=== PATIENT | female | born 1935 | race Hispanic/Latino ===

== ENCOUNTER 2017-09-01 11:11 | Emergency (ER) | payer MEDICARE ==
[2017-09-01 11:52] VITALS: BP 114/96
[2017-09-01 12:39] LABS: Alanine Aminotransferase 10 units/L (7-56); Albumin 3.7 g/dL (3.9-5); BUN/Creatinine Ratio 32; Blood Urea Nitrogen 16 mg/dL (7-17); Calcium 8.9 mg/dL (8.4-10.2); Hemolysis Index 9; Lipase 40 units/L (13-60)
[2017-09-01 12:40] LABS: Basophils % (Auto) 0.2 % (0.0-1.8); Eosinophils # (Auto) 0.1 K/mm3 (0.0-0.4); Eosinophils % (Auto) 0.8 % (0.0-4.3); Hemoglobin 11.7 gm/dl (10.1-14.3); Lymphocytes # (Auto) 1.1 K/mm3 (1.2-5.4); Lymphocytes % (Auto) 15.5 % (13.4-35.0); Mean Corpuscular HGB Conc 32 % (30-34); Mean Corpuscular Hemoglobin 29 pg (28-32); Mean Corpuscular Volume 90 fl (79-97); Monocytes # (Auto) 0.5 K/mm3 (0.0-0.8); Monocytes % (Auto) 7.1 % (0.0-7.3); Platelet Count 225 K/mm3 (140-440); Red Blood Count 4.09 M/mm3 (3.65-5.03); Red Cell Distribution Width 14.3 % (13.2-15.2)
--- NOTE | 2017-09-01 13:03 | Emergency Department Report ---
ED General Adult HPI - General Chief complaint: Abdominal Pain Stated complaint: UPPER ABDOMINAL PAIN Time Seen by Provider: 09/01/17 11:49 Source: EMS Mode of arrival: Stretcher Limitations: No Limitations - History of Present Illness Initial comments: The patient is an 82-year-old female no significant past medical history who presents with left upper quadrant abdominal pain that's been going on for the last hour. Patient states that the pain is a 6 out of 10 the pain radiates to her left shoulder she states that she was resting when the pain occurred. Nothing makes the pain better or worse patient denies having any nausea or vomiting she also denies having any chest pain. Patient denies taking any medications prior to the pain and she has not taken any [id number] medications. Severity scale (0 -10): 0 - Related Data Previous Rx's Medication Instructions Recorded Last Taken Type Tramadol HCl [traMADol] 50 mg PO Q6HR PRN #20 tablet 08/28/14 Unknown Rx Docusate Sodium [Colace] 100 mg PO BID #20 capsule 09/01/17 Unknown Rx Promethazine [Phenergan TAB] 25 mg PO Q6HR PRN #20 tab 09/01/17 Unknown Rx Allergies Allergy/AdvReac Type Severity Reaction Status Date / Time bee pollen Allergy Anaphylaxis Verified 08/28/14 10:51 shellfish derived Allergy Swelling Verified 08/28/14 10:51 adhesive AdvReac BREAK Verified 08/28/14 10:51 OUT/PULLS SKIN OFF aspirin AdvReac "HEART Verified 08/28/14 10:51 SKIPS" ED Review of Systems ROS: Stated complaint: UPPER ABDOMINAL PAIN Other details as noted in HPI Constitutional: denies: chills, fever Eyes: denies: eye pain, eye discharge, vision change ENT: denies: ear pain, throat pain Respiratory: denies: cough, shortness of breath, wheezing Cardiovascular: denies: chest pain, palpitations Endocrine: no symptoms reported Gastrointestinal: abdominal pain. denies: nausea, diarrhea Genitourinary: denies: urgency, dysuria, discharge Musculoskeletal: denies: back pain, joint swelling, arthralgia Skin: denies: rash, lesions Neurological: denies: headache, weakness, paresthesias Psychiatric: denies: anxiety, depression Hematological/Lymphatic: denies: easy bleeding, easy bruising ED Past Medical Hx - Past Medical History Hx Hypertension: Yes Hx CVA: Yes Hx Heart Attack/AMI: Yes Hx Congestive Heart Failure: Yes Hx Diabetes: Yes Hx GERD: Yes Hx Renal Disease: Yes Hx Arthritis: Yes Additional medical history: CAD - Surgical History Hx Coronary Stent: Yes Additional Surgical History: COLON SURGERY. TONSILLECTOMY - Social History Smoking Status: Never Smoker Substance Use Type: None - Medications Home Medications: Home Medications Medication Instructions Recorded Confirmed Last Taken Type Tramadol HCl [traMADol] 50 mg PO Q6HR PRN #20 tablet 08/28/14 Unknown Rx Docusate Sodium [Colace] 100 mg PO BID #20 capsule 09/01/17 Unknown Rx Promethazine [Phenergan TAB] 25 mg PO Q6HR PRN #20 tab 09/01/17 Unknown Rx ED Physical Exam - General Limitations: No Limitations General appearance: alert, in no apparent distress - Head Head exam: Present: atraumatic, normocephalic - Eye Eye exam: Present: normal appearance - ENT ENT exam: Present: mucous membranes moist - Neck Neck exam: Present: normal inspection - Respiratory Respiratory exam: Present: normal lung sounds bilaterally. Absent: respiratory distress - Cardiovascular Cardiovascular Exam: Present: regular rate, normal rhythm. Absent: systolic murmur, diastolic murmur, rubs, gallop - GI/Abdominal GI/Abdominal exam: Present: soft, normal bowel sounds - Extremities Exam Extremities exam: Present: normal inspection - Back Exam Back exam: Present: normal inspection - Neurological Exam Neurological exam: Present: alert, oriented X3 - Psychiatric Psychiatric exam: Present: normal affect, normal mood - Skin Skin exam: Present: warm, dry, intact, normal color. Absent: rash ED Course Vital Signs 09/01/17 09/01/17 11:48 12:39 Temperature 98.5 F Pulse Rate 88 Respiratory 18 Rate Blood Pressure 114/96 [Left] O2 Sat by Pulse 96 99 Oximetry ED Medical Decision Making - Lab Data Result diagrams: 09/01/17 12:12 09/01/17 12:08 Lab Results 09/01/17 09/01/17 09/01/17 Range/Units 12:08 12:12 12:12 WBC 7.1 (4.5-11.0) K/mm3 RBC 4.09 (3.65-5.03) M/mm3 Hgb 11.7 (10.1-14.3) gm/dl Hct 37.0 (30.3-42.9) % MCV 90 (79-97) fl MCH 29 (28-32) pg MCHC 32 (30-34) % RDW 14.3 (13.2-15.2) % Plt Count 225 (140-440) K/mm3 Lymph % (Auto) 15.5 (13.4-35.0) % [place] % (Auto) 7.1 (0.0-7.3) % Eos % (Auto) 0.8 (0.0-4.3) % Baso % (Auto) 0.2 (0.0-1.8) % Lymph # 1.1 L (1.2-5.4) K/mm3 [place] # 0.5 (0.0-0.8) K/mm3 Eos # 0.1 (0.0-0.4) K/mm3 Baso # 0.0 (0.0-0.1) K/mm3 Seg Neutrophils % 76.4 H (40.0-70.0) % Seg Neutrophils # 5.4 (1.8-7.7) K/mm3 Sodium 142 (137-145) mmol/L Potassium 4.6 (3.6-5.0) mmol/L Chloride 102.0 (98-107) mmol/L Carbon Dioxide 29 (22-30) mmol/L Anion Gap 16 mmol/L BUN 16 (7-17) mg/dL Creatinine 0.5 L (0.7-1.2) mg/dL Estimated GFR > 60 ml/min BUN/Creatinine Ratio 32 % Glucose 100 (65-100) mg/dL POC Glucose (70-105) Calcium 8.9 (8.4-10.2) mg/dL Total Bilirubin 0.50 (0.1-1.2) mg/dL AST 15 (5-40) units/L ALT 10 (7-56) units/L Alkaline Phosphatase 46 (35-129) units/L Troponin T < 0.010 (0.00-0.029) ng/mL Total Protein 6.6 (6.3-8.2) g/dL Albumin 3.7 L (3.9-5) g/dL Albumin/Globulin Ratio 1.3 % Lipase 40 (13-60) units/L 09/01/17 Range/Units 14:51 WBC (4.5-11.0) K/mm3 RBC (3.65-5.03) M/mm3 Hgb (10.1-14.3) gm/dl Hct (30.3-42.9) % MCV (79-97) fl MCH (28-32) pg MCHC (30-34) % RDW (13.2-15.2) % Plt Count (140-440) K/mm3 Lymph % (Auto) (13.4-35.0) % [place] % (Auto) (0.0-7.3) % Eos % (Auto) (0.0-4.3) % Baso % (Auto) (0.0-1.8) % Lymph # (1.2-5.4) K/mm3 [place] # (0.0-0.8) K/mm3 Eos # (0.0-0.4) K/mm3 Baso # (0.0-0.1) K/mm3 Seg Neutrophils % (40.0-70.0) % Seg Neutrophils # (1.8-7.7) K/mm3 Sodium (137-145) mmol/L Potassium (3.6-5.0) mmol/L Chloride (98-107) mmol/L Carbon Dioxide (22-30) mmol/L Anion Gap mmol/L BUN (7-17) mg/dL Creatinine (0.7-1.2) mg/dL Estimated GFR ml/min BUN/Creatinine Ratio % Glucose (65-100) mg/dL POC Glucose 79 (70-105) Calcium (8.4-10.2) mg/dL Total Bilirubin (0.1-1.2) mg/dL AST (5-40) units/L ALT (7-56) units/L Alkaline Phosphatase (35-129) units/L Troponin T (0.00-0.029) ng/mL Total Protein (6.3-8.2) g/dL Albumin (3.9-5) g/dL Albumin/Globulin Ratio % Lipase (13-60) units/L - EKG Data -: EKG Interpreted by Co - EKG Data 09/01/17 15:41 EKG shows normal sinus rhythm no ST segment elevation or T-wave inversion normal access patient also has incomplete right bundle branch block. - Radiology Data Radiology results: report reviewed, image reviewed CT abdomen: Shows 17 mm nodule in right lower lobe recommend follow-up CT chest. Patient also has diverticulosis and moderate constipation. - Medical Decision Making Chief medical diagnosis: Constipation Differential medical diagnosis: Pancreatitis, gastritis, cholelithiasis, adhesions I'll give patient IV pain medication I'll get CBC, BMP and I will get CT scan of abdomen Patient is feeling better also send patient home With follow-up and oral pain medications to take. Discussed outpatient patient agrees with plan additional verbal discharge instructions were given. Critical care attestation.: If time is entered above; I have spent that time in minutes in the direct care of this critically ill patient, excluding procedure time. ED Disposition Clinical Impression: Lung nodule < 6cm on CT Abdominal pain Qualifiers: Abdominal location: left upper quadrant Qualified Code(s): R10.12 - Left upper quadrant pain Constipation Qualifiers: Constipation type: unspecified constipation type Qualified Code(s): K59.00 - Constipation, unspecified Disposition: DC-01 TO HOME OR SELFCARE Is pt being admited?: No Does the pt Need Aspirin: No Condition: Stable Instructions: Abdominal Pain (ED), Pulmonary Nodules (ED) Prescriptions: Docusate Sodium [Colace] 100 mg PO BID #20 capsule Promethazine [Phenergan TAB] 25 mg PO Q6HR PRN #20 tab PRN Reason: Pain Referrals: SURY SANABRIA MD [Staff Physician] - 3-5 Days
--- NOTE | 2017-09-01 14:32 | Cat Scan Report ---
FINAL REPORT EXAM: CT ABDOMEN PELVIS W CON HISTORY: abdominal pain TECHNIQUE: CT examination of the ABDOMEN after IV contrast CT examination of the PELVIS after IV contrast PRIORS: None. FINDINGS: Degenerative change in the regional skeleton. Rotatory lumbar curvature with upper right and lower left apices. Multilevel vertebral hemangiomas in thoracolumbar spine. Partly imaged nodule or consolidation in right lower lobe posteriorly measuring 17 mm. Margins are irregular. Recommend followup chest CT. Linear scar versus atelectasis in both lung bases. Smoothly marginated hypodense right hepatic lobe lesions, and multiple small hypodense lesions in the spleen, are nonspecific and may reflect cysts and/or hemangiomas. Calcified granulomas in the spleen. Normal-appearing gallbladder, adrenals, pancreas. Intact normal caliber abdominal aorta with moderate calcified atherosclerotic plaque. Normal caliber IVC. Very small hypodense right renal lesions most compatible with cysts, less than 10 mm. Otherwise normal-appearing kidneys and visible ureteral segments. Very small fat containing umbilical hernia. No retroperitoneal adenopathy. No mesenteric mass. Normal-appearing stomach and duodenum. No small bowel distention in the abdomen and pelvis. No pelvic free fluid. Normal-appearing urinary bladder and rectum. No adnexal abnormality. No gross ascites, free air, or colonic distention. No abnormality in the cecum and terminal ileum. Normal-appearing retrocecal appendix. Scattered prominence of stool may reflect mild to moderate constipation. Calcified nodule in left uterus most compatible with fibroid. Moderate sigmoid diverticulosis without CT evidence of acute inflammation. IMPRESSION: Nodule versus consolidation in right lower lobe posteriorly measuring 17 mm. Recommend followup chest CT to fully evaluate both lungs Nonspecific hypodense lesions in the liver and spleen may reflect cysts and/or hemangiomas. Multiple vertebral hemangiomas. Scattered prominence of stool may reflect mild to moderate constipation from cecum to sigmoid Moderate sigmoid diverticulosis without CT evidence of acute inflammation Calcified uterine nodule most compatible with fibroid
[2017-09-01] MEDS ORDERED: SUBLIMAZE IV ONE ×2 (15:20→16:00)
== END 2017-09-01 17:30 | disposition home or self-care (01) ==
LOC: ED 11:11
DX: R91.1 Solitary pulmonary nodule (principal); K59.00 Constipation, unspecified; I11.0 Hypertensive heart disease with heart failure; I25.2 Old myocardial infarction; I50.9 Heart failure, unspecified; E11.9 Type 2 diabetes mellitus without complications; K21.9 Gastro-esophageal reflux disease without esophagitis; M19.90 Unspecified osteoarthritis, unspecified site; I25.10 Atherosclerotic heart disease of native coronary artery without angina pectoris; Z91.030 Bee allergy status; Z91.013 Allergy to seafood; Z91.048 Other nonmedicinal substance allergy status; Z88.6 Allergy status to analgesic agent
CPT/HCPCS: 36415; 74177; 80053; 82962; 83690; 84484; 85025; 93005; 93010; 99284; Q9967

== ENCOUNTER 2018-09-24 13:39 | Inpatient (IN) | payer MEDICARE ==
[2018-09-24] MEDS ORDERED: NACL 0.9% 1000 ML IV ONE (14:41)
--- NOTE | 2018-09-24 14:44 | Emergency Department Report ---
ED General Adult HPI - General Chief complaint: Altered Mental Status Stated complaint: ALTERED MENTAL STATUS Time Seen by Provider: 09/24/18 14:35 Source: patient, EMS (ems notes not available at time of chart dictation), RN notes reviewed, old records reviewed Mode of arrival: Stretcher Limitations: Other (confused and delirious) - History of Present Illness Initial comments: This is an 83-year-old female. The patient is not known to this provider previously. We do not know who her primary care doctor is, or what her chronic medical conditions are. The patient has no complaints at this time. She is sent to the emergency room with EMS, for evaluation of weakness, fever, and altered mental status. Patient febrile to 101 axillary, and tachycardic to 116 bpm. Last known well time is not known. Family, friends unavailable for collateral i nformation or history. The patient endorses no complaints at this time, and is not able to describe exacerbating or relieving factors, aggravation, call to the nature of her symptoms, radiation. Patient started empirically on the sepsis pathway. -: unknown Severity scale (0 -10): 0 Quality: other Consistency: other Improves with: other Worsens with: other Associated Symptoms: other - Related Data Previous Rx's Medication Instructions Recorded Last Taken Type Tramadol HCl [traMADol] 50 mg PO Q6HR PRN #20 tablet 08/28/14 Unknown Rx Docusate Sodium [Colace] 100 mg PO BID #20 capsule 09/01/17 Unknown Rx Promethazine [Phenergan TAB] 25 mg PO Q6HR PRN #20 tab 09/01/17 Unknown Rx Allergies Allergy/AdvReac Type Severity Reaction Status Date / Time bee pollen Allergy Anaphylaxis Verified 08/28/14 10:51 shellfish derived Allergy Swelling Verified 08/28/14 10:51 adhesive AdvReac BREAK Verified 08/28/14 10:51 OUT/PULLS SKIN OFF aspirin AdvReac "HEART Verified 08/28/14 10:51 SKIPS" ED Review of Systems ROS: Stated complaint: ALTERED MENTAL STATUS Other details as noted in HPI Comment: Unobtainable due to pts medical conditions Cardiovascular: denies: chest pain (patient denies chest pain) Gastrointestinal: denies: abdominal pain (denies abdominal pain) Musculoskeletal: denies: back pain (denies back pain) Neurological: confusion ED Past Medical Hx - Past Medical History Hx Hypertension: Yes Hx CVA: Yes Hx Heart Attack/AMI: Yes Hx Congestive Heart Failure: Yes Hx Diabetes: Yes Hx GERD: Yes Hx Renal Disease: Yes Hx Arthritis: Yes Additional medical history: CAD - Surgical History Hx Coronary Stent: Yes Additional Surgical History: COLON SURGERY. TONSILLECTOMY - Social History Smoking Status: Unknown if ever smoked Substance Use Type: None - Medications Home Medications: Home Medications Medication Instructions Recorded Confirmed Last Taken Type Tramadol HCl [traMADol] 50 mg PO Q6HR PRN #20 tablet 08/28/14 Unknown Rx Docusate Sodium [Colace] 100 mg PO BID #20 capsule 09/01/17 Unknown Rx Promethazine [Phenergan TAB] 25 mg PO Q6HR PRN #20 tab 09/01/17 Unknown Rx ED Physical Exam - General Limitations: Altered Mental Status, Other (delirium, altered mental status, confusion) General appearance: anxious - Head Head exam: Present: atraumatic, normocephalic - Eye Eye exam: Present: normal appearance, EOMI - ENT ENT exam: Present: mucous membranes dry, normal external ear exam - Neck Neck exam: Present: normal inspection, full ROM. Absent: tenderness, meningismus - Respiratory Respiratory exam: Present: decreased breath sounds. Absent: wheezes, rales, rhonchi, stridor - Cardiovascular Cardiovascular Exam: Present: normal rhythm, tachycardia, normal heart sounds. Absent: systolic murmur, diastolic murmur, rubs, gallop - GI/Abdominal GI/Abdominal exam: Present: soft. Absent: distended, tenderness, guarding, rebound, rigid, pulsatile mass - Extremities Exam Extremities exam: Present: normal inspection (2+ pulses noted in the bilateral upper, lower extremities. Compartments soft. No long bony tenderness. The pelvis is stable.), pedal edema, other (patient moving the right upper extremity. Not moving the left upper extremity or left lower or right lower extremity) - Back Exam Back exam: Present: normal inspection. Absent: CVA tenderness (R), CVA tenderness (L), paraspinal tenderness - Neurological Exam Neurological exam: Present: altered, other (there is no facial droop. The tongue is midline. The extraocular movements are intact. Speaks in nonsensical sentences. The right upper extremity. Detailed neurologic examination not completed secondary to altered mental status patient's inability to cooperate with neurologic examination) - Psychiatric Psychiatric exam: Present: anxious - Skin Skin exam: Present: warm, dry, intact, normal color. Absent: rash ED Course Vital Signs 09/24/18 09/24/18 14:29 18:43 Temperature 101 F H 102.7 F H Pulse Rate 116 H 112 H Respiratory 16 16 Rate Blood Pressure 109/69 142/71 O2 Sat by Pulse 93 96 Oximetry - Reevaluation(s) Reevaluation #1: 09/24/18 14:47 Differential diagnosis, including not limited to: Bacteremia, viremia, pneumonia, urinary tract infection, intra-abdominal infection Assessment and plan: 83-year-old female with confusion, follows commands, fever, tachycardia, hypoxia, suspicious for acute febrile delirium. Patient will be started empirically on the sepsis pathway. Screening laboratory studies, CT scan of the brain, CT scan of the abdomen and pelvis, EKG, x-ray of the chest of been ordered. We will reassess after her data points have resulted. Currently, no family available for collateral information Reevaluation #2: 09/24/18 17:15 CT scan suggests right lower lobe pneumonia versus worsening malignancy, findings of colitis, although clinically doubt colitis given that there is no diarrhea thus far, and left-sided 5 mm ureteral stone. Clinically, leading diagnosis is infected kidney stone. Also found to be hypomagnesemic. Lactic acidosis up for his reviewed and appreciated. Discussed with urology specialist vocational education teacher, Dr. Brooke Copeland, who agrees to take the patient to the operating room for emergency evaluation. He has requested that I discuss this case with interventional radiologist vocational education teacher, Dr. Moscoso, who agrees to be available for percutaneous nephrostomy placement, if necessary. I have gone back to the patient's room, and discussed these findings with the patient's son and her granddaughter. Possibility of cancer, tumor, malignancy is also discussed, and they have verbalized understanding. Family is amenable to aggressive medical therapy at this point time. Case is presented to the hospital physician, Dr. Juan Carnes, who has accepted the patient to the medical service. ED Medical Decision Making - Lab Data Result diagrams: 09/24/18 15:04 09/24/18 15:04 Vital Signs 09/24/18 14:29 Temperature 101 F H Pulse Rate 116 H Respiratory 16 Rate Blood Pressure 109/69 O2 Sat by Pulse 93 Oximetry Vital Signs 09/24/18 09/24/18 14:29 18:43 Temperature 101 F H 102.7 F H Pulse Rate 116 H 112 H Respiratory 16 16 Rate Blood Pressure 109/69 142/71 O2 Sat by Pulse 93 96 Oximetry Lab Results 09/24/18 09/24/18 09/24/18 Range/Units 15:04 15:04 15:04 WBC 8.0 (4.5-11.0) K/mm3 RBC 4.01 (3.65-5.03) M/mm3 Hgb 12.0 (10.1-14.3) gm/dl Hct 36.5 (30.3-42.9) % MCV 91 (79-97) fl MCH 30 (28-32) pg MCHC 33 (30-34) % RDW 14.1 (13.2-15.2) % Plt Count 130 L (140-440) K/mm3 Add Manual Diff Complete Total Counted 100 Seg Neutrophils % Network Systems Analyst Seg Neuts % (Manual) 90.0 H (40.0-70.0) % Band Neutrophils % 0 % Lymphocytes % (Manual) 6.0 L (13.4-35.0) % Reactive Lymphs % (Man) 0 % Monocytes % (Manual) 4.0 (0.0-7.3) % Eosinophils % (Manual) 0 (0.0-4.3) % Basophils % (Manual) 0 (0.0-1.8) % Metamyelocytes % 0 % Myelocytes % 0 % Promyelocytes % 0 % Blast Cells % 0 % Nucleated RBC % Not Reportable Seg Neutrophils # Man 7.2 (1.8-7.7) K/mm3 Band Neutrophils # 0.0 K/mm3 Lymphocytes # (Manual) 0.5 L (1.2-5.4) K/mm3 Abs React Lymphs (Man) 0.0 K/mm3 Monocytes # (Manual) 0.3 (0.0-0.8) K/mm3 Eosinophils # (Manual) 0.0 (0.0-0.4) K/mm3 Basophils # (Manual) 0.0 (0.0-0.1) K/mm3 Metamyelocytes # 0.0 K/mm3 Myelocytes # 0.0 K/mm3 Promyelocytes # 0.0 K/mm3 Blast Cells # 0.0 K/mm3 WBC Morphology Not Reportable Hypersegmented Neuts Not Reportable Hyposegmented Neuts Not Reportable Hypogranular Neuts Not Reportable Smudge Cells Not Reportable Toxic Granulation Not Reportable Toxic Vacuolation Not Reportable Dohle Bodies Not Reportable Pelger-Huet Anomaly Not Reportable Margoth Rods Not Reportable Platelet Estimate Not Reportable Clumped Platelets Not Reportable Plt Clumps, EDTA Not Reportable Large Platelets Not Reportable Giant Platelets Not Reportable Platelet Satelliting Not Reportable Plt Morphology Comment Not Reportable RBC Morphology Normal Dimorphic RBCs Not Reportable Polychromasia Not Reportable Hypochromasia Not Reportable Poikilocytosis Not Reportable Anisocytosis Not Reportable Microcytosis Not Reportable Macrocytosis Not Reportable Spherocytes Not Reportable Pappenheimer Bodies Not Reportable Sickle Cells Not Reportable Target Cells Not Reportable Tear Drop Cells Not Reportable Ovalocytes Not Reportable Helmet Cells Not Reportable [place] Bodies Not Reportable Richardson Rings Not Reportable [place] Cells Not Reportable Bite Cells Not Reportable Crenated Cell Not Reportable Elliptocytes Not Reportable Acanthocytes (Spur) Not Reportable Rouleaux Not Reportable Hemoglobin C Crystals Not Reportable Schistocytes Not Reportable Malaria parasites Not Reportable Ulisses Bodies Not Reportable Hem Pathologist Commnt No PT 14.8 (12.2-14.9) Sec. INR 1.09 (0.87-1.13) APTT 28.3 (24.2-36.6) Sec. Sodium 140 (137-145) mmol/L Potassium 3.6 (3.6-5.0) mmol/L Chloride 101.5 (98-107) mmol/L Carbon Dioxide 23 (22-30) mmol/L Anion Gap 19 mmol/L BUN 19 H (7-17) mg/dL Creatinine 0.9 (0.7-1.2) mg/dL Estimated GFR 60 ml/min BUN/Creatinine Ratio 21 % Glucose 95 (65-100) mg/dL Lactic Acid (0.7-2.0) mmol/L Calcium 9.0 (8.4-10.2) mg/dL Magnesium (1.7-2.3) mg/dL Total Bilirubin 0.50 (0.1-1.2) mg/dL AST 30 (5-40) units/L ALT 12 (7-56) units/L Alkaline Phosphatase 42 (35-129) units/L Total Creatine Kinase (30-135) units/L Troponin T 0.029 (0.00-0.029) ng/mL Total Protein 6.1 L (6.3-8.2) g/dL Albumin 3.7 L (3.9-5) g/dL Albumin/Globulin Ratio 1.5 % Urine Color (Yellow) Urine Turbidity (Clear) Urine pH (5.0-7.0) Ur Specific [place] (1.003-1.030) Urine Protein (Negative) mg/dL Urine Glucose (UA) (Negative) mg/dL Urine Ketones (Negative) mg/dL Urine Blood (Negative) Urine Nitrite (Negative) Urine Bilirubin (Negative) Urine Urobilinogen (<2.0) mg/dL Ur Leukocyte Esterase (Negative) Urine WBC (Auto) (0.0-6.0) /HPF Urine RBC (Auto) (0.0-6.0) /HPF U Epithel Cells (Auto) (0-13.0) /HPF Urine Bacteria (Auto) (Negative) /HPF Urine Mucus /HPF Urine Yeast (Budding) /HPF Salicylates (2.8-20.0) mg/dL Acetaminophen (10.0-30.0) ug/mL 09/24/18 09/24/18 09/24/18 Range/Units 15:04 15:04 15:04 WBC (4.5-11.0) K/mm3 RBC (3.65-5.03) M/mm3 Hgb (10.1-14.3) gm/dl Hct (30.3-42.9) % MCV (79-97) fl MCH (28-32) pg MCHC (30-34) % RDW (13.2-15.2) % Plt Count (140-440) K/mm3 Add Manual Diff Total Counted Seg Neutrophils % Seg Neuts % (Manual) (40.0-70.0) % Band Neutrophils % % Lymphocytes % (Manual) (13.4-35.0) % Reactive Lymphs % (Man) % Monocytes % (Manual) (0.0-7.3) % Eosinophils % (Manual) (0.0-4.3) % Basophils % (Manual) (0.0-1.8) % Metamyelocytes % % Myelocytes % % Promyelocytes % % Blast Cells % % Nucleated RBC % Seg Neutrophils # Man (1.8-7.7) K/mm3 Band Neutrophils # K/mm3 Lymphocytes # (Manual) (1.2-5.4) K/mm3 Abs React Lymphs (Man) K/mm3 Monocytes # (Manual) (0.0-0.8) K/mm3 Eosinophils # (Manual) (0.0-0.4) K/mm3 Basophils # (Manual) (0.0-0.1) K/mm3 Metamyelocytes # K/mm3 Myelocytes # K/mm3 Promyelocytes # K/mm3 Blast Cells # K/mm3 WBC Morphology Hypersegmented Neuts Hyposegmented Neuts Hypogranular Neuts Smudge Cells Toxic Granulation Toxic Vacuolation Dohle Bodies Pelger-Huet Anomaly Margoth Rods Platelet Estimate Clumped Platelets Plt Clumps, EDTA Large Platelets Giant Platelets Platelet Satelliting Plt Morphology Comment RBC Morphology Dimorphic RBCs Polychromasia Hypochromasia Poikilocytosis Anisocytosis Microcytosis Macrocytosis Spherocytes Pappenheimer Bodies Sickle Cells Target Cells Tear Drop Cells Ovalocytes Helmet Cells [place] Bodies Richardson Rings [place] Cells Bite Cells Crenated Cell Elliptocytes Acanthocytes (Spur) Rouleaux Hemoglobin C Crystals Schistocytes Malaria parasites Ulisses Bodies Hem Pathologist Commnt PT (12.2-14.9) Sec. INR (0.87-1.13) APTT (24.2-36.6) Sec. Sodium (137-145) mmol/L Potassium (3.6-5.0) mmol/L Chloride (98-107) mmol/L Carbon Dioxide (22-30) mmol/L Anion Gap mmol/L BUN (7-17) mg/dL Creatinine (0.7-1.2) mg/dL Estimated GFR ml/min BUN/Creatinine Ratio % Glucose (65-100) mg/dL Lactic Acid 4.40 H* (0.7-2.0) mmol/L Calcium (8.4-10.2) mg/dL Magnesium 1.20 L (1.7-2.3) mg/dL Total Bilirubin (0.1-1.2) mg/dL AST (5-40) units/L ALT (7-56) units/L Alkaline Phosphatase (35-129) units/L Total Creatine Kinase 842 H (30-135) units/L Troponin T (0.00-0.029) ng/mL Total Protein (6.3-8.2) g/dL Albumin (3.9-5) g/dL Albumin/Globulin Ratio % Urine Color (Yellow) Urine Turbidity (Clear) Urine pH (5.0-7.0) Ur Specific [place] (1.003-1.030) Urine Protein (Negative) mg/dL Urine Glucose (UA) (Negative) mg/dL Urine Ketones (Negative) mg/dL Urine Blood (Negative) Urine Nitrite (Negative) Urine Bilirubin (Negative) Urine Urobilinogen (<2.0) mg/dL Ur Leukocyte Esterase (Negative) Urine WBC (Auto) (0.0-6.0) /HPF Urine RBC (Auto) (0.0-6.0) /HPF U Epithel Cells (Auto) (0-13.0) /HPF Urine Bacteria (Auto) (Negative) /HPF Urine Mucus /HPF Urine Yeast (Budding) /HPF Salicylates < 0.3 L (2.8-20.0) mg/dL Acetaminophen (10.0-30.0) ug/mL 09/24/18 09/24/18 09/24/18 Range/Units 15:04 15:09 16:00 WBC (4.5-11.0) K/mm3 RBC (3.65-5.03) M/mm3 Hgb (10.1-14.3) gm/dl Hct (30.3-42.9) % MCV (79-97) fl MCH (28-32) pg MCHC (30-34) % RDW (13.2-15.2) % Plt Count (140-440) K/mm3 Add Manual Diff Total Counted Seg Neutrophils % Seg Neuts % (Manual) (40.0-70.0) % Band Neutrophils % % Lymphocytes % (Manual) (13.4-35.0) % Reactive Lymphs % (Man) % Monocytes % (Manual) (0.0-7.3) % Eosinophils % (Manual) (0.0-4.3) % Basophils % (Manual) (0.0-1.8) % Metamyelocytes % % Myelocytes % % Promyelocytes % % Blast Cells % % Nucleated RBC % Seg Neutrophils # Man (1.8-7.7) K/mm3 Band Neutrophils # K/mm3 Lymphocytes # (Manual) (1.2-5.4) K/mm3 Abs React Lymphs (Man) K/mm3 Monocytes # (Manual) (0.0-0.8) K/mm3 Eosinophils # (Manual) (0.0-0.4) K/mm3 Basophils # (Manual) (0.0-0.1) K/mm3 Metamyelocytes # K/mm3 Myelocytes # K/mm3 Promyelocytes # K/mm3 Blast Cells # K/mm3 WBC Morphology Hypersegmented Neuts Hyposegmented Neuts Hypogranular Neuts Smudge Cells Toxic Granulation Toxic Vacuolation Dohle Bodies Pelger-Huet Anomaly Margoth Rods Platelet Estimate Clumped Platelets Plt Clumps, EDTA Large Platelets Giant Platelets Platelet Satelliting Plt Morphology Comment RBC Morphology Dimorphic RBCs Polychromasia Hypochromasia Poikilocytosis Anisocytosis Microcytosis Macrocytosis Spherocytes Pappenheimer Bodies Sickle Cells Target Cells Tear Drop Cells Ovalocytes Helmet Cells [place] Bodies Richardson Rings [place] Cells Bite Cells Crenated Cell Elliptocytes Acanthocytes (Spur) Rouleaux Hemoglobin C Crystals Schistocytes Malaria parasites Ulisses Bodies Hem Pathologist Commnt PT (12.2-14.9) Sec. INR (0.87-1.13) APTT (24.2-36.6) Sec. Sodium (137-145) mmol/L Potassium (3.6-5.0) mmol/L Chloride (98-107) mmol/L Carbon Dioxide (22-30) mmol/L Anion Gap mmol/L BUN (7-17) mg/dL Creatinine (0.7-1.2) mg/dL Estimated GFR ml/min BUN/Creatinine Ratio % Glucose (65-100) mg/dL Lactic Acid 4.40 H* (0.7-2.0) mmol/L Calcium (8.4-10.2) mg/dL Magnesium (1.7-2.3) mg/dL Total Bilirubin (0.1-1.2) mg/dL AST (5-40) units/L ALT (7-56) units/L Alkaline Phosphatase (35-129) units/L Total Creatine Kinase (30-135) units/L Troponin T (0.00-0.029) ng/mL Total Protein (6.3-8.2) g/dL Albumin (3.9-5) g/dL Albumin/Globulin Ratio % Urine Color Vane (Yellow) Urine Turbidity Slightly-cloudy (Clear) Urine pH 5.0 (5.0-7.0) Ur Specific [place] 1.017 (1.003-1.030) Urine Protein 30 mg/dl (Negative) mg/dL Urine Glucose (UA) Neg (Negative) mg/dL Urine Ketones Tr (Negative) mg/dL Urine Blood Lg (Negative) Urine Nitrite Pos (Negative) Urine Bilirubin Neg (Negative) Urine Urobilinogen < 2.0 (<2.0) mg/dL Ur Leukocyte Esterase Sm (Negative) Urine WBC (Auto) 39.0 H (0.0-6.0) /HPF Urine RBC (Auto) 35.0 (0.0-6.0) /HPF U Epithel Cells (Auto) < 1.0 (0-13.0) /HPF Urine Bacteria (Auto) 4+ (Negative) /HPF Urine Mucus 2+ /HPF Urine Yeast (Budding) 1+ /HPF Salicylates (2.8-20.0) mg/dL Acetaminophen < 5.0 L (10.0-30.0) ug/mL - EKG Data -: EKG Interpreted by Me Rate: tachycardia - EKG Data When compared to previous EKG there are: no significant change, previous EKG unavailable Interpretation: unchanged when compared t 09/24/18 15:12 Sinus tachycardia, 112 bpm, left axis deviation, motion artifact, left anterior fascicular block, QTC prolonged, incomplete right bundle-branch block, abnormal EKG, this is not consistent with ST elevation myocardial infarction. Appears to be grossly unchanged when compared to prior EKG. Comparison made to 09/01/2017. - Radiology Data Radiology results: report reviewed, image reviewed interpreted by me: X-ray of the chest shows nonspecific interstitial pattern, right middle lobe, right lower lobe atelectasis versus infiltrate versus hilar enhancement, left lower lobe obscured by the diaphragm and cardiac silhouette, calcified aorta, Date of : 1935 Sex: Female Report Date: 2018-09-24 Report Status: Finalized [facility] [address] [place] [address] Cat Scan Report Signed Patient: DARBY GUILLORY MR#: [id number] : 1935 Acct:[id number] Age/Sex: 83 / F ADM Date: 09/24/18 Loc: ED Attending Dr: Ordering Physician: AVA GARCIA MD Date of Service: 09/24/18 Procedure(s): CT abdomen pelvis wo con Accession Number(s): [id number] cc: AVA GARCIA MD PROCEDURE: CT ABDOMEN PELVIS WO CON TECHNIQUE: Routine axial cuts were acquired through the abdomen and pelvis no contrast material was administered, sagittal and coronal reconstructions are available CTDI 25 DLP 1335 HISTORY: ams delerium sepsis COMPARISONS: Comparison study 09/01/2017 FINDINGS: Evaluation is compromised by motion as well as technique there is marked artifact from the patient's arms overlying the abdomen At the posterior right base there is a pleural-based ovoid 5 cm soft tissue density which could represent rounded pneumonia or primary or secondary malignancy, given that this has significantly increased in size since the prior exam for the workup for malignancy is recommended There is pleural thickening with chronic and emphysematous changes noted at both lung bases there is no true focal consolidation with air bronchograms at either lung bases Small hiatal hernia Nondistended thick walled stomach No definite free air or free fluid on this study that lacks contrast No bowel dilatation The right hemicolon appears thickened and edematous currently could represent colitis in the right clinical setting follow-up with oral contrast would be helpful but there are no focal inflammatory changes around the colon or cecum Sigmoid diverticulosis without associated inflammatory changes Small feces bladder thickened rectum but again no bowel obstruction Small calcifications noted bilaterally lobulated kidneys given the lack of contrast cannot rule out underlying renal lesion though the configuration of the kidneys is relatively stable Image #162 demonstrates a 5 mm calcification at the left ureteral vesicle junction with dilatation of the left ureter and mild left hy dronephrosis with stranding around the left kidney Slight fullness of the right urinary tract but no definite calcification within the right ureter and no right hydronephrosis Question sludge in the gallbladder without biliary tract dilatation Inhomogeneous liver with approximately 1.3 cm cyst versus lesion in the right lobe of liver there is is increased in size since the prior study where it measured 9 mm therefore for the workup is necessary Atrophic pancreas with slight stranding around the tail the pancreas question possible pancreatitis the right clinical setting, however this most likely is related to the left kidney Grossly unremarkable spleen Fullness of both adrenal glands calcified ectatic aorta without aneurysm No retroperitoneal collection Assumed small calcified fibroid within the uterus Bladder unremarkable Osseous structures again demonstrate patchy osteopenia with small scattered sclerotic foci and cyst and assumed hemangiomas however cannot rule out underlying lesions there are diffuse degenerative changes and reverse S-shaped scoliosis of the spine Given all the above highly recommend further workup IMPRESSION: Evaluation is compromised by motion as well as technique there is marked artifact from the patient's arms overlying the abdomen At the posterior right base there is a pleural-based ovoid 5 cm soft tissue density which could represent rounded pneumonia or primary or secondary malignancy, given that this has significantly increased in size since the prior exam for the workup for malignancy is recommended Inhomogeneous liver with approximately 1.3 cm cyst versus lesion in the right lobe of liver there is is increased in size since the prior study where it measured 9 mm therefore for the workup is necessary Osseous structures again demonstrate patchy osteopenia with small scattered sclerotic foci and cyst and assumed hemangiomas however cannot rule out underlying lesions Image #162 demonstrates a 5 mm calcification at the left ureteral vesicle junction with dilatation of the left ureter and mild left hydronephrosis with stranding around the left kidney Given all the above findings for the workup with oral and IV contrast is recommended, reimaging should be performed 3 to 4 hours after the ingestion of the oral contrast This document is electronically signed by Rufus Davis MD., September 24 2018 04:40:55 PM ET Transcribed By: FAF Dictated By: RUFUS DAVIS MD Electronically Authenticated By: RUFUS DAVIS MD Signed Date/Time: 09/24/18 1643 DD/ 1615 TD/TT: 09/24/[address] scan of the brain is negative for acute disease. X-ray the chest is negative for acute disease. Critical Care Time: Yes Critical care time in (mins) excluding proc time.: 60 Critical care attestation.: If time is entered above; I have spent that time in minutes in the direct care of this critically ill patient, excluding procedure time. ED Disposition Clinical Impression: Acute delirium, Systemic inflammatory response syndrome (SIRS) Disposition: OP ADMIT IP TO THIS HOSP Is pt being admited?: Yes Condition: Fair
[2018-09-24] MEDS ORDERED: ROCEPHIN/NS 2 GM/100 ML 2 GM/100 ML BAG IV SCH (15:00)
[2018-09-24 15:22] LABS: Hematocrit 36.5 % (30.3-42.9); Mean Corpuscular HGB Conc 33 % (30-34); Mean Corpuscular Volume 91 fl (79-97); Platelet Count 130 K/mm3 (140-440); Red Blood Count 4.01 M/mm3 (3.65-5.03); Red Cell Distribution Width 14.1 % (13.2-15.2)
--- NOTE | 2018-09-24 15:22 | XRay Report ---
AP CHEST: HISTORY: Sepsis, respiratory distress Heart size and pulmonary vessels are borderline. No evidence for infiltrate, pleural effusion or pneumothorax. The bony structures are demineralized. IMPRESSION: Borderline heart size and pulmonary vessels.
[2018-09-24 15:31] LABS: INR 1.09 (0.87-1.13)
[2018-09-24 15:32] LABS: Partial Thromboplastin Time 28.3 Sec. (24.2-36.6)
[2018-09-24 15:39] LABS: Bacteria,Urine 4+ /HPF (Negative); Bilirubin,Urine NEG (Negative); Blood,Urine LG (Negative); Color,Urine Amber (Yellow); Mucus,Urine 2+ /HPF; Urobilinogen,Urine < 2.0 mg/dL (<2.0)
[2018-09-24 16:07] LABS: Albumin 3.7 g/dL (3.9-5)
--- NOTE | 2018-09-24 16:19 | Cat Scan Report ---
PROCEDURE: CT HEAD/BRAIN WO CON TECHNIQUE: Routine axial cuts were acquired through the calvarium CTDI 4 DLP 1009 HISTORY: ams delerium COMPARISONS: None FINDINGS: Study slightly limited by peripheral beam hardening artifact especially at the skull base No displaced fracture. No midline shift. No herniation. No acute bleed. Atrophy. Periventricular small vessel disease. Multiple small areas of decreased attenuation in the white matter, most likely representing old vascu lar insults; comparison to prior study or follow-up MRI may be helpful if clinically possible and if clinically warranted. No hydrocephalus. No subarachnoid hemorrhage. IMPRESSION: Age-appropriate brain without acute bleed. This document is electronically signed by Zev Kimbrough MD., September 24 2018 04:16:53 PM ET
[2018-09-24 16:26] LABS: Basophils % (Manual) 0 % (0.0-1.8); Eosinophils % (Manual) 0 % (0.0-4.3); RBC Morphology Normal; Total Cells Counted 100
[2018-09-24] MEDS ORDERED: MAGNESIUM SULFATE 2GM/50ML 2 GM/50 ML BAG IV ONE (16:41)
--- NOTE | 2018-09-24 16:43 | Cat Scan Report ---
PROCEDURE: CT ABDOMEN PELVIS WO CON TECHNIQUE: Routine axial cuts were acquired through the abdomen and pelvis no contrast material was administered, sagittal and coronal reconstructions are available CTDI 25 DLP 1335 HISTORY: ams delerium sepsis COMPARISONS: Comparison study 09/01/2017 FINDINGS: Evaluation is compromised by motion as well as technique there is marked artifact from the patient's arms overlying the abdomen At the posterior right base there is a pleural-based ovoid 5 cm soft tissue density which could repre sent rounded pneumonia or primary or secondary malignancy, given that this has significantly increase d in size since the prior exam for the workup for malignancy is recommended There is pleural thickening with chronic and emphysematous changes noted at both lung bases there is no true focal consolidation with air bronchograms at either lung bases Small hiatal hernia Nondistended thick walled stomach No definite free air or free fluid on this study that lacks contrast No bowel dilatation The right hemicolon appears thickened and edematous currently could represent colitis in the right cl inical setting follow-up with oral contrast would be helpful but there are no focal inflammatory louie ges around the colon or cecum Sigmoid diverticulosis without associated inflammatory changes Small feces bladder thickened rectum but again no bowel obstruction Small calcifications noted bilaterally lobulated kidneys given the lack of contrast cannot rule out u nderlying renal lesion though the configuration of the kidneys is relatively stable Image #162 demonstrates a 5 mm calcification at the left ureteral vesicle junction with dilatation of the left ureter and mild left hydronephrosis with stranding around the left kidney Slight fullness of the right urinary tract but no definite calcification within the right ureter and no right hydronephrosis Question sludge in the gallbladder without biliary tract dilatation Inhomogeneous liver with approximately 1.3 cm cyst versus lesion in the right lobe of liver there is is increased in size since the prior study where it measured 9 mm therefore for the workup is necessa ry Atrophic pancreas with slight stranding around the tail the pancreas question possible pancreatitis t he right clinical setting, however this most likely is related to the left kidney Grossly unremarkable spleen Fullness of both adrenal glands calcified ectatic aorta without aneurysm No retroperitoneal collection Assumed small calcified fibroid within the uterus Bladder unremarkable Osseous structures again demonstrate patchy osteopenia with small scattered sclerotic foci and cyst a nd assumed hemangiomas however cannot rule out underlying lesions there are diffuse degenerative changes and reverse S-shaped scoliosis of the spine Given all the above highly recommend further workup IMPRESSION: Evaluation is compromised by motion as well as technique there is marked artifact from the patient's arms overlying the abdomen At the posterior right base there is a pleural-based ovoid 5 cm soft tissue density which could repre sent rounded pneumonia or primary or secondary malignancy, given that this has significantly increase d in size since the prior exam for the workup for malignancy is recommended Inhomogeneous liver with approximately 1.3 cm cyst versus lesion in the right lobe of liver there is is increased in size since the prior study where it measured 9 mm therefore for the workup is necessa ry Osseous structures again demonstrate patchy osteopenia with small scattered sclerotic foci and cyst a nd assumed hemangiomas however cannot rule out underlying lesions Image #162 demonstrates a 5 mm calcification at the left ureteral vesicle junction with dilatation of the left ureter and mild left hydronephrosis with stranding around the left kidney Given all the above findings for the workup with oral and IV contrast is recommended, reimaging shoul d be performed 3 to 4 hours after the ingestion of the oral contrast This document is electronically signed by Zev Kimbrough MD., September 24 2018 04:40:55 PM ET
[2018-09-24] MEDS ORDERED: NACL 0.9% 1000 ML 1,000 ML IV ONE (17:04)
[2018-09-24] MEDS ORDERED: FLAGYL 500 MG/100 ML 500 MG/100 ML BAG IV ONE (17:17)
[2018-09-24] MEDS ORDERED: TYLENOL PR ONE (17:18)
[2018-09-24] MEDS ORDERED: DIPRIVAN 10 MG/ML IV ONE (18:03)
[2018-09-24] MEDS ORDERED: DILAUDID ONE (18:03)
[2018-09-24] MEDS ORDERED: XYLOCAINE MPF 2% ONE (18:03)
--- NOTE | 2018-09-24 18:12 | Progress Note ---
Assessment and Plan min flank pain stat j stent or perc dictated Subjective Date of service: 09/24/18 Principal diagnosis: ureteral astone Objective - Constitutional Vitals: Vital Signs - 12hr 09/24/18 14:29 Temperature 101 F H Pulse Rate 116 H Respiratory 16 Rate Blood Pressure 109/69 O2 Sat by Pulse 93 Oximetry General appearance: Present: mild distress - Neck Neck: supple - Respiratory Respiratory effort: normal Extremities: no ischemia - Gastrointestinal General gastrointestinal: Present: non-tender, tender - Labs CBC & Chem 7: 09/24/18 15:04 09/24/18 15:04 Labs: Abnormal lab results 09/24/18 09/24/18 09/24/18 Range/Units 15:04 15:04 15:04 Plt Count 130 L (140-440) K/mm3 Seg Neuts % (Manual) 90.0 H (40.0-70.0) % Lymphocytes % (Manual) 6.0 L (13.4-35.0) % Lymphocytes # (Manual) 0.5 L (1.2-5.4) K/mm3 BUN 19 H (7-17) mg/dL Lactic Acid 4.40 H* (0.7-2.0) mmol/L Magnesium (1.7-2.3) mg/dL Total Creatine Kinase (30-135) units/L Total Protein 6.1 L (6.3-8.2) g/dL Albumin 3.7 L (3.9-5) g/dL Urine WBC (Auto) (0.0-6.0) /HPF Salicylates (2.8-20.0) mg/dL Acetaminophen (10.0-30.0) ug/mL 09/24/18 09/24/18 09/24/18 Range/Units 15:04 15:04 15:04 Plt Count (140-440) K/mm3 Seg Neuts % (Manual) (40.0-70.0) % Lymphocytes % (Manual) (13.4-35.0) % Lymphocytes # (Manual) (1.2-5.4) K/mm3 BUN (7-17) mg/dL Lactic Acid (0.7-2.0) mmol/L Magnesium 1.20 L (1.7-2.3) mg/dL Total Creatine Kinase 842 H (30-135) units/L Total Protein (6.3-8.2) g/dL Albumin (3.9-5) g/dL Urine WBC (Auto) (0.0-6.0) /HPF Salicylates < 0.3 L (2.8-20.0) mg/dL Acetaminophen < 5.0 L (10.0-30.0) ug/mL 09/24/18 09/24/18 Range/Units 15:09 16:00 Plt Count (140-440) K/mm3 Seg Neuts % (Manual) (40.0-70.0) % Lymphocytes % (Manual) (13.4-35.0) % Lymphocytes # (Manual) (1.2-5.4) K/mm3 BUN (7-17) mg/dL Lactic Acid 4.40 H* (0.7-2.0) mmol/L Magnesium (1.7-2.3) mg/dL Total Creatine Kinase (30-135) units/L Total Protein (6.3-8.2) g/dL Albumin (3.9-5) g/dL Urine WBC (Auto) 39.0 H (0.0-6.0) /HPF Salicylates (2.8-20.0) mg/dL Acetaminophen (10.0-30.0) ug/mL Medications & Allergies - Medications Allergies/Adverse Reactions: Allergies bee pollen Allergy (Verified 08/28/14 10:51) Anaphylaxis shellfish derived Allergy (Verified 08/28/14 10:51) Swelling adhesive Adverse Reaction (Verified 08/28/14 10:51) BREAK OUT/PULLS SKIN OFF aspirin Adverse Reaction (Verified 08/28/14 10:51) "HEART SKIPS" Home Medications: Home Medications Medication Instructions Recorded Confirmed Last Taken Type Tramadol HCl [traMADol] 50 mg PO Q6HR PRN #20 tablet 08/28/14 Unknown Rx Docusate Sodium [Colace] 100 mg PO BID #20 capsule 09/01/17 Unknown Rx Promethazine [Phenergan TAB] 25 mg PO Q6HR PRN #20 tab 09/01/17 Unknown Rx Active Medications: Generic Name Dose Route Start Last Admin Trade Name Freq PRN Reason Stop Dose Admin Ceftriaxone Sodium 2 gm in 100 mls @ 200 mls/hr 09/24/18 15:00 Rocephin/Ns 2 Gm/100 Ml IV NOW ARON Protocol
--- NOTE | 2018-09-24 18:13 | Anesthesia Consultation ---
Anesthesia Consult and Med Hx Date of service: 09/24/18 - Airway Anesthetic Teeth Evaluation: Dentures ROM Head & Neck: Adequate Mental/Hyoid Distance: Adequate Mallampati Class: Class II Intubation Access Assessment: Good - Pulmonary Exam CTA: Yes - Cardiac Exam Cardiac Exam: RRR - Pre-Operative Health Status ASA Pre-Surgery Classification: ASA3, Emergency Proposed Anesthetic Plan: MAC - Cardiovascular System Hx Hypertension: Yes Hx Heart Attack/AMI: Yes - Endocrine Hx Renal Disease: Yes
[2018-09-24] MEDS ORDERED: XYLOCAINE 2% UROJET ONE (18:14)
[2018-09-24] MEDS ORDERED: XYLOCAINE 2% UROJET UR ONE (18:26)
[2018-09-24] MEDS ORDERED: DILAUDID IV PRN ×2 (18:33→22:41)
[2018-09-24] MEDS ORDERED: SUBLIMAZE IV PRN (18:33)
--- NOTE | 2018-09-24 18:38 | Post Operative Note ---
Date of procedure: 09/24/18 Pre-op diagnosis: left ureteral stone Post-op diagnosis: same Findings: as above Procedure: cysto stent rpgs Anesthesia: MAC Surgeon: ALEXANDRA GOEL Estimated blood loss: none Pathology: list Specimen disposition: to lab Condition: stable Disposition: PACU (c and s)
--- NOTE | 2018-09-24 19:06 | Operative Report ---
PREOPERATIVE DIAGNOSES: Urosepsis, pneumonia and distal ureteral stone, left side. POSTOPERATIVE DIAGNOSES: Urosepsis, pneumonia and distal ureteral stone, left side. PROCEDURE: Cystoscopy, retrograde, left stent. SURGEON: Tapan Copeland MD ANESTHESIA: MAC. FINDINGS: This is a woman with a dull abdominal pain, more on the right than the left. CT scan showed a left distal stone with [id number] left hydronephrosis. Urine was infected. She was started on antibiotic resuscitated. She may have some pneumonia. She has diverticulosis. She now presents for treatment. DESCRIPTION OF PROCEDURE: The patient brought to the operating room and placed on the operating table. Following induction of mild sedation, placed in lithotomy position, prepped and draped in usual sterile fashion. Retrograde on the left showed a distal stone with a dilated ureter. A 6-Icelandic 22 coiled in the kidney and bladder. We did a right retrograde because she was having right flank pain. Other than air bubbles, the ureter was delicate distally. The patient tolerated the procedure well. Lofton was left, brought to recovery room in stable condition. We notified the ER. They notified the hospitalist orders, brought to recovery in stable condition. JOB# [id number] ALTHEA/NICOLE
--- NOTE | 2018-09-24 19:08 | Consultation ---
HISTORY OF PRESENT ILLNESS: The patient is an 83-year-old lady who presented with abdominal pain, fevers, change in mental status, lethargy. CT scan showed a distal stone with infected urine. She also had possible pneumonia and diverticulosis. I was asked to treat this lady on an emergent basis. PAST MEDICAL HISTORY: Previous stroke and heart failure. PAST SURGICAL HISTORY: Colon surgery, tonsillectomy and cardiac stent. SOCIAL HISTORY: Negative. FAMILY HISTORY: Noncontributory. REVIEW OF SYSTEMS: Really unobtainable except for a dull pain, little more on the right than left. PHYSICAL EXAMINATION: Up on exam, abdomen soft, nondistended, no localized CVA tenderness. IMPRESSION: Left distal stone, infected urine, sepsis, for cystoscopy stenting. We will go back and a second stage to get the stone out. JOB# [id number] ALTHEA/NICOLE
[2018-09-24] MEDS ORDERED: LACTATED RINGERS 1,000 ML ONE (19:46)
[2018-09-24] MEDS ORDERED: TYLENOL PO ONE (20:00)
[2018-09-24] MEDS ORDERED: TYLENOL PO PRN (22:41)
[2018-09-24] MEDS ORDERED: PERCOCET 5/325 PO PRN (22:41)
[2018-09-24] MEDS ORDERED: SODIUM CHLORIDE FLUSH SYRINGE 10 ML IV PRN (22:41)
--- NOTE | 2018-09-24 22:41 | Event Note ---
Date: 09/24/18 L ureteral stone Hydronephrosis Taken to OR for removal of renal calculus and RPG /Ureteral stent Sepsis
[2018-09-24] MEDS ORDERED: XYLOCAINE 1% MPF 5 mL INFILTRATI ONE (22:43)
[2018-09-24] MEDS: NACL 0.9% 1000 ML 1,000 ML IV SCH (23:11)
[2018-09-24] MEDS: PEPCID IV SCH (23:12)
[2018-09-25] MEDS: ZOFRAN IV PRN ×2 (03:19→11:51)
[2018-09-25 05:48] LABS: Hematocrit 35.1 % (30.3-42.9); Hemoglobin 11.4 gm/dl (10.1-14.3); Mean Corpuscular HGB Conc 32 % (30-34); Mean Corpuscular Volume 92 fl (79-97); Platelet Count 101 K/mm3 (140-440); Red Blood Count 3.81 M/mm3 (3.65-5.03); Red Cell Distribution Width 13.9 % (13.2-15.2)
[2018-09-25 06:16] LABS: Alanine Aminotransferase 24 units/L (7-56); Albumin 3.1 g/dL (3.9-5); BUN/Creatinine Ratio 37; Blood Urea Nitrogen 22 mg/dL (7-17); Calcium 7.7 mg/dL (8.4-10.2); Hemolysis Index 5
[2018-09-25 06:36] LABS: Band Neutrophils # (Manual) 5.3 K/mm3; Basophils % (Manual) 0 % (0.0-1.8); Eosinophils % (Manual) 0 % (0.0-4.3); Myelocytes # (Manual) 0.4 K/mm3; Total Cells Counted 100
[2018-09-25 06:37] LABS: Platelet Estimate Consistent w Auto
--- NOTE | 2018-09-25 07:51 | History and Physical Report ---
CHIEF COMPLAINT: Altered mental status since a.m. HISTORY OF PRESENT ILLNESS: This 83-year-old female brought in via EMS for evaluation of altered mental status, fever, and generalized weakness. Last well known time is not known. Very poor historian. Family unable to give much history. PAST MEDICAL HISTORY: Significant for cerebrovascular accident, acute MD in the past, congestive heart failure, diabetes, GERD, renal disease, coronary artery disease, and arthritis. PAST SURGICAL HISTORY: Colon surgery, tonsillectomy, coronary stents in the past. SOCIAL HISTORY: Does not smoke. No alcohol, no recreational drugs. FAMILY HISTORY: Hypertension. REVIEW OF SYSTEMS: Significant for fever, altered sensorium, and left flank pain. Otherwise, review of systems negative. PHYSICAL EXAMINATION: GENERAL: Elderly female, slightly altered sensorium. VITAL SIGNS: Temperature is 102.2, pulse is 109, respirations are 21, sats are 95%. HEENT: Unremarkable. Pupils equal and reactive. NECK: Supple, no lymphadenopathy, no thyromegaly. LUNGS: Clear to auscultation and percussion. Good air entry. CARDIOVASCULAR: S1, S2 heard. No gallop, no murmur, no rub. Apical impulse in left fifth intercostal space and midclavicular line. ABDOMEN: Soft and benign. No hepatosplenomegaly. No guarding, no rigidity. Hernial orifices are normal. EXTREMITIES: Stasis dermatitis in left lower extremity. Hyperpigmentation of the left lower leg from the ankle up to the mid tibial region. Pulses are felt. CENTRAL NERVOUS SYSTEM: Altered sensorium. DIAGNOSTIC DATA: CT shows right lower lobe pneumonia versus worsening malignancy. Colitis and 5-mm ureteral stone on the left near UV junction. Chest x-ray, borderline heart size and pulmonary vessels. Reevaluation of the CAT scan of the abdomen, there is a 5-cm soft tissue density for which a repeat CAT scan was suggested to rule out pneumonia versus malignancy. Head CT with no acute findings. ASSESSMENT AND PLAN: 1. Sepsis, possibly secondary to left kidney stone. Urology consulted for the hydronephrosis and kidney stone removal. Dr. Copeland is consented to take her to the operating room. The patient started on IV ceftriaxone. No vancomycin was started. We will check blood cultures and urine cultures. 2. Left renal calculus. The patient was taken to the OR and calculus was removed and stent was placed. UA and retrograde pyelogram were done. 3. Left pulmonary mass. We will get a repeat CT of the chest with contrast if creatinine is normal. At this point, creatinine is normal. 4. Elevated lactic acid, probably secondary to sepsis. The patient started on IV Rocephin. 5. Urinary tract infection, IV Rocephin. Check urine cultures and blood cultures. 6. Deep venous thrombosis prophylaxis, Lovenox 40 mg subcutaneous daily. In summary, the patient has sepsis secondary to left renal stone, hydronephrosis, left pulmonary lung mass 5 cm on the abdominal CAT scan. CT of the chest to be done. JOB# [id number] CARLYN/NICOLE
--- NOTE | 2018-09-25 08:16 | Fluoroscopy Report ---
FLUOROSCOPY RETROGRADE UROGRAPHY: HISTORY: Left ureteral stone. FINDINGS: Fluoroscopy was provided by radiology during retrograde urography by the urologist. 6 fluoroscopic images were captured. The right retrograde pyelogram is within normal limits. The left retrograde pyelogram demonstrated a filling defect in the distal left ureter consistent with a stone. Subsequent images demonstrate placement of a left ureteral stent with good drainage of the left collecting system on the final image. Please correlate with the procedural report if needed. IMPRESSION: Left ureteral stent placement.
[2018-09-25] MEDS ORDERED: ROCEPHIN/NS 2 GM/100 ML 2 GM/100 ML BAG IV SCH (10:00)
[2018-09-25] MEDS ORDERED: ROCEPHIN IM SCH (10:00)
[2018-09-25] MEDS: SODIUM CHLORIDE FLUSH SYRINGE 10 ML IV SCH ×2 (10:23→22:09)
[2018-09-25] MEDS: ROCEPHIN/NS 2 GM/100 ML 2 GM/100 ML BAG IV SCH (11:51)
[2018-09-25] MEDS: PEPCID IV SCH ×2 (11:52→22:06)
[2018-09-25] MEDS: NACL 0.9% 1000 ML 1,000 ML IV SCH ×2 (13:00→23:54)
--- NOTE | 2018-09-25 14:41 | Progress Note ---
Assessment and Plan Assessment and plan: --Metabolic encephalopathy; probably secondary to sepsis Mild improvement, supportive care --Left hydronephrosis s/p ureteral stent placement Continue current management --Urinary tract infection; empiric antibiotics, follow cultures IV fluids --Hypokalemia; typical range per protocol and monitor levels --Leukocytosis; secondary to sepsis, continue current antibiotics and follow cultures --Lactic acidosis; resolved, secondary to sepsis due to UTI --[id number] malnutrition/hypoalbuminemia; supportive care Nutrition supplements --DVT prophylaxis; Lovenox --Full CODE STATUS Today the patient closely and adjust management as needed Plan of care reviewed with the patient, her son at the bedside and her nurse History Interval history: Patient seen and examined medical records reviewed Patient was admitted with hydronephrosis status post Cystoscopy, retrograde pyelography, left stent placement Patient feels better, confused at times Patient's son is at the bedside No new events reported to the nursing Vital signs reviewed Hospitalist Physical - Constitutional Vitals: Temp Pulse Resp BP Pulse Ox 99 F 88 20 92/54 95 09/25/18 11:30 09/25/18 11:30 09/25/18 11:30 09/25/18 11:30 09/25/18 11:30 General appearance: Present: mild distress, well-nourished, obese - EENT Eyes: Present: PERRL, EOM intact - Neck Neck: Present: supple, normal ROM - Respiratory Respiratory effort: normal Respiratory: bilateral: diminished, negative: rales, rhonchi, wheezing - Cardiovascular Rhythm: regular Heart Sounds: Present: S1 & S2 - Extremities Extremities: no ischemia, No edema - Abdominal General gastrointestinal: soft, non-tender, non-distended, normal bowel sounds - Integumentary Integumentary: Present: clear, warm - Psychiatric Psychiatric: appropriate mood/affect, cooperative - Neurologic Neurologic: CNII-XII intact, moves all extremities Results - Labs CBC & Chem 7: 09/25/18 05:18 09/25/18 05:18 Labs: Laboratory Last Values WBC 20.3 K/mm3 (4.5-11.0) H 09/25/18 05:18 RBC 3.81 M/mm3 (3.65-5.03) 09/25/18 05:18 Hgb 11.4 gm/dl (10.1-14.3) 09/25/18 05:18 Hct 35.1 % (30.3-42.9) 09/25/18 05:18 MCV 92 fl (79-97) 09/25/18 05:18 MCH 30 pg (28-32) 09/25/18 05:18 MCHC 32 % (30-34) 09/25/18 05:18 RDW 13.9 % (13.2-15.2) 09/25/18 05:18 Plt Count 101 K/mm3 (140-440) L 09/25/18 05:18 Add Manual Diff Complete 09/25/18 05:18 Total Counted 100 09/25/18 05:18 Seg Neutrophils % Conditioner Tumbler 09/24/18 15:04 Seg Neuts % (Manual) 64.0 % (40.0-70.0) 09/25/18 05:18 Band Neutrophils % 26.0 % 09/25/18 05:18 Lymphocytes % (Manual) 2.0 % (13.4-35.0) L 09/25/18 05:18 Reactive Lymphs % (Man) 0 % 09/25/18 05:18 Monocytes % (Manual) 4.0 % (0.0-7.3) 09/25/18 05:18 Eosinophils % (Manual) 0 % (0.0-4.3) 09/25/18 05:18 Basophils % (Manual) 0 % (0.0-1.8) 09/25/18 05:18 Metamyelocytes % 2.0 % 09/25/18 05:18 Myelocytes % 2.0 % 09/25/18 05:18 Promyelocytes % 0 % 09/25/18 05:18 Blast Cells % 0 % 09/25/18 05:18 Nucleated RBC % Not Reportable 09/25/18 05:18 Seg Neutrophils # Man 13.0 K/mm3 (1.8-7.7) H 09/25/18 05:18 Band Neutrophils # 5.3 K/mm3 09/25/18 05:18 Lymphocytes # (Manual) 0.4 K/mm3 (1.2-5.4) L 09/25/18 05:18 Abs React Lymphs (Man) 0.0 K/mm3 09/25/18 05:18 Monocytes # (Manual) 0.8 K/mm3 (0.0-0.8) 09/25/18 05:18 Eosinophils # (Manual) 0.0 K/mm3 (0.0-0.4) 09/25/18 05:18 Basophils # (Manual) 0.0 K/mm3 (0.0-0.1) 09/25/18 05:18 Metamyelocytes # 0.4 K/mm3 09/25/18 05:18 Myelocytes # 0.4 K/mm3 09/25/18 05:18 Promyelocytes # 0.0 K/mm3 09/25/18 05:18 Blast Cells # 0.0 K/mm3 09/25/18 05:18 WBC Morphology Not Reportable 09/25/18 05:18 Hypersegmented Neuts Not Reportable 09/25/18 05:18 Hyposegmented Neuts Not Reportable 09/25/18 05:18 Hypogranular Neuts Not Reportable 09/25/18 05:18 Smudge Cells Not Reportable 09/25/18 05:18 Toxic Granulation Not Reportable 09/25/18 05:18 Toxic Vacuolation Not Reportable 09/25/18 05:18 Dohle Bodies Not Reportable 09/25/18 05:18 Pelger-Huet Anomaly Not Reportable 09/25/18 05:18 Margoth Rods Not Reportable 09/25/18 05:18 Platelet Estimate Consistent w auto 09/25/18 05:18 Clumped Platelets Not Reportable 09/25/18 05:18 Plt Clumps, EDTA Not Reportable 09/25/18 05:18 Large Platelets Not Reportable 09/25/18 05:18 Giant Platelets Not Reportable 09/25/18 05:18 Platelet Satelliting Not Reportable 09/25/18 05:18 Plt Morphology Comment Not Reportable 09/25/18 05:18 RBC Morphology Not Reportable 09/25/18 05:18 Dimorphic RBCs Not Reportable 09/25/18 05:18 Polychromasia Not Reportable 09/25/18 05:18 Hypochromasia Not Reportable 09/25/18 05:18 Poikilocytosis Not Reportable 09/25/18 05:18 Anisocytosis Not Reportable 09/25/18 05:18 Microcytosis Not Reportable 09/25/18 05:18 Macrocytosis Not Reportable 09/25/18 05:18 Spherocytes Not Reportable 09/25/18 05:18 Pappenheimer Bodies Not Reportable 09/25/18 05:18 Sickle Cells Not Reportable 09/25/18 05:18 Target Cells Not Reportable 09/25/18 05:18 Tear Drop Cells Not Reportable 09/25/18 05:18 Ovalocytes Not Reportable 09/25/18 05:18 Helmet Cells Not Reportable 09/25/18 05:18 [place] Bodies Not Reportable 09/25/18 05:18 Encampment Rings Not Reportable 09/25/18 05:18 Chalo Cells Not Reportable 09/25/18 05:18 Bite Cells Not Reportable 09/25/18 05:18 Crenated Cell Not Reportable 09/25/18 05:18 Elliptocytes Not Reportable 09/25/18 05:18 Acanthocytes (Spur) Not Reportable 09/25/18 05:18 Rouleaux Not Reportable 09/25/18 05:18 Hemoglobin C Crystals Not Reportable 09/25/18 05:18 Schistocytes Not Reportable 09/25/18 05:18 Malaria parasites Not Reportable 09/25/18 05:18 Ulisses Bodies Not Reportable 09/25/18 05:18 Hem Pathologist Commnt No 09/25/18 05:18 PT 14.8 Sec. (12.2-14.9) 09/24/18 15:04 INR 1.09 (0.87-1.13) 09/24/18 15:04 APTT 28.3 Sec. (24.2-36.6) 09/24/18 15:04 Sodium 141 mmol/L (137-145) 09/25/18 05:18 Potassium 3.5 mmol/L (3.6-5.0) L 09/25/18 05:18 Chloride 106.8 mmol/L (98-107) 09/25/18 05:18 Carbon Dioxide 22 mmol/L (22-30) 09/25/18 05:18 Anion Gap 16 mmol/L 09/25/18 05:18 BUN 22 mg/dL (7-17) H 09/25/18 05:18 Creatinine 0.6 mg/dL (0.7-1.2) L 09/25/18 05:18 Estimated GFR > 60 ml/min 09/25/18 05:18 BUN/Creatinine Ratio 37 % 09/25/18 05:18 Glucose 102 mg/dL (65-100) H 09/25/18 05:18 POC Glucose 88 (70-105) 09/25/18 11:19 Hemoglobin A1c 6.2 % (4-6) H 09/24/18 22:57 Lactic Acid 1.60 mmol/L (0.7-2.0) 09/24/18 22:57 Calcium 7.7 mg/dL (8.4-10.2) L 09/25/18 05:18 Magnesium 1.20 mg/dL (1.7-2.3) L 09/24/18 15:04 Total Bilirubin 0.20 mg/dL (0.1-1.2) 09/25/18 05:18 AST 82 units/L (5-40) H 09/25/18 05:18 ALT 24 units/L (7-56) 09/25/18 05:18 Alkaline Phosphatase 32 units/L (35-129) L 09/25/18 05:18 Total Creatine Kinase 842 units/L (30-135) H 09/24/18 15:04 Troponin T 0.029 ng/mL (0.00-0.029) 09/24/18 15:04 Total Protein 5.6 g/dL (6.3-8.2) L 09/25/18 05:18 Albumin 3.1 g/dL (3.9-5) L 09/25/18 05:18 Albumin/Globulin Ratio 1.2 % 09/25/18 05:18 Urine Color Vane (Yellow) 09/24/18 15:09 Urine Turbidity Slightly-cloudy (Clear) 09/24/18 15:09 Urine pH 5.0 (5.0-7.0) 09/24/18 15:09 Ur Specific [place] 1.017 (1.003-1.030) 09/24/18 15:09 Urine Protein 30 mg/dl mg/dL (Negative) 09/24/18 15:09 Urine Glucose (UA) Neg mg/dL (Negative) 09/24/18 15:09 Urine Ketones Tr mg/dL (Negative) 09/24/18 15:09 Urine Blood Lg (Negative) 09/24/18 15:09 Urine Nitrite Pos (Negative) 09/24/18 15:09 Urine Bilirubin Neg (Negative) 09/24/18 15:09 Urine Urobilinogen < 2.0 mg/dL (<2.0) 09/24/18 15:09 Ur Leukocyte Esterase Sm (Negative) 09/24/18 15:09 Urine WBC (Auto) 39.0 /HPF (0.0-6.0) H 09/24/18 15:09 Urine RBC (Auto) 35.0 /HPF (0.0-6.0) 09/24/18 15:09 U Epithel Cells (Auto) < 1.0 /HPF (0-13.0) 09/24/18 15:09 Urine Bacteria (Auto) 4+ /HPF (Negative) 09/24/18 15:09 Urine Mucus 2+ /HPF 09/24/18 15:09 Urine Yeast (Budding) 1+ /HPF 09/24/18 15:09 Salicylates < 0.3 mg/dL (2.8-20.0) L 09/24/18 15:04 Acetaminophen < 5.0 ug/mL (10.0-30.0) L 09/24/18 15:04 Active Medications - Current Medications Current Medications: Generic Name Dose Route Start Last Admin Trade Name Freq PRN Reason Stop Dose Admin Acetaminophen 650 mg 09/24/18 22:41 Tylenol PO Q4H PRN Pain MILD(1-3)/Fever >100.5/ROONEY Famotidine 20 mg 09/24/18 23:00 09/25/18 11:52 Pepcid IV 20 mg BID ARON Administration Hydromorphone HCl 0.5 mg 09/24/18 22:41 Dilaudid IV Q3H PRN Pain , Severe (7-10) Sodium Chloride 1,000 mls @ 75 mls/hr 09/24/18 23:00 09/24/18 23:11 Nacl 0.9% 1000 Ml IV 75 mls/hr DIRECT ARON Administration Ceftriaxone Sodium 2 gm in 100 mls @ 200 mls/hr 09/25/18 10:00 09/25/18 11:51 Rocephin/Ns 2 Gm/100 Ml IV 200 mls/hr Q24HR ARON Administration Ondansetron HCl 4 mg 09/24/18 22:41 09/25/18 11:51 Zofran IV 4 mg Q8H PRN Administration Nausea And Vomiting Oxycodone/Acetaminophen 1 tab 09/24/18 22:41 Percocet 5/325 PO Q6H PRN Pain, Moderate (4-6) Sodium Chloride 10 ml 09/25/18 10:00 09/25/18 10:23 Sodium Chloride Flush Syringe 10 Ml IV 10 ml BID ARON Administration Sodium Chloride 10 ml 09/24/18 22:41 Sodium Chloride Flush Syringe 10 Ml IV PRN PRN LINE FLUSH
--- NOTE | 2018-09-25 18:53 | Consultation ---
History of Present Illness Consult date: 09/25/18 Reason for consult: lung mass (Right pleural based mass.) History of present illness: PULMONARY CONSULTATION DR. TRUJILLO THANK YOU FOR ASKING US TO PARTICIPATE IN THE CARE OF THIS PATIENT. This is 83 year old female,brought to the emergency room with weakness ,fever and altered mental status.Patient found to have uretaral stone. Patient taken to the operating by Urology Dr. Diaz. Patient undergone stent placement.Patient running temparature. Patients blood cultures growing gram negative bacteria.Patient is on ceftrioxone. Tolerating good eventhough she is allergic to penicillin.Patient has history of hypertension,CVA,AL,CHF,Diabetes,GERD,arthritis. Patient denies smoking, alcohol or drug abuse. Patient allergic to BEES,Pollen,Pencillins, Shellfish, adhesive and aspirin. Patients abdominal CT reported 5cm right pleural based mass . Recommend to [facility] dedicated CAT scan of chest. Patient resting on room air. No acute respiratory distress. Past History Past Medical History: acute AL, heart failure, hypertension, stroke Medications and Allergies Allergies Allergy/AdvReac Type Severity Reaction Status Date / Time bee pollen Allergy Anaphylaxis Verified 08/28/14 10:51 Penicillins Allergy Unknown Verified 09/24/18 20:37 shellfish derived Allergy Swelling Verified 08/28/14 10:51 adhesive AdvReac BREAK Verified 08/28/14 10:51 OUT/PULLS SKIN OFF aspirin AdvReac "HEART Verified 08/28/14 10:51 SKIPS" Home Medications Medication Instructions Recorded Confirmed Last Taken Type Tramadol HCl [traMADol] 50 mg PO Q6HR PRN #20 tablet 08/28/14 09/24/18 Unknown Rx Docusate Sodium [Colace] 100 mg PO BID #20 capsule 09/01/17 09/24/18 Unknown Rx Promethazine [Phenergan TAB] 25 mg PO Q6HR PRN #20 tab 09/01/17 09/24/18 Unknown Rx Active Meds: Active Medications Acetaminophen (Tylenol) 650 mg PO Q4H PRN PRN Reason: Pain MILD(1-3)/Fever >100.5/ROONEY Famotidine (Pepcid) 20 mg IV BID ARON Last Admin: 09/25/18 11:52 Dose: 20 mg Documented by: Hydromorphone HCl (Dilaudid) 0.5 mg IV Q3H PRN PRN Reason: Pain , Severe (7-10) Sodium Chloride (Nacl 0.9% 1000 Ml) 1,000 mls @ 75 mls/hr IV DIRECT [facility] Last Admin: 09/25/18 13:00 Dose: 75 mls/hr Documented by: Ceftriaxone Sodium (Rocephin/Ns 2 Gm/100 Ml) 2 gm in 100 mls @ 200 mls/hr IV Q24HR [facility] Last Admin: 09/25/18 11:51 Dose: 200 mls/hr Documented by: Ondansetron HCl (Zofran) 4 mg IV Q8H PRN PRN Reason: Nausea And Vomiting Last Admin: 09/25/18 11:51 Dose: 4 mg Documented by: Oxycodone/Acetaminophen (Percocet 5/325) 1 tab PO Q6H PRN PRN Reason: Pain, Moderate (4-6) Sodium Chloride (Sodium Chloride Flush Syringe 10 Ml) 10 ml IV BID [facility] Last Admin: 09/25/18 10:23 Dose: 10 ml Documented by: Sodium Chloride (Sodium Chloride Flush Syringe 10 Ml) 10 ml IV PRN PRN PRN Reason: LINE FLUSH Review of Systems All systems: negative Physical Examination Vital signs: Vital Signs Temp Pulse Resp BP Pulse Ox 101 F H 116 H 16 109/69 93 09/24/18 14:29 09/24/18 14:29 09/24/18 14:29 09/24/18 14:29 09/24/18 14:29 General appearance: no acute distress, alert Eyes: non-icteric ENT: oropharynx moist Neck: supple, no JVD Ascultation: Bilateral: diminished breath sounds Cardiovascular: regular rate and rhythm Gastrointestinal: normoactive bowel sounds, tender Integumentary: normal Extremities: no cyanosis, no edema Musculoskeletal: no deformities Gait: other (Cannot assess, patient is in the bed.) normal mental status, non-focal exam, pupils equal and round depressed Results - Laboratory Findings CBC and BMP: 09/26/18 04:13 09/26/18 04:13 PT/INR, D-dimer PT 14.8 Sec. (12.2-14.9) 09/24/18 15:04 INR 1.09 (0.87-1.13) 09/24/18 15:04 Abnormal lab findings: Abnormal Labs 09/24/18 09/24/18 09/24/18 15:04 15:04 15:04 WBC Plt Count 130 L Seg Neuts % (Manual) 90.0 H Lymphocytes % (Manual) 6.0 L Seg Neutrophils # Man Lymphocytes # (Manual) 0.5 L Potassium BUN 19 H Creatinine Glucose Hemoglobin A1c Lactic Acid 4.40 H* Calcium Magnesium AST Alkaline Phosphatase Total Creatine Kinase Total Protein 6.1 L Albumin 3.7 L Urine WBC (Auto) Salicylates Acetaminophen 09/24/18 09/24/18 09/24/18 15:04 15:04 15:04 WBC Plt Count Seg Neuts % (Manual) Lymphocytes % (Manual) Seg Neutrophils # Man Lymphocytes # (Manual) Potassium BUN Creatinine Glucose Hemoglobin A1c Lactic Acid Calcium Magnesium 1.20 L AST Alkaline Phosphatase Total Creatine Kinase 842 H Total Protein Albumin Urine WBC (Auto) Salicylates < 0.3 L Acetaminophen < 5.0 L 09/24/18 09/24/18 09/24/18 15:09 16:00 19:59 WBC Plt Count Seg Neuts % (Manual) Lymphocytes % (Manual) Seg Neutrophils # Man Lymphocytes # (Manual) Potassium BUN Creatinine Glucose Hemoglobin A1c Lactic Acid 4.40 H* 2.30 H* Calcium Magnesium AST Alkaline Phosphatase Total Creatine Kinase Total Protein Albumin Urine WBC (Auto) 39.0 H Salicylates Acetaminophen 09/24/18 09/24/18 09/25/18 21:51 22:57 05:18 WBC 20.3 H Plt Count 101 L Seg Neuts % (Manual) Lymphocytes % (Manual) 2.0 L Seg Neutrophils # Man 13.0 H Lymphocytes # (Manual) 0.4 L Potassium BUN Creatinine Glucose Hemoglobin A1c 6.2 H Lactic Acid 2.40 H* Calcium Magnesium AST Alkaline Phosphatase Total Creatine Kinase Total Protein Albumin Urine WBC (Auto) Salicylates Acetaminophen 09/25/18 05:18 WBC Plt Count Seg Neuts % (Manual) Lymphocytes % (Manual) Seg Neutrophils # Man Lymphocytes # (Manual) Potassium 3.5 L BUN 22 H Creatinine 0.6 L Glucose 102 H Hemoglobin A1c Lactic Acid Calcium 7.7 L Magnesium AST 82 H Alkaline Phosphatase 32 L Total Creatine Kinase Total Protein 5.6 L Albumin 3.1 L Urine WBC (Auto) Salicylates Acetaminophen - Diagnostic Findings Chest x-ray: report reviewed (Reported borderline heart size.), image reviewed Additional studies: CAT scan Of abdomen and [place] done 09/24/18 IMPRESSION: Evaluation is compromised by motion as well as technique there is marked artifact from the patient's arms overlying the abdomen At the posterior right base there is a pleural-based ovoid 5 cm soft tissue density which could represent rounded pneumonia or primary or secondary malignancy, given that this has significantly increased in size since the prior exam for the workup for malignancy is recommended Inhomogeneous liver with approximately 1.3 cm cyst versus lesion in the right lobe of liver there is is increased in size since the prior study where it measured 9 mm therefore for the workup is necessary Osseous structures again demonstrate patchy osteopenia with small scattered sclerotic foci and cyst and assumed hemangiomas however cannot rule out underlying lesions Image #162 demonstrates a 5 mm calcification at the left ureteral vesicle junction with dilatation of the left ureter and mild left hydronephrosis with stranding around the left kidney Given all the above findings for the workup with oral and IV contrast is recommended, reimaging should be performed 3 to 4 hours after the ingestion of the oral contrast Assessment and Plan his is 83 year old female,brought to the emergency room with weakness ,fever and altered mental status.Patient found to have uretaral stone. Patient taken to the operating by Urology Dr. Diaz. Patient undergone stent placement.Patient running temparature. Patients blood cultures growing gram negative bacteria.Patient is on ceftrioxone. Tolerating good eventhough she is allergic to penicillin.Patient has history of hypertension,CVA,AL,CHF,Diab etes,GERD,arthritis. Patient denies smoking, alcohol or drug abuse. Patient allergic to BEES,Pollen,Pencillins, Shellfish, adhesive and aspirin. Patients abdominal CT reported 5cm right pleural based mass . Recommend to [facility] dedicated CAT scan of chest. Patient resting on room air. No acute respiratory distress. - Patient Problems (1) Mass of right lung Current Visit: Yes Status: Acute Plan to address problem: Recommend dedicated CAT scan of chest. (2) Ureteral stone Current Visit: Yes Status: Acute Plan to address problem: Patient has ureteral stent placement. (3) Sepsis, Gram negative Current Visit: Yes Status: Acute Plan to address problem: Patient is on ceftrioxone.
[2018-09-26 05:34] LABS: Hematocrit 29.8 % (30.3-42.9); Hemoglobin 9.9 gm/dl (10.1-14.3); Mean Corpuscular HGB Conc 33 % (30-34); Mean Corpuscular Volume 90 fl (79-97); Red Blood Count 3.31 M/mm3 (3.65-5.03); Red Cell Distribution Width 14.5 % (13.2-15.2)
[2018-09-26 05:50] LABS: Platelet Count 82 K/mm3 (140-440)
[2018-09-26 06:14] LABS: Alanine Aminotransferase 30 units/L (7-56); Albumin 2.7 g/dL (3.9-5); BUN/Creatinine Ratio 32; Blood Urea Nitrogen 16 mg/dL (7-17); Calcium 7.5 mg/dL (8.4-10.2); Hemolysis Index 0
[2018-09-26 06:51] LABS: Anisocytosis 1+; Band Neutrophils # (Manual) 8.8 K/mm3; Basophils % (Manual) 0 % (0.0-1.8); Eosinophils % (Manual) 0 % (0.0-4.3); Ovalocytes Few; Platelet Estimate Consistent w Auto; Total Cells Counted 100
[2018-09-26] MEDS ORDERED: LOVENOX SUB-Q SCH (10:00)
[2018-09-26] MEDS: PEPCID IV SCH ×2 (10:15→22:19)
[2018-09-26] MEDS: LOVENOX SUB-Q SCH (10:15)
[2018-09-26] MEDS: ROCEPHIN/NS 2 GM/100 ML 2 GM/100 ML BAG IV SCH (10:19)
--- NOTE | 2018-09-26 11:06 | Cat Scan Report ---
CT scan of chest without IV contrast: History: Lung mass. Findings: No endobronchial or mediastinal mass. No mediastinal or hilar adenopathy. Maximum transverse diameter ascending aorta 3.9 cm. Dilated pulmonary arteries probably related to pulmonary arterial hypertension. Bilateral lower lobe pleural thickening. Minimal bilateral pleural effusion. No pericardial effusion. Bibasilar atelectasis. 3 cm circumscribed mass right lobe adjacent to pleural thickening. No definite air bronchogram seen within the mass. Impression: Right lower lobe pleural-based lung mass. Neoplasm cannot be excluded. Additional findings as detailed above.
--- NOTE | 2018-09-26 15:02 | Progress Note ---
Assessment and Plan improved stefano stent doing better needs staged stone removal Subjective Date of service: 09/26/18 Principal diagnosis: ureteral astone Objective - Constitutional Vitals: Vital Signs - 12hr 09/26/18 09/26/18 09/26/18 04:17 04:23 07:42 Temperature 98.4 F 98.4 F 97.7 F Pulse Rate 84 84 146 H Respiratory 16 16 18 Rate Blood Pressure 122/63 125/78 Blood Pressure 122/63 [Left] O2 Sat by Pulse 94 94 92 Oximetry 09/26/18 11:38 Temperature 99.4 F Pulse Rate 81 Respiratory 18 Rate Blood Pressure 129/69 Blood Pressure [Left] O2 Sat by Pulse 94 Oximetry General appearance: Present: no acute distress - Neck Neck: supple - Gastrointestinal General gastrointestinal: Present: soft - Labs CBC & Chem 7: 09/26/18 04:13 09/26/18 04:13 Labs: Abnormal lab results 09/25/18 09/26/18 09/26/18 Range/Units 23:00 04:13 04:13 WBC 19.6 H (4.5-11.0) K/mm3 RBC 3.31 L (3.65-5.03) M/mm3 Hgb 9.9 L (10.1-14.3) gm/dl Hct 29.8 L (30.3-42.9) % Plt Count 82 L (140-440) K/mm3 Lymphocytes % (Manual) 1.0 L (13.4-35.0) % Seg Neutrophils # Man 10.4 H (1.8-7.7) K/mm3 Lymphocytes # (Manual) 0.2 L (1.2-5.4) K/mm3 POC ABG pO2 (80-105) Potassium 3.3 L (3.6-5.0) mmol/L Chloride 108.0 H (98-107) mmol/L Creatinine 0.5 L (0.7-1.2) mg/dL POC Glucose 117 H (70-105) Calcium 7.5 L (8.4-10.2) mg/dL Phosphorus 1.90 L (2.5-4.5) mg/dL AST 72 H (5-40) units/L Total Protein 5.0 L (6.3-8.2) g/dL Albumin 2.7 L (3.9-5) g/dL 09/26/18 Range/Units 11:36 WBC (4.5-11.0) K/mm3 RBC (3.65-5.03) M/mm3 Hgb (10.1-14.3) gm/dl Hct (30.3-42.9) % Plt Count (140-440) K/mm3 Lymphocytes % (Manual) (13.4-35.0) % Seg Neutrophils # Man (1.8-7.7) K/mm3 Lymphocytes # (Manual) (1.2-5.4) K/mm3 POC ABG pO2 64 L (80-105) Potassium (3.6-5.0) mmol/L Chloride (98-107) mmol/L Creatinine (0.7-1.2) mg/dL POC Glucose (70-105) Calcium (8.4-10.2) mg/dL Phosphorus (2.5-4.5) mg/dL AST (5-40) units/L Total Protein (6.3-8.2) g/dL Albumin (3.9-5) g/dL Medications & Allergies - Medications Allergies/Adverse Reactions: Allergies bee pollen Allergy (Verified 08/28/14 10:51) Anaphylaxis Penicillins Allergy (Verified 09/24/18 20:37) Unknown shellfish derived Allergy (Verified 08/28/14 10:51) Swelling adhesive Adverse Reaction (Verified 08/28/14 10:51) BREAK OUT/PULLS SKIN OFF aspirin Adverse Reaction (Verified 08/28/14 10:51) "HEART SKIPS" Home Medications: Home Medications Medication Instructions Recorded Confirmed Last Taken Type Tramadol HCl [traMADol] 50 mg PO Q6HR PRN #20 tablet 08/28/14 09/24/18 Unknown Rx Docusate Sodium [Colace] 100 mg PO BID #20 capsule 09/01/17 09/24/18 Unknown Rx Promethazine [Phenergan TAB] 25 mg PO Q6HR PRN #20 tab 09/01/17 09/24/18 Unknown Rx Active Medications: Generic Name Dose Route Start Last Admin Trade Name Freq PRN Reason Stop Dose Admin Acetaminophen 650 mg 09/24/18 22:41 Tylenol PO Q4H PRN Pain MILD(1-3)/Fever >100.5/ROONEY Enoxaparin Sodium 40 mg 09/26/18 10:00 09/26/18 10:15 Lovenox SUB-Q 40 mg QDAY@1000 ARON Administration Famotidine 20 mg 09/24/18 23:00 09/26/18 10:15 Pepcid IV 20 mg BID ARON Administration Hydromorphone HCl 0.5 mg 09/24/18 22:41 Dilaudid IV Q3H PRN Pain , Severe (7-10) Sodium Chloride 1,000 mls @ 75 mls/hr 09/24/18 23:00 09/25/18 23:54 Nacl 0.9% 1000 Ml IV 75 mls/hr DIRECT ARON Administration Ceftriaxone Sodium 2 gm in 100 mls @ 200 mls/hr 09/25/18 10:00 09/26/18 10:19 Rocephin/Ns 2 Gm/100 Ml IV 200 mls/hr Q24HR ARON Administration Ondansetron HCl 4 mg 09/24/18 22:41 09/25/18 11:51 Zofran IV 4 mg Q8H PRN Administration Nausea And Vomiting Oxycodone/Acetaminophen 1 tab 09/24/18 22:41 Percocet 5/325 PO Q6H PRN Pain, Moderate (4-6) Sodium Chloride 10 ml 09/25/18 10:00 09/25/18 22:09 Sodium Chloride Flush Syringe 10 Ml IV 10 ml BID ARON Administration Sodium Chloride 10 ml 09/24/18 22:41 Sodium Chloride Flush Syringe 10 Ml IV PRN PRN LINE FLUSH
[2018-09-26] MEDS ORDERED: K-DUR PO ONE ×2 (16:01→19:00)
--- NOTE | 2018-09-26 17:16 | Progress Note ---
Assessment and Plan Assessment and plan: --Lung mass on CT chest ; Right lower lobe pleural-based lung mass, neoplasm can't be excluded Pulmonary following --Metabolic encephalopathy; probably secondary to sepsis Mild improvement, supportive care --Left hydronephrosis s/p ureteral stent placement Continue current management, his [place] catheter Cleared by urology for discharge --Urinary tract infection; empiric antibiotics, follow cultures IV fluids --Hypokalemia; typical range per protocol and monitor levels --Leukocytosis; secondary to sepsis, continue current antibiotics and follow cultures --Lactic acidosis; resolved, secondary to sepsis due to UTI --[id number] malnutrition/hypoalbuminemia; supportive care Nutrition supplements --DVT prophylaxis; Lovenox --Full CODE STATUS monitor patient closely and adjust management as needed Plan of care reviewed with the patient, family members at the bedside and her nurse History Interval history: Patient seen and examined medical records reviewed Patient feels better family members at the bedside Urologist has cleared for discharge, advised DC [place] catheter Patient is also evaluated by pulmonary critical, CT chest show Hospitalist Physical - Constitutional Vitals: Temp Pulse Resp BP Pulse Ox 99.4 F 81 18 129/69 94 09/26/18 11:38 09/26/18 11:38 09/26/18 11:38 09/26/18 11:38 09/26/18 11:38 General appearance: Present: no acute distress, well-nourished, obese - EENT Eyes: Present: PERRL, EOM intact - Neck Neck: Present: supple, normal ROM - Respiratory Respiratory effort: normal Respiratory: bilateral: diminished, wheezing, negative: rales, rhonchi - Cardiovascular Rhythm: regular Heart Sounds: Present: S1 & S2 - Extremities Extremities: no ischemia, No edema - Abdominal General gastrointestinal: soft, non-tender, non-distended, normal bowel sounds - Integumentary Integumentary: Present: clear, warm - Psychiatric Psychiatric: appropriate mood/affect, cooperative, other (confused at times) - Neurologic Neurologic: CNII-XII intact, focal deficits Results - Labs CBC & Chem 7: 09/26/18 04:13 09/26/18 04:13 Labs: Laboratory Last Values WBC 19.6 K/mm3 (4.5-11.0) H 09/26/18 04:13 RBC 3.31 M/mm3 (3.65-5.03) L 09/26/18 04:13 Hgb 9.9 gm/dl (10.1-14.3) L 09/26/18 04:13 Hct 29.8 % (30.3-42.9) L 09/26/18 04:13 MCV 90 fl (79-97) 09/26/18 04:13 MCH 30 pg (28-32) 09/26/18 04:13 MCHC 33 % (30-34) 09/26/18 04:13 RDW 14.5 % (13.2-15.2) 09/26/18 04:13 Plt Count 82 K/mm3 (140-440) L 09/26/18 04:13 Add Manual Diff Complete 09/26/18 04:13 Total Counted 100 09/26/18 04:13 Seg Neutrophils % [employer]r 09/24/18 15:04 Seg Neuts % (Manual) 53.0 % (40.0-70.0) 09/26/18 04:13 Band Neutrophils % 45.0 % 09/26/18 04:13 Lymphocytes % (Manual) 1.0 % (13.4-35.0) L 09/26/18 04:13 Reactive Lymphs % (Man) 0 % 09/26/18 04:13 Monocytes % (Manual) 1.0 % (0.0-7.3) 09/26/18 04:13 Eosinophils % (Manual) 0 % (0.0-4.3) 09/26/18 04:13 Basophils % (Manual) 0 % (0.0-1.8) 09/26/18 04:13 Metamyelocytes % 0 % 09/26/18 04:13 Myelocytes % 0 % 09/26/18 04:13 Promyelocytes % 0 % 09/26/18 04:13 Blast Cells % 0 % 09/26/18 04:13 Nucleated RBC % Not Reportable 09/26/18 04:13 Seg Neutrophils # Man 10.4 K/mm3 (1.8-7.7) H 09/26/18 04:13 Band Neutrophils # 8.8 K/mm3 09/26/18 04:13 Lymphocytes # (Manual) 0.2 K/mm3 (1.2-5.4) L 09/26/18 04:13 Abs React Lymphs (Man) 0.0 K/mm3 09/26/18 04:13 Monocytes # (Manual) 0.2 K/mm3 (0.0-0.8) 09/26/18 04:13 Eosinophils # (Manual) 0.0 K/mm3 (0.0-0.4) 09/26/18 04:13 Basophils # (Manual) 0.0 K/mm3 (0.0-0.1) 09/26/18 04:13 Metamyelocytes # 0.0 K/mm3 09/26/18 04:13 Myelocytes # 0.0 K/mm3 09/26/18 04:13 Promyelocytes # 0.0 K/mm3 09/26/18 04:13 Blast Cells # 0.0 K/mm3 09/26/18 04:13 WBC Morphology Not Reportable 09/26/18 04:13 Hypersegmented Neuts Not Reportable 09/26/18 04:13 Hyposegmented Neuts Not Reportable 09/26/18 04:13 Hypogranular Neuts Not Reportable 09/26/18 04:13 Smudge Cells Not Reportable 09/26/18 04:13 Toxic Granulation Not Reportable 09/26/18 04:13 Toxic Vacuolation Not Reportable 09/26/18 04:13 Dohle Bodies Not Reportable 09/26/18 04:13 Pelger-Huet Anomaly Not Reportable 09/26/18 04:13 Margoth Rods Not Reportable 09/26/18 04:13 Platelet Estimate Consistent w auto 09/26/18 04:13 Clumped Platelets Not Reportable 09/26/18 04:13 Plt Clumps, EDTA Not Reportable 09/26/18 04:13 Large Platelets Not Reportable 09/26/18 04:13 Giant Platelets Not Reportable 09/26/18 04:13 Platelet Satelliting Not Reportable 09/26/18 04:13 Plt Morphology Comment Not Reportable 09/26/18 04:13 RBC Morphology Not Reportable 09/26/18 04:13 Dimorphic RBCs Not Reportable 09/26/18 04:13 Polychromasia Not Reportable 09/26/18 04:13 Hypochromasia Not Reportable 09/26/18 04:13 Poikilocytosis Not Reportable 09/26/18 04:13 Anisocytosis 1+ 09/26/18 04:13 Microcytosis 1+ 09/26/18 04:13 Macrocytosis Not Reportable 09/26/18 04:13 Spherocytes Not Reportable 09/26/18 04:13 Pappenheimer Bodies Not Reportable 09/26/18 04:13 Sickle Cells Not Reportable 09/26/18 04:13 Target Cells Not Reportable 09/26/18 04:13 Tear Drop Cells Not Reportable 09/26/18 04:13 Ovalocytes Few 09/26/18 04:13 Helmet Cells Not Reportable 09/26/18 04:13 [place] Bodies Not Reportable 09/26/18 04:13 [place] Rings Not Reportable 09/26/18 04:13 [place] Cells Not Reportable 09/26/18 04:13 Bite Cells Not Reportable 09/26/18 04:13 Crenated Cell Not Reportable 09/26/18 04:13 Elliptocytes Not Reportable 09/26/18 04:13 Acanthocytes (Spur) Not Reportable 09/26/18 04:13 Rouleaux Not Reportable 09/26/18 04:13 Hemoglobin C Crystals Not Reportable 09/26/18 04:13 Schistocytes Not Reportable 09/26/18 04:13 Malaria parasites Not Reportable 09/26/18 04:13 Ulisses Bodies Not Reportable 09/26/18 04:13 Hem Pathologist Commnt No 09/26/18 04:13 PT 14.8 Sec. (12.2-14.9) 09/24/18 15:04 INR 1.09 (0.87-1.13) 09/24/18 15:04 APTT 28.3 Sec. (24.2-36.6) 09/24/18 15:04 POC ABG pH 7.373 (7.35-7.45) 09/26/18 11:36 POC ABG pCO2 41.5 (35-45) 09/26/18 11:36 POC ABG pO2 64 (80-105) L 09/26/18 11:36 POC ABG HCO3 24.1 (22-26 mml/L) 09/26/18 11:36 POC ABG Total CO2 25 (23-27mmol/L) 09/26/18 11:36 POC ABG O2 Sat 91 09/26/18 11:36 POC ABG Base Excess -1 ((-2) - (+3)mmol/L) 09/26/18 11:36 FiO2 21 % 09/26/18 11:36 Sodium 142 mmol/L (137-145) 09/26/18 04:13 Potassium 3.3 mmol/L (3.6-5.0) L 09/26/18 04:13 Chloride 108.0 mmol/L (98-107) H 09/26/18 04:13 Carbon Dioxide 23 mmol/L (22-30) 09/26/18 04:13 Anion Gap 14 mmol/L 09/26/18 04:13 BUN 16 mg/dL (7-17) 09/26/18 04:13 Creatinine 0.5 mg/dL (0.7-1.2) L 09/26/18 04:13 Estimated GFR > 60 ml/min 09/26/18 04:13 BUN/Creatinine Ratio 32 % 09/26/18 04:13 Glucose 80 mg/dL (65-100) 09/26/18 04:13 POC Glucose 93 (70-105) 09/26/18 16:25 Hemoglobin A1c 6.2 % (4-6) H 09/24/18 22:57 Lactic Acid 1.60 mmol/L (0.7-2.0) 09/24/18 22:57 Calcium 7.5 mg/dL (8.4-10.2) L 09/26/18 04:13 Phosphorus 1.90 mg/dL (2.5-4.5) L 09/26/18 04:13 Magnesium 1.90 mg/dL (1.7-2.3) 09/26/18 04:13 Total Bilirubin 0.30 mg/dL (0.1-1.2) 09/26/18 04:13 AST 72 units/L (5-40) H 09/26/18 04:13 ALT 30 units/L (7-56) 09/26/18 04:13 Alkaline Phosphatase 39 units/L (35-129) 09/26/18 04:13 Total Creatine Kinase 842 units/L (30-135) H 09/24/18 15:04 Troponin T 0.029 ng/mL (0.00-0.029) 09/24/18 15:04 Total Protein 5.0 g/dL (6.3-8.2) L 09/26/18 04:13 Albumin 2.7 g/dL (3.9-5) L 09/26/18 04:13 Albumin/Globulin Ratio 1.2 % 09/26/18 04:13 Urine Color Vane (Yellow) 09/24/18 15:09 Urine Turbidity Slightly-cloudy (Clear) 09/24/18 15:09 Urine pH 5.0 (5.0-7.0) 09/24/18 15:09 Ur Specific [place] 1.017 (1.003-1.030) 09/24/18 15:09 Urine Protein 30 mg/dl mg/dL (Negative) 09/24/18 15:09 Urine Glucose (UA) Neg mg/dL (Negative) 09/24/18 15:09 Urine Ketones Tr mg/dL (Negative) 09/24/18 15:09 Urine Blood Lg (Negative) 09/24/18 15:09 Urine Nitrite Pos (Negative) 09/24/18 15:09 Urine Bilirubin Neg (Negative) 09/24/18 15:09 Urine Urobilinogen < 2.0 mg/dL (<2.0) 09/24/18 15:09 Ur Leukocyte Esterase Sm (Negative) 09/24/18 15:09 Urine WBC (Auto) 39.0 /HPF (0.0-6.0) H 09/24/18 15:09 Urine RBC (Auto) 35.0 /HPF (0.0-6.0) 09/24/18 15:09 U Epithel Cells (Auto) < 1.0 /HPF (0-13.0) 09/24/18 15:09 Urine Bacteria (Auto) 4+ /HPF (Negative) 09/24/18 15:09 Urine Mucus 2+ /HPF 09/24/18 15:09 Urine Yeast (Budding) 1+ /HPF 09/24/18 15:09 Salicylates < 0.3 mg/dL (2.8-20.0) L 09/24/18 15:04 Acetaminophen < 5.0 ug/mL (10.0-30.0) L 09/24/18 15:04 Active Medications - Current Medications Current Medications: Generic Name Dose Route Start Last Admin Trade Name Freq PRN Reason Stop Dose Admin Acetaminophen 650 mg 09/24/18 22:41 Tylenol PO Q4H PRN Pain MILD(1-3)/Fever >100.5/ROONEY Enoxaparin Sodium 40 mg 09/26/18 10:00 09/26/18 10:15 Lovenox SUB-Q 40 mg QDAY@1000 ARON Administration Famotidine 20 mg 09/24/18 23:00 09/26/18 10:15 Pepcid IV 20 mg BID ARON Administration Hydromorphone HCl 0.5 mg 09/24/18 22:41 Dilaudid IV Q3H PRN Pain , Severe (7-10) Sodium Chloride 1,000 mls @ 75 mls/hr 09/24/18 23:00 09/25/18 23:54 Nacl 0.9% 1000 Ml IV 75 mls/hr DIRECT ARON Administration Ceftriaxone Sodium 2 gm in 100 mls @ 200 mls/hr 09/25/18 10:00 09/26/18 10:19 Rocephin/Ns 2 Gm/100 Ml IV 200 mls/hr Q24HR ARON Administration Ondansetron HCl 4 mg 09/24/18 22:41 09/25/18 11:51 Zofran IV 4 mg Q8H PRN Administration Nausea And Vomiting Oxycodone/Acetaminophen 1 tab 09/24/18 22:41 Percocet 5/325 PO Q6H PRN Pain, Moderate (4-6) Sodium Chloride 10 ml 09/25/18 10:00 09/25/18 22:09 Sodium Chloride Flush Syringe 10 Ml IV 10 ml BID ARON Administration Sodium Chloride 10 ml 09/24/18 22:41 Sodium Chloride Flush Syringe 10 Ml IV PRN PRN LINE FLUSH
--- NOTE | 2018-09-26 18:42 | Progress Note ---
Assessment and Plan This is 83 year old female,brought to the emergency room with weakness ,fever and altered mental status.Patient found to have uretaral stone. Patient taken to the operating by Urology Dr. Diaz. Patient undergone stent placement.Patie nt running temparature. Patients blood cultures growing gram negative bacteria.Patient is on ceftrioxone. Tolerating good eventhough she is allergic to penicillin.Patient has history of hypertension,[place],CHF,Diabetes,GERD,arthritis. Patient denies smoking, alcohol or drug abuse. Patient allergic to BEES,Pollen,Pencillins, Shellfish, adhesive and aspirin. Patients abdominal CT reported 5cm right pleural based mass . Recommend to [facility] dedicated CAT scan of chest. Patient resting on room air. No acute respiratory distress. 09/26/18 Patient awake. Still confused. Not using o2 as ordered.O2 saturation 90%. No acute respiratory distress. Patients CAT scan reported right lower lobe pleural based mass. Scheduling for per cutaneous needle biopsy of chest lesion under CT guidance by interventional radiology. - Patient Problems (1) Mass of right lung Current Visit: Yes Status: Acute Plan to address problem: Patients CAT scan reported right lower lobe pleural based mass. Scheduling for per cutaneous needle biopsy of chest lesion under CT guidance by interventional radiology. (2) Ureteral stone Current Visit: Yes Status: Acute Plan to address problem: Patient has ureteral stent placement. (3) Sepsis, Gram negative Current Visit: Yes Status: Acute Plan to address problem: Patient is on ceftrioxone. Subjective Date of service: 09/26/18 Principal diagnosis: ureteral astone Interval history: Patient awake. Still confused. Not using o2 as ordered.O2 saturation 90%. No acute respiratory distress. Patients CAT scan reported right lower lobe pleural based mass. Scheduling for per cutaneous needle biopsy of chest lesion under CT guidance by interventional radiology. Objective Vital Signs - 12hr 09/26/18 09/26/18 09/26/18 07:42 11:38 16:19 Temperature 97.7 F 99.4 F 98.3 F Pulse Rate 146 H 81 82 Respiratory 18 18 18 Rate Blood Pressure 125/78 129/69 135/66 O2 Sat by Pulse 92 94 89 Oximetry Constitutional: no acute distress, alert Eyes: non-icteric ENT: oropharynx moist Neck: supple, no JVD Ascultation: Bilateral: diminished breath sounds Cardiovascular: regular rate and rhythm Gastrointestinal: normoactive bowel sounds, tender Integumentary: normal Extremities: no cyanosis, no edema Neurologic: normal mental status, non-focal exam, pupils equal and round Psychiatric: depressed CBC and BMP: 09/26/18 04:13 09/26/18 04:13 ABG, PT/INR, D-dimer: ABG POC ABG pH 7.373 (7.35-7.45) 09/26/18 11:36 POC ABG pCO2 41.5 (35-45) 09/26/18 11:36 POC ABG pO2 64 (80-105) L 09/26/18 11:36 POC ABG HCO3 24.1 (22-26 mml/L) 09/26/18 11:36 POC ABG Total CO2 25 (23-27mmol/L) 09/26/18 11:36 POC ABG O2 Sat 91 09/26/18 11:36 PT/INR, D-dimer PT 14.8 Sec. (12.2-14.9) 09/24/18 15:04 INR 1.09 (0.87-1.13) 09/24/18 15:04 Abnormal lab findings: Abnormal Labs 09/24/18 09/24/18 09/24/18 15:04 15:04 15:04 WBC RBC Hgb Hct Plt Count 130 L Seg Neuts % (Manual) 90.0 H Lymphocytes % (Manual) 6.0 L Seg Neutrophils # Man Lymphocytes # (Manual) 0.5 L POC ABG pO2 Potassium Chloride BUN 19 H Creatinine Glucose POC Glucose Hemoglobin A1c Lactic Acid 4.40 H* Calcium Phosphorus Magnesium AST Alkaline Phosphatase Total Creatine Kinase Total Protein 6.1 L Albumin 3.7 L Urine WBC (Auto) Salicylates Acetaminophen 09/24/18 09/24/18 09/24/18 15:04 15:04 15:04 WBC RBC Hgb Hct Plt Count Seg Neuts % (Manual) Lymphocytes % (Manual) Seg Neutrophils # Man Lymphocytes # (Manual) POC ABG pO2 Potassium Chloride BUN Creatinine Glucose POC Glucose Hemoglobin A1c Lactic Acid Calcium Phosphorus Magnesium 1.20 L AST Alkaline Phosphatase Total Creatine Kinase 842 H Total Protein Albumin Urine WBC (Auto) Salicylates < 0.3 L Acetaminophen < 5.0 L 09/24/18 09/24/18 09/24/18 15:09 16:00 19:59 WBC RBC Hgb Hct Plt Count Seg Neuts % (Manual) Lymphocytes % (Manual) Seg Neutrophils # Man Lymphocytes # (Manual) POC ABG pO2 Potassium Chloride BUN Creatinine Glucose POC Glucose Hemoglobin A1c Lactic Acid 4.40 H* 2.30 H* Calcium Phosphorus Magnesium AST Alkaline Phosphatase Total Creatine Kinase Total Protein Albumin Urine WBC (Auto) 39.0 H Salicylates Acetaminophen 09/24/18 09/24/18 09/25/18 21:51 22:57 05:18 WBC 20.3 H RBC Hgb Hct Plt Count 101 L Seg Neuts % (Manual) Lymphocytes % (Manual) 2.0 L Seg Neutrophils # Man 13.0 H Lymphocytes # (Manual) 0.4 L POC ABG pO2 Potassium Chloride BUN Creatinine Glucose POC Glucose Hemoglobin A1c 6.2 H Lactic Acid 2.40 H* Calcium Phosphorus Magnesium AST Alkaline Phosphatase Total Creatine Kinase Total Protein Albumin Urine WBC (Auto) Salicylates Acetaminophen 09/25/18 09/25/18 09/26/18 05:18 23:00 04:13 WBC 19.6 H RBC 3.31 L Hgb 9.9 L Hct 29.8 L Plt Count 82 L Seg Neuts % (Manual) Lymphocytes % (Manual) 1.0 L Seg Neutrophils # Man 10.4 H Lymphocytes # (Manual) 0.2 L POC ABG pO2 Potassium 3.5 L Chloride BUN 22 H Creatinine 0.6 L Glucose 102 H POC Glucose 117 H Hemoglobin A1c Lactic Acid Calcium 7.7 L Phosphorus Magnesium AST 82 H Alkaline Phosphatase 32 L Total Creatine Kinase Total Protein 5.6 L Albumin 3.1 L Urine WBC (Auto) Salicylates Acetaminophen 09/26/18 09/26/18 04:13 11:36 WBC RBC Hgb Hct Plt Count Seg Neuts % (Manual) Lymphocytes % (Manual) Seg Neutrophils # Man Lymphocytes # (Manual) POC ABG pO2 64 L Potassium 3.3 L Chloride 108.0 H BUN Creatinine 0.5 L Glucose POC Glucose Hemoglobin A1c Lactic Acid Calcium 7.5 L Phosphorus 1.90 L Magnesium AST 72 H Alkaline Phosphatase Total Creatine Kinase Total Protein 5.0 L Albumin 2.7 L Urine WBC (Auto) Salicylates Acetaminophen CT scan - chest: report reviewed (Right lower lobe pleural based lung mass.), image reviewed
[2018-09-27 06:21] LABS: Hematocrit 30.4 % (30.3-42.9); Mean Corpuscular HGB Conc 33 % (30-34); Mean Corpuscular Volume 91 fl (79-97); Platelet Count 100 K/mm3 (140-440); Red Blood Count 3.35 M/mm3 (3.65-5.03)
[2018-09-27 06:44] LABS: BUN/Creatinine Ratio 20; Blood Urea Nitrogen 10 mg/dL (7-17); Calcium 7.9 mg/dL (8.4-10.2); Hemolysis Index 5
[2018-09-27] MEDS: SODIUM CHLORIDE FLUSH SYRINGE 10 ML IV SCH ×3 (07:39→21:12)
--- NOTE | 2018-09-27 10:02 | Event Note ---
Date: 09/27/18 Patient admitted for sepsis and found to have incidental pleural based mass. Recommend outpatient biopsy with diagnostic radiology once acute problems have resolved.
[2018-09-27 12:02] LABS: Band Neutrophils # (Manual) 0.7 K/mm3; Basophils % (Manual) 0 % (0.0-1.8); Monocytes % (Manual) 0 % (0.0-7.3); Total Cells Counted 100
[2018-09-27 12:03] LABS: Anisocytosis 1+; Ovalocytes Few; Platelet Estimate Cons; Poikilocytosis 1+
[2018-09-27] MEDS: ROCEPHIN/NS 2 GM/100 ML 2 GM/100 ML BAG IV SCH (12:07)
[2018-09-27] MEDS: PEPCID IV SCH (12:08)
[2018-09-27] MEDS: LOVENOX SUB-Q SCH (12:08)
[2018-09-27] MEDS ORDERED: LOPRESSOR ONE (12:46)
[2018-09-27] MEDS ORDERED: LOPRESSOR PO ONE (12:53)
[2018-09-27] MEDS ORDERED: XANAX PO PRN (12:57)
[2018-09-27] MEDS ORDERED: XANAX PO ONE (13:00)
--- NOTE | 2018-09-27 13:37 | Progress Note ---
Subjective Date of service: 09/27/18 Principal diagnosis: ureteral astone Objective Vital Signs - 12hr 09/27/18 09/27/18 09/27/18 05:12 07:30 07:55 Temperature 98.6 F 97.6 F Pulse Rate 77 81 Respiratory 20 18 Rate Blood Pressure 142/72 Blood Pressure 156/69 [Left] O2 Sat by Pulse 91 Oximetry 09/27/18 09/27/18 09/27/18 12:00 12:03 12:55 Temperature 97.9 F Pulse Rate 166 H 165 H 170 H Respiratory 18 Rate Blood Pressure 111/56 Blood Pressure 111/56 [Left] O2 Sat by Pulse 95 Oximetry Constitutional: no acute distress, alert Eyes: non-icteric ENT: oropharynx moist Neck: supple, no JVD Ascultation: Bilateral: diminished breath sounds Cardiovascular: regular rate and rhythm Gastrointestinal: normoactive bowel sounds, tender Integumentary: normal Extremities: no cyanosis, no edema Neurologic: normal mental status, non-focal exam, pupils equal and round Psychiatric: depressed CBC and BMP: 09/27/18 06:00 09/27/18 06:00 ABG, PT/INR, D-dimer: ABG POC ABG pH 7.373 (7.35-7.45) 09/26/18 11:36 POC ABG pCO2 41.5 (35-45) 09/26/18 11:36 POC ABG pO2 64 (80-105) L 09/26/18 11:36 POC ABG HCO3 24.1 (22-26 mml/L) 09/26/18 11:36 POC ABG Total CO2 25 (23-27mmol/L) 09/26/18 11:36 POC ABG O2 Sat 91 09/26/18 11:36 PT/INR, D-dimer PT 14.8 Sec. (12.2-14.9) 09/24/18 15:04 INR 1.09 (0.87-1.13) 09/24/18 15:04 Abnormal lab findings: Abnormal Labs 09/24/18 09/24/18 09/24/18 15:04 15:04 15:04 WBC RBC Hgb Hct Plt Count 130 L Seg Neuts % (Manual) 90.0 H Lymphocytes % (Manual) 6.0 L Seg Neutrophils # Man Lymphocytes # (Manual) 0.5 L POC ABG pO2 Potassium Chloride BUN 19 H Creatinine Glucose POC Glucose Hemoglobin A1c Lactic Acid 4.40 H* Calcium Phosphorus Magnesium AST Alkaline Phosphatase Total Creatine Kinase Total Protein 6.1 L Albumin 3.7 L Urine WBC (Auto) Salicylates Acetaminophen 09/24/18 09/24/18 09/24/18 15:04 15:04 15:04 WBC RBC Hgb Hct Plt Count Seg Neuts % (Manual) Lymphocytes % (Manual) Seg Neutrophils # Man Lymphocytes # (Manual) POC ABG pO2 Potassium Chloride BUN Creatinine Glucose POC Glucose Hemoglobin A1c Lactic Acid Calcium Phosphorus Magnesium 1.20 L AST Alkaline Phosphatase Total Creatine Kinase 842 H Total Protein Albumin Urine WBC (Auto) Salicylates < 0.3 L Acetaminophen < 5.0 L 09/24/18 09/24/18 09/24/18 15:09 16:00 19:59 WBC RBC Hgb Hct Plt Count Seg Neuts % (Manual) Lymphocytes % (Manual) Seg Neutrophils # Man Lymphocytes # (Manual) POC ABG pO2 Potassium Chloride BUN Creatinine Glucose POC Glucose Hemoglobin A1c Lactic Acid 4.40 H* 2.30 H* Calcium Phosphorus Magnesium AST Alkaline Phosphatase Total Creatine Kinase Total Protein Albumin Urine WBC (Auto) 39.0 H Salicylates Acetaminophen 09/24/18 09/24/18 09/25/18 21:51 22:57 05:18 WBC 20.3 H RBC Hgb Hct Plt Count 101 L Seg Neuts % (Manual) Lymphocytes % (Manual) 2.0 L Seg Neutrophils # Man 13.0 H Lymphocytes # (Manual) 0.4 L POC ABG pO2 Potassium Chloride BUN Creatinine Glucose POC Glucose Hemoglobin A1c 6.2 H Lactic Acid 2.40 H* Calcium Phosphorus Magnesium AST Alkaline Phosphatase Total Creatine Kinase Total Protein Albumin Urine WBC (Auto) Salicylates Acetaminophen 09/25/18 09/25/18 09/26/18 05:18 23:00 04:13 WBC 19.6 H RBC 3.31 L Hgb 9.9 L Hct 29.8 L Plt Count 82 L Seg Neuts % (Manual) Lymphocytes % (Manual) 1.0 L Seg Neutrophils # Man 10.4 H Lymphocytes # (Manual) 0.2 L POC ABG pO2 Potassium 3.5 L Chloride BUN 22 H Creatinine 0.6 L Glucose 102 H POC Glucose 117 H Hemoglobin A1c Lactic Acid Calcium 7.7 L Phosphorus Magnesium AST 82 H Alkaline Phosphatase 32 L Total Creatine Kinase Total Protein 5.6 L Albumin 3.1 L Urine WBC (Auto) Salicylates Acetaminophen 09/26/18 09/26/18 09/27/18 04:13 11:36 06:00 WBC 22.3 H RBC 3.35 L Hgb 10.0 L Hct Plt Count 100 L Seg Neuts % (Manual) 89.0 H Lymphocytes % (Manual) 6.0 L Seg Neutrophils # Man 19.8 H Lymphocytes # (Manual) POC ABG pO2 64 L Potassium 3.3 L Chloride 108.0 H BUN Creatinine 0.5 L Glucose POC Glucose Hemoglobin A1c Lactic Acid Calcium 7.5 L Phosphorus 1.90 L Magnesium AST 72 H Alkaline Phosphatase Total Creatine Kinase Total Protein 5.0 L Albumin 2.7 L Urine WBC (Auto) Salicylates Acetaminophen 09/27/18 09/27/18 06:00 12:04 WBC RBC Hgb Hct Plt Count Seg Neuts % (Manual) Lymphocytes % (Manual) Seg Neutrophils # Man Lymphocytes # (Manual) POC ABG pO2 Potassium 3.5 L Chloride BUN Creatinine 0.5 L Glucose 103 H POC Glucose 142 H Hemoglobin A1c Lactic Acid Calcium 7.9 L Phosphorus Magnesium AST Alkaline Phosphatase Total Creatine Kinase Total Protein Albumin Urine WBC (Auto) Salicylates Acetaminophen
[2018-09-27] MEDS: NACL 0.9% 1000 ML 1,000 ML IV SCH (15:03)
--- NOTE | 2018-09-27 16:32 | Progress Note ---
Assessment and Plan Assessment and plan: --SVT; heart rate in the 160s to 170 IV adenosine 6 mg, converted to sinus heart rate less than 100 EKG obtained, transfer the patient to telemetry,ECHO and cardiology consult --Gram-negative sepsis; Klebsiella urine and blood Secondary to UTI, continue Rocephin, IV fluids ID consultation --Left hydronephrosis s/p ureteral stent placement Continue current management, his [place] catheter Cleared by urology for discharge -- Lung mass on CT chest ; Right lower lobe pleural-based lung mass, pulmonary evaluated the patient IR consulted, rec outpatient biopsy --Metabolic encephalopathy; probably secondary to sepsis Significant improvement --Hypokalemia; typical range per protocol and monitor levels --Leukocytosis; secondary to sepsis, continue current antibiotics and follow cultures --Lactic acidosis; resolved, secondary to sepsis due to UTI --Kaud-cx-puyorery malnutrition/hypoalbuminemia; supportive care Nutrition supplements --DVT prophylaxis; Lovenox --Full CODE STATUS monitor patient closely and adjust management as needed Critical care time 35 minutes History Interval history: Code MET was called as patient had tachycardia with heart rate in 160s and 170s Patient did not have any shortness of breath/chest pain EKG revealed SVT IV adenosine 6 mg given, converted to sinus rhythm rate controlled Patient alert awake oriented Not in acute distress vital signs reviewed Hospitalist Physical - Constitutional Vitals: Temp Pulse Resp BP Pulse Ox 97.9 F 170 H 18 111/56 95 09/27/18 12:00 09/27/18 12:55 09/27/18 12:00 09/27/18 12:55 09/27/18 12:03 General appearance: Present: no acute distress, well-nourished, obese - EENT Eyes: Present: PERRL, EOM intact ENT: hearing intact, clear oral mucosa - Neck Neck: Present: supple, normal ROM - Respiratory Respiratory effort: normal Respiratory: bilateral: diminished, negative: rales, rhonchi, wheezing - Cardiovascular Rhythm: regular Heart Sounds: Present: S1 & S2 - Extremities Extremities: no ischemia, No edema - Abdominal General gastrointestinal: soft, non-tender, tender, non-distended, normal bowel sounds - Integumentary Integumentary: Present: clear, warm - Psychiatric Psychiatric: appropriate mood/affect, cooperative - Neurologic Neurologic: CNII-XII intact, moves all extremities Results - Labs CBC & Chem 7: 09/29/18 05:40 09/29/18 05:40 Labs: Laboratory Last Values WBC 22.3 K/mm3 (4.5-11.0) H 09/27/18 06:00 RBC 3.35 M/mm3 (3.65-5.03) L 09/27/18 06:00 Hgb 10.0 gm/dl (10.1-14.3) L 09/27/18 06:00 Hct 30.4 % (30.3-42.9) 09/27/18 06:00 MCV 91 fl (79-97) 09/27/18 06:00 MCH 30 pg (28-32) 09/27/18 06:00 MCHC 33 % (30-34) 09/27/18 06:00 RDW 14.0 % (13.2-15.2) 09/27/18 06:00 Plt Count 100 K/mm3 (140-440) L 09/27/18 06:00 Add Manual Diff Complete 09/27/18 06:00 Total Counted 100 09/27/18 06:00 Seg Neutrophils % Clinical Aide 09/24/18 15:04 Seg Neuts % (Manual) 89.0 % (40.0-70.0) H 09/27/18 06:00 Band Neutrophils % 3.0 % 09/27/18 06:00 Lymphocytes % (Manual) 6.0 % (13.4-35.0) L 09/27/18 06:00 Reactive Lymphs % (Man) 0 % 09/27/18 06:00 Monocytes % (Manual) 0 % (0.0-7.3) 09/27/18 06:00 Eosinophils % (Manual) 2.0 % (0.0-4.3) 09/27/18 06:00 Basophils % (Manual) 0 % (0.0-1.8) 09/27/18 06:00 Metamyelocytes % 0 % 09/27/18 06:00 Myelocytes % 0 % 09/27/18 06:00 Promyelocytes % 0 % 09/27/18 06:00 Blast Cells % 0 % 09/27/18 06:00 Nucleated RBC % Not Reportable 09/27/18 06:00 Seg Neutrophils # Man 19.8 K/mm3 (1.8-7.7) H 09/27/18 06:00 Band Neutrophils # 0.7 K/mm3 09/27/18 06:00 Lymphocytes # (Manual) 1.3 K/mm3 (1.2-5.4) 09/27/18 06:00 Abs React Lymphs (Man) 0.0 K/mm3 09/27/18 06:00 Monocytes # (Manual) 0.0 K/mm3 (0.0-0.8) 09/27/18 06:00 Eosinophils # (Manual) 0.4 K/mm3 (0.0-0.4) 09/27/18 06:00 Basophils # (Manual) 0.0 K/mm3 (0.0-0.1) 09/27/18 06:00 Metamyelocytes # 0.0 K/mm3 09/27/18 06:00 Myelocytes # 0.0 K/mm3 09/27/18 06:00 Promyelocytes # 0.0 K/mm3 09/27/18 06:00 Blast Cells # 0.0 K/mm3 09/27/18 06:00 WBC Morphology Not Reportable 09/27/18 06:00 Hypersegmented Neuts Not Reportable 09/27/18 06:00 Hyposegmented Neuts Not Reportable 09/27/18 06:00 Hypogranular Neuts Not Reportable 09/27/18 06:00 Smudge Cells Not Reportable 09/27/18 06:00 Toxic Granulation Not Reportable 09/27/18 06:00 Toxic Vacuolation Not Reportable 09/27/18 06:00 Dohle Bodies Not Reportable 09/27/18 06:00 Pelger-Huet Anomaly Not Reportable 09/27/18 06:00 Margoth Rods Not Reportable 09/27/18 06:00 Platelet Estimate Cons 09/27/18 06:00 Clumped Platelets Not Reportable 09/27/18 06:00 Plt Clumps, EDTA Not Reportable 09/27/18 06:00 Large Platelets Not Reportable 09/27/18 06:00 Giant Platelets Not Reportable 09/27/18 06:00 Platelet Satelliting Not Reportable 09/27/18 06:00 Plt Morphology Comment Not Reportable 09/27/18 06:00 RBC Morphology Not Reportable 09/27/18 06:00 Dimorphic RBCs Not Reportable 09/27/18 06:00 Polychromasia Not Reportable 09/27/18 06:00 Hypochromasia Not Reportable 09/27/18 06:00 Poikilocytosis 1+ 09/27/18 06:00 Anisocytosis 1+ 09/27/18 06:00 Microcytosis Not Reportable 09/27/18 06:00 Macrocytosis Not Reportable 09/27/18 06:00 Spherocytes Not Reportable 09/27/18 06:00 Pappenheimer Bodies Not Reportable 09/27/18 06:00 Sickle Cells Not Reportable 09/27/18 06:00 Target Cells Not Reportable 09/27/18 06:00 Tear Drop Cells Not Reportable 09/27/18 06:00 Ovalocytes Few 09/27/18 06:00 Helmet Cells Not Reportable 09/27/18 06:00 [place] Bodies Not Reportable 09/27/18 06:00 [place] Rings Not Reportable 09/27/18 06:00 [place] Cells Not Reportable 09/27/18 06:00 Bite Cells Not Reportable 09/27/18 06:00 Crenated Cell Not Reportable 09/27/18 06:00 Elliptocytes Few 09/27/18 06:00 Acanthocytes (Spur) Not Reportable 09/27/18 06:00 Rouleaux Not Reportable 09/27/18 06:00 Hemoglobin C Crystals Not Reportable 09/27/18 06:00 Schistocytes Not Reportable 09/27/18 06:00 Malaria parasites Not Reportable 09/27/18 06:00 Ulisses Bodies Not Reportable 09/27/18 06:00 Hem Pathologist Commnt No 09/27/18 06:00 PT 14.8 Sec. (12.2-14.9) 09/24/18 15:04 INR 1.09 (0.87-1.13) 09/24/18 15:04 APTT 28.3 Sec. (24.2-36.6) 09/24/18 15:04 POC ABG pH 7.373 (7.35-7.45) 09/26/18 11:36 POC ABG pCO2 41.5 (35-45) 09/26/18 11:36 POC ABG pO2 64 (80-105) L 09/26/18 11:36 POC ABG HCO3 24.1 (22-26 mml/L) 09/26/18 11:36 POC ABG Total CO2 25 (23-27mmol/L) 09/26/18 11:36 POC ABG O2 Sat 91 09/26/18 11:36 POC ABG Base Excess -1 ((-2) - (+3)mmol/L) 09/26/18 11:36 FiO2 21 % 09/26/18 11:36 Sodium 143 mmol/L (137-145) 09/27/18 06:00 Potassium 3.5 mmol/L (3.6-5.0) L 09/27/18 06:00 Chloride 106.0 mmol/L (98-107) 09/27/18 06:00 Carbon Dioxide 27 mmol/L (22-30) 09/27/18 06:00 Anion Gap 14 mmol/L 09/27/18 06:00 BUN 10 mg/dL (7-17) 09/27/18 06:00 Creatinine 0.5 mg/dL (0.7-1.2) L 09/27/18 06:00 Estimated GFR > 60 ml/min 09/27/18 06:00 BUN/Creatinine Ratio 20 % 09/27/18 06:00 Glucose 103 mg/dL (65-100) H 09/27/18 06:00 POC Glucose 142 (70-105) H 09/27/18 12:04 Hemoglobin A1c 6.2 % (4-6) H 09/24/18 22:57 Lactic Acid 1.60 mmol/L (0.7-2.0) 09/24/18 22:57 Calcium 7.9 mg/dL (8.4-10.2) L 09/27/18 06:00 Phosphorus 1.90 mg/dL (2.5-4.5) L 09/26/18 04:13 Magnesium 1.70 mg/dL (1.7-2.3) 09/27/18 06:00 Total Bilirubin 0.30 mg/dL (0.1-1.2) 09/26/18 04:13 AST 72 units/L (5-40) H 09/26/18 04:13 ALT 30 units/L (7-56) 09/26/18 04:13 Alkaline Phosphatase 39 units/L (35-129) 09/26/18 04:13 Total Creatine Kinase 842 units/L (30-135) H 09/24/18 15:04 Troponin T 0.029 ng/mL (0.00-0.029) 09/24/18 15:04 Total Protein 5.0 g/dL (6.3-8.2) L 09/26/18 04:13 Albumin 2.7 g/dL (3.9-5) L 09/26/18 04:13 Albumin/Globulin Ratio 1.2 % 09/26/18 04:13 Urine Color Vane (Yellow) 09/24/18 15:09 Urine Turbidity Slightly-cloudy (Clear) 09/24/18 15:09 Urine pH 5.0 (5.0-7.0) 09/24/18 15:09 Ur Specific [place] 1.017 (1.003-1.030) 09/24/18 15:09 Urine Protein 30 mg/dl mg/dL (Negative) 09/24/18 15:09 Urine Glucose (UA) Neg mg/dL (Negative) 09/24/18 15:09 Urine Ketones Tr mg/dL (Negative) 09/24/18 15:09 Urine Blood Lg (Negative) 09/24/18 15:09 Urine Nitrite Pos (Negative) 09/24/18 15:09 Urine Bilirubin Neg (Negative) 09/24/18 15:09 Urine Urobilinogen < 2.0 mg/dL (<2.0) 09/24/18 15:09 Ur Leukocyte Esterase Sm (Negative) 09/24/18 15:09 Urine WBC (Auto) 39.0 /HPF (0.0-6.0) H 09/24/18 15:09 Urine RBC (Auto) 35.0 /HPF (0.0-6.0) 09/24/18 15:09 U Epithel Cells (Auto) < 1.0 /HPF (0-13.0) 09/24/18 15:09 Urine Bacteria (Auto) 4+ /HPF (Negative) 09/24/18 15:09 Urine Mucus 2+ /HPF 09/24/18 15:09 Urine Yeast (Budding) 1+ /HPF 09/24/18 15:09 Salicylates < 0.3 mg/dL (2.8-20.0) L 09/24/18 15:04 Acetaminophen < 5.0 ug/mL (10.0-30.0) L 09/24/18 15:04 Active Medications - Current Medications Current Medications: Generic Name Dose Route Start Last Admin Trade Name Kelvin PRN Reason Stop Dose Admin Acetaminophen 650 mg 09/24/18 22:41 Tylenol PO Q4H PRN Pain MILD(1-3)/Fever >100.5/ROONEY Alprazolam 1 mg 09/27/18 12:57 Xanax PO Q8H PRN Anxiety Enoxaparin Sodium 40 mg 09/26/18 10:00 09/27/18 12:08 Lovenox SUB-Q 40 mg QDAY@1000 ARON Administration Famotidine 20 mg 09/27/18 22:00 Pepcid PO BID ARON Hydromorphone HCl 0.5 mg 09/24/18 22:41 Dilaudid IV Q3H PRN Pain , Severe (7-10) Sodium Chloride 1,000 mls @ 75 mls/hr 09/24/18 23:00 09/27/18 15:03 Nacl 0.9% 1000 Ml IV 75 mls/hr DIRECT ARON Administration Ceftriaxone Sodium 2 gm in 100 mls @ 200 mls/hr 09/25/18 10:00 09/27/18 12:07 Rocephin/Ns 2 Gm/100 Ml IV 200 mls/hr Q24HR ARON Administration Metoprolol Tartrate 25 mg 09/27/18 22:00 Lopressor PO BID ARON Ondansetron HCl 4 mg 09/24/18 22:41 09/25/18 11:51 Zofran IV 4 mg Q8H PRN Administration Nausea And Vomiting Oxycodone/Acetaminophen 1 tab 09/24/18 22:41 Percocet 5/325 PO Q6H PRN Pain, Moderate (4-6) Sodium Chloride 10 ml 09/25/18 10:00 09/27/18 12:07 Sodium Chloride Flush Syringe 10 Ml IV 10 ml BID ARON Administration Sodium Chloride 10 ml 09/24/18 22:41 Sodium Chloride Flush Syringe 10 Ml IV PRN PRN LINE FLUSH
[2018-09-27] MEDS: LOPRESSOR PO SCH (21:10)
[2018-09-27] MEDS: PEPCID PO SCH (21:10)
[2018-09-28] MEDS: NACL 0.9% 1000 ML 1,000 ML IV SCH (03:45)
[2018-09-28 07:18] LABS: Hematocrit 30.1 % (30.3-42.9); Mean Corpuscular HGB Conc 33 % (30-34); Mean Corpuscular Volume 90 fl (79-97); Platelet Count 125 K/mm3 (140-440); Red Blood Count 3.36 M/mm3 (3.65-5.03); Red Cell Distribution Width 13.9 % (13.2-15.2)
[2018-09-28 07:41] LABS: Alanine Aminotransferase 28 units/L (7-56); Albumin 2.6 g/dL (3.9-5); BUN/Creatinine Ratio 25; Blood Urea Nitrogen 10 mg/dL (7-17); Calcium 7.9 mg/dL (8.4-10.2); Hemolysis Index 4
[2018-09-28 08:23] LABS: Basophils % (Manual) 0 % (0.0-1.8); Platelet Estimate Consistent w Auto; Total Cells Counted 100
[2018-09-28 08:24] LABS: Ovalocytes Few; Poikilocytosis 1+
[2018-09-28] MEDS: LOPRESSOR PO SCH ×2 (09:54→22:06)
[2018-09-28] MEDS: PEPCID PO SCH ×2 (09:54→22:06)
[2018-09-28] MEDS: ROCEPHIN/NS 2 GM/100 ML 2 GM/100 ML BAG IV SCH (09:54)
[2018-09-28] MEDS: LOVENOX SUB-Q SCH (09:54)
[2018-09-28] MEDS: SODIUM CHLORIDE FLUSH SYRINGE 10 ML IV SCH ×2 (09:55→22:07)
--- NOTE | 2018-09-28 11:46 | Consultation ---
History of Present Illness Consult date: 09/28/18 Requesting physician: BEN BROOKS Consult reason: other (svt) History of present illness: The pt is an 83 YO female with past medical history of reported AMI x 2 in [place], [place] over 20 years ago (pt unsure whether cardiac stents were placed), HTN, ? dementia. She is previously unknown to our practice. She is a rather poor historian and is unsure why she is hospitalized. Per chart, she presented for evaluation of AMS on 09/24. She was subsequently found to have left hydronephrosis and is s/p ureteral stent placement, UTI, sepsis, right-sided lung mass noted on chest CT. Yesterday, pt developed SVT and thus cardiology has been consulted. She was given IV adenosine yesterday and converted to SR. Review of telemetry reveals additional bouts of SVT overnight. Pt does report that for some time, she has been experiencing palpitations. She denies any prior diagnosis of arrhythmia. Past History Past Medical History: acute MN, hypertension Past Surgical History: Other (bilateral leg surgery after breaking both legs) Social history: denies: smoking, alcohol abuse Medications and Allergies Allergies Allergy/AdvReac Type Severity Reaction Status Date / Time bee pollen Allergy Anaphylaxis Verified 08/28/14 10:51 Penicillins Allergy Unknown Verified 09/24/18 20:37 shellfish derived Allergy Swelling Verified 08/28/14 10:51 adhesive AdvReac BREAK Verified 08/28/14 10:51 OUT/PULLS SKIN OFF aspirin AdvReac "HEART Verified 08/28/14 10:51 SKIPS" Home Medications Medication Instructions Recorded Confirmed Last Taken Type Tramadol HCl [traMADol] 50 mg PO Q6HR PRN #20 tablet 08/28/14 09/24/18 Unknown Rx Docusate Sodium [Colace] 100 mg PO BID #20 capsule 09/01/17 09/24/18 Unknown Rx Promethazine [Phenergan TAB] 25 mg PO Q6HR PRN #20 tab 09/01/17 09/24/18 Unknown Rx Active Meds: Active Medications Acetaminophen (Tylenol) 650 mg PO Q4H PRN PRN Reason: Pain MILD(1-3)/Fever >100.5/ROONEY Alprazolam (Xanax) 1 mg PO Q8H PRN PRN Reason: Anxiety Enoxaparin Sodium (Lovenox) 40 mg SUB-Q QDAY@1000 [facility] Last Admin: 09/28/18 09:54 Dose: 40 mg Documented by: Famotidine (Pepcid) 20 mg PO BID [facility] Last Admin: 09/28/18 09:54 Dose: 20 mg Documented by: Hydromorphone HCl (Dilaudid) 0.5 mg IV Q3H PRN PRN Reason: Pain , Severe (7-10) Sodium Chloride (Nacl 0.9% 1000 Ml) 1,000 mls @ 75 mls/hr IV DIRECT [facility] Last Admin: 09/28/18 03:45 Dose: 75 mls/hr Documented by: Ceftriaxone Sodium (Rocephin/Ns 2 Gm/100 Ml) 2 gm in 100 mls @ 200 mls/hr IV Q24HR [facility] Last Admin: 09/28/18 09:54 Dose: 200 mls/hr Documented by: Metoprolol Tartrate (Lopressor) 25 mg PO BID [facility] Last Admin: 09/28/18 09:54 Dose: 25 mg Documented by: Ondansetron HCl (Zofran) 4 mg IV Q8H PRN PRN Reason: Nausea And Vomiting Last Admin: 09/25/18 11:51 Dose: 4 mg Documented by: Oxycodone/Acetaminophen (Percocet 5/325) 1 tab PO Q6H PRN PRN Reason: Pain, Moderate (4-6) Sodium Chloride (Sodium Chloride Flush Syringe 10 Ml) 10 ml IV BID [facility] Last Admin: 09/28/18 09:55 Dose: 10 ml Documented by: Sodium Chloride (Sodium Chloride Flush Syringe 10 Ml) 10 ml IV PRN PRN PRN Reason: LINE FLUSH Review of Systems Constitutional: weakness Ears, nose, mouth and throat: no ear pain, no nose pain, no sinus pressure, no sinus pain Cardiovascular: palpitations, rapid/irregular heart beat, no chest pain, no orthopnea, no edema, no syncope, no lightheadedness Respiratory: no cough Gastrointestinal: no abdominal pain, no nausea, no vomiting, no diarrhea, no constipation Genitourinary Female: no pelvic pain, no flank pain Musculoskeletal: no neck stiffness, no neck pain, no shooting arm pain, no arm numbness/tingling, no low back pain, no shooting leg pain Integumentary: no rash, no pruritis, no redness, no sores, no wounds Neurological: no head injury, no paralysis, no weakness, no parathesias, no numbness, no tingling, no seizures Psychiatric: no anxiety Endocrine: no cold intolerance, no heat intolerance Hematologic/Lymphatic: no easy bruising, no easy bleeding Allergic/Immunologic: no urticaria, no wheezing Physical Examination Vital Signs Temp Pulse Resp BP Pulse Ox 101 F H 116 H 16 109/69 93 09/24/18 14:29 09/24/18 14:29 09/24/18 14:29 09/24/18 14:09/24/18 14:29 General appearance: no acute distress HEENT: Positive: PERRL, Normocephaly, Mucus Membranes Moist Neck: Positive: neck supple, trachea midline Cardiac: Positive: Reg Rate and Rhythm, S1/S2 Lungs: Positive: clear to auscultation Neuro: Positive: Grossly Intact Abdomen: Positive: Soft. Negative: Tender Skin: Negative: Rash, Wound Musculoskeletal: No Pain Extremities: Absent: edema Results 09/28/18 06:39 09/28/18 06:39 Cardiac Enzymes 09/28/18 Range/Units 06:39 AST 29 (5-40) units/L CBC 09/28/18 Range/Units 06:39 WBC 13.2 H (4.5-11.0) K/mm3 RBC 3.36 L (3.65-5.03) M/mm3 Hgb 10.0 L (10.1-14.3) gm/dl Hct 30.1 L (30.3-42.9) % Plt Count 125 L (140-440) K/mm3 Comprehensive Metabolic Panel 09/28/18 Range/Units 06:39 Sodium 144 (137-145) mmol/L Potassium 3.4 L (3.6-5.0) mmol/L Chloride 108.9 H (98-107) mmol/L Carbon Dioxide 29 (22-30) mmol/L BUN 10 (7-17) mg/dL Creatinine 0.4 L (0.7-1.2) mg/dL Glucose 86 (65-100) mg/dL Calcium 7.9 L (8.4-10.2) mg/dL AST 29 (5-40) units/L ALT 28 (7-56) units/L Alkaline Phosphatase 54 (35-129) units/L Total Protein 5.1 L (6.3-8.2) g/dL Albumin 2.6 L (3.9-5) g/dL - Imaging and Cardiology Echo: pending EKG: report reviewed, image reviewed EKG interpretations - Telemetry EKG Rhythm: Sinus Rhythm - EKG Sinus rhythms and dysrhythmias: sinus rhythm Assessment and Plan Yesterday, pt developed SVT which converted to NSR with adenosine. Review of telemetry reveals additional bouts of SVT overnight. Pt does report that for some time, she has been experiencing palpitations. She denies any prior diagnosis of arrhythmia. Obtain echo and thyroid profile. Replete lytes and repeat BMP and Mg in AM. Cont lopressor. The patient has been seen in conjunction with Dr. Suarez who agrees with the assessment and plan of care. - Patient Problems (1) Paroxysmal SVT (supraventricular tachycardia) Current Visit: Yes Status: Acute (2) Sepsis Current Visit: Yes Status: Acute (3) UTI (urinary tract infection) Current Visit: Yes Status: Acute (4) Hydronephrosis Current Visit: Yes Status: Acute (5) S/P ureteral stent placement Current Visit: Yes Status: Acute (6) Altered mental status Current Visit: Yes Status: Acute (7) Lung mass Current Visit: Yes Status: Chronic (8) HTN (hypertension) Current Visit: Yes Status: Chronic (9) History of myocardial infarction Current Visit: Yes Status: Suspected (10) Dementia Current Visit: Yes Status: Suspected (11) Hypokalemia Current Visit: Yes Status: Acute (12) Hypomagnesemia Current Visit: Yes Status: Acute
--- NOTE | 2018-09-28 11:51 | Progress Note ---
Assessment and Plan Assessment and plan: --Paroxysmal SVT[Supra ventricular tachycardia]; heart rate in the 160s to 170, s/p IV adenosine 6 mg, converted to sinus. Heart rate within normal limits this morning Continue beta blockers f/u ,ECHO and cardiology evaluation and recommendations --Hypokalemia/hypomagnesemia/hyperphosphatemia; replace and monitor levels --Gram-negative sepsis; Klebsiella urine and blood Secondary to complicated UTI, continue Rocephin, IV fluids Follow ID evaluation and recommendations --Left hydronephrosis s/p ureteral stent placement Continue current management, his [place] catheter Cleared by urology for discharge -- Lung mass on CT chest ; Right lower lobe pleural-based lung mass, pulmonary evaluated the patient IR consulted, rec outpatient biopsy --Metabolic encephalopathy; probably secondary to sepsis Significant improvement --Hypokalemia; typical range per protocol and monitor levels --Leukocytosis; secondary to sepsis, continue current antibiotics and follow cu ltures --Lactic acidosis; resolved, secondary to sepsis due to UTI --[id number] malnutrition/hypoalbuminemia; supportive care Nutrition supplements --DVT prophylaxis; Lovenox --Full CODE STATUS Discharge planning; placement in SNF/rehab when medically stable . Plan of care is reviewed with the patient and her son and the case management History Interval history: Patient seen and examined medical records reviewed Patient feels better no new complaints Heart rate within normal range Alert and awake responding appropriately Vital signs reviewed Hospitalist Physical - Constitutional Vitals: Temp Pulse Resp BP Pulse Ox 98.7 F 78 20 143/74 93 09/28/18 10:20 09/28/18 10:20 09/28/18 10:20 09/28/18 10:20 09/28/18 10:20 General appearance: Present: no acute distress, well-nourished, obese - EENT Eyes: Present: PERRL, EOM intact - Neck Neck: Present: supple, normal ROM - Respiratory Respiratory effort: normal Respiratory: bilateral: diminished, negative: rales, rhonchi, wheezing - Cardiovascular Rhythm: regular Heart Sounds: Present: S1 & S2 - Extremities Extremities: no ischemia, No edema - Abdominal General gastrointestinal: soft, non-tender, non-distended, normal bowel sounds - Integumentary Integumentary: Present: clear, warm - Psychiatric Psychiatric: appropriate mood/affect, cooperative - Neurologic Neurologic: CNII-XII intact, moves all extremities Results - Labs CBC & Chem 7: 09/28/18 06:39 09/28/18 06:39 Labs: Laboratory Last Values WBC 13.2 K/mm3 (4.5-11.0) H 09/28/18 06:39 RBC 3.36 M/mm3 (3.65-5.03) L 09/28/18 06:39 Hgb 10.0 gm/dl (10.1-14.3) L 09/28/18 06:39 Hct 30.1 % (30.3-42.9) L 09/28/18 06:39 MCV 90 fl (79-97) 09/28/18 06:39 MCH 30 pg (28-32) 09/28/18 06:39 MCHC 33 % (30-34) 09/28/18 06:39 RDW 13.9 % (13.2-15.2) 09/28/18 06:39 Plt Count 125 K/mm3 (140-440) L 09/28/18 06:39 Add Manual Diff Complete 09/28/18 06:39 Total Counted 100 09/28/18 06:39 Seg Neutrophils % As[employer] Worker 09/24/18 15:04 Seg Neuts % (Manual) 77.0 % (40.0-70.0) H 09/28/18 06:39 Band Neutrophils % 0 % 09/28/18 06:39 Lymphocytes % (Manual) 14.0 % (13.4-35.0) 09/28/18 06:39 Reactive Lymphs % (Man) 0 % 09/28/18 06:39 Monocytes % (Manual) 6.0 % (0.0-7.3) 09/28/18 06:39 Eosinophils % (Manual) 3.0 % (0.0-4.3) 09/28/18 06:39 Basophils % (Manual) 0 % (0.0-1.8) 09/28/18 06:39 Metamyelocytes % 0 % 09/28/18 06:39 Myelocytes % 0 % 09/28/18 06:39 Promyelocytes % 0 % 09/28/18 06:39 Blast Cells % 0 % 09/28/18 06:39 Nucleated RBC % Not Reportable 09/28/18 06:39 Seg Neutrophils # Man 10.2 K/mm3 (1.8-7.7) H 09/28/18 06:39 Band Neutrophils # 0.0 K/mm3 09/28/18 06:39 Lymphocytes # (Manual) 1.8 K/mm3 (1.2-5.4) 09/28/18 06:39 Abs React Lymphs (Man) 0.0 K/mm3 09/28/18 06:39 Monocytes # (Manual) 0.8 K/mm3 (0.0-0.8) 09/28/18 06:39 Eosinophils # (Manual) 0.4 K/mm3 (0.0-0.4) 09/28/18 06:39 Basophils # (Manual) 0.0 K/mm3 (0.0-0.1) 09/28/18 06:39 Metamyelocytes # 0.0 K/mm3 09/28/18 06:39 Myelocytes # 0.0 K/mm3 09/28/18 06:39 Promyelocytes # 0.0 K/mm3 09/28/18 06:39 Blast Cells # 0.0 K/mm3 09/28/18 06:39 WBC Morphology Not Reportable 09/28/18 06:39 Hypersegmented Neuts Not Reportable 09/28/18 06:39 Hyposegmented Neuts Not Reportable 09/28/18 06:39 Hypogranular Neuts Not Reportable 09/28/18 06:39 Smudge Cells Not Reportable 09/28/18 06:39 Toxic Granulation Not Reportable 09/28/18 06:39 Toxic Vacuolation Not Reportable 09/28/18 06:39 Dohle Bodies Not Reportable 09/28/18 06:39 Pelger-Huet Anomaly Not Reportable 09/28/18 06:39 Margoth Rods Not Reportable 09/28/18 06:39 Platelet Estimate Consistent w auto 09/28/18 06:39 Clumped Platelets Not Reportable 09/28/18 06:39 Plt Clumps, EDTA Not Reportable 09/28/18 06:39 Large Platelets Not Reportable 09/28/18 06:39 Giant Platelets Not Reportable 09/28/18 06:39 Platelet Satelliting Not Reportable 09/28/18 06:39 Plt Morphology Comment Not Reportable 09/28/18 06:39 RBC Morphology Not Reportable 09/28/18 06:39 Dimorphic RBCs Not Reportable 09/28/18 06:39 Polychromasia Not Reportable 09/28/18 06:39 Hypochromasia Not Reportable 09/28/18 06:39 Poikilocytosis 1+ 09/28/18 06:39 Anisocytosis Not Reportable 09/28/18 06:39 Microcytosis 1+ 09/28/18 06:39 Macrocytosis Not Reportable 09/28/18 06:39 Spherocytes Not Reportable 09/28/18 06:39 Pappenheimer Bodies Not Reportable 09/28/18 06:39 Sickle Cells Not Reportable 09/28/18 06:39 Target Cells Not Reportable 09/28/18 06:39 Tear Drop Cells Not Reportable 09/28/18 06:39 Ovalocytes Few 09/28/18 06:39 Helmet Cells Not Reportable 09/28/18 06:39 [place] Bodies Not Reportable 09/28/18 06:39 Celina Rings Not Reportable 09/28/18 06:39 [place] Cells Not Reportable 09/28/18 06:39 Bite Cells Not Reportable 09/28/18 06:39 Crenated Cell Not Reportable 09/28/18 06:39 Elliptocytes Few 09/28/18 06:39 Acanthocytes (Spur) Not Reportable 09/28/18 06:39 Rouleaux Not Reportable 09/28/18 06:39 Hemoglobin C Crystals Not Reportable 09/28/18 06:39 Schistocytes Not Reportable 09/28/18 06:39 Malaria parasites Not Reportable 09/28/18 06:39 Ulisses Bodies Not Reportable 09/28/18 06:39 Hem Pathologist Commnt No 09/28/18 06:39 PT 14.8 Sec. (12.2-14.9) 09/24/18 15:04 INR 1.09 (0.87-1.13) 09/24/18 15:04 APTT 28.3 Sec. (24.2-36.6) 09/24/18 15:04 POC ABG pH 7.373 (7.35-7.45) 09/26/18 11:36 POC ABG pCO2 41.5 (35-45) 09/26/18 11:36 POC ABG pO2 64 (80-105) L 09/26/18 11:36 POC ABG HCO3 24.1 (22-26 mml/L) 09/26/18 11:36 POC ABG Total CO2 25 (23-27mmol/L) 09/26/18 11:36 POC ABG O2 Sat 91 09/26/18 11:36 POC ABG Base Excess -1 ((-2) - (+3)mmol/L) 09/26/18 11:36 FiO2 21 % 09/26/18 11:36 Sodium 144 mmol/L (137-145) 09/28/18 06:39 Potassium 3.4 mmol/L (3.6-5.0) L 09/28/18 06:39 Chloride 108.9 mmol/L (98-107) H 09/28/18 06:39 Carbon Dioxide 29 mmol/L (22-30) 09/28/18 06:39 Anion Gap 10 mmol/L 09/28/18 06:39 BUN 10 mg/dL (7-17) 09/28/18 06:39 Creatinine 0.4 mg/dL (0.7-1.2) L 09/28/18 06:39 Estimated GFR > 60 ml/min 09/28/18 06:39 BUN/Creatinine Ratio 25 % 09/28/18 06:39 Glucose 86 mg/dL (65-100) 09/28/18 06:39 POC Glucose 84 (70-105) 09/28/18 08:09 Hemoglobin A1c 6.2 % (4-6) H 09/24/18 22:57 Lactic Acid 1.60 mmol/L (0.7-2.0) 09/24/18 22:57 Calcium 7.9 mg/dL (8.4-10.2) L 09/28/18 06:39 Phosphorus 1.80 mg/dL (2.5-4.5) L 09/28/18 06:39 Magnesium 1.40 mg/dL (1.7-2.3) L 09/28/18 06:39 Total Bilirubin 0.30 mg/dL (0.1-1.2) 09/28/18 06:39 AST 29 units/L (5-40) 09/28/18 06:39 ALT 28 units/L (7-56) 09/28/18 06:39 Alkaline Phosphatase 54 units/L (35-129) 09/28/18 06:39 Total Creatine Kinase 842 units/L (30-135) H 09/24/18 15:04 Troponin T 0.029 ng/mL (0.00-0.029) 09/24/18 15:04 Total Protein 5.1 g/dL (6.3-8.2) L 09/28/18 06:39 Albumin 2.6 g/dL (3.9-5) L 09/28/18 06:39 Albumin/Globulin Ratio 1.0 % 09/28/18 06:39 Urine Color Vane (Yellow) 09/24/18 15:09 Urine Turbidity Slightly-cloudy (Clear) 09/24/18 15:09 Urine pH 5.0 (5.0-7.0) 09/24/18 15:09 Ur Specific [place] 1.017 (1.003-1.030) 09/24/18 15:09 Urine Protein 30 mg/dl mg/dL (Negative) 09/24/18 15:09 Urine Glucose (UA) Neg mg/dL (Negative) 09/24/18 15:09 Urine Ketones Tr mg/dL (Negative) 09/24/18 15:09 Urine Blood Lg (Negative) 09/24/18 15:09 Urine Nitrite Pos (Negative) 09/24/18 15:09 Urine Bilirubin Neg (Negative) 09/24/18 15:09 Urine Urobilinogen < 2.0 mg/dL (<2.0) 09/24/18 15:09 Ur Leukocyte Esterase Sm (Negative) 09/24/18 15:09 Urine WBC (Auto) 39.0 /HPF (0.0-6.0) H 09/24/18 15:09 Urine RBC (Auto) 35.0 /HPF (0.0-6.0) 09/24/18 15:09 U Epithel Cells (Auto) < 1.0 /HPF (0-13.0) 09/24/18 15:09 Urine Bacteria (Auto) 4+ /HPF (Negative) 09/24/18 15:09 Urine Mucus 2+ /HPF 09/24/18 15:09 Urine Yeast (Budding) 1+ /HPF 09/24/18 15:09 Salicylates < 0.3 mg/dL (2.8-20.0) L 09/24/18 15:04 Acetaminophen < 5.0 ug/mL (10.0-30.0) L 09/24/18 15:04 Active Medications - Current Medications Current Medications: Generic Name Dose Route Start Last Admin Trade Name Freq PRN Reason Stop Dose Admin Acetaminophen 650 mg 09/24/18 22:41 Tylenol PO Q4H PRN Pain MILD(1-3)/Fever >100.5/ROONEY Alprazolam 1 mg 09/27/18 12:57 Xanax PO Q8H PRN Anxiety Enoxaparin Sodium 40 mg 09/26/18 10:00 09/28/18 09:54 Lovenox SUB-Q 40 mg QDAY@1000 ARON Administration Famotidine 20 mg 09/27/18 22:00 09/28/18 09:54 Pepcid PO 20 mg BID ARON Administration Hydromorphone HCl 0.5 mg 09/24/18 22:41 Dilaudid IV Q3H PRN Pain , Severe (7-10) Sodium Chloride 1,000 mls @ 75 mls/hr 09/24/18 23:00 09/28/18 03:45 Nacl 0.9% 1000 Ml IV 75 mls/hr DIRECT ARON Administration Ceftriaxone Sodium 2 gm in 100 mls @ 200 mls/hr 09/25/18 10:00 09/28/18 09:54 Rocephin/Ns 2 Gm/100 Ml IV 200 mls/hr Q24HR ARON Administration Metoprolol Tartrate 25 mg 09/27/18 22:00 09/28/18 09:54 Lopressor PO 25 mg BID ARON Administration Ondansetron HCl 4 mg 09/24/18 22:41 09/25/18 11:51 Zofran IV 4 mg Q8H PRN Administration Nausea And Vomiting Oxycodone/Acetaminophen 1 tab 09/24/18 22:41 Percocet 5/325 PO Q6H PRN Pain, Moderate (4-6) Sodium Chloride 10 ml 09/25/18 10:00 09/28/18 09:55 Sodium Chloride Flush Syringe 10 Ml IV 10 ml BID AORN Administration Sodium Chloride 10 ml 09/24/18 22:41 Sodium Chloride Flush Syringe 10 Ml IV PRN PRN LINE FLUSH
[2018-09-28] MEDS ORDERED: MAGNESIUM SULFATE 3 GM in NACL 0.9% 100 ML IV ONE (11:53)
[2018-09-28] MEDS ORDERED: KPHOS 40 MMOL in NACL 0.9% 500 ML 500 ML IV ONE (11:53)
--- NOTE | 2018-09-28 14:04 | Consultation ---
History of Present Illness - Reason for Consult Consult date: 09/28/18 Gram Negative Bacteremia, Klebsiella urine Requesting physician: BEN BROOKS - History of Present Illness This patient is an 83-year-old female, whose past medical history was unobtaina ble, that presented to the ED on 09/24/18 for evaluation of weakness, fever and altered mental status. No family was available to obtain history at time of admission. On admission WBC 8.0, Creatinine 0.4, Lactic Acid 4.40, Temperature 101, HR 108, BP 109/69. U/A with Pyuria, WBC 39, small LE. Chest xray showed no evidence for infiltrate, pleural effusion or pneumothorax. CT pelvis demonstrates a 5 mm calcification at the left ureteral vesicle junction with dilatation of the left ureter and mild left hydronephrosis with stranding around the left kidney. Blood cultures were drawn and show Klebsiella Pneumoniae 4 out of 4 bottles. Urine culture shows Klebsiella Pneumonia. Review of Systems: General: no fever, chills, nightsweats, unintentional weight change, or change in appetite Cutaneous: no rash, pruritus Head: no headaches or injury Eyes: no changes in vision, eye pain, double vision Ears: no ear pain, ear discharge, ringing or hearing loss Nose: no nose bleeding, stuffiness Mouth & throat: no bleeding gums, no horseness, no dental problems, or swollen glands Neck: no pain, node enlargement/lumps, tyroid enlargement or tenderness Respiratory: + cough, no wheezing, sputum, hemoptysis, pleuritic chest pain Cardiovascular: no chest pain, leg edema, cyanosis, ROGER, orthopnea Musculoskeletal: + decreased joint motion. generalized body aches Gastrointestinal: no nausea, vomiting, + diarrhea Genitourinary/Reproductive: no frequent urination, no dysuria, hematuria, in continence Neurogical: no seizures, no headaches, + generalized weakness Psychiatric: stable mood; no excessive anxiety, sadness or moodiness Past History Past Medical History: acute CO, hypertension Past Surgical History: Other (bilateral leg surgery after breaking both legs) Social history: denies: smoking, alcohol abuse Medications and Allergies Allergies Allergy/AdvReac Type Severity Reaction Status Date / Time bee pollen Allergy Anaphylaxis Verified 08/28/14 10:51 Penicillins Allergy Unknown Verified 09/24/18 20:37 shellfish derived Allergy Swelling Verified 08/28/14 10:51 adhesive AdvReac BREAK Verified 08/28/14 10:51 OUT/PULLS SKIN OFF aspirin AdvReac "HEART Verified 08/28/14 10:51 SKIPS" Home Medications Medication Instructions Recorded Confirmed Last Taken Type Tramadol HCl [traMADol] 50 mg PO Q6HR PRN #20 tablet 08/28/14 09/24/18 Unknown R x Docusate Sodium [Colace] 100 mg PO BID #20 capsule 09/01/17 09/24/18 Unknown Rx Promethazine [Phenergan TAB] 25 mg PO Q6HR PRN #20 tab 09/01/17 09/24/18 Unknown Rx Active Meds: Active Medications Acetaminophen (Tylenol) 650 mg PO Q4H PRN PRN Reason: Pain MILD(1-3)/Fever >100.5/ROONEY Alprazolam (Xanax) 1 mg PO Q8H PRN PRN Reason: Anxiety Enoxaparin Sodium (Lovenox) 40 mg SUB-Q QDAY@1000 [facility] Last Admin: 09/28/18 09:54 Dose: 40 mg Documented by: Famotidine (Pepcid) 20 mg PO BID [facility] Last Admin: 09/28/18 09:54 Dose: 20 mg Documented by: Hydromorphone HCl (Dilaudid) 0.5 mg IV Q3H PRN PRN Reason: Pain , Severe (7-10) Sodium Chloride (Nacl 0.9% 1000 Ml) 1,000 mls @ 75 mls/hr IV DIRECT [facility] Last Admin: 09/28/18 03:45 Dose: 75 mls/hr Documented by: Ceftriaxone Sodium (Rocephin/Ns 2 Gm/100 Ml) 2 gm in 100 mls @ 200 mls/hr IV Q24HR [facility] Last Admin: 09/28/18 09:54 Dose: 200 mls/hr Documented by: Magnesium Sulfate 3 gm/ Sodium (Chloride) 106 mls @ 35.333 mls/hr IV ONCE ONE Stop: 09/28/18 14:52 Potassium Phosphate 40 mmol/ (Sodium Chloride) 513.3333 mls @ 83 mls/hr IV ONCE ONE Stop: 09/28/18 18:04 Metoprolol Tartrate (Lopressor) 25 mg PO BID [facility] Last Admin: 09/28/18 09:54 Dose: 25 mg Documented by: Ondansetron HCl (Zofran) 4 mg IV Q8H PRN PRN Reason: Nausea And Vomiting Last Admin: 09/25/18 11:51 Dose: 4 mg Documented by: Oxycodone/Acetaminophen (Percocet 5/325) 1 tab PO Q6H PRN PRN Reason: Pain, Moderate (4-6) Sodium Chloride (Sodium Chloride Flush Syringe 10 Ml) 10 ml IV BID ARON Last Admin: 09/28/18 09:55 Dose: 10 ml Documented by: Sodium Chloride (Sodium Chloride Flush Syringe 10 Ml) 10 ml IV PRN PRN PRN Reason: LINE FLUSH Physical Examination - Physical Exam Narrative exam: Constitutional: Alert, cooperative. No acute distress Head, Ears, Nose: Normocephalic, atraumatic. External ears, nose normal Eyes: Conjunctivae/corneas clear. No icterus. No ptosis. Neck: Supple, no meningeal signs Oral: dentition fair, no thrush Cardiovascular: S1, S2 normal. Respiratory: Good air entry, clear to auscultation bilaterally GI: Soft, non-tender; bowel sounds normal. No peritoneal signs Musculoskeletal: No pedal edema, no cyanosis. Skin: No rash or abscess. Hem/Lymphatic: No palpable cervical or supraclavicular nodes. No lymphangitis Psych: Mood ok. Affect normal Neurological: Awake, alert, oriented. - Constitutional Vitals: Vital Signs Temp Pulse Resp BP Pulse Ox 98.7 F 78 20 143/74 93 09/28/18 10:20 09/28/18 10:20 09/28/18 10:20 09/28/18 10:20 09/28/18 10:20 Temperature -Last 24 Hours Temperature 98.7 F Temperature 98.4 F Temperature 97.9 F Temperature 98.4 F Temperature 98.0 F Results - Labs CBC & Chem 7: 09/28/18 06:39 09/28/18 06:39 Labs: Abnormal lab results 09/27/18 09/28/18 09/28/18 Range/Units 20:46 06:39 06:39 WBC 13.2 H (4.5-11.0) K/mm3 RBC 3.36 L (3.65-5.03) M/mm3 Hgb 10.0 L (10.1-14.3) gm/dl Hct 30.1 L (30.3-42.9) % Plt Count 125 L (140-440) K/mm3 Seg Neuts % (Manual) 77.0 H (40.0-70.0) % Seg Neutrophils # Man 10.2 H (1.8-7.7) K/mm3 Potassium 3.4 L (3.6-5.0) mmol/L Chloride 108.9 H (98-107) mmol/L Creatinine 0.4 L (0.7-1.2) mg/dL POC Glucose 129 H (70-105) Calcium 7.9 L (8.4-10.2) mg/dL Phosphorus 1.80 L (2.5-4.5) mg/dL Magnesium 1.40 L (1.7-2.3) mg/dL Total Protein 5.1 L (6.3-8.2) g/dL Albumin 2.6 L (3.9-5) g/dL TSH (0.270-4.200) mlU/mL 09/28/18 09/28/18 Range/Units 12:03 12:21 WBC (4.5-11.0) K/mm3 RBC (3.65-5.03) M/mm3 Hgb (10.1-14.3) gm/dl Hct (30.3-42.9) % Plt Count (140-440) K/mm3 Seg Neuts % (Manual) (40.0-70.0) % Seg Neutrophils # Man (1.8-7.7) K/mm3 Potassium (3.6-5.0) mmol/L Chloride (98-107) mmol/L Creatinine (0.7-1.2) mg/dL POC Glucose 114 H (70-105) Calcium (8.4-10.2) mg/dL Phosphorus (2.5-4.5) mg/dL Magnesium (1.7-2.3) mg/dL Total Protein (6.3-8.2) g/dL Albumin (3.9-5) g/dL TSH 4.520 H (0.270-4.200) mlU/mL - Imaging and Cardiology Chest x-ray: report reviewed ( No evidence for infiltrate, pleural effusion or pneumothorax.) CT scan - abdomen: report reviewed (CT pelvis demonstrates a 5 mm calcification at the left ureteral vesicle junction with dilatation of the left ureter and mild left hydronephrosis with stranding around the left kidney. ) CT scan - chest: report reviewed (Right lower lobe pleural-based lung mass. Neoplasm cannot be excluded. ) CT Scan - head: report reviewed ( Age-appropriate brain without acute bleed) Assessment and Plan Cultures: 09/24/2018 Blood: Klebsiella Pneumoniae, 4 out 4 bottles, 09/24/2018 Urine: Klebsiella Pnuemoniae,10-100k CFU/ml, 83-year-old female, whose past medical history was unobtainable, that presented to the ED on 09/24/18 for evaluation of weakness, fever and altered mental status. No family was available to obtain history at time of admission. Admitted with: 1. Sepsis on Admission; evidenced by fever, elevated lactic acid and tachycardia, Now leukocytosis. Etiology Klebsiella Pneumoniae bacteremia. Source most likely UTI, U/A consistent with a UTI. Urine culture grew Klebsiella Pnuemoniae, Chest Xray showed no consolidation. Chest CT showed Right lower lobe pleural-based lung mass. Neoplasm cannot be excluded.. Currrently being treated with ceftriaxone, 2. Klebsiella Pneumoniae Bacteremia: 4 out of 4 bottles, resistant to ampicillin. 3. Complicated UTI: U/A shows Pyuria, WBC 8.0 Small LE. Urine culture grew Klebsiella Pneumoniae 10-100K, CFU/ml. Left hydronephrosis, s/p urethral stent placement. CT pelvis shows 5mm calcification at the left ureteral vesicle junction with dilatation of the left ureter and mild left hydronephrosis with stranding around the left kidney. 4. Right Lower Lobe Pleural based Lung Mass: CT chest, neoplasm cannot be excluded 5. Metabolic Encephalopathy: secondary to sepsis 6. Mild to moderate malnutrition: 7. Diarrhea: reports multiple loose stools, If persists will obtain stool cult ure. Monitor for now. 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 Please call for questions [facility] M: [phone] O:[phone]
[2018-09-29] MEDS: NACL 0.9% 1000 ML 1,000 ML IV SCH ×2 (05:32→21:01)
[2018-09-29 06:18] LABS: Hematocrit 32.2 % (30.3-42.9); Hemoglobin 10.8 gm/dl (10.1-14.3); Mean Corpuscular HGB Conc 34 % (30-34); Mean Corpuscular Volume 90 fl (79-97); Platelet Count 180 K/mm3 (140-440); Red Blood Count 3.57 M/mm3 (3.65-5.03)
[2018-09-29 06:35] LABS: BUN/Creatinine Ratio 20; Blood Urea Nitrogen 8 mg/dL (7-17); Calcium 7.7 mg/dL (8.4-10.2); Hemolysis Index 3
--- NOTE | 2018-09-29 10:04 | Progress Note ---
Assessment and Plan sr now double bb add asa (h/o mi/pci) f/u tte stable cv status discussed w/ son at bedside - Patient Problems (1) Altered mental status Current Visit: Yes Status: Acute (2) Hypomagnesemia Current Visit: Yes Status: Acute (3) Mass of right lung Current Visit: Yes Status: Acute (4) Paroxysmal SVT (supraventricular tachycardia) Current Visit: Yes Status: Acute (5) S/P ureteral stent placement Current Visit: Yes Status: Acute (6) HTN (hypertension) Current Visit: Yes Status: Chronic (7) Lung mass Current Visit: Yes Status: Chronic (8) Dementia Current Visit: Yes Status: Suspected Subjective Date of service: 09/29/18 Principal diagnosis: ureteral astone Interval history: no complaints Objective Vital Signs Temp Pulse Resp BP BP Pulse Ox 09/29/18 05:15 98.6 F 70 20 126/62 95 09/29/18 04:00 87 09/29/18 00:03 99.0 F 67 20 122/64 92 09/28/18 22:06 80 136/76 09/28/18 20:55 99.3 F 80 20 136/70 96 09/28/18 18:29 99.3 F 09/28/18 18:27 84 18 125/61 93 09/28/18 10:20 98.7 F 78 20 143/74 93 - Physical Examination HEENT: Positive: PERRL, Normocephaly, Mucus Membranes Moist Neck: Positive: neck supple, trachea midline Neuro: Positive: Grossly Intact Abdomen: Positive: Soft. Negative: Tender Skin: Negative: Rash, Wound Musculoskeletal: No Pain Extremities: Absent: edema - Labs and Meds CBC 09/29/18 Range/Units 05:40 WBC 9.3 (4.5-11.0) K/mm3 RBC 3.57 L (3.65-5.03) M/mm3 Hgb 10.8 (10.1-14.3) gm/dl Hct 32.2 (30.3-42.9) % Plt Count 180 (140-440) K/mm3 Comprehensive Metabolic Panel 09/29/18 Range/Units 05:40 Sodium 143 (137-145) mmol/L Potassium 4.4 D (3.6-5.0) mmol/L Chloride 106.8 (98-107) mmol/L Carbon Dioxide 26 (22-30) mmol/L BUN 8 (7-17) mg/dL Creatinine 0.4 L (0.7-1.2) mg/dL Glucose 93 (65-100) mg/dL Calcium 7.7 L (8.4-10.2) mg/dL - Imaging and Cardiology EKG: report reviewed, image reviewed Echo: pending - EKG Sinus rhythms and dysrhythmias: sinus rhythm
[2018-09-29] MEDS: LOPRESSOR PO SCH ×2 (10:49→21:01)
[2018-09-29] MEDS: ROCEPHIN/NS 2 GM/100 ML 2 GM/100 ML BAG IV SCH (10:53)
[2018-09-29] MEDS: LOVENOX SUB-Q SCH (10:53)
[2018-09-29] MEDS: PEPCID PO SCH ×2 (10:53→21:01)
[2018-09-29 15:44] LABS: Anisocytosis 1+; Band Neutrophils # (Manual) 0.3 K/mm3; Basophils % (Manual) 0 % (0.0-1.8); Total Cells Counted 100
[2018-09-29 15:45] LABS: Platelet Estimate Consistent w Auto
--- NOTE | 2018-09-29 17:31 | Progress Note ---
Assessment and Plan Assessment and plan: --Gram-negative sepsis; Klebsiella urine and blood Secondary to complicated UTI, continue IV Rocephin, IV fluids ID following, discharge on oral Keflex when stable --Paroxysmal SVT[Supra ventricular tachycardia]; heart rate in the 160s to 170, s/p IV adenosine 6 mg, converted to sinus. Heart rate within normal limits this morning Continue beta blockers ,ECHO 55-60% cardio added Plavix --Hypokalemia/hypomagnesemia/hyperphosphatemia; corrected --Left hydronephrosis s/p ureteral stent placement Cleared by urology for discharge -- Lung mass on CT chest ; Right lower lobe pleural-based lung mass, pulmonary evaluated the patient IR consulted, rec outpatient biopsy Patient is more stable --Metabolic encephalopathy; probably secondary to sepsis Significant improvement --Leukocytosis; secondary to sepsis, resolved ,continue current antibiotics --Lactic acidosis; resolved, secondary to sepsis due to UTI --[id number] malnutrition/hypoalbuminemia; supportive care Nutrition supplements --DVT prophylaxis; Lovenox --Full CODE STATUS Discharge planning; placement in SNF/rehab when medically stable . Possible discharge in 1-2 days if stable Plan of care reviewed with the patient, patient's son at the bedside and her nurse Consults and recommendations noted and appreciated History Interval history: Patient seen and examined this morning medical records reviewed No new events reported by the nursing Heart rate sinus within normal limits Patient comfortable no new complaints Vital signs noted Hospitalist Physical - Constitutional Vitals: Temp Pulse Resp BP Pulse Ox 98.6 F 85 18 141/56 91 09/29/18 15:59 09/29/18 15:56 09/29/18 15:56 09/29/18 15:56 09/29/18 15:56 General appearance: Present: no acute distress, well-nourished, obese - EENT Eyes: Present: PERRL, EOM intact - Neck Neck: Present: supple, normal ROM - Respiratory Respiratory effort: normal Respiratory: bilateral: diminished, negative: rales, rhonchi, wheezing - Cardiovascular Rhythm: regular Heart Sounds: Present: S1 & S2 - Extremities Extremities: no ischemia, pulses intact - Abdominal General gastrointestinal: soft, non-tender, non-distended, normal bowel sounds - Integumentary Integumentary: Present: clear, warm - Psychiatric Psychiatric: appropriate mood/affect, cooperative - Neurologic Neurologic: CNII-XII intact, moves all extremities Results - Labs CBC & Chem 7: 09/29/18 05:40 09/29/18 05:40 Labs: Laboratory Last Values WBC 9.3 K/mm3 (4.5-11.0) 09/29/18 05:40 RBC 3.57 M/mm3 (3.65-5.03) L 09/29/18 05:40 Hgb 10.8 gm/dl (10.1-14.3) 09/29/18 05:40 Hct 32.2 % (30.3-42.9) 09/29/18 05:40 MCV 90 fl (79-97) 09/29/18 05:40 MCH 30 pg (28-32) 09/29/18 05:40 MCHC 34 % (30-34) 09/29/18 05:40 RDW 14.0 % (13.2-15.2) 09/29/18 05:40 Plt Count 180 K/mm3 (140-440) 09/29/18 05:40 Add Manual Diff Complete 09/29/18 05:40 Total Counted 100 09/29/18 05:40 Seg Neutrophils % Tube Roller 09/24/18 15:04 Seg Neuts % (Manual) 64.0 % (40.0-70.0) 09/29/18 05:40 Band Neutrophils % 3.0 % 09/29/18 05:40 Lymphocytes % (Manual) 21.0 % (13.4-35.0) 09/29/18 05:40 Reactive Lymphs % (Man) 1.0 % 09/29/18 05:40 Monocytes % (Manual) 8.0 % (0.0-7.3) H 09/29/18 05:40 Eosinophils % (Manual) 3.0 % (0.0-4.3) 09/29/18 05:40 Basophils % (Manual) 0 % (0.0-1.8) 09/29/18 05:40 Metamyelocytes % 0 % 09/29/18 05:40 Myelocytes % 0 % 09/29/18 05:40 Promyelocytes % 0 % 09/29/18 05:40 Blast Cells % 0 % 09/29/18 05:40 Nucleated RBC % Not Reportable 09/29/18 05:40 Seg Neutrophils # Man 6.0 K/mm3 (1.8-7.7) 09/29/18 05:40 Band Neutrophils # 0.3 K/mm3 09/29/18 05:40 Lymphocytes # (Manual) 2.0 K/mm3 (1.2-5.4) 09/29/18 05:40 Abs React Lymphs (Man) 0.1 K/mm3 09/29/18 05:40 Monocytes # (Manual) 0.7 K/mm3 (0.0-0.8) 09/29/18 05:40 Eosinophils # (Manual) 0.3 K/mm3 (0.0-0.4) 09/29/18 05:40 Basophils # (Manual) 0.0 K/mm3 (0.0-0.1) 09/29/18 05:40 Metamyelocytes # 0.0 K/mm3 09/29/18 05:40 Myelocytes # 0.0 K/mm3 09/29/18 05:40 Promyelocytes # 0.0 K/mm3 09/29/18 05:40 Blast Cells # 0.0 K/mm3 09/29/18 05:40 WBC Morphology Not Reportable 09/29/18 05:40 Hypersegmented Neuts Not Reportable 09/29/18 05:40 Hyposegmented Neuts Not Reportable 09/29/18 05:40 Hypogranular Neuts Not Reportable 09/29/18 05:40 Smudge Cells Not Reportable 09/29/18 05:40 Toxic Granulation Not Reportable 09/29/18 05:40 Toxic Vacuolation Not Reportable 09/29/18 05:40 Dohle Bodies Not Reportable 09/29/18 05:40 Pelger-Huet Anomaly Not Reportable 09/29/18 05:40 Margoth Rods Not Reportable 09/29/18 05:40 Platelet Estimate Consistent w auto 09/29/18 05:40 Clumped Platelets Not Reportable 09/29/18 05:40 Plt Clumps, EDTA Not Reportable 09/29/18 05:40 Large Platelets Not Reportable 09/29/18 05:40 Giant Platelets Not Reportable 09/29/18 05:40 Platelet Satelliting Not Reportable 09/29/18 05:40 Plt Morphology Comment Not Reportable 09/29/18 05:40 RBC Morphology Not Reportable 09/29/18 05:40 Dimorphic RBCs Not Reportable 09/29/18 05:40 Polychromasia Not Reportable 09/29/18 05:40 Hypochromasia Not Reportable 09/29/18 05:40 Poikilocytosis Not Reportable 09/29/18 05:40 Anisocytosis 1+ 09/29/18 05:40 Microcytosis Not Reportable 09/29/18 05:40 Macrocytosis Not Reportable 09/29/18 05:40 Spherocytes Not Reportable 09/29/18 05:40 Pappenheimer Bodies Not Reportable 09/29/18 05:40 Sickle Cells Not Reportable 09/29/18 05:40 Target Cells Not Reportable 09/29/18 05:40 Tear Drop Cells Not Reportable 09/29/18 05:40 Ovalocytes Not Reportable 09/29/18 05:40 Helmet Cells Not Reportable 09/29/18 05:40 [place] Bodies Not Reportable 09/29/18 05:40 Carey Rings Not Reportable 09/29/18 05:40 Chalo Cells Not Reportable 09/29/18 05:40 Bite Cells Not Reportable 09/29/18 05:40 Crenated Cell Not Reportable 09/29/18 05:40 Elliptocytes Not Reportable 09/29/18 05:40 Acanthocytes (Spur) Not Reportable 09/29/18 05:40 Rouleaux Not Reportable 09/29/18 05:40 Hemoglobin C Crystals Not Reportable 09/29/18 05:40 Schistocytes Not Reportable 09/29/18 05:40 Malaria parasites Not Reportable 09/29/18 05:40 Ulisses Bodies Not Reportable 09/29/18 05:40 Hem Pathologist Commnt No 09/29/18 05:40 PT 14.8 Sec. (12.2-14.9) 09/24/18 15:04 INR 1.09 (0.87-1.13) 09/24/18 15:04 APTT 28.3 Sec. (24.2-36.6) 09/24/18 15:04 POC ABG pH 7.373 (7.35-7.45) 09/26/18 11:36 POC ABG pCO2 41.5 (35-45) 09/26/18 11:36 POC ABG pO2 64 (80-105) L 09/26/18 11:36 POC ABG HCO3 24.1 (22-26 mml/L) 09/26/18 11:36 POC ABG Total CO2 25 (23-27mmol/L) 09/26/18 11:36 POC ABG O2 Sat 91 09/26/18 11:36 POC ABG Base Excess -1 ((-2) - (+3)mmol/L) 09/26/18 11:36 FiO2 21 % 09/26/18 11:36 Sodium 143 mmol/L (137-145) 09/29/18 05:40 Potassium 4.4 mmol/L (3.6-5.0) D 09/29/18 05:40 Chloride 106.8 mmol/L (98-107) 09/29/18 05:40 Carbon Dioxide 26 mmol/L (22-30) 09/29/18 05:40 Anion Gap 15 mmol/L 09/29/18 05:40 BUN 8 mg/dL (7-17) 09/29/18 05:40 Creatinine 0.4 mg/dL (0.7-1.2) L 09/29/18 05:40 Estimated GFR > 60 ml/min 09/29/18 05:40 BUN/Creatinine Ratio 20 % 09/29/18 05:40 Glucose 93 mg/dL (65-100) 09/29/18 05:40 POC Glucose 155 (70-105) H 09/29/18 11:34 Hemoglobin A1c 6.2 % (4-6) H 09/24/18 22:57 Lactic Acid 1.60 mmol/L (0.7-2.0) 09/24/18 22:57 Calcium 7.7 mg/dL (8.4-10.2) L 09/29/18 05:40 Phosphorus 4.40 mg/dL (2.5-4.5) D 09/29/18 05:40 Magnesium 1.80 mg/dL (1.7-2.3) 09/29/18 05:40 Total Bilirubin 0.30 mg/dL (0.1-1.2) 09/28/18 06:39 AST 29 units/L (5-40) 09/28/18 06:39 ALT 28 units/L (7-56) 09/28/18 06:39 Alkaline Phosphatase 54 units/L (35-129) 09/28/18 06:39 Total Creatine Kinase 842 units/L (30-135) H 09/24/18 15:04 Troponin T 0.029 ng/mL (0.00-0.029) 09/24/18 15:04 Total Protein 5.1 g/dL (6.3-8.2) L 09/28/18 06:39 Albumin 2.6 g/dL (3.9-5) L 09/28/18 06:39 Albumin/Globulin Ratio 1.0 % 09/28/18 06:39 TSH 4.520 mlU/mL (0.270-4.200) H 09/28/18 12:03 Free T4 1.17 ng/dL (0.76-1.46) 09/28/18 12:03 Urine Color Vane (Yellow) 09/24/18 15:09 Urine Turbidity Slightly-cloudy (Clear) 09/24/18 15:09 Urine pH 5.0 (5.0-7.0) 09/24/18 15:09 Ur Specific [place] 1.017 (1.003-1.030) 09/24/18 15:09 Urine Protein 30 mg/dl mg/dL (Negative) 09/24/18 15:09 Urine Glucose (UA) Neg mg/dL (Negative) 09/24/18 15:09 Urine Ketones Tr mg/dL (Negative) 09/24/18 15:09 Urine Blood Lg (Negative) 09/24/18 15:09 Urine Nitrite Pos (Negative) 09/24/18 15:09 Urine Bilirubin Neg (Negative) 09/24/18 15:09 Urine Urobilinogen < 2.0 mg/dL (<2.0) 09/24/18 15:09 Ur Leukocyte Esterase Sm (Negative) 09/24/18 15:09 Urine WBC (Auto) 39.0 /HPF (0.0-6.0) H 09/24/18 15:09 Urine RBC (Auto) 35.0 /HPF (0.0-6.0) 09/24/18 15:09 U Epithel Cells (Auto) < 1.0 /HPF (0-13.0) 09/24/18 15:09 Urine Bacteria (Auto) 4+ /HPF (Negative) 09/24/18 15:09 Urine Mucus 2+ /HPF 09/24/18 15:09 Urine Yeast (Budding) 1+ /HPF 09/24/18 15:09 Salicylates < 0.3 mg/dL (2.8-20.0) L 09/24/18 15:04 Acetaminophen < 5.0 ug/mL (10.0-30.0) L 09/24/18 15:04 Active Medications - Current Medications Current Medications: Generic Name Dose Route Start Last Admin Trade Name Freq PRN Reason Stop Dose Admin Acetaminophen 650 mg 09/24/18 22:41 Tylenol PO Q4H PRN Pain MILD(1-3)/Fever >100.5/ROONEY Alprazolam 1 mg 09/27/18 12:57 Xanax PO Q8H PRN Anxiety Enoxaparin Sodium 40 mg 09/26/18 10:00 09/29/18 10:53 Lovenox SUB-Q 40 mg QDAY@1000 ARON Administration Famotidine 20 mg 09/27/18 22:00 09/29/18 10:53 Pepcid PO 20 mg BID ARON Administration Hydromorphone HCl 0.5 mg 09/24/18 22:41 Dilaudid IV Q3H PRN Pain , Severe (7-10) Sodium Chloride 1,000 mls @ 75 mls/hr 09/24/18 23:00 09/29/18 05:32 Nacl 0.9% 1000 Ml IV 75 mls/hr DIRECT ARON Administration Ceftriaxone Sodium 2 gm in 100 mls @ 200 mls/hr 09/25/18 10:00 09/29/18 10:53 Rocephin/Ns 2 Gm/100 Ml IV 200 mls/hr Q24HR ARON Administration Metoprolol Tartrate 50 mg 09/29/18 22:00 Lopressor PO BID RAON Ondansetron HCl 4 mg 09/24/18 22:41 09/25/18 11:51 Zofran IV 4 mg Q8H PRN Administration Nausea And Vomiting Oxycodone/Acetaminophen 1 tab 09/24/18 22:41 Percocet 5/325 PO Q6H PRN Pain, Moderate (4-6) Sodium Chloride 10 ml 09/25/18 10:00 09/28/18 22:07 Sodium Chloride Flush Syringe 10 Ml IV 10 ml BID ARON Administration Sodium Chloride 10 ml 09/24/18 22:41 Sodium Chloride Flush Syringe 10 Ml IV PRN PRN LINE FLUSH
[2018-09-29] MEDS: SODIUM CHLORIDE FLUSH SYRINGE 10 ML IV SCH ×2 (19:35→21:01)
--- NOTE | 2018-09-29 21:34 | Progress Note ---
Assessment and Plan Patient awake. Still confused. Patient is on 2 litres o2.O2 saturation 93%. No acute respiratory distress. Patients CAT scan reported right lower lobe pleural based mass. Scheduled for per cutaneous needle biopsy of chest lesion under CT guidance by interventional radiology. Interventional radiology suggested percutaneous needle biopsy of chest lesion as out patient since patient is treating for infection. Told the patients son to come to my office after discharged from the hospital and arrange needle Biopsy as out patient.Stressed importance of out patient follow up. . - Patient Problems (1) Mass of right lung Current Visit: Yes Status: Acute Plan to address problem: Scheduled for per cutaneous needle biopsy of chest lesion under CT guidance by interventional radiology. Interventional radiology suggested percutaneous needle biopsy of chest lesion as out patient since patient is treating for infection. Told the patients son to come to my office after discharged from the hospital and arrange needle Biopsy as out patient.Stressed importance of out patient follow up. . (2) Ureteral stone Current Visit: Yes Status: Acute Plan to address problem: Patient has ureteral stent placement. (3) Sepsis, Gram negative Current Visit: Yes Status: Acute Plan to address problem: Patient is on ceftrioxone. Subjective Date of service: 09/29/18 Principal diagnosis: ureteral astone Interval history: Patient awake. Still confused. Patient is on 2 litres o2.O2 saturation 93%. No acute respiratory distress. Patients CAT scan reported right lower lobe pleural based mass. Scheduled for per cutaneous needle biopsy of chest lesion under CT guidance by interventional radiology. Interventional radiology suggested percutaneous needle biopsy of chest lesion as out patient since patient is treating for infection. Told the patients son to come to my office after discharged from the hospital and arrange needle Biopsy as out patient.Stressed importance of out patient follow up. Objective Vital Signs - 12hr 09/29/18 09/29/18 09/29/18 11:27 11:32 15:56 Temperature 98.2 F Pulse Rate 86 85 Respiratory 18 18 Rate Blood Pressure 141/68 141/56 O2 Sat by Pulse 94 91 Oximetry 09/29/18 09/29/18 15:59 21:01 Temperature 98.6 F Pulse Rate 64 Respiratory Rate Blood Pressure 128/65 O2 Sat by Pulse Oximetry Constitutional: no acute distress, alert Eyes: non-icteric ENT: oropharynx moist Neck: supple, no JVD Ascultation: Bilateral: diminished breath sounds Cardiovascular: regular rate and rhythm Gastrointestinal: normoactive bowel sounds, tender Integumentary: normal Extremities: no cyanosis, no edema Neurologic: normal mental status, non-focal exam, pupils equal and round Psychiatric: depressed CBC and BMP: 09/29/18 05:40 09/29/18 05:40 ABG, PT/INR, D-dimer: ABG POC ABG pH 7.373 (7.35-7.45) 09/26/18 11:36 POC ABG pCO2 41.5 (35-45) 09/26/18 11:36 POC ABG pO2 64 (80-105) L 09/26/18 11:36 POC ABG HCO3 24.1 (22-26 mml/L) 09/26/18 11:36 POC ABG Total CO2 25 (23-27mmol/L) 09/26/18 11:36 POC ABG O2 Sat 91 09/26/18 11:36 PT/INR, D-dimer PT 14.8 Sec. (12.2-14.9) 09/24/18 15:04 INR 1.09 (0.87-1.13) 09/24/18 15:04 Abnormal lab findings: Abnormal Labs 09/24/18 09/24/18 09/24/18 15:04 15:04 15:04 WBC RBC Hgb Hct Plt Count 130 L Seg Neuts % (Manual) 90.0 H Lymphocytes % (Manual) 6.0 L Monocytes % (Manual) Seg Neutrophils # Man Lymphocytes # (Manual) 0.5 L POC ABG pO2 Potassium Chloride BUN 19 H Creatinine Glucose POC Glucose Hemoglobin A1c Lactic Acid 4.40 H* Calcium Phosphorus Magnesium AST Alkaline Phosphatase Total Creatine Kinase Total Protein 6.1 L Albumin 3.7 L TSH Urine WBC (Auto) Salicylates Acetaminophen 09/24/18 09/24/18 09/24/18 15:04 15:04 15:04 WBC RBC Hgb Hct Plt Count Seg Neuts % (Manual) Lymphocytes % (Manual) Monocytes % (Manual) Seg Neutrophils # Man Lymphocytes # (Manual) POC ABG pO2 Potassium Chloride BUN Creatinine Glucose POC Glucose Hemoglobin A1c Lactic Acid Calcium Phosphorus Magnesium 1.20 L AST Alkaline Phosphatase Total Creatine Kinase 842 H Total Protein Albumin TSH Urine WBC (Auto) Salicylates < 0.3 L Acetaminophen < 5.0 L 09/24/18 09/24/18 09/24/18 15:09 16:00 19:59 WBC RBC Hgb Hct Plt Count Seg Neuts % (Manual) Lymphocytes % (Manual) Monocytes % (Manual) Seg Neutrophils # Man Lymphocytes # (Manual) POC ABG pO2 Potassium Chloride BUN Creatinine Glucose POC Glucose Hemoglobin A1c Lactic Acid 4.40 H* 2.30 H* Calcium Phosphorus Magnesium AST Alkaline Phosphatase Total Creatine Kinase Total Protein Albumin TSH Urine WBC (Auto) 39.0 H Salicylates Acetaminophen 09/24/18 09/24/18 09/25/18 21:51 22:57 05:18 WBC 20.3 H RBC Hgb Hct Plt Count 101 L Seg Neuts % (Manual) Lymphocytes % (Manual) 2.0 L Monocytes % (Manual) Seg Neutrophils # Man 13.0 H Lymphocytes # (Manual) 0.4 L POC ABG pO2 Potassium Chloride BUN Creatinine Glucose POC Glucose Hemoglobin A1c 6.2 H Lactic Acid 2.40 H* Calcium Phosphorus Magnesium AST Alkaline Phosphatase Total Creatine Kinase Total Protein Albumin TSH Urine WBC (Auto) Salicylates Acetaminophen 09/25/18 09/25/18 09/26/18 05:18 23:00 04:13 WBC 19.6 H RBC 3.31 L Hgb 9.9 L Hct 29.8 L Plt Count 82 L Seg Neuts % (Manual) Lymphocytes % (Manual) 1.0 L Monocytes % (Manual) Seg Neutrophils # Man 10.4 H Lymphocytes # (Manual) 0.2 L POC ABG pO2 Potassium 3.5 L Chloride BUN 22 H Creatinine 0.6 L Glucose 102 H POC Glucose 117 H Hemoglobin A1c Lactic Acid Calcium 7.7 L Phosphorus Magnesium AST 82 H Alkaline Phosphatase 32 L Total Creatine Kinase Total Protein 5.6 L Albumin 3.1 L TSH Urine WBC (Auto) Salicylates Acetaminophen 09/26/18 09/26/18 09/27/18 04:13 11:36 06:00 WBC 22.3 H RBC 3.35 L Hgb 10.0 L Hct Plt Count 100 L Seg Neuts % (Manual) 89.0 H Lymphocytes % (Manual) 6.0 L Monocytes % (Manual) Seg Neutrophils # Man 19.8 H Lymphocytes # (Manual) POC ABG pO2 64 L Potassium 3.3 L Chloride 108.0 H BUN Creatinine 0.5 L Glucose POC Glucose Hemoglobin A1c Lactic Acid Calcium 7.5 L Phosphorus 1.90 L Magnesium AST 72 H Alkaline Phosphatase Total Creatine Kinase Total Protein 5.0 L Albumin 2.7 L TSH Urine WBC (Auto) Salicylates Acetaminophen 09/27/18 09/27/18 09/27/18 06:00 12:04 20:46 WBC RBC Hgb Hct Plt Count Seg Neuts % (Manual) Lymphocytes % (Manual) Monocytes % (Manual) Seg Neutrophils # Man Lymphocytes # (Manual) POC ABG pO2 Potassium 3.5 L Chloride BUN Creatinine 0.5 L Glucose 103 H POC Glucose 142 H 129 H Hemoglobin A1c Lactic Acid Calcium 7.9 L Phosphorus Magnesium AST Alkaline Phosphatase Total Creatine Kinase Total Protein Albumin TSH Urine WBC (Auto) Salicylates Acetaminophen 09/28/18 09/28/18 09/28/18 06:39 06:39 12:03 WBC 13.2 H RBC 3.36 L Hgb 10.0 L Hct 30.1 L Plt Count 125 L Seg Neuts % (Manual) 77.0 H Lymphocytes % (Manual) Monocytes % (Manual) Seg Neutrophils # Man 10.2 H Lymphocytes # (Manual) POC ABG pO2 Potassium 3.4 L Chloride 108.9 H BUN Creatinine 0.4 L Glucose POC Glucose Hemoglobin A1c Lactic Acid Calcium 7.9 L Phosphorus 1.80 L Magnesium 1.40 L AST Alkaline Phosphatase Total Creatine Kinase Total Protein 5.1 L Albumin 2.6 L TSH 4.520 H Urine WBC (Auto) Salicylates Acetaminophen 09/28/18 09/28/18 09/29/18 12:21 21:32 05:40 WBC RBC Hgb Hct Plt Count Seg Neuts % (Manual) Lymphocytes % (Manual) Monocytes % (Manual) Seg Neutrophils # Man Lymphocytes # (Manual) POC ABG pO2 Potassium Chloride BUN Creatinine 0.4 L Glucose POC Glucose 114 H 141 H Hemoglobin A1c Lactic Acid Calcium 7.7 L Phosphorus Magnesium AST Alkaline Phosphatase Total Creatine Kinase Total Protein Albumin TSH Urine WBC (Auto) Salicylates Acetaminophen 09/29/18 09/29/18 05:40 11:34 WBC RBC 3.57 L Hgb Hct Plt Count Seg Neuts % (Manual) Lymphocytes % (Manual) Monocytes % (Manual) 8.0 H Seg Neutrophils # Man Lymphocytes # (Manual) POC ABG pO2 Potassium Chloride BUN Creatinine Glucose POC Glucose 155 H Hemoglobin A1c Lactic Acid Calcium Phosphorus Magnesium AST Alkaline Phosphatase Total Creatine Kinase Total Protein Albumin TSH Urine WBC (Auto) Salicylates Acetaminophen
[2018-09-30] MEDS: NACL 0.9% 1000 ML 1,000 ML IV SCH ×2 (09:55→21:07)
[2018-09-30] MEDS: ROCEPHIN/NS 2 GM/100 ML 2 GM/100 ML BAG IV SCH (09:57)
[2018-09-30] MEDS: LOPRESSOR PO SCH ×2 (10:00→21:04)
[2018-09-30] MEDS: SODIUM CHLORIDE FLUSH SYRINGE 10 ML IV SCH ×2 (10:00→21:05)
[2018-09-30] MEDS: PEPCID PO SCH ×2 (10:00→21:04)
[2018-09-30] MEDS: LOVENOX SUB-Q SCH (10:00)
--- NOTE | 2018-09-30 10:15 | Progress Note ---
Assessment and Plan Cultures: 09/24/2018 Blood: Klebsiella Pneumoniae, 4 out 4 bottles, 09/24/2018 Urine: Klebsiella Pnuemoniae,10-100k CFU/ml, 09/29/2018 Blood: in progress 09/29/2018 Urine: in progress 83-year-old female, whose past medical history was unobtainable, that presented to the ED on 09/24/18 for evaluation of weakness, fever and altered mental status. No family was available to obtain history at time of admission. Admitted with: 1. Sepsis on Admission; Resolved. Etiology Klebsiella Pneumoniae bacteremia. Source most likely UTI, U/A consistent with a UTI. Urine culture grew Kleb skinnylla Pnuemoniae, Chest Xray showed no consolidation. Chest CT showed Right lo wer lobe pleural-based lung mass. Neoplasm cannot be excluded.. Currrently being treated with ceftriaxone, 2. Klebsiella Pneumoniae Bacteremia: 4 out of 4 bottles, resistant to ampicillin. 3. Complicated UTI: U/A shows Pyuria, WBC 8.0 Small LE. Urine culture grew Klebsiella Pneumoniae 10-100K, CFU/ml. Left hydronephrosis, s/p urethral stent placement. CT pelvis shows 5mm calcification at the left ureteral vesicle junction with dilatation of the left ureter and mild left hydronephrosis with st randing around the left kidney. 4. Right Lower Lobe Pleural based Lung Mass: CT chest, neoplasm cannot be excluded 5. Metabolic Encephalopathy: secondary to sepsis 6. Mild to moderate malnutrition: 7. Diarrhea: reports multiple loose stools, If persists will obtain stool culture. Monitor for now. Plan: -f/u blood cultures -f/u urine culture -Start PO Keflex 500 mg QID to complete a total of 10 days of therapy ending 10/04/2018. -Clinically stable, ID is signing off [facility] M: [phone] O:[phone] Subjective Date of service: 09/30/18 Principal diagnosis: ureteral astone Interval history: Patient seen and examined. States that she is feeling better but continues to have generalized weakness. Family at bedside. Objective - Exam Narrative Exam: Constitutional: Alert, cooperative. No acute distress. Generalized weakness Head, Ears, Nose: Normocephalic, atraumatic. External ears, nose normal Eyes: Conjunctivae/corneas clear. No icterus. No ptosis. Neck: Supple, no meningeal signs Oral: dentition fair, no thrush Cardiovascular: S1, S2 normal. Respiratory: Good air entry, clear to auscultation bilaterally GI: Soft, non-tender; bowel sounds normal. No peritoneal signs Musculoskeletal: No pedal edema, no cyanosis. Skin: No rash or abscess. Hem/Lymphatic: No palpable cervical or supraclavicular nodes. No lymphangitis Psych: Mood ok. Affect normal Neurological: Awake, alert, oriented. - Constitutional Vitals: Vital Signs Temp Pulse Resp BP Pulse Ox 98.4 F 79 20 137/56 93 09/30/18 05:00 09/30/18 05:00 09/30/18 05:00 09/30/18 05:00 09/30/18 05:00 Temperature -Last 24 Hours Temperature 98.4 F Temperature 99 F Temperature 99.0 F Temperature 99.3 F Temperature 99.3 F Temperature 99.3 F Temperature 98.6 F Temperature 98.2 F - Labs CBC & Chem 7: 09/29/18 05:40 09/29/18 05:40 Labs: Abnormal lab results 09/29/18 09/29/18 Range/Units 05:40 11:34 Monocytes % (Manual) 8.0 H (0.0-7.3) % POC Glucose 155 H (70-105)
--- NOTE | 2018-09-30 10:53 | Progress Note ---
Assessment and Plan feels better sr now - no further svt noted doubled bb yesterday add plavix (h/o mi/pci, asa all) * ? start after lung biopsy tte reviewed w/ pt and family stable cv status discussed w/ family at bedside - Patient Problems (1) Altered mental status Current Visit: Yes Status: Acute (2) Hypomagnesemia Current Visit: Yes Status: Acute (3) Mass of right lung Current Visit: Yes Status: Acute (4) Paroxysmal SVT (supraventricular tachycardia) Current Visit: Yes Status: Acute (5) S/P ureteral stent placement Current Visit: Yes Status: Acute (6) HTN (hypertension) Current Visit: Yes Status: Chronic (7) Lung mass Current Visit: Yes Status: Chronic (8) Dementia Current Visit: Yes Status: Suspected Subjective Date of service: 09/30/18 Principal diagnosis: ureteral astone Interval history: no complaints Objective Vital Signs Temp Pulse Resp BP BP Pulse Ox 09/30/18 05:00 98.4 F 79 20 137/56 93 09/30/18 01:00 99 F 79 20 128/55 96 09/30/18 00:18 99.0 F 20 128/55 09/29/18 22:40 20 98 09/29/18 21:01 64 128/65 09/29/18 21:00 99.3 F 93 H 20 128/65 93 09/29/18 20:03 99.3 F 64 20 95 09/29/18 20:01 99.3 F 20 128/65 09/29/18 19:30 84 09/29/18 15:59 98.6 F 09/29/18 15:56 85 18 141/56 91 09/29/18 11:32 98.2 F 09/29/18 11:27 86 18 141/68 94 - Physical Examination HEENT: Positive: PERRL, Normocephaly, Mucus Membranes Moist Neck: Positive: neck supple, trachea midline Neuro: Positive: Grossly Intact Abdomen: Positive: Soft. Negative: Tender Skin: Negative: Rash, Wound Musculoskeletal: No Pain Extremities: Absent: edema - Imaging and Cardiology EKG: report reviewed, image reviewed Echo: pending - EKG Sinus rhythms and dysrhythmias: sinus rhythm
--- NOTE | 2018-09-30 11:38 | Progress Note ---
Assessment and Plan Assessment and plan: --Gram-negative sepsis; Klebsiella urine and blood complicated UTI, continue IV Rocephin, per ID discharge on oral Keflex when stable --Paroxysmal SVT[Supra ventricular tachycardia]; HR 160s to 170, s/p IV adenosine 6 mg, converted to sinus. Heart rate within normal limits Continue beta blockers ,ECHO 55-60% cardio added Plavix --Hypokalemia/hypomagnesemia/hyperphosphatemia; corrected --Left hydronephrosis s/p ureteral stent placement Cleared by urology for discharge -- Lung mass on CT chest ; Right lower lobe pleural-based lung mass, pulmonary evaluated the patient IR consulted, rec outpatient biopsy Patient is more stable --Metabolic encephalopathy; probably secondary to sepsis Significant improvement --Leukocytosis; secondary to sepsis, resolved ,continue current antibiotics --Lactic acidosis; resolved, secondary to sepsis due to UTI --[id number] malnutrition/hypoalbuminemia; supportive care Nutrition supplements --DVT prophylaxis; Lovenox --Full CODE STATUS Discharge planning; placement in SNF/rehab when medically stable . Plan of care reviewed with the patient, patient's granddaughter at the bedside and her nurse Possible discharge to rehabilitation tomorrow if stable History Interval history: Since seen and examined medical records reviewed Patient feels better no new complaints Alert awake oriented 3 Sample Tailor reports sinus rhythm, normal rate Vital signs reviewed Family member at the bedside Hospitalist Physical - Constitutional Vitals: Temp Pulse Resp BP Pulse Ox 98.4 F 68 18 134/69 93 09/30/18 11:26 09/30/18 11:22 09/30/18 11:22 09/30/18 11:22 09/30/18 11:22 General appearance: Present: no acute distress, well-nourished, obese - EENT Eyes: Present: PERRL, EOM intact - Neck Neck: Present: supple, normal ROM - Respiratory Respiratory effort: normal Respiratory: negative: rales, rhonchi, wheezing - Cardiovascular Rhythm: regular Heart Sounds: Present: S1 & S2 - Extremities Extremities: no ischemia, No edema - Abdominal General gastrointestinal: soft, non-tender, non-distended, normal bowel sounds - Integumentary Integumentary: Present: clear, warm - Psychiatric Psychiatric: appropriate mood/affect, cooperative - Neurologic Neurologic: CNII-XII intact, moves all extremities Results - Labs CBC & Chem 7: 09/29/18 05:40 09/29/18 05:40 Labs: Laboratory Last Values WBC 9.3 K/mm3 (4.5-11.0) 09/29/18 05:40 RBC 3.57 M/mm3 (3.65-5.03) L 09/29/18 05:40 Hgb 10.8 gm/dl (10.1-14.3) 09/29/18 05:40 Hct 32.2 % (30.3-42.9) 09/29/18 05:40 MCV 90 fl (79-97) 09/29/18 05:40 MCH 30 pg (28-32) 09/29/18 05:40 MCHC 34 % (30-34) 09/29/18 05:40 RDW 14.0 % (13.2-15.2) 09/29/18 05:40 Plt Count 180 K/mm3 (140-440) 09/29/18 05:40 Add Manual Diff Complete 09/29/18 05:40 Total Counted 100 09/29/18 05:40 Seg Neutrophils % [facility] 09/24/18 15:04 Seg Neuts % (Manual) 64.0 % (40.0-70.0) 09/29/18 05:40 Band Neutrophils % 3.0 % 09/29/18 05:40 Lymphocytes % (Manual) 21.0 % (13.4-35.0) 09/29/18 05:40 Reactive Lymphs % (Man) 1.0 % 09/29/18 05:40 Monocytes % (Manual) 8.0 % (0.0-7.3) H 09/29/18 05:40 Eosinophils % (Manual) 3.0 % (0.0-4.3) 09/29/18 05:40 Basophils % (Manual) 0 % (0.0-1.8) 09/29/18 05:40 Metamyelocytes % 0 % 09/29/18 05:40 Myelocytes % 0 % 09/29/18 05:40 Promyelocytes % 0 % 09/29/18 05:40 Blast Cells % 0 % 09/29/18 05:40 Nucleated RBC % Not Reportable 09/29/18 05:40 Seg Neutrophils # Man 6.0 K/mm3 (1.8-7.7) 09/29/18 05:40 Band Neutrophils # 0.3 K/mm3 09/29/18 05:40 Lymphocytes # (Manual) 2.0 K/mm3 (1.2-5.4) 09/29/18 05:40 Abs React Lymphs (Man) 0.1 K/mm3 09/29/18 05:40 Monocytes # (Manual) 0.7 K/mm3 (0.0-0.8) 09/29/18 05:40 Eosinophils # (Manual) 0.3 K/mm3 (0.0-0.4) 09/29/18 05:40 Basophils # (Manual) 0.0 K/mm3 (0.0-0.1) 09/29/18 05:40 Metamyelocytes # 0.0 K/mm3 09/29/18 05:40 Myelocytes # 0.0 K/mm3 09/29/18 05:40 Promyelocytes # 0.0 K/mm3 09/29/18 05:40 Blast Cells # 0.0 K/mm3 09/29/18 05:40 WBC Morphology Not Reportable 09/29/18 05:40 Hypersegmented Neuts Not Reportable 09/29/18 05:40 Hyposegmented Neuts Not Reportable 09/29/18 05:40 Hypogranular Neuts Not Reportable 09/29/18 05:40 Smudge Cells Not Reportable 09/29/18 05:40 Toxic Granulation Not Reportable 09/29/18 05:40 Toxic Vacuolation Not Reportable 09/29/18 05:40 Dohle Bodies Not Reportable 09/29/18 05:40 Pelger-Huet Anomaly Not Reportable 09/29/18 05:40 Margoth Rods Not Reportable 09/29/18 05:40 Platelet Estimate Consistent w auto 09/29/18 05:40 Clumped Platelets Not Reportable 09/29/18 05:40 Plt Clumps, EDTA Not Reportable 09/29/18 05:40 Large Platelets Not Reportable 09/29/18 05:40 Giant Platelets Not Reportable 09/29/18 05:40 Platelet Satelliting Not Reportable 09/29/18 05:40 Plt Morphology Comment Not Reportable 09/29/18 05:40 RBC Morphology Not Reportable 09/29/18 05:40 Dimorphic RBCs Not Reportable 09/29/18 05:40 Polychromasia Not Reportable 09/29/18 05:40 Hypochromasia Not Reportable 09/29/18 05:40 Poikilocytosis Not Reportable 09/29/18 05:40 Anisocytosis 1+ 09/29/18 05:40 Microcytosis Not Reportable 09/29/18 05:40 Macrocytosis Not Reportable 09/29/18 05:40 Spherocytes Not Reportable 09/29/18 05:40 Pappenheimer Bodies Not Reportable 09/29/18 05:40 Sickle Cells Not Reportable 09/29/18 05:40 Target Cells Not Reportable 09/29/18 05:40 Tear Drop Cells Not Reportable 09/29/18 05:40 Ovalocytes Not Reportable 09/29/18 05:40 Helmet Cells Not Reportable 09/29/18 05:40 [place] Bodies Not Reportable 09/29/18 05:40 Wren Rings Not Reportable 09/29/18 05:40 [place] Cells Not Reportable 09/29/18 05:40 Bite Cells Not Reportable 09/29/18 05:40 Crenated Cell Not Reportable 09/29/18 05:40 Elliptocytes Not Reportable 09/29/18 05:40 Acanthocytes (Spur) Not Reportable 09/29/18 05:40 Rouleaux Not Reportable 09/29/18 05:40 Hemoglobin C Crystals Not Reportable 09/29/18 05:40 Schistocytes Not Reportable 09/29/18 05:40 Malaria parasites Not Reportable 09/29/18 05:40 Ulisses Bodies Not Reportable 09/29/18 05:40 Hem Pathologist Commnt No 09/29/18 05:40 PT 14.8 Sec. (12.2-14.9) 09/24/18 15:04 INR 1.09 (0.87-1.13) 09/24/18 15:04 APTT 28.3 Sec. (24.2-36.6) 09/24/18 15:04 POC ABG pH 7.373 (7.35-7.45) 09/26/18 11:36 POC ABG pCO2 41.5 (35-45) 09/26/18 11:36 POC ABG pO2 64 (80-105) L 09/26/18 11:36 POC ABG HCO3 24.1 (22-26 mml/L) 09/26/18 11:36 POC ABG Total CO2 25 (23-27mmol/L) 09/26/18 11:36 POC ABG O2 Sat 91 09/26/18 11:36 POC ABG Base Excess -1 ((-2) - (+3)mmol/L) 09/26/18 11:36 FiO2 21 % 09/26/18 11:36 Sodium 143 mmol/L (137-145) 09/29/18 05:40 Potassium 4.4 mmol/L (3.6-5.0) D 09/29/18 05:40 Chloride 106.8 mmol/L (98-107) 09/29/18 05:40 Carbon Dioxide 26 mmol/L (22-30) 09/29/18 05:40 Anion Gap 15 mmol/L 09/29/18 05:40 BUN 8 mg/dL (7-17) 09/29/18 05:40 Creatinine 0.4 mg/dL (0.7-1.2) L 09/29/18 05:40 Estimated GFR > 60 ml/min 09/29/18 05:40 BUN/Creatinine Ratio 20 % 09/29/18 05:40 Glucose 93 mg/dL (65-100) 09/29/18 05:40 POC Glucose 78 (70-105) 09/30/18 08:29 Hemoglobin A1c 6.2 % (4-6) H 09/24/18 22:57 Lactic Acid 1.60 mmol/L (0.7-2.0) 09/24/18 22:57 Calcium 7.7 mg/dL (8.4-10.2) L 09/29/18 05:40 Phosphorus 4.40 mg/dL (2.5-4.5) D 09/29/18 05:40 Magnesium 1.80 mg/dL (1.7-2.3) 09/29/18 05:40 Total Bilirubin 0.30 mg/dL (0.1-1.2) 09/28/18 06:39 AST 29 units/L (5-40) 09/28/18 06:39 ALT 28 units/L (7-56) 09/28/18 06:39 Alkaline Phosphatase 54 units/L (35-129) 09/28/18 06:39 Total Creatine Kinase 842 units/L (30-135) H 09/24/18 15:04 Troponin T 0.029 ng/mL (0.00-0.029) 09/24/18 15:04 Total Protein 5.1 g/dL (6.3-8.2) L 09/28/18 06:39 Albumin 2.6 g/dL (3.9-5) L 09/28/18 06:39 Albumin/Globulin Ratio 1.0 % 09/28/18 06:39 TSH 4.520 mlU/mL (0.270-4.200) H 09/28/18 12:03 Free T4 1.17 ng/dL (0.76-1.46) 09/28/18 12:03 Urine Color Vane (Yellow) 09/24/18 15:09 Urine Turbidity Slightly-cloudy (Clear) 09/24/18 15:09 Urine pH 5.0 (5.0-7.0) 09/24/18 15:09 Ur Specific [place] 1.017 (1.003-1.030) 09/24/18 15:09 Urine Protein 30 mg/dl mg/dL (Negative) 09/24/18 15:09 Urine Glucose (UA) Neg mg/dL (Negative) 09/24/18 15:09 Urine Ketones Tr mg/dL (Negative) 09/24/18 15:09 Urine Blood Lg (Negative) 09/24/18 15:09 Urine Nitrite Pos (Negative) 09/24/18 15:09 Urine Bilirubin Neg (Negative) 09/24/18 15:09 Urine Urobilinogen < 2.0 mg/dL (<2.0) 09/24/18 15:09 Ur Leukocyte Esterase Sm (Negative) 09/24/18 15:09 Urine WBC (Auto) 39.0 /HPF (0.0-6.0) H 09/24/18 15:09 Urine RBC (Auto) 35.0 /HPF (0.0-6.0) 09/24/18 15:09 U Epithel Cells (Auto) < 1.0 /HPF (0-13.0) 09/24/18 15:09 Urine Bacteria (Auto) 4+ /HPF (Negative) 09/24/18 15:09 Urine Mucus 2+ /HPF 09/24/18 15:09 Urine Yeast (Budding) 1+ /HPF 09/24/18 15:09 Salicylates < 0.3 mg/dL (2.8-20.0) L 09/24/18 15:04 Acetaminophen < 5.0 ug/mL (10.0-30.0) L 09/24/18 15:04 Active Medications - Current Medications Current Medications: Generic Name Dose Route Start Last Admin Trade Name Freq PRN Reason Stop Dose Admin Acetaminophen 650 mg 09/24/18 22:41 Tylenol PO Q4H PRN Pain MILD(1-3)/Fever >100.5/ROONEY Alprazolam 1 mg 09/27/18 12:57 Xanax PO Q8H PRN Anxiety Clopidogrel Bisulfate 75 mg 10/01/18 10:00 Plavix PO QDAY ARON Enoxaparin Sodium 40 mg 09/26/18 10:00 09/30/18 10:00 Lovenox SUB-Q 40 mg QDAY@1000 ARON Administration Famotidine 20 mg 09/27/18 22:00 09/30/18 10:00 Pepcid PO 20 mg BID ARON Administration Hydromorphone HCl 0.5 mg 09/24/18 22:41 Dilaudid IV Q3H PRN Pain , Severe (7-10) Sodium Chloride 1,000 mls @ 75 mls/hr 09/24/18 23:00 09/30/18 09:55 Nacl 0.9% 1000 Ml IV 75 mls/hr DIRECT ARON Administration Ceftriaxone Sodium 2 gm in 100 mls @ 200 mls/hr 09/25/18 10:00 09/30/18 09:57 Rocephin/Ns 2 Gm/100 Ml IV 200 mls/hr Q24HR ARON Administration Metoprolol Tartrate 50 mg 09/29/18 22:00 09/30/18 10:00 Lopressor PO 50 mg BID ARON Administration Ondansetron HCl 4 mg 09/24/18 22:41 09/25/18 11:51 Zofran IV 4 mg Q8H PRN Administration Nausea And Vomiting Oxycodone/Acetaminophen 1 tab 09/24/18 22:41 Percocet 5/325 PO Q6H PRN Pain, Moderate (4-6) Sodium Chloride 10 ml 09/25/18 10:00 09/30/18 10:00 Sodium Chloride Flush Syringe 10 Ml IV 10 ml BID ARON Administration Sodium Chloride 10 ml 09/24/18 22:41 Sodium Chloride Flush Syringe 10 Ml IV PRN PRN LINE FLUSH
--- NOTE | 2018-09-30 17:00 | Progress Note ---
Assessment and Plan Patient awake. Still confused. Patient is on 2 litres o2.O2 saturation 95%. No acute respiratory distress. Patients CAT scan reported right lower lobe pleural based mass. Scheduled for per cutaneous needle biopsy of chest lesion under CT guidance by interventional radiology. Interventional radiology suggested percutaneous needle biopsy of chest lesion as out patient since patient is treating for infection. Told the patients son to come to my office after discharged from the hospital and arrange needle Biopsy as out patient.Stressed importance of out patient follow up. . - Patient Problems (1) Mass of right lung Current Visit: Yes Status: Acute Plan to address problem: Scheduled for per cutaneous needle biopsy of chest lesion under CT guidance by interventional radiology. Interventional radiology suggested percutaneous needle biopsy of chest lesion as out patient since patient is treating for infection. Told the patients son to come to my office after discharged from the hospital and arrange needle Biopsy as out patient.Stressed importance of out patient follow up. .Repeating chest xray tomorrow. (2) Ureteral stone Current Visit: Yes Status: Acute Plan to address problem: Patient has ureteral stent placement. (3) Sepsis, Gram negative Current Visit: Yes Status: Acute Plan to address problem: Patient is on ceftrioxone. Subjective Date of service: 09/30/18 Principal diagnosis: ureteral astone Interval history: Patient awake. Still confused. Patient is on 2 litres o2.O2 saturation 95%. No acute respiratory distress. Patients CAT scan reported right lower lobe pleural based mass. Scheduled for per cutaneous needle biopsy of chest lesion under CT guidance by interventional radiology. Interventional radiology suggested per cutaneous needle biopsy of chest lesion as out patient since patient is treating for infection. Told the patients son to come to my office after discharged from the hospital and arrange needle Biopsy as out patient.Stressed importance of out patient follow up. Objective Vital Signs - 12hr 09/30/18 09/30/18 09/30/18 05:00 05:24 05:26 Temperature 98.4 F 98.3 F 98.4 F Pulse Rate 79 Respiratory 20 20 20 Rate Blood Pressure 137/56 Blood Pressure 137/56 [Left] O2 Sat by Pulse 93 Oximetry 09/30/18 09/30/18 09/30/18 10:00 11:22 11:26 Temperature 98.4 F Pulse Rate 64 68 Respiratory 18 Rate Blood Pressure 134/69 Blood Pressure [Left] O2 Sat by Pulse 93 Oximetry Constitutional: no acute distress, alert Eyes: non-icteric ENT: oropharynx moist Neck: supple, no JVD Ascultation: Bilateral: diminished breath sounds Cardiovascular: regular rate and rhythm Gastrointestinal: normoactive bowel sounds, tender Integumentary: normal Extremities: no cyanosis, no edema Neurologic: normal mental status, non-focal exam, pupils equal and round Psychiatric: depressed CBC and BMP: 09/29/18 05:40 09/29/18 05:40 ABG, PT/INR, D-dimer: ABG POC ABG pH 7.373 (7.35-7.45) 09/26/18 11:36 POC ABG pCO2 41.5 (35-45) 09/26/18 11:36 POC ABG pO2 64 (80-105) L 09/26/18 11:36 POC ABG HCO3 24.1 (22-26 mml/L) 09/26/18 11:36 POC ABG Total CO2 25 (23-27mmol/L) 09/26/18 11:36 POC ABG O2 Sat 91 09/26/18 11:36 PT/INR, D-dimer PT 14.8 Sec. (12.2-14.9) 09/24/18 15:04 INR 1.09 (0.87-1.13) 09/24/18 15:04 Abnormal lab findings: Abnormal Labs 09/24/18 09/24/18 09/24/18 15:04 15:04 15:04 WBC RBC Hgb Hct Plt Count 130 L Seg Neuts % (Manual) 90.0 H Lymphocytes % (Manual) 6.0 L Monocytes % (Manual) Seg Neutrophils # Man Lymphocytes # (Manual) 0.5 L POC ABG pO2 Potassium Chloride BUN 19 H Creatinine Glucose POC Glucose Hemoglobin A1c Lactic Acid 4.40 H* Calcium Phosphorus Magnesium AST Alkaline Phosphatase Total Creatine Kinase Total Protein 6.1 L Albumin 3.7 L TSH Urine WBC (Auto) Salicylates Acetaminophen 09/24/18 09/24/18 09/24/18 15:04 15:04 15:04 WBC RBC Hgb Hct Plt Count Seg Neuts % (Manual) Lymphocytes % (Manual) Monocytes % (Manual) Seg Neutrophils # Man Lymphocytes # (Manual) POC ABG pO2 Potassium Chloride BUN Creatinine Glucose POC Glucose Hemoglobin A1c Lactic Acid Calcium Phosphorus Magnesium 1.20 L AST Alkaline Phosphatase Total Creatine Kinase 842 H Total Protein Albumin TSH Urine WBC (Auto) Salicylates < 0.3 L Acetaminophen < 5.0 L 09/24/18 09/24/18 09/24/18 15:09 16:00 19:59 WBC RBC Hgb Hct Plt Count Seg Neuts % (Manual) Lymphocytes % (Manual) Monocytes % (Manual) Seg Neutrophils # Man Lymphocytes # (Manual) POC ABG pO2 Potassium Chloride BUN Creatinine Glucose POC Glucose Hemoglobin A1c Lactic Acid 4.40 H* 2.30 H* Calcium Phosphorus Magnesium AST Alkaline Phosphatase Total Creatine Kinase Total Protein Albumin TSH Urine WBC (Auto) 39.0 H Salicylates Acetaminophen 09/24/18 09/24/18 09/25/18 21:51 22:57 05:18 WBC 20.3 H RBC Hgb Hct Plt Count 101 L Seg Neuts % (Manual) Lymphocytes % (Manual) 2.0 L Monocytes % (Manual) Seg Neutrophils # Man 13.0 H Lymphocytes # (Manual) 0.4 L POC ABG pO2 Potassium Chloride BUN Creatinine Glucose POC Glucose Hemoglobin A1c 6.2 H Lactic Acid 2.40 H* Calcium Phosphorus Magnesium AST Alkaline Phosphatase Total Creatine Kinase Total Protein Albumin TSH Urine WBC (Auto) Salicylates Acetaminophen 09/25/18 09/25/18 09/26/18 05:18 23:00 04:13 WBC 19.6 H RBC 3.31 L Hgb 9.9 L Hct 29.8 L Plt Count 82 L Seg Neuts % (Manual) Lymphocytes % (Manual) 1.0 L Monocytes % (Manual) Seg Neutrophils # Man 10.4 H Lymphocytes # (Manual) 0.2 L POC ABG pO2 Potassium 3.5 L Chloride BUN 22 H Creatinine 0.6 L Glucose 102 H POC Glucose 117 H Hemoglobin A1c Lactic Acid Calcium 7.7 L Phosphorus Magnesium AST 82 H Alkaline Phosphatase 32 L Total Creatine Kinase Total Protein 5.6 L Albumin 3.1 L TSH Urine WBC (Auto) Salicylates Acetaminophen 09/26/18 09/26/18 09/27/18 04:13 11:36 06:00 WBC 22.3 H RBC 3.35 L Hgb 10.0 L Hct Plt Count 100 L Seg Neuts % (Manual) 89.0 H Lymphocytes % (Manual) 6.0 L Monocytes % (Manual) Seg Neutrophils # Man 19.8 H Lymphocytes # (Manual) POC ABG pO2 64 L Potassium 3.3 L Chloride 108.0 H BUN Creatinine 0.5 L Glucose POC Glucose Hemoglobin A1c Lactic Acid Calcium 7.5 L Phosphorus 1.90 L Magnesium AST 72 H Alkaline Phosphatase Total Creatine Kinase Total Protein 5.0 L Albumin 2.7 L TSH Urine WBC (Auto) Salicylates Acetaminophen 09/27/18 09/27/18 09/27/18 06:00 12:04 20:46 WBC RBC Hgb Hct Plt Count Seg Neuts % (Manual) Lymphocytes % (Manual) Monocytes % (Manual) Seg Neutrophils # Man Lymphocytes # (Manual) POC ABG pO2 Potassium 3.5 L Chloride BUN Creatinine 0.5 L Glucose 103 H POC Glucose 142 H 129 H Hemoglobin A1c Lactic Acid Calcium 7.9 L Phosphorus Magnesium AST Alkaline Phosphatase Total Creatine Kinase Total Protein Albumin TSH Urine WBC (Auto) Salicylates Acetaminophen 09/28/18 09/28/18 09/28/18 06:39 06:39 12:03 WBC 13.2 H RBC 3.36 L Hgb 10.0 L Hct 30.1 L Plt Count 125 L Seg Neuts % (Manual) 77.0 H Lymphocytes % (Manual) Monocytes % (Manual) Seg Neutrophils # Man 10.2 H Lymphocytes # (Manual) POC ABG pO2 Potassium 3.4 L Chloride 108.9 H BUN Creatinine 0.4 L Glucose POC Glucose Hemoglobin A1c Lactic Acid Calcium 7.9 L Phosphorus 1.80 L Magnesium 1.40 L AST Alkaline Phosphatase Total Creatine Kinase Total Protein 5.1 L Albumin 2.6 L TSH 4.520 H Urine WBC (Auto) Salicylates Acetaminophen 09/28/18 09/28/18 09/29/18 12:21 21:32 05:40 WBC RBC Hgb Hct Plt Count Seg Neuts % (Manual) Lymphocytes % (Manual) Monocytes % (Manual) Seg Neutrophils # Man Lymphocytes # (Manual) POC ABG pO2 Potassium Chloride BUN Creatinine 0.4 L Glucose POC Glucose 114 H 141 H Hemoglobin A1c Lactic Acid Calcium 7.7 L Phosphorus Magnesium AST Alkaline Phosphatase Total Creatine Kinase Total Protein Albumin TSH Urine WBC (Auto) Salicylates Acetaminophen 09/29/18 09/29/18 09/30/18 05:40 11:34 12:04 WBC RBC 3.57 L Hgb Hct Plt Count Seg Neuts % (Manual) Lymphocytes % (Manual) Monocytes % (Manual) 8.0 H Seg Neutrophils # Man Lymphocytes # (Manual) POC ABG pO2 Potassium Chloride BUN Creatinine Glucose POC Glucose 155 H 151 H Hemoglobin A1c Lactic Acid Calcium Phosphorus Magnesium AST Alkaline Phosphatase Total Creatine Kinase Total Protein Albumin TSH Urine WBC (Auto) Salicylates Acetaminophen 09/30/18 16:01 WBC RBC Hgb Hct Plt Count Seg Neuts % (Manual) Lymphocytes % (Manual) Monocytes % (Manual) Seg Neutrophils # Man Lymphocytes # (Manual) POC ABG pO2 Potassium Chloride BUN Creatinine Glucose POC Glucose 124 H Hemoglobin A1c Lactic Acid Calcium Phosphorus Magnesium AST Alkaline Phosphatase Total Creatine Kinase Total Protein Albumin TSH Urine WBC (Auto) Salicylates Acetaminophen
[2018-09-30] MEDS: KEFLEX PO SCH (19:49)
[2018-10-01] MEDS: KEFLEX PO SCH ×4 (00:21→18:41)
[2018-10-01 07:22] LABS: INR 0.96 (0.87-1.13); Partial Thromboplastin Time 26.9 Sec. (24.2-36.6)
--- NOTE | 2018-10-01 09:09 | XRay Report ---
AP and lateral chest: Right lung mass, congestion. There is a circumscribed mass injecting over the right lower lobe which is posterior in position. This is pleural-based as seen on recent CT scan. No current evidence of vascular congestion. There may be mild blunting of the right posterior costophrenic angle. The cardiac contour is normal in size. There is prominence of the inferior right hilum. The bones appear demineralized. Midthoracic bodies are somewhat obscured by the mass as seen on lateral projection. Impressions: 1. Pleural-based right lower lobe mass. 2. Suspect enlargement of right hilum. 3. Suspect small right effusion but improved pulmonary and pleural findings compared to recent CT scan of September 26.
[2018-10-01] MEDS: PLAVIX PO SCH (10:11)
[2018-10-01] MEDS: PEPCID PO SCH ×2 (10:11→22:21)
[2018-10-01] MEDS: LOPRESSOR PO SCH ×2 (10:11→22:21)
[2018-10-01] MEDS: LOVENOX SUB-Q SCH (10:11)
[2018-10-01] MEDS: SODIUM CHLORIDE FLUSH SYRINGE 10 ML IV SCH ×2 (10:12→22:21)
--- NOTE | 2018-10-01 13:22 | Progress Note ---
Assessment and Plan feels better sr now - no further svt noted doubled bb yesterday add plavix (h/o mi/pci, asa all) stable cv status. nothing further to add from cardiac perspective at this time. Will sign off. Pt reports she sees [facility] P[facility]. Recommend follow up with either [facility] cardiology or in our office with Dr. Suarez within 1-2 weeks of hospital discharge ([phone]). The patient has been seen in conjunction with Dr. Chinchilla who agrees with the assessment and plan of care. - Patient Problems (1) Paroxysmal SVT (supraventricular tachycardia) Current Visit: Yes Status: Acute (2) Sepsis Current Visit: Yes Status: Acute (3) UTI (urinary tract infection) Current Visit: Yes Status: Acute (4) Hydronephrosis Current Visit: Yes Status: Acute (5) S/P ureteral stent placement Current Visit: Yes Status: Acute (6) Altered mental status Current Visit: Yes Status: Acute (7) Lung mass Current Visit: Yes Status: Chronic (8) HTN (hypertension) Current Visit: Yes Status: Chronic (9) History of myocardial infarction Current Visit: Yes Status: Suspected (10) Dementia Current Visit: Yes Status: Suspected (11) Hypokalemia Current Visit: Yes Status: Acute (12) Hypomagnesemia Current Visit: Yes Status: Acute Subjective Date of service: 10/01/18 Principal diagnosis: ureteral stone Interval history: pt resting in bed, no current cardiac complaints. tele reviewed - in SR with no acute events noted overnight. Objective Last Vital Signs Temp 97.9 F 10/01/18 09:17 Pulse 64 10/01/18 09:17 Resp 18 10/01/18 09:17 BP 128/56 10/01/18 09:17 Pulse Ox 91 10/01/18 09:17 - Physical Examination General: No Apparent Distress HEENT: Positive: PERRL, Normocephaly, Mucus Membranes Moist Neck: Positive: neck supple, trachea midline Cardiac: Positive: Reg Rate and Rhythm, S1/S2 Lungs: Positive: Decreased Breath Sounds Neuro: Positive: Grossly Intact Abdomen: Positive: Soft. Negative: Tender Skin: Negative: Rash, Wound Musculoskeletal: No Pain Extremities: Absent: edema - Labs and Meds Coagulation 10/01/18 Range/Units 06:52 PT 13.4 (12.2-14.9) Sec. INR 0.96 (0.87-1.13) APTT 26.9 (24.2-36.6) Sec. - Imaging and Cardiology EKG: report reviewed, image reviewed Stress echo: report reviewed - Telemetry EKG Rhythm: Sinus Rhythm - EKG Sinus rhythms and dysrhythmias: sinus rhythm
--- NOTE | 2018-10-01 13:26 | Progress Note ---
Assessment and Plan Assessment and plan: --Gram-negative sepsis; Klebsiella urine and blood complicated UTI, continue IV Rocephin, per ID discharge on oral Keflex when stable --Paroxysmal SVT[Supra ventricular tachycardia]; HR 160s to 170, s/p IV adenosine 6 mg, converted to sinus. Heart rate within normal limits Continue beta blockers ,ECHO 55-60% cardio added Plavix --Hypokalemia/hypomagnesemia/hyperphosphatemia; corrected --Left hydronephrosis s/p ureteral stent placement Cleared by urology for discharge -- Lung mass on CT chest ; Right lower lobe pleural-based lung mass, pulmonary evaluated the patient IR consulted, rec outpatient biopsy Patient is more stable --Metabolic encephalopathy; probably secondary to sepsis Significant improvement --Leukocytosis; secondary to sepsis, resolved ,continue current antibiotics --Lactic acidosis; resolved, secondary to sepsis due to UTI --[id number] malnutrition/hypoalbuminemia; supportive care Nutrition supplements --DVT prophylaxis; Lovenox --Full CODE STATUS Discharge planning; placement in SNF/rehab Plan of care reviewed with the patient, patient's granddaughter at the bedside and her nurse Patient is medically stable for discharge and transfer to rehabilitation today awaiting insurance authorization History Interval history: Patient seen and examined ,medical records reviewed Patient is tolerating physical therapy. 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 Vital signs reviewed stable Hospitalist Physical - Constitutional Vitals: Temp Pulse Resp BP Pulse Ox 97.9 F 64 18 128/56 91 10/01/18 09:17 10/01/18 09:17 10/01/18 09:17 10/01/18 09:17 10/01/18 09:17 General appearance: Present: no acute distress, well-nourished, obese - EENT Eyes: Present: PERRL, EOM intact - Neck Neck: Present: supple, normal ROM - Respiratory Respiratory effort: normal Respiratory: bilateral: diminished, negative: rales, rhonchi, wheezing - Cardiovascular Rhythm: regular Heart Sounds: Present: S1 & S2 - Extremities Extremities: no ischemia, No edema - Abdominal General gastrointestinal: soft, non-tender, non-distended, normal bowel sounds - Integumentary Integumentary: Present: clear, warm - Psychiatric Psychiatric: appropriate mood/affect, cooperative - Neurologic Neurologic: CNII-XII intact, moves all extremities Results - Labs CBC & Chem 7: 09/29/18 05:40 09/29/18 05:40 Labs: Laboratory Last Values WBC 9.3 K/mm3 (4.5-11.0) 09/29/18 05:40 RBC 3.57 M/mm3 (3.65-5.03) L 09/29/18 05:40 Hgb 10.8 gm/dl (10.1-14.3) 09/29/18 05:40 Hct 32.2 % (30.3-42.9) 09/29/18 05:40 MCV 90 fl (79-97) 09/29/18 05:40 MCH 30 pg (28-32) 09/29/18 05:40 MCHC 34 % (30-34) 09/29/18 05:40 RDW 14.0 % (13.2-15.2) 09/29/18 05:40 Plt Count 180 K/mm3 (140-440) 09/29/18 05:40 Add Manual Diff Complete 09/29/18 05:40 Total Counted 100 09/29/18 05:40 Seg Neutrophils % Cooker Helper 09/24/18 15:04 Seg Neuts % (Manual) 64.0 % (40.0-70.0) 09/29/18 05:40 Band Neutrophils % 3.0 % 09/29/18 05:40 Lymphocytes % (Manual) 21.0 % (13.4-35.0) 09/29/18 05:40 Reactive Lymphs % (Man) 1.0 % 09/29/18 05:40 Monocytes % (Manual) 8.0 % (0.0-7.3) H 09/29/18 05:40 Eosinophils % (Manual) 3.0 % (0.0-4.3) 09/29/18 05:40 Basophils % (Manual) 0 % (0.0-1.8) 09/29/18 05:40 Metamyelocytes % 0 % 09/29/18 05:40 Myelocytes % 0 % 09/29/18 05:40 Promyelocytes % 0 % 09/29/18 05:40 Blast Cells % 0 % 09/29/18 05:40 Nucleated RBC % Not Reportable 09/29/18 05:40 Seg Neutrophils # Man 6.0 K/mm3 (1.8-7.7) 09/29/18 05:40 Band Neutrophils # 0.3 K/mm3 09/29/18 05:40 Lymphocytes # (Manual) 2.0 K/mm3 (1.2-5.4) 09/29/18 05:40 Abs React Lymphs (Man) 0.1 K/mm3 09/29/18 05:40 Monocytes # (Manual) 0.7 K/mm3 (0.0-0.8) 09/29/18 05:40 Eosinophils # (Manual) 0.3 K/mm3 (0.0-0.4) 09/29/18 05:40 Basophils # (Manual) 0.0 K/mm3 (0.0-0.1) 09/29/18 05:40 Metamyelocytes # 0.0 K/mm3 09/29/18 05:40 Myelocytes # 0.0 K/mm3 09/29/18 05:40 Promyelocytes # 0.0 K/mm3 09/29/18 05:40 Blast Cells # 0.0 K/mm3 09/29/18 05:40 WBC Morphology Not Reportable 09/29/18 05:40 Hypersegmented Neuts Not Reportable 09/29/18 05:40 Hyposegmented Neuts Not Reportable 09/29/18 05:40 Hypogranular Neuts Not Reportable 09/29/18 05:40 Smudge Cells Not Reportable 09/29/18 05:40 Toxic Granulation Not Reportable 09/29/18 05:40 Toxic Vacuolation Not Reportable 09/29/18 05:40 Dohle Bodies Not Reportable 09/29/18 05:40 Pelger-Huet Anomaly Not Reportable 09/29/18 05:40 Margoth Rods Not Reportable 09/29/18 05:40 Platelet Estimate Consistent w auto 09/29/18 05:40 Clumped Platelets Not Reportable 09/29/18 05:40 Plt Clumps, EDTA Not Reportable 09/29/18 05:40 Large Platelets Not Reportable 09/29/18 05:40 Giant Platelets Not Reportable 09/29/18 05:40 Platelet Satelliting Not Reportable 09/29/18 05:40 Plt Morphology Comment Not Reportable 09/29/18 05:40 RBC Morphology Not Reportable 09/29/18 05:40 Dimorphic RBCs Not Reportable 09/29/18 05:40 Polychromasia Not Reportable 09/29/18 05:40 Hypochromasia Not Reportable 09/29/18 05:40 Poikilocytosis Not Reportable 09/29/18 05:40 Anisocytosis 1+ 09/29/18 05:40 Microcytosis Not Reportable 09/29/18 05:40 Macrocytosis Not Reportable 09/29/18 05:40 Spherocytes Not Reportable 09/29/18 05:40 Pappenheimer Bodies Not Reportable 09/29/18 05:40 Sickle Cells Not Reportable 09/29/18 05:40 Target Cells Not Reportable 09/29/18 05:40 Tear Drop Cells Not Reportable 09/29/18 05:40 Ovalocytes Not Reportable 09/29/18 05:40 Helmet Cells Not Reportable 09/29/18 05:40 [place] Bodies Not Reportable 09/29/18 05:40 [place] Rings Not Reportable 09/29/18 05:40 [place] Cells Not Reportable 09/29/18 05:40 Bite Cells Not Reportable 09/29/18 05:40 Crenated Cell Not Reportable 09/29/18 05:40 Elliptocytes Not Reportable 09/29/18 05:40 Acanthocytes (Spur) Not Reportable 09/29/18 05:40 Rouleaux Not Reportable 09/29/18 05:40 Hemoglobin C Crystals Not Reportable 09/29/18 05:40 Schistocytes Not Reportable 09/29/18 05:40 Malaria parasites Not Reportable 09/29/18 05:40 Ulisses Bodies Not Reportable 09/29/18 05:40 Hem Pathologist Commnt No 09/29/18 05:40 PT 13.4 Sec. (12.2-14.9) 10/01/18 06:52 INR 0.96 (0.87-1.13) 10/01/18 06:52 APTT 26.9 Sec. (24.2-36.6) 10/01/18 06:52 POC ABG pH 7.373 (7.35-7.45) 09/26/18 11:36 POC ABG pCO2 41.5 (35-45) 09/26/18 11:36 POC ABG pO2 64 (80-105) L 09/26/18 11:36 POC ABG HCO3 24.1 (22-26 mml/L) 09/26/18 11:36 POC ABG Total CO2 25 (23-27mmol/L) 09/26/18 11:36 POC ABG O2 Sat 91 09/26/18 11:36 POC ABG Base Excess -1 ((-2) - (+3)mmol/L) 09/26/18 11:36 FiO2 21 % 09/26/18 11:36 Sodium 143 mmol/L (137-145) 09/29/18 05:40 Potassium 4.4 mmol/L (3.6-5.0) D 09/29/18 05:40 Chloride 106.8 mmol/L (98-107) 09/29/18 05:40 Carbon Dioxide 26 mmol/L (22-30) 09/29/18 05:40 Anion Gap 15 mmol/L 09/29/18 05:40 BUN 8 mg/dL (7-17) 09/29/18 05:40 Creatinine 0.4 mg/dL (0.7-1.2) L 09/29/18 05:40 Estimated GFR > 60 ml/min 09/29/18 05:40 BUN/Creatinine Ratio 20 % 09/29/18 05:40 Glucose 93 mg/dL (65-100) 09/29/18 05:40 POC Glucose 108 (70-105) H 10/01/18 11:39 Hemoglobin A1c 6.2 % (4-6) H 09/24/18 22:57 Lactic Acid 1.60 mmol/L (0.7-2.0) 09/24/18 22:57 Calcium 7.7 mg/dL (8.4-10.2) L 09/29/18 05:40 Phosphorus 4.40 mg/dL (2.5-4.5) D 09/29/18 05:40 Magnesium 1.80 mg/dL (1.7-2.3) 09/29/18 05:40 Total Bilirubin 0.30 mg/dL (0.1-1.2) 09/28/18 06:39 AST 29 units/L (5-40) 09/28/18 06:39 ALT 28 units/L (7-56) 09/28/18 06:39 Alkaline Phosphatase 54 units/L (35-129) 09/28/18 06:39 Total Creatine Kinase 842 units/L (30-135) H 09/24/18 15:04 Troponin T 0.029 ng/mL (0.00-0.029) 09/24/18 15:04 Total Protein 5.1 g/dL (6.3-8.2) L 09/28/18 06:39 Albumin 2.6 g/dL (3.9-5) L 09/28/18 06:39 Albumin/Globulin Ratio 1.0 % 09/28/18 06:39 TSH 4.520 mlU/mL (0.270-4.200) H 09/28/18 12:03 Free T4 1.17 ng/dL (0.76-1.46) 09/28/18 12:03 Urine Color Vane (Yellow) 09/24/18 15:09 Urine Turbidity Slightly-cloudy (Clear) 09/24/18 15:09 Urine pH 5.0 (5.0-7.0) 09/24/18 15:09 Ur Specific [place] 1.017 (1.003-1.030) 09/24/18 15:09 Urine Protein 30 mg/dl mg/dL (Negative) 09/24/18 15:09 Urine Glucose (UA) Neg mg/dL (Negative) 09/24/18 15:09 Urine Ketones Tr mg/dL (Negative) 09/24/18 15:09 Urine Blood Lg (Negative) 09/24/18 15:09 Urine Nitrite Pos (Negative) 09/24/18 15:09 Urine Bilirubin Neg (Negative) 09/24/18 15:09 Urine Urobilinogen < 2.0 mg/dL (<2.0) 09/24/18 15:09 Ur Leukocyte Esterase Sm (Negative) 09/24/18 15:09 Urine WBC (Auto) 39.0 /HPF (0.0-6.0) H 09/24/18 15:09 Urine RBC (Auto) 35.0 /HPF (0.0-6.0) 09/24/18 15:09 U Epithel Cells (Auto) < 1.0 /HPF (0-13.0) 09/24/18 15:09 Urine Bacteria (Auto) 4+ /HPF (Negative) 09/24/18 15:09 Urine Mucus 2+ /HPF 09/24/18 15:09 Urine Yeast (Budding) 1+ /HPF 09/24/18 15:09 Salicylates < 0.3 mg/dL (2.8-20.0) L 09/24/18 15:04 Acetaminophen < 5.0 ug/mL (10.0-30.0) L 09/24/18 15:04 Active Medications - Current Medications Current Medications: Generic Name Dose Route Start Last Admin Trade Name Freq PRN Reason Stop Dose Admin Acetaminophen 650 mg 09/24/18 22:41 Tylenol PO Q4H PRN Pain MILD(1-3)/Fever >100.5/ROONEY Alprazolam 1 mg 09/27/18 12:57 Xanax PO Q8H PRN Anxiety Cephalexin 500 mg 09/30/18 18:00 10/01/18 05:57 Keflex PO 500 mg Q6HR ARON Administration Clopidogrel Bisulfate 75 mg 10/01/18 10:00 10/01/18 10:11 Plavix PO 75 mg QDAY ARON Administration Enoxaparin Sodium 40 mg 09/26/18 10:00 10/01/18 10:11 Lovenox SUB-Q 40 mg QDAY@1000 ARON Administration Famotidine 20 mg 09/27/18 22:00 10/01/18 10:11 Pepcid PO 20 mg BID ARON Administration Hydromorphone HCl 0.5 mg 09/24/18 22:41 Dilaudid IV Q3H PRN Pain , Severe (7-10) Sodium Chloride 1,000 mls @ 75 mls/hr 09/24/18 23:00 09/30/18 21:07 Nacl 0.9% 1000 Ml IV 75 mls/hr DIRECT ARON Administration Metoprolol Tartrate 50 mg 09/29/18 22:00 10/01/18 10:11 Lopressor PO 50 mg BID ARON Administration Ondansetron HCl 4 mg 09/24/18 22:41 09/25/18 11:51 Zofran IV 4 mg Q8H PRN Administration Nausea And Vomiting Oxycodone/Acetaminophen 1 tab 09/24/18 22:41 Percocet 5/325 PO Q6H PRN Pain, Moderate (4-6) Sodium Chloride 10 ml 09/25/18 10:00 10/01/18 10:12 Sodium Chloride Flush Syringe 10 Ml IV 10 ml BID ARON Administration Sodium Chloride 10 ml 09/24/18 22:41 Sodium Chloride Flush Syringe 10 Ml IV PRN PRN LINE FLUSH
--- NOTE | 2018-10-01 21:49 | Progress Note ---
Assessment and Plan Patient sleeping at this time.Patient is on 2 litres o2.O2 saturation 95%. No acute respiratory distress. Patients CAT scan reported right lower lobe pleural based mass. Scheduled for per cutaneous needle biopsy of chest lesion under CT guidance by interventional radiology. Interventional radiology suggested percutaneous needle biopsy of chest lesion as out patient since patient is treating for infection. Told the patients son to come to my office after discharged from the hospital and arrange needle Biopsy as out patient.Stressed importance of out patient follow up. . - Patient Problems (1) Mass of right lung Current Visit: Yes Status: Acute Plan to address problem: Scheduled for per cutaneous needle biopsy of chest lesion under CT guidance by interventional radiology. Interventional radiology suggested percutaneous needle biopsy of chest lesion as out patient since patient is treating for infection. Told the patients son to come to my office after discharged from the hospital and arrange needle Biopsy as out patient.Stressed importance of out patient follow up. .Repeating chest xray tomorrow. (2) Ureteral stone Current Visit: Yes Status: Acute Plan to address problem: Patient has ureteral stent placement. (3) Sepsis, Gram negative Current Visit: Yes Status: Acute Plan to address problem: Patient is on ceftrioxone. Subjective Date of service: 10/01/18 Principal diagnosis: ureteral astone Interval history: Patient sleeping at this time. Patient is on 2 litres o2.O2 saturation 95%. No acute respiratory distress. Patients CAT scan reported right lower lobe pleural based mass. Scheduled for per cutaneous needle biopsy of chest lesion under CT guidance by interventional radiology. Interventional radiology suggested perc utaneous needle biopsy of chest lesion as out patient since patient is treating for infection. Told the patients son to come to my office after discharged from the hospital and arrange needle Biopsy as out patient.Stressed importance of out patient follow up. Objective Vital Signs - 12hr 10/01/18 10/01/18 10/01/18 10:00 15:41 20:33 Temperature 97.9 F 98.2 F Pulse Rate 59 L 56 L 56 L Respiratory 18 16 Rate Blood Pressure 129/60 129/59 O2 Sat by Pulse 94 95 Oximetry Constitutional: no acute distress, asleep Eyes: non-icteric ENT: oropharynx moist Neck: supple, no JVD Ascultation: Bilateral: diminished breath sounds Cardiovascular: regular rate and rhythm Gastrointestinal: normoactive bowel sounds, tender Integumentary: normal Extremities: no cyanosis, no edema Neurologic: normal mental status, non-focal exam, pupils equal and round Psychiatric: depressed CBC and BMP: 09/29/18 05:40 09/29/18 05:40 ABG, PT/INR, D-dimer: ABG POC ABG pH 7.373 (7.35-7.45) 09/26/18 11:36 POC ABG pCO2 41.5 (35-45) 09/26/18 11:36 POC ABG pO2 64 (80-105) L 09/26/18 11:36 POC ABG HCO3 24.1 (22-26 mml/L) 09/26/18 11:36 POC ABG Total CO2 25 (23-27mmol/L) 09/26/18 11:36 POC ABG O2 Sat 91 09/26/18 11:36 PT/INR, D-dimer PT 13.4 Sec. (12.2-14.9) 10/01/18 06:52 INR 0.96 (0.87-1.13) 10/01/18 06:52 Abnormal lab findings: Abnormal Labs 09/24/18 09/24/18 09/24/18 15:04 15:04 15:04 WBC RBC Hgb Hct Plt Count 130 L Seg Neuts % (Manual) 90.0 H Lymphocytes % (Manual) 6.0 L Monocytes % (Manual) Seg Neutrophils # Man Lymphocytes # (Manual) 0.5 L POC ABG pO2 Potassium Chloride BUN 19 H Creatinine Glucose POC Glucose Hemoglobin A1c Lactic Acid 4.40 H* Calcium Phosphorus Magnesium AST Alkaline Phosphatase Total Creatine Kinase Total Protein 6.1 L Albumin 3.7 L TSH Urine WBC (Auto) Salicylates Acetaminophen 09/24/18 09/24/18 09/24/18 15:04 15:04 15:04 WBC RBC Hgb Hct Plt Count Seg Neuts % (Manual) Lymphocytes % (Manual) Monocytes % (Manual) Seg Neutrophils # Man Lymphocytes # (Manual) POC ABG pO2 Potassium Chloride BUN Creatinine Glucose POC Glucose Hemoglobin A1c Lactic Acid Calcium Phosphorus Magnesium 1.20 L AST Alkaline Phosphatase Total Creatine Kinase 842 H Total Protein Albumin TSH Urine WBC (Auto) Salicylates < 0.3 L Acetaminophen < 5.0 L 09/24/18 09/24/18 09/24/18 15:09 16:00 19:59 WBC RBC Hgb Hct Plt Count Seg Neuts % (Manual) Lymphocytes % (Manual) Monocytes % (Manual) Seg Neutrophils # Man Lymphocytes # (Manual) POC ABG pO2 Potassium Chloride BUN Creatinine Glucose POC Glucose Hemoglobin A1c Lactic Acid 4.40 H* 2.30 H* Calcium Phosphorus Magnesium AST Alkaline Phosphatase Total Creatine Kinase Total Protein Albumin TSH Urine WBC (Auto) 39.0 H Salicylates Acetaminophen 09/24/18 09/24/18 09/25/18 21:51 22:57 05:18 WBC 20.3 H RBC Hgb Hct Plt Count 101 L Seg Neuts % (Manual) Lymphocytes % (Manual) 2.0 L Monocytes % (Manual) Seg Neutrophils # Man 13.0 H Lymphocytes # (Manual) 0.4 L POC ABG pO2 Potassium Chloride BUN Creatinine Glucose POC Glucose Hemoglobin A1c 6.2 H Lactic Acid 2.40 H* Calcium Phosphorus Magnesium AST Alkaline Phosphatase Total Creatine Kinase Total Protein Albumin TSH Urine WBC (Auto) Salicylates Acetaminophen 09/25/18 09/25/18 09/26/18 05:18 23:00 04:13 WBC 19.6 H RBC 3.31 L Hgb 9.9 L Hct 29.8 L Plt Count 82 L Seg Neuts % (Manual) Lymphocytes % (Manual) 1.0 L Monocytes % (Manual) Seg Neutrophils # Man 10.4 H Lymphocytes # (Manual) 0.2 L POC ABG pO2 Potassium 3.5 L Chloride BUN 22 H Creatinine 0.6 L Glucose 102 H POC Glucose 117 H Hemoglobin A1c Lactic Acid Calcium 7.7 L Phosphorus Magnesium AST 82 H Alkaline Phosphatase 32 L Total Creatine Kinase Total Protein 5.6 L Albumin 3.1 L TSH Urine WBC (Auto) Salicylates Acetaminophen 09/26/18 09/26/18 09/27/18 04:13 11:36 06:00 WBC 22.3 H RBC 3.35 L Hgb 10.0 L Hct Plt Count 100 L Seg Neuts % (Manual) 89.0 H Lymphocytes % (Manual) 6.0 L Monocytes % (Manual) Seg Neutrophils # Man 19.8 H Lymphocytes # (Manual) POC ABG pO2 64 L Potassium 3.3 L Chloride 108.0 H BUN Creatinine 0.5 L Glucose POC Glucose Hemoglobin A1c Lactic Acid Calcium 7.5 L Phosphorus 1.90 L Magnesium AST 72 H Alkaline Phosphatase Total Creatine Kinase Total Protein 5.0 L Albumin 2.7 L TSH Urine WBC (Auto) Salicylates Acetaminophen 09/27/18 09/27/18 09/27/18 06:00 12:04 20:46 WBC RBC Hgb Hct Plt Count Seg Neuts % (Manual) Lymphocytes % (Manual) Monocytes % (Manual) Seg Neutrophils # Man Lymphocytes # (Manual) POC ABG pO2 Potassium 3.5 L Chloride BUN Creatinine 0.5 L Glucose 103 H POC Glucose 142 H 129 H Hemoglobin A1c Lactic Acid Calcium 7.9 L Phosphorus Magnesium AST Alkaline Phosphatase Total Creatine Kinase Total Protein Albumin TSH Urine WBC (Auto) Salicylates Acetaminophen 09/28/18 09/28/18 09/28/18 06:39 06:39 12:03 WBC 13.2 H RBC 3.36 L Hgb 10.0 L Hct 30.1 L Plt Count 125 L Seg Neuts % (Manual) 77.0 H Lymphocytes % (Manual) Monocytes % (Manual) Seg Neutrophils # Man 10.2 H Lymphocytes # (Manual) POC ABG pO2 Potassium 3.4 L Chloride 108.9 H BUN Creatinine 0.4 L Glucose POC Glucose Hemoglobin A1c Lactic Acid Calcium 7.9 L Phosphorus 1.80 L Magnesium 1.40 L AST Alkaline Phosphatase Total Creatine Kinase Total Protein 5.1 L Albumin 2.6 L TSH 4.520 H Urine WBC (Auto) Salicylates Acetaminophen 09/28/18 09/28/18 09/29/18 12:21 21:32 05:40 WBC RBC Hgb Hct Plt Count Seg Neuts % (Manual) Lymphocytes % (Manual) Monocytes % (Manual) Seg Neutrophils # Man Lymphocytes # (Manual) POC ABG pO2 Potassium Chloride BUN Creatinine 0.4 L Glucose POC Glucose 114 H 141 H Hemoglobin A1c Lactic Acid Calcium 7.7 L Phosphorus Magnesium AST Alkaline Phosphatase Total Creatine Kinase Total Protein Albumin TSH Urine WBC (Auto) Salicylates Acetaminophen 09/29/18 09/29/18 09/30/18 05:40 11:34 12:04 WBC RBC 3.57 L Hgb Hct Plt Count Seg Neuts % (Manual) Lymphocytes % (Manual) Monocytes % (Manual) 8.0 H Seg Neutrophils # Man Lymphocytes # (Manual) POC ABG pO2 Potassium Chloride BUN Creatinine Glucose POC Glucose 155 H 151 H Hemoglobin A1c Lactic Acid Calcium Phosphorus Magnesium AST Alkaline Phosphatase Total Creatine Kinase Total Protein Albumin TSH Urine WBC (Auto) Salicylates Acetaminophen 09/30/18 09/30/18 10/01/18 16:01 20:28 11:39 WBC RBC Hgb Hct Plt Count Seg Neuts % (Manual) Lymphocytes % (Manual) Monocytes % (Manual) Seg Neutrophils # Man Lymphocytes # (Manual) POC ABG pO2 Potassium Chloride BUN Creatinine Glucose POC Glucose 124 H 115 H 108 H Hemoglobin A1c Lactic Acid Calcium Phosphorus Magnesium AST Alkaline Phosphatase Total Creatine Kinase Total Protein Albumin TSH Urine WBC (Auto) Salicylates Acetaminophen 10/01/18 15:48 WBC RBC Hgb Hct Plt Count Seg Neuts % (Manual) Lymphocytes % (Manual) Monocytes % (Manual) Seg Neutrophils # Man Lymphocytes # (Manual) POC ABG pO2 Potassium Chloride BUN Creatinine Glucose POC Glucose 152 H Hemoglobin A1c Lactic Acid Calcium Phosphorus Magnesium AST Alkaline Phosphatase Total Creatine Kinase Total Protein Albumin TSH Urine WBC (Auto) Salicylates Acetaminophen Chest x-ray: report reviewed, image reviewed Additional Studies: Chest xray PA and lateral done to day 10/01/18 Impressions: 1. Pleural-based right lower lobe mass. 2. Suspect enlargement of right hilum. 3. Suspect small right effusion but improved pulmonary and pleural findings compared to recent CT scan of September 26.
[2018-10-02] MEDS: KEFLEX PO SCH ×4 (00:23→17:37)
[2018-10-02 07:43] LABS: Hematocrit 32.7 % (30.3-42.9); Hemoglobin 10.8 gm/dl (10.1-14.3); Mean Corpuscular HGB Conc 33 % (30-34); Mean Corpuscular Volume 90 fl (79-97); Platelet Count 307 K/mm3 (140-440); Red Blood Count 3.62 M/mm3 (3.65-5.03); Red Cell Distribution Width 13.9 % (13.2-15.2)
[2018-10-02 08:20] LABS: BUN/Creatinine Ratio 24; Blood Urea Nitrogen 12 mg/dL (7-17); Calcium 8.6 mg/dL (8.4-10.2); Hemolysis Index 4
[2018-10-02 09:55] LABS: Basophils % (Manual) 0 % (0.0-1.8); Myelocytes # (Manual) 0.1 K/mm3; Total Cells Counted 100
[2018-10-02 09:56] LABS: Anisocytosis Few; Ovalocytes Few; Platelet Estimate Consistent w Auto; Poikilocytosis Few
[2018-10-02] MEDS: PEPCID PO SCH ×2 (10:56→21:48)
[2018-10-02] MEDS: LOVENOX SUB-Q SCH (10:56)
[2018-10-02] MEDS: PLAVIX PO SCH (10:56)
[2018-10-02] MEDS: LOPRESSOR PO SCH ×2 (10:56→21:48)
[2018-10-02] MEDS: SODIUM CHLORIDE FLUSH SYRINGE 10 ML IV SCH ×2 (10:57→21:49)
--- NOTE | 2018-10-02 18:03 | Progress Note ---
Assessment and Plan Assessment and plan: --Gram-negative sepsis; Klebsiella urine and blood complicated UTI, s/p IV Rocephin, per ID on oral Keflex stop date 10/04/18 --Paroxysmal SVT[Supra ventricular tachycardia]; HR 160s to 170, s/p IV adenosine 6 mg, converted to sinus. Heart rate within normal limits Continue beta blockers ,ECHO 55-60 at the bedside cardio added Plavix --Hypokalemia/hypomagnesemia/hyperphosphatemia; corrected --Left hydronephrosis s/p ureteral stent placement Cleared by urology for discharge -- Lung mass on CT chest ; Right lower lobe pleural-based lung mass, pulmonary evaluated the patient IR consulted, rec outpatient biopsy Patient is more stable --Metabolic encephalopathy; probably secondary to sepsis Significant improvement --Leukocytosis; secondary to sepsis, resolved ,continue current antibiotics --Lactic acidosis; resolved, secondary to sepsis due to UTI --[id number] malnutrition/hypoalbuminemia; supportive care Nutrition supplements --DVT prophylaxis; Lovenox --Full CODE STATUS Plan of care reviewed with the patient, and patient's 2nd son at the bed side Patient is medically stable for discharge and transfer to rehabilitation today awaiting insurance authorization History Interval history: Patient seen and examined this morning medical records reviewed Clinically no change, comfortable no new complaints Awaiting rehabilitation placement, pending insurance approval Vital signs noted Hospitalist Physical - Constitutional Vitals: Temp Pulse Resp BP Pulse Ox 98.0 F 52 L 22 128/50 95 10/02/18 08:58 10/02/18 10:00 10/02/18 10:00 10/02/18 08:58 10/02/18 10:00 General appearance: Present: no acute distress, well-nourished, obese - EENT Eyes: Present: PERRL, EOM intact - Neck Neck: Present: supple, normal ROM - Respiratory Respiratory effort: normal Respiratory: bilateral: diminished, negative: rales, rhonchi, wheezing - Cardiovascular Rhythm: irregularly irregular Heart Sounds: Present: S1 & S2 - Extremities Extremities: no ischemia, No edema - Abdominal General gastrointestinal: soft, non-tender, non-distended, normal bowel sounds - Integumentary Integumentary: Present: clear, warm - Psychiatric Psychiatric: appropriate mood/affect, cooperative - Neurologic Neurologic: moves all extremities Results - Labs CBC & Chem 7: 10/02/18 07:00 10/02/18 07:00 Labs: Laboratory Last Values WBC 7.8 K/mm3 (4.5-11.0) 10/02/18 07:00 RBC 3.62 M/mm3 (3.65-5.03) L 10/02/18 07:00 Hgb 10.8 gm/dl (10.1-14.3) 10/02/18 07:00 Hct 32.7 % (30.3-42.9) 10/02/18 07:00 MCV 90 fl (79-97) 10/02/18 07:00 MCH 30 pg (28-32) 10/02/18 07:00 MCHC 33 % (30-34) 10/02/18 07:00 RDW 13.9 % (13.2-15.2) 10/02/18 07:00 Plt Count 307 K/mm3 (140-440) 10/02/18 07:00 Add Manual Diff Complete 10/02/18 07:00 Total Counted 100 10/02/18 07:00 Seg Neutrophils % Chemical Laboratory Tester 09/24/18 15:04 Seg Neuts % (Manual) 83.0 % (40.0-70.0) H 10/02/18 07:00 Band Neutrophils % 0 % 10/02/18 07:00 Lymphocytes % (Manual) 9.0 % (13.4-35.0) L 10/02/18 07:00 Reactive Lymphs % (Man) 0 % 10/02/18 07:00 Monocytes % (Manual) 2.0 % (0.0-7.3) 10/02/18 07:00 Eosinophils % (Manual) 3.0 % (0.0-4.3) 10/02/18 07:00 Basophils % (Manual) 0 % (0.0-1.8) 10/02/18 07:00 Metamyelocytes % 2.0 % 10/02/18 07:00 Myelocytes % 1.0 % 10/02/18 07:00 Promyelocytes % 0 % 10/02/18 07:00 Blast Cells % 0 % 10/02/18 07:00 Nucleated RBC % Not Reportable 10/02/18 07:00 Seg Neutrophils # Man 6.5 K/mm3 (1.8-7.7) 10/02/18 07:00 Band Neutrophils # 0.0 K/mm3 10/02/18 07:00 Lymphocytes # (Manual) 0.7 K/mm3 (1.2-5.4) L 10/02/18 07:00 Abs React Lymphs (Man) 0.0 K/mm3 10/02/18 07:00 Monocytes # (Manual) 0.2 K/mm3 (0.0-0.8) 10/02/18 07:00 Eosinophils # (Manual) 0.2 K/mm3 (0.0-0.4) 10/02/18 07:00 Basophils # (Manual) 0.0 K/mm3 (0.0-0.1) 10/02/18 07:00 Metamyelocytes # 0.2 K/mm3 10/02/18 07:00 Myelocytes # 0.1 K/mm3 10/02/18 07:00 Promyelocytes # 0.0 K/mm3 10/02/18 07:00 Blast Cells # 0.0 K/mm3 10/02/18 07:00 WBC Morphology Not Reportable 10/02/18 07:00 Hypersegmented Neuts Not Reportable 10/02/18 07:00 Hyposegmented Neuts Not Reportable 10/02/18 07:00 Hypogranular Neuts Not Reportable 10/02/18 07:00 Smudge Cells Not Reportable 10/02/18 07:00 Toxic Granulation Not Reportable 10/02/18 07:00 Toxic Vacuolation Not Reportable 10/02/18 07:00 Dohle Bodies Not Reportable 10/02/18 07:00 Pelger-Huet Anomaly Not Reportable 10/02/18 07:00 Margoth Rods Not Reportable 10/02/18 07:00 Platelet Estimate Consistent w auto 10/02/18 07:00 Clumped Platelets Not Reportable 10/02/18 07:00 Plt Clumps, EDTA Not Reportable 10/02/18 07:00 Large Platelets Not Reportable 10/02/18 07:00 Giant Platelets Not Reportable 10/02/18 07:00 Platelet Satelliting Not Reportable 10/02/18 07:00 Plt Morphology Comment Not Reportable 10/02/18 07:00 RBC Morphology Not Reportable 10/02/18 07:00 Dimorphic RBCs Not Reportable 10/02/18 07:00 Polychromasia Not Reportable 10/02/18 07:00 Hypochromasia Not Reportable 10/02/18 07:00 Poikilocytosis Few 10/02/18 07:00 Anisocytosis Few 10/02/18 07:00 Microcytosis Not Reportable 10/02/18 07:00 Macrocytosis Not Reportable 10/02/18 07:00 Spherocytes Not Reportable 10/02/18 07:00 Pappenheimer Bodies Not Reportable 10/02/18 07:00 Sickle Cells Not Reportable 10/02/18 07:00 Target Cells Not Reportable 10/02/18 07:00 Tear Drop Cells Not Reportable 10/02/18 07:00 Ovalocytes Few 10/02/18 07:00 Helmet Cells Not Reportable 10/02/18 07:00 [place] Bodies Not Reportable 10/02/18 07:00 [place] Rings Not Reportable 10/02/18 07:00 [place] Cells Not Reportable 10/02/18 07:00 Bite Cells Not Reportable 10/02/18 07:00 Crenated Cell Not Reportable 10/02/18 07:00 Elliptocytes Not Reportable 10/02/18 07:00 Acanthocytes (Spur) Not Reportable 10/02/18 07:00 Rouleaux Not Reportable 10/02/18 07:00 Hemoglobin C Crystals Not Reportable 10/02/18 07:00 Schistocytes Not Reportable 10/02/18 07:00 Malaria parasites Not Reportable 10/02/18 07:00 Ulisses Bodies Not Reportable 10/02/18 07:00 Hem Pathologist Commnt No 10/02/18 07:00 PT 13.4 Sec. (12.2-14.9) 10/01/18 06:52 INR 0.96 (0.87-1.13) 10/01/18 06:52 APTT 26.9 Sec. (24.2-36.6) 10/01/18 06:52 POC ABG pH 7.373 (7.35-7.45) 09/26/18 11:36 POC ABG pCO2 41.5 (35-45) 09/26/18 11:36 POC ABG pO2 64 (80-105) L 09/26/18 11:36 POC ABG HCO3 24.1 (22-26 mml/L) 09/26/18 11:36 POC ABG Total CO2 25 (23-27mmol/L) 09/26/18 11:36 POC ABG O2 Sat 91 09/26/18 11:36 POC ABG Base Excess -1 ((-2) - (+3)mmol/L) 09/26/18 11:36 FiO2 21 % 09/26/18 11:36 Sodium 142 mmol/L (137-145) 10/02/18 07:00 Potassium 4.2 mmol/L (3.6-5.0) 10/02/18 07:00 Chloride 104.0 mmol/L (98-107) 10/02/18 07:00 Carbon Dioxide 27 mmol/L (22-30) 10/02/18 07:00 Anion Gap 15 mmol/L 10/02/18 07:00 BUN 12 mg/dL (7-17) 10/02/18 07:00 Creatinine 0.5 mg/dL (0.7-1.2) L 10/02/18 07:00 Estimated GFR > 60 ml/min 10/02/18 07:00 BUN/Creatinine Ratio 24 % 10/02/18 07:00 Glucose 91 mg/dL (65-100) 10/02/18 07:00 POC Glucose 99 (70-105) 10/02/18 13:03 Hemoglobin A1c 6.2 % (4-6) H 09/24/18 22:57 Lactic Acid 1.60 mmol/L (0.7-2.0) 09/24/18 22:57 Calcium 8.6 mg/dL (8.4-10.2) 10/02/18 07:00 Phosphorus 4.40 mg/dL (2.5-4.5) D 09/29/18 05:40 Magnesium 1.70 mg/dL (1.7-2.3) 10/02/18 07:00 Total Bilirubin 0.30 mg/dL (0.1-1.2) 09/28/18 06:39 AST 29 units/L (5-40) 09/28/18 06:39 ALT 28 units/L (7-56) 09/28/18 06:39 Alkaline Phosphatase 54 units/L (35-129) 09/28/18 06:39 Total Creatine Kinase 842 units/L (30-135) H 09/24/18 15:04 Troponin T 0.029 ng/mL (0.00-0.029) 09/24/18 15:04 Total Protein 5.1 g/dL (6.3-8.2) L 09/28/18 06:39 Albumin 2.6 g/dL (3.9-5) L 09/28/18 06:39 Albumin/Globulin Ratio 1.0 % 09/28/18 06:39 TSH 4.520 mlU/mL (0.270-4.200) H 09/28/18 12:03 Free T4 1.17 ng/dL (0.76-1.46) 09/28/18 12:03 Urine Color Vane (Yellow) 09/24/18 15:09 Urine Turbidity Slightly-cloudy (Clear) 09/24/18 15:09 Urine pH 5.0 (5.0-7.0) 09/24/18 15:09 Ur Specific [place] 1.017 (1.003-1.030) 09/24/18 15:09 Urine Protein 30 mg/dl mg/dL (Negative) 09/24/18 15:09 Urine Glucose (UA) Neg mg/dL (Negative) 09/24/18 15:09 Urine Ketones Tr mg/dL (Negative) 09/24/18 15:09 Urine Blood Lg (Negative) 09/24/18 15:09 Urine Nitrite Pos (Negative) 09/24/18 15:09 Urine Bilirubin Neg (Negative) 09/24/18 15:09 Urine Urobilinogen < 2.0 mg/dL (<2.0) 09/24/18 15:09 Ur Leukocyte Esterase Sm (Negative) 09/24/18 15:09 Urine WBC (Auto) 39.0 /HPF (0.0-6.0) H 09/24/18 15:09 Urine RBC (Auto) 35.0 /HPF (0.0-6.0) 09/24/18 15:09 U Epithel Cells (Auto) < 1.0 /HPF (0-13.0) 09/24/18 15:09 Urine Bacteria (Auto) 4+ /HPF (Negative) 09/24/18 15:09 Urine Mucus 2+ /HPF 09/24/18 15:09 Urine Yeast (Budding) 1+ /HPF 09/24/18 15:09 Salicylates < 0.3 mg/dL (2.8-20.0) L 09/24/18 15:04 Acetaminophen < 5.0 ug/mL (10.0-30.0) L 09/24/18 15:04 Active Medications - Current Medications Current Medications: Generic Name Dose Route Start Last Admin Trade Name Freq PRN Reason Stop Dose Admin Acetaminophen 650 mg 09/24/18 22:41 Tylenol PO Q4H PRN Pain MILD(1-3)/Fever >100.5/ROONEY Alprazolam 1 mg 09/27/18 12:57 Xanax PO Q8H PRN Anxiety Cephalexin 500 mg 09/30/18 18:00 10/02/18 17:37 Keflex PO 10/04/18 23:59 500 mg Q6HR ARON Administration Clopidogrel Bisulfate 75 mg 10/01/18 10:00 10/02/18 10:56 Plavix PO 75 mg QDAY ARON Administration Enoxaparin Sodium 40 mg 09/26/18 10:00 10/02/18 10:56 Lovenox SUB-Q 40 mg QDAY@1000 ARON Administration Famotidine 20 mg 09/27/18 22:00 10/02/18 10:56 Pepcid PO 20 mg BID ARON Administration Hydromorphone HCl 0.5 mg 09/24/18 22:41 Dilaudid IV Q3H PRN Pain , Severe (7-10) Sodium Chloride 1,000 mls @ 75 mls/hr 09/24/18 23:00 09/30/18 21:07 Nacl 0.9% 1000 Ml IV 75 mls/hr DIRECT ARON Administration Metoprolol Tartrate 50 mg 09/29/18 22:00 10/02/18 10:56 Lopressor PO 50 mg BID ARON Administration Ondansetron HCl 4 mg 09/24/18 22:41 09/25/18 11:51 Zofran IV 4 mg Q8H PRN Administration Nausea And Vomiting Oxycodone/Acetaminophen 1 tab 09/24/18 22:41 Percocet 5/325 PO Q6H PRN Pain, Moderate (4-6) Sodium Chloride 10 ml 09/25/18 10:00 10/02/18 10:57 Sodium Chloride Flush Syringe 10 Ml IV 10 ml BID ARON Administration Sodium Chloride 10 ml 09/24/18 22:41 Sodium Chloride Flush Syringe 10 Ml IV PRN PRN LINE FLUSH Nutrition/Malnutrition Assess - Dietary Evaluation Nutrition/Malnutrition Findings: Nutrition Notes Start: 10/01/18 14:15 Freq: Status: Active Protocol: Document 10/01/18 14:15 RM (Rec: 10/01/18 14:22 RM [id number]) Nutrition Notes Need for Assessment generated from: LOS Initial or Follow up Assessment Current Diagnosis Coronary Artery Disease, Diabetes,Sepsis,Heart Failure Other Pertinent Diagnosis Hx CVA, GERD, UTI, Metabolic encephalopathy, Dementia Current Diet Cardiac, Mech Soft Labs/Tests Reviewed Pertinent Medications Reviewed Height 5 ft 8 in Weight 79.2 kg [place] Body Weight (kg) 63.63 BMI 26.5 Subjective/Other Information Screened for LOS. Pt stated that her appetite is good and that she eats 50% or more of her meals. Stated she is unable to recall whether she has had N/V/D. Percent of energy/protein needs met: 62%/35% Burn Absent Trauma Absent #1 Nutrition Diagnosis Inadequate oral intake Etiology decreased appetite, dementia, metabolic encephalopathy As Evidenced by Signs and Symptoms pt statement that she eats 50% or more of her meals Is patient on ventilator? No Is Patient Ambulatory and/or Out of Bed Yes REE-([facility]-ambulatory/OOB) [ [id number] [id number]] Calculation Used for Recommendations [facility] Additional Notes Protein Needs: 119-135g (1.5-1 .7g/kg) Fluid Needs: 1 ml/kcal Nutrition Intervention Change Diet Order: Continue current Add Supplement/Snack (indicate name/kcal Ensure Enlive 1 daily /protein ) Provides kCal: 350 Provides Protein (gm) 20 Goal #1 Meet at least 75% of calorie and protein needs via PO and ONS intakes Anticipated Discharge Needs: Cardiac,Mech Soft diet Follow-Up By: 10/03/18 Additional Comments Follow for PO and ONS intakes
--- NOTE | 2018-10-02 20:00 | Progress Note ---
Assessment and Plan Patient sleeping at this time.Patient is on 2 litres o2.O2 saturation 95%. No acute respiratory distress. Patients CAT scan reported right lower lobe pleural based mass. Scheduled for per cutaneous needle biopsy of chest lesion under CT guidance by interventional radiology. Interventional radiology suggested percutaneous needle biopsy of chest lesion as out patient since patient is treating for infection. Told again patients other son to bring her to my office after discharged from the hospital and arrange needle Biopsy as out nhi ent.Stressed importance of out patient follow up.. . - Patient Problems (1) Mass of right lung Current Visit: Yes Status: Acute Plan to address problem: Scheduled for per cutaneous needle biopsy of chest lesion under CT guidance by interventional radiology. Interventional radiology suggested percutaneous needle biopsy of chest lesion as out patient since patient is treating for infection. Told also patients other son to bring her to my office after discharged from the hospital and arrange needle Biopsy as out patient.Stressed importance of out patient follow up. (2) Ureteral stone Current Visit: Yes Status: Acute Plan to address problem: Patient has ureteral stent placement. (3) Sepsis, Gram negative Current Visit: Yes Status: Acute Plan to address problem: Patient is on ceftrioxone. Subjective Date of service: 10/02/18 Principal diagnosis: ureteral astone Interval history: Patient awake. Patient is resting on 2 litres o2.O2 saturation 95%. No acute respiratory distress. Patients CAT scan reported right lower lobe pleural based mass. Scheduled for per cutaneous needle biopsy of chest lesion under CT guidance by interventional radiology. Interventional radiology suggested percutaneous needle biopsy of chest lesion as out patient since patient is treating for infection. Told again patients other son to bring her to my office after discharged from the hospital and arrange needle Biopsy as out patient.Stressed importance of out patient follow up. Objective Vital Signs - 12hr 10/02/18 10/02/18 08:58 10:00 Temperature 98.0 F Pulse Rate 55 L 52 L Respiratory 16 22 Rate Blood Pressure 128/50 O2 Sat by Pulse 95 95 Oximetry Constitutional: no acute distress, alert Eyes: non-icteric ENT: oropharynx moist Neck: supple, no JVD Ascultation: Bilateral: diminished breath sounds Cardiovascular: regular rate and rhythm Gastrointestinal: normoactive bowel sounds, tender Integumentary: normal Extremities: no cyanosis, no edema Neurologic: normal mental status, non-focal exam, pupils equal and round Psychiatric: depressed CBC and BMP: 10/02/18 07:00 10/02/18 07:00 ABG, PT/INR, D-dimer: ABG POC ABG pH 7.373 (7.35-7.45) 09/26/18 11:36 POC ABG pCO2 41.5 (35-45) 09/26/18 11:36 POC ABG pO2 64 (80-105) L 09/26/18 11:36 POC ABG HCO3 24.1 (22-26 mml/L) 09/26/18 11:36 POC ABG Total CO2 25 (23-27mmol/L) 09/26/18 11:36 POC ABG O2 Sat 91 09/26/18 11:36 PT/INR, D-dimer PT 13.4 Sec. (12.2-14.9) 10/01/18 06:52 INR 0.96 (0.87-1.13) 10/01/18 06:52 Abnormal lab findings: Abnormal Labs 09/24/18 09/24/18 09/24/18 15:04 15:04 15:04 WBC RBC Hgb Hct Plt Count 130 L Seg Neuts % (Manual) 90.0 H Lymphocytes % (Manual) 6.0 L Monocytes % (Manual) Seg Neutrophils # Man Lymphocytes # (Manual) 0.5 L POC ABG pO2 Potassium Chloride BUN 19 H Creatinine Glucose POC Glucose Hemoglobin A1c Lactic Acid 4.40 H* Calcium Phosphorus Magnesium AST Alkaline Phosphatase Total Creatine Kinase Total Protein 6.1 L Albumin 3.7 L TSH Urine WBC (Auto) Salicylates Acetaminophen 09/24/18 09/24/18 09/24/18 15:04 15:04 15:04 WBC RBC Hgb Hct Plt Count Seg Neuts % (Manual) Lymphocytes % (Manual) Monocytes % (Manual) Seg Neutrophils # Man Lymphocytes # (Manual) POC ABG pO2 Potassium Chloride BUN Creatinine Glucose POC Glucose Hemoglobin A1c Lactic Acid Calcium Phosphorus Magnesium 1.20 L AST Alkaline Phosphatase Total Creatine Kinase 842 H Total Protein Albumin TSH Urine WBC (Auto) Salicylates < 0.3 L Acetaminophen < 5.0 L 09/24/18 09/24/18 09/24/18 15:09 16:00 19:59 WBC RBC Hgb Hct Plt Count Seg Neuts % (Manual) Lymphocytes % (Manual) Monocytes % (Manual) Seg Neutrophils # Man Lymphocytes # (Manual) POC ABG pO2 Potassium Chloride BUN Creatinine Glucose POC Glucose Hemoglobin A1c Lactic Acid 4.40 H* 2.30 H* Calcium Phosphorus Magnesium AST Alkaline Phosphatase Total Creatine Kinase Total Protein Albumin TSH Urine WBC (Auto) 39.0 H Salicylates Acetaminophen 09/24/18 09/24/18 09/25/18 21:51 22:57 05:18 WBC 20.3 H RBC Hgb Hct Plt Count 101 L Seg Neuts % (Manual) Lymphocytes % (Manual) 2.0 L Monocytes % (Manual) Seg Neutrophils # Man 13.0 H Lymphocytes # (Manual) 0.4 L POC ABG pO2 Potassium Chloride BUN Creatinine Glucose POC Glucose Hemoglobin A1c 6.2 H Lactic Acid 2.40 H* Calcium Phosphorus Magnesium AST Alkaline Phosphatase Total Creatine Kinase Total Protein Albumin TSH Urine WBC (Auto) Salicylates Acetaminophen 09/25/18 09/25/18 09/26/18 05:18 23:00 04:13 WBC 19.6 H RBC 3.31 L Hgb 9.9 L Hct 29.8 L Plt Count 82 L Seg Neuts % (Manual) Lymphocytes % (Manual) 1.0 L Monocytes % (Manual) Seg Neutrophils # Man 10.4 H Lymphocytes # (Manual) 0.2 L POC ABG pO2 Potassium 3.5 L Chloride BUN 22 H Creatinine 0.6 L Glucose 102 H POC Glucose 117 H Hemoglobin A1c Lactic Acid Calcium 7.7 L Phosphorus Magnesium AST 82 H Alkaline Phosphatase 32 L Total Creatine Kinase Total Protein 5.6 L Albumin 3.1 L TSH Urine WBC (Auto) Salicylates Acetaminophen 09/26/18 09/26/18 09/27/18 04:13 11:36 06:00 WBC 22.3 H RBC 3.35 L Hgb 10.0 L Hct Plt Count 100 L Seg Neuts % (Manual) 89.0 H Lymphocytes % (Manual) 6.0 L Monocytes % (Manual) Seg Neutrophils # Man 19.8 H Lymphocytes # (Manual) POC ABG pO2 64 L Potassium 3.3 L Chloride 108.0 H BUN Creatinine 0.5 L Glucose POC Glucose Hemoglobin A1c Lactic Acid Calcium 7.5 L Phosphorus 1.90 L Magnesium AST 72 H Alkaline Phosphatase Total Creatine Kinase Total Protein 5.0 L Albumin 2.7 L TSH Urine WBC (Auto) Salicylates Acetaminophen 09/27/18 09/27/18 09/27/18 06:00 12:04 20:46 WBC RBC Hgb Hct Plt Count Seg Neuts % (Manual) Lymphocytes % (Manual) Monocytes % (Manual) Seg Neutrophils # Man Lymphocytes # (Manual) POC ABG pO2 Potassium 3.5 L Chloride BUN Creatinine 0.5 L Glucose 103 H POC Glucose 142 H 129 H Hemoglobin A1c Lactic Acid Calcium 7.9 L Phosphorus Magnesium AST Alkaline Phosphatase Total Creatine Kinase Total Protein Albumin TSH Urine WBC (Auto) Salicylates Acetaminophen 09/28/18 09/28/18 09/28/18 06:39 06:39 12:03 WBC 13.2 H RBC 3.36 L Hgb 10.0 L Hct 30.1 L Plt Count 125 L Seg Neuts % (Manual) 77.0 H Lymphocytes % (Manual) Monocytes % (Manual) Seg Neutrophils # Man 10.2 H Lymphocytes # (Manual) POC ABG pO2 Potassium 3.4 L Chloride 108.9 H BUN Creatinine 0.4 L Glucose POC Glucose Hemoglobin A1c Lactic Acid Calcium 7.9 L Phosphorus 1.80 L Magnesium 1.40 L AST Alkaline Phosphatase Total Creatine Kinase Total Protein 5.1 L Albumin 2.6 L TSH 4.520 H Urine WBC (Auto) Salicylates Acetaminophen 09/28/18 09/28/18 09/29/18 12:21 21:32 05:40 WBC RBC Hgb Hct Plt Count Seg Neuts % (Manual) Lymphocytes % (Manual) Monocytes % (Manual) Seg Neutrophils # Man Lymphocytes # (Manual) POC ABG pO2 Potassium Chloride BUN Creatinine 0.4 L Glucose POC Glucose 114 H 141 H Hemoglobin A1c Lactic Acid Calcium 7.7 L Phosphorus Magnesium AST Alkaline Phosphatase Total Creatine Kinase Total Protein Albumin TSH Urine WBC (Auto) Salicylates Acetaminophen 09/29/18 09/29/18 09/30/18 05:40 11:34 12:04 WBC RBC 3.57 L Hgb Hct Plt Count Seg Neuts % (Manual) Lymphocytes % (Manual) Monocytes % (Manual) 8.0 H Seg Neutrophils # Man Lymphocytes # (Manual) POC ABG pO2 Potassium Chloride BUN Creatinine Glucose POC Glucose 155 H 151 H Hemoglobin A1c Lactic Acid Calcium Phosphorus Magnesium AST Alkaline Phosphatase Total Creatine Kinase Total Protein Albumin TSH Urine WBC (Auto) Salicylates Acetaminophen 09/30/18 09/30/18 10/01/18 16:01 20:28 11:39 WBC RBC Hgb Hct Plt Count Seg Neuts % (Manual) Lymphocytes % (Manual) Monocytes % (Manual) Seg Neutrophils # Man Lymphocytes # (Manual) POC ABG pO2 Potassium Chloride BUN Creatinine Glucose POC Glucose 124 H 115 H 108 H Hemoglobin A1c Lactic Acid Calcium Phosphorus Magnesium AST Alkaline Phosphatase Total Creatine Kinase Total Protein Albumin TSH Urine WBC (Auto) Salicylates Acetaminophen 10/01/18 10/02/18 10/02/18 15:48 07:00 07:00 WBC RBC 3.62 L Hgb Hct Plt Count Seg Neuts % (Manual) 83.0 H Lymphocytes % (Manual) 9.0 L Monocytes % (Manual) Seg Neutrophils # Man Lymphocytes # (Manual) 0.7 L POC ABG pO2 Potassium Chloride BUN Creatinine 0.5 L Glucose POC Glucose 152 H Hemoglobin A1c Lactic Acid Calcium Phosphorus Magnesium AST Alkaline Phosphatase Total Creatine Kinase Total Protein Albumin TSH Urine WBC (Auto) Salicylates Acetaminophen
[2018-10-03] MEDS: KEFLEX PO SCH ×5 (00:34→23:14)
[2018-10-03] MEDS: LOVENOX SUB-Q SCH (09:28)
[2018-10-03] MEDS: PEPCID PO SCH ×2 (09:28→21:56)
[2018-10-03] MEDS: PLAVIX PO SCH (09:28)
[2018-10-03] MEDS: SODIUM CHLORIDE FLUSH SYRINGE 10 ML IV SCH ×2 (09:28→21:56)
[2018-10-03] MEDS: LOPRESSOR PO SCH ×2 (09:28→21:56)
--- NOTE | 2018-10-03 12:01 | Progress Note ---
Assessment and Plan Assessment and plan: --Gram-negative sepsis; Klebsiella urine and blood complicated UTI, symptoms resolved s/p IV Rocephin, on oral Keflex stop date 10/04/18 --Paroxysmal SVT[Supra ventricular tachycardia]; HR 160s to 170, s/p IV adenosine 6 mg, converted to sinus. Heart rate within normal limits Continue beta blockers ,ECHO 55-60 at the bedside cardio added Plavix --Hypokalemia/hypomagnesemia/hyperphosphatemia; corrected --Left hydronephrosis s/p ureteral stent placement Cleared by urology for discharge -- Lung mass on CT chest ; Right lower lobe pleural-based lung mass, pulmonary evaluated the patient IR consulted, rec outpatient biopsy Patient is more stable --Metabolic encephalopathy; probably secondary to sepsis Significant improvement --Leukocytosis; secondary to sepsis, resolved ,continue current antibiotics --Lactic acidosis; resolved, secondary to sepsis due to UTI --[id number] malnutrition/hypoalbuminemia; supportive care Nutrition supplements --DVT prophylaxis; Lovenox --Full CODE STATUS Awaiting SNF placement pending insurance approval Patient is medically stable for discharge . History Interval history: Patient seen and examined medical records reviewed patient feels better no new complaints Could not sleep last night because of a lot of noise Alert awake oriented 3 Vital signs noted Awaiting SNF placement Hospitalist Physical - Constitutional Vitals: Temp Pulse Resp BP Pulse Ox 98.6 F 55 L 18 118/48 96 10/03/18 08:01 10/03/18 09:28 10/03/18 08:01 10/03/18 09:28 10/03/18 06:39 General appearance: Present: no acute distress, well-nourished, obese - EENT Eyes: Present: PERRL, EOM intact - Neck Neck: Present: supple, normal ROM - Respiratory Respiratory effort: normal Respiratory: bilateral: diminished, negative: rales, rhonchi, wheezing - Cardiovascular Rhythm: regular Heart Sounds: Present: S1 & S2 - Extremities Extremities: no ischemia, No edema - Abdominal General gastrointestinal: soft, non-tender, non-distended, normal bowel sounds - Integumentary Integumentary: Present: clear, warm - Psychiatric Psychiatric: appropriate mood/affect, cooperative - Neurologic Neurologic: CNII-XII intact, moves all extremities Results - Labs CBC & Chem 7: 10/02/18 07:00 10/02/18 07:00 Labs: Laboratory Last Values WBC 7.8 K/mm3 (4.5-11.0) 10/02/18 07:00 RBC 3.62 M/mm3 (3.65-5.03) L 10/02/18 07:00 Hgb 10.8 gm/dl (10.1-14.3) 10/02/18 07:00 Hct 32.7 % (30.3-42.9) 10/02/18 07:00 MCV 90 fl (79-97) 10/02/18 07:00 MCH 30 pg (28-32) 10/02/18 07:00 MCHC 33 % (30-34) 10/02/18 07:00 RDW 13.9 % (13.2-15.2) 10/02/18 07:00 Plt Count 307 K/mm3 (140-440) 10/02/18 07:00 Add Manual Diff Complete 10/02/18 07:00 Total Counted 100 10/02/18 07:00 Seg Neutrophils % Membership Sales Representative 09/24/18 15:04 Seg Neuts % (Manual) 83.0 % (40.0-70.0) H 10/02/18 07:00 Band Neutrophils % 0 % 10/02/18 07:00 Lymphocytes % (Manual) 9.0 % (13.4-35.0) L 10/02/18 07:00 Reactive Lymphs % (Man) 0 % 10/02/18 07:00 Monocytes % (Manual) 2.0 % (0.0-7.3) 10/02/18 07:00 Eosinophils % (Manual) 3.0 % (0.0-4.3) 10/02/18 07:00 Basophils % (Manual) 0 % (0.0-1.8) 10/02/18 07:00 Metamyelocytes % 2.0 % 10/02/18 07:00 Myelocytes % 1.0 % 10/02/18 07:00 Promyelocytes % 0 % 10/02/18 07:00 Blast Cells % 0 % 10/02/18 07:00 Nucleated RBC % Not Reportable 10/02/18 07:00 Seg Neutrophils # Man 6.5 K/mm3 (1.8-7.7) 10/02/18 07:00 Band Neutrophils # 0.0 K/mm3 10/02/18 07:00 Lymphocytes # (Manual) 0.7 K/mm3 (1.2-5.4) L 10/02/18 07:00 Abs React Lymphs (Man) 0.0 K/mm3 10/02/18 07:00 Monocytes # (Manual) 0.2 K/mm3 (0.0-0.8) 10/02/18 07:00 Eosinophils # (Manual) 0.2 K/mm3 (0.0-0.4) 10/02/18 07:00 Basophils # (Manual) 0.0 K/mm3 (0.0-0.1) 10/02/18 07:00 Metamyelocytes # 0.2 K/mm3 10/02/18 07:00 Myelocytes # 0.1 K/mm3 10/02/18 07:00 Promyelocytes # 0.0 K/mm3 10/02/18 07:00 Blast Cells # 0.0 K/mm3 10/02/18 07:00 WBC Morphology Not Reportable 10/02/18 07:00 Hypersegmented Neuts Not Reportable 10/02/18 07:00 Hyposegmented Neuts Not Reportable 10/02/18 07:00 Hypogranular Neuts Not Reportable 10/02/18 07:00 Smudge Cells Not Reportable 10/02/18 07:00 Toxic Granulation Not Reportable 10/02/18 07:00 Toxic Vacuolation Not Reportable 10/02/18 07:00 Dohle Bodies Not Reportable 10/02/18 07:00 Pelger-Huet Anomaly Not Reportable 10/02/18 07:00 Margoth Rods Not Reportable 10/02/18 07:00 Platelet Estimate Consistent w auto 10/02/18 07:00 Clumped Platelets Not Reportable 10/02/18 07:00 Plt Clumps, EDTA Not Reportable 10/02/18 07:00 Large Platelets Not Reportable 10/02/18 07:00 Giant Platelets Not Reportable 10/02/18 07:00 Platelet Satelliting Not Reportable 10/02/18 07:00 Plt Morphology Comment Not Reportable 10/02/18 07:00 RBC Morphology Not Reportable 10/02/18 07:00 Dimorphic RBCs Not Reportable 10/02/18 07:00 Polychromasia Not Reportable 10/02/18 07:00 Hypochromasia Not Reportable 10/02/18 07:00 Poikilocytosis Few 10/02/18 07:00 Anisocytosis Few 10/02/18 07:00 Microcytosis Not Reportable 10/02/18 07:00 Macrocytosis Not Reportable 10/02/18 07:00 Spherocytes Not Reportable 10/02/18 07:00 Pappenheimer Bodies Not Reportable 10/02/18 07:00 Sickle Cells Not Reportable 10/02/18 07:00 Target Cells Not Reportable 10/02/18 07:00 Tear Drop Cells Not Reportable 10/02/18 07:00 Ovalocytes Few 10/02/18 07:00 Helmet Cells Not Reportable 10/02/18 07:00 [place] Bodies Not Reportable 10/02/18 07:00 [place] Rings Not Reportable 10/02/18 07:00 Honeydew Cells Not Reportable 10/02/18 07:00 Bite Cells Not Reportable 10/02/18 07:00 Crenated Cell Not Reportable 10/02/18 07:00 Elliptocytes Not Reportable 10/02/18 07:00 Acanthocytes (Spur) Not Reportable 10/02/18 07:00 Rouleaux Not Reportable 10/02/18 07:00 Hemoglobin C Crystals Not Reportable 10/02/18 07:00 Schistocytes Not Reportable 10/02/18 07:00 Malaria parasites Not Reportable 10/02/18 07:00 Ulisses Bodies Not Reportable 10/02/18 07:00 Hem Pathologist Commnt No 10/02/18 07:00 PT 13.4 Sec. (12.2-14.9) 10/01/18 06:52 INR 0.96 (0.87-1.13) 10/01/18 06:52 APTT 26.9 Sec. (24.2-36.6) 10/01/18 06:52 POC ABG pH 7.373 (7.35-7.45) 09/26/18 11:36 POC ABG pCO2 41.5 (35-45) 09/26/18 11:36 POC ABG pO2 64 (80-105) L 09/26/18 11:36 POC ABG HCO3 24.1 (22-26 mml/L) 09/26/18 11:36 POC ABG Total CO2 25 (23-27mmol/L) 09/26/18 11:36 POC ABG O2 Sat 91 09/26/18 11:36 POC ABG Base Excess -1 ((-2) - (+3)mmol/L) 09/26/18 11:36 FiO2 21 % 09/26/18 11:36 Sodium 142 mmol/L (137-145) 10/02/18 07:00 Potassium 4.2 mmol/L (3.6-5.0) 10/02/18 07:00 Chloride 104.0 mmol/L (98-107) 10/02/18 07:00 Carbon Dioxide 27 mmol/L (22-30) 10/02/18 07:00 Anion Gap 15 mmol/L 10/02/18 07:00 BUN 12 mg/dL (7-17) 10/02/18 07:00 Creatinine 0.5 mg/dL (0.7-1.2) L 10/02/18 07:00 Estimated GFR > 60 ml/min 10/02/18 07:00 BUN/Creatinine Ratio 24 % 10/02/18 07:00 Glucose 91 mg/dL (65-100) 10/02/18 07:00 POC Glucose 93 (70-105) 10/03/18 07:27 Hemoglobin A1c 6.2 % (4-6) H 09/24/18 22:57 Lactic Acid 1.60 mmol/L (0.7-2.0) 09/24/18 22:57 Calcium 8.6 mg/dL (8.4-10.2) 10/02/18 07:00 Phosphorus 4.40 mg/dL (2.5-4.5) D 09/29/18 05:40 Magnesium 1.70 mg/dL (1.7-2.3) 10/02/18 07:00 Total Bilirubin 0.30 mg/dL (0.1-1.2) 09/28/18 06:39 AST 29 units/L (5-40) 09/28/18 06:39 ALT 28 units/L (7-56) 09/28/18 06:39 Alkaline Phosphatase 54 units/L (35-129) 09/28/18 06:39 Total Creatine Kinase 842 units/L (30-135) H 09/24/18 15:04 Troponin T 0.029 ng/mL (0.00-0.029) 09/24/18 15:04 Total Protein 5.1 g/dL (6.3-8.2) L 09/28/18 06:39 Albumin 2.6 g/dL (3.9-5) L 09/28/18 06:39 Albumin/Globulin Ratio 1.0 % 09/28/18 06:39 TSH 4.520 mlU/mL (0.270-4.200) H 09/28/18 12:03 Free T4 1.17 ng/dL (0.76-1.46) 09/28/18 12:03 Urine Color Vane (Yellow) 09/24/18 15:09 Urine Turbidity Slightly-cloudy (Clear) 09/24/18 15:09 Urine pH 5.0 (5.0-7.0) 09/24/18 15:09 Ur Specific [place] 1.017 (1.003-1.030) 09/24/18 15:09 Urine Protein 30 mg/dl mg/dL (Negative) 09/24/18 15:09 Urine Glucose (UA) Neg mg/dL (Negative) 09/24/18 15:09 Urine Ketones Tr mg/dL (Negative) 09/24/18 15:09 Urine Blood Lg (Negative) 09/24/18 15:09 Urine Nitrite Pos (Negative) 09/24/18 15:09 Urine Bilirubin Neg (Negative) 09/24/18 15:09 Urine Urobilinogen < 2.0 mg/dL (<2.0) 09/24/18 15:09 Ur Leukocyte Esterase Sm (Negative) 09/24/18 15:09 Urine WBC (Auto) 39.0 /HPF (0.0-6.0) H 09/24/18 15:09 Urine RBC (Auto) 35.0 /HPF (0.0-6.0) 09/24/18 15:09 U Epithel Cells (Auto) < 1.0 /HPF (0-13.0) 09/24/18 15:09 Urine Bacteria (Auto) 4+ /HPF (Negative) 09/24/18 15:09 Urine Mucus 2+ /HPF 09/24/18 15:09 Urine Yeast (Budding) 1+ /HPF 09/24/18 15:09 Salicylates < 0.3 mg/dL (2.8-20.0) L 09/24/18 15:04 Acetaminophen < 5.0 ug/mL (10.0-30.0) L 09/24/18 15:04 Active Medications - Current Medications Current Medications: Generic Name Dose Route Start Last Admin Trade Name Freq PRN Reason Stop Dose Admin Acetaminophen 650 mg 09/24/18 22:41 Tylenol PO Q4H PRN Pain MILD(1-3)/Fever >100.5/ROONEY Alprazolam 1 mg 09/27/18 12:57 Xanax PO Q8H PRN Anxiety Cephalexin 500 mg 09/30/18 18:00 10/03/18 06:09 Keflex PO 10/04/18 23:59 500 mg Q6HR ARON Administration Clopidogrel Bisulfate 75 mg 10/01/18 10:00 10/03/18 09:28 Plavix PO 75 mg QDAY ARON Administration Enoxaparin Sodium 40 mg 09/26/18 10:00 10/03/18 09:28 Lovenox SUB-Q 40 mg QDAY@1000 ARON Administration Famotidine 20 mg 09/27/18 22:00 10/03/18 09:28 Pepcid PO 20 mg BID ARON Administration Hydromorphone HCl 0.5 mg 09/24/18 22:41 Dilaudid IV Q3H PRN Pain , Severe (7-10) Sodium Chloride 1,000 mls @ 75 mls/hr 09/24/18 23:00 09/30/18 21:07 Nacl 0.9% 1000 Ml IV 75 mls/hr DIRECT ARON Administration Metoprolol Tartrate 50 mg 09/29/18 22:00 10/03/18 09:28 Lopressor PO Not Given BID ARON Ondansetron HCl 4 mg 09/24/18 22:41 09/25/18 11:51 Zofran IV 4 mg Q8H PRN Administration Nausea And Vomiting Oxycodone/Acetaminophen 1 tab 09/24/18 22:41 Percocet 5/325 PO Q6H PRN Pain, Moderate (4-6) Sodium Chloride 10 ml 09/25/18 10:00 10/03/18 09:28 Sodium Chloride Flush Syringe 10 Ml IV 10 ml BID ARON Administration Sodium Chloride 10 ml 09/24/18 22:41 Sodium Chloride Flush Syringe 10 Ml IV PRN PRN LINE FLUSH Nutrition/Malnutrition Assess - Dietary Evaluation Nutrition/Malnutrition Findings: Nutrition Notes Start: 10/01/18 14:15 Freq: Status: Active Protocol: Document 10/01/18 14:15 RM (Rec: 10/01/18 14:22 RM [id number]) Nutrition Notes Need for Assessment generated from: LOS Initial or Follow up Assessment Current Diagnosis Coronary Artery Disease, Diabetes,Sepsis,Heart Failure Other Pertinent Diagnosis Hx CVA, GERD, UTI, Metabolic encephalopathy, Dementia Current Diet Cardiac, Mech Soft Labs/Tests Reviewed Pertinent Medications Reviewed Height 5 ft 8 in Weight 79.2 kg Scott Body Weight (kg) 63.63 BMI 26.5 Subjective/Other Information Screened for LOS. Pt stated that her appetite is good and that she eats 50% or more of her meals. Stated she is unable to recall whether she has had N/V/D. Percent of energy/protein needs met: 62%/35% Burn Absent Trauma Absent #1 Nutrition Diagnosis Inadequate oral intake Etiology decreased appetite, dementia, metabolic encephalopathy As Evidenced by Signs and Symptoms pt statement that she eats 50% or more of her meals Is patient on ventilator? No Is Patient Ambulatory and/or Out of Bed Yes REE-([place]-ambulatory/OOB) [ [id number] [id number]] Calculation Used for Recommendations [facility] Additional Notes Protein Needs: 119-135g (1.5-1 .7g/kg) Fluid Needs: 1 ml/kcal Nutrition Intervention Change Diet Order: Continue current Add Supplement/Snack (indicate name/kcal Ensure Enlive 1 daily /protein ) Provides kCal: 350 Provides Protein (gm) 20 Goal #1 Meet at least 75% of calorie and protein needs via PO and ONS intakes Anticipated Discharge Needs: Cardiac,Mech Soft diet Follow-Up By: 10/03/18 Additional Comments Follow for PO and ONS intakes
[2018-10-03] MEDS: ZOFRAN IV PRN (12:32)
--- NOTE | 2018-10-03 18:01 | Progress Note ---
Assessment and Plan Patient sleeping at this time.Patient is on 2 litres o2.O2 saturation 96%. No acute respiratory distress. Patients CAT scan reported right lower lobe pleural based mass. Scheduled for per cutaneous needle biopsy of chest lesion under CT guidance by interventional radiology. Interventional radiology suggested percutaneous needle biopsy of chest lesion as out patient since patient is treating for infection. Told again patients other son to bring her to my office after discharged from the hospital and arrange needle Biopsy as out nhi ent.Stressed importance of out patient follow up.. . - Patient Problems (1) Mass of right lung Current Visit: Yes Status: Acute Plan to address problem: Scheduled for per cutaneous needle biopsy of chest lesion under CT guidance by interventional radiology. Interventional radiology suggested percutaneous needle biopsy of chest lesion as out patient since patient is treating for infection. Told also patients other son to bring her to my office after discharged from the hospital and arrange needle Biopsy as out patient.Stressed importance of out patient follow up. (2) Ureteral stone Current Visit: Yes Status: Acute Plan to address problem: Patient has ureteral stent placement. (3) Sepsis, Gram negative Current Visit: Yes Status: Acute Plan to address problem: Patient is on ceftrioxone. Subjective Date of service: 10/03/18 Principal diagnosis: ureteral astone Interval history: Patient sleeping on on 2 litres o2.O2 saturation 96%. No acute respiratory distress. Patients CAT scan reported right lower lobe pleural based mass. Scheduled for per cutaneous needle biopsy of chest lesion under CT guidance by interventional radiology. Interventional radiology suggested percutaneous needle biopsy of chest lesion as out patient since patient is treating for infection. Told again patients other son to bring her to my office after discharged from the hospital and arrange needle Biopsy as out patient.Stressed importance of out patient follow up. Objective Vital Signs - 12hr 10/03/18 10/03/18 10/03/18 06:39 08:01 09:28 Temperature 98.1 F 98.6 F Pulse Rate 57 L 55 L Respiratory 20 18 Rate Blood Pressure 121/49 118/48 118/48 O2 Sat by Pulse 96 Oximetry 10/03/18 11:29 Temperature 97.2 F L Pulse Rate Respiratory 18 Rate Blood Pressure 115/53 O2 Sat by Pulse Oximetry Constitutional: no acute distress, asleep Eyes: non-icteric ENT: oropharynx moist Neck: supple, no JVD Ascultation: Bilateral: diminished breath sounds Cardiovascular: regular rate and rhythm Gastrointestinal: normoactive bowel sounds, tender Integumentary: normal Extremities: no cyanosis, no edema Neurologic: normal mental status, non-focal exam, pupils equal and round Psychiatric: depressed CBC and BMP: 10/02/18 07:00 10/02/18 07:00 ABG, PT/INR, D-dimer: ABG POC ABG pH 7.373 (7.35-7.45) 09/26/18 11:36 POC ABG pCO2 41.5 (35-45) 09/26/18 11:36 POC ABG pO2 64 (80-105) L 09/26/18 11:36 POC ABG HCO3 24.1 (22-26 mml/L) 09/26/18 11:36 POC ABG Total CO2 25 (23-27mmol/L) 09/26/18 11:36 POC ABG O2 Sat 91 09/26/18 11:36 PT/INR, D-dimer PT 13.4 Sec. (12.2-14.9) 10/01/18 06:52 INR 0.96 (0.87-1.13) 10/01/18 06:52 Abnormal lab findings: Abnormal Labs 09/24/18 09/24/18 09/24/18 15:04 15:04 15:04 WBC RBC Hgb Hct Plt Count 130 L Seg Neuts % (Manual) 90.0 H Lymphocytes % (Manual) 6.0 L Monocytes % (Manual) Seg Neutrophils # Man Lymphocytes # (Manual) 0.5 L POC ABG pO2 Potassium Chloride BUN 19 H Creatinine Glucose POC Glucose Hemoglobin A1c Lactic Acid 4.40 H* Calcium Phosphorus Magnesium AST Alkaline Phosphatase Total Creatine Kinase Total Protein 6.1 L Albumin 3.7 L TSH Urine WBC (Auto) Salicylates Acetaminophen 09/24/18 09/24/18 09/24/18 15:04 15:04 15:04 WBC RBC Hgb Hct Plt Count Seg Neuts % (Manual) Lymphocytes % (Manual) Monocytes % (Manual) Seg Neutrophils # Man Lymphocytes # (Manual) POC ABG pO2 Potassium Chloride BUN Creatinine Glucose POC Glucose Hemoglobin A1c Lactic Acid Calcium Phosphorus Magnesium 1.20 L AST Alkaline Phosphatase Total Creatine Kinase 842 H Total Protein Albumin TSH Urine WBC (Auto) Salicylates < 0.3 L Acetaminophen < 5.0 L 09/24/18 09/24/18 09/24/18 15:09 16:00 19:59 WBC RBC Hgb Hct Plt Count Seg Neuts % (Manual) Lymphocytes % (Manual) Monocytes % (Manual) Seg Neutrophils # Man Lymphocytes # (Manual) POC ABG pO2 Potassium Chloride BUN Creatinine Glucose POC Glucose Hemoglobin A1c Lactic Acid 4.40 H* 2.30 H* Calcium Phosphorus Magnesium AST Alkaline Phosphatase Total Creatine Kinase Total Protein Albumin TSH Urine WBC (Auto) 39.0 H Salicylates Acetaminophen 09/24/18 09/24/18 09/25/18 21:51 22:57 05:18 WBC 20.3 H RBC Hgb Hct Plt Count 101 L Seg Neuts % (Manual) Lymphocytes % (Manual) 2.0 L Monocytes % (Manual) Seg Neutrophils # Man 13.0 H Lymphocytes # (Manual) 0.4 L POC ABG pO2 Potassium Chloride BUN Creatinine Glucose POC Glucose Hemoglobin A1c 6.2 H Lactic Acid 2.40 H* Calcium Phosphorus Magnesium AST Alkaline Phosphatase Total Creatine Kinase Total Protein Albumin TSH Urine WBC (Auto) Salicylates Acetaminophen 09/25/18 09/25/18 09/26/18 05:18 23:00 04:13 WBC 19.6 H RBC 3.31 L Hgb 9.9 L Hct 29.8 L Plt Count 82 L Seg Neuts % (Manual) Lymphocytes % (Manual) 1.0 L Monocytes % (Manual) Seg Neutrophils # Man 10.4 H Lymphocytes # (Manual) 0.2 L POC ABG pO2 Potassium 3.5 L Chloride BUN 22 H Creatinine 0.6 L Glucose 102 H POC Glucose 117 H Hemoglobin A1c Lactic Acid Calcium 7.7 L Phosphorus Magnesium AST 82 H Alkaline Phosphatase 32 L Total Creatine Kinase Total Protein 5.6 L Albumin 3.1 L TSH Urine WBC (Auto) Salicylates Acetaminophen 09/26/18 09/26/18 09/27/18 04:13 11:36 06:00 WBC 22.3 H RBC 3.35 L Hgb 10.0 L Hct Plt Count 100 L Seg Neuts % (Manual) 89.0 H Lymphocytes % (Manual) 6.0 L Monocytes % (Manual) Seg Neutrophils # Man 19.8 H Lymphocytes # (Manual) POC ABG pO2 64 L Potassium 3.3 L Chloride 108.0 H BUN Creatinine 0.5 L Glucose POC Glucose Hemoglobin A1c Lactic Acid Calcium 7.5 L Phosphorus 1.90 L Magnesium AST 72 H Alkaline Phosphatase Total Creatine Kinase Total Protein 5.0 L Albumin 2.7 L TSH Urine WBC (Auto) Salicylates Acetaminophen 09/27/18 09/27/18 09/27/18 06:00 12:04 20:46 WBC RBC Hgb Hct Plt Count Seg Neuts % (Manual) Lymphocytes % (Manual) Monocytes % (Manual) Seg Neutrophils # Man Lymphocytes # (Manual) POC ABG pO2 Potassium 3.5 L Chloride BUN Creatinine 0.5 L Glucose 103 H POC Glucose 142 H 129 H Hemoglobin A1c Lactic Acid Calcium 7.9 L Phosphorus Magnesium AST Alkaline Phosphatase Total Creatine Kinase Total Protein Albumin TSH Urine WBC (Auto) Salicylates Acetaminophen 09/28/18 09/28/18 09/28/18 06:39 06:39 12:03 WBC 13.2 H RBC 3.36 L Hgb 10.0 L Hct 30.1 L Plt Count 125 L Seg Neuts % (Manual) 77.0 H Lymphocytes % (Manual) Monocytes % (Manual) Seg Neutrophils # Man 10.2 H Lymphocytes # (Manual) POC ABG pO2 Potassium 3.4 L Chloride 108.9 H BUN Creatinine 0.4 L Glucose POC Glucose Hemoglobin A1c Lactic Acid Calcium 7.9 L Phosphorus 1.80 L Magnesium 1.40 L AST Alkaline Phosphatase Total Creatine Kinase Total Protein 5.1 L Albumin 2.6 L TSH 4.520 H Urine WBC (Auto) Salicylates Acetaminophen 09/28/18 09/28/18 09/29/18 12:21 21:32 05:40 WBC RBC Hgb Hct Plt Count Seg Neuts % (Manual) Lymphocytes % (Manual) Monocytes % (Manual) Seg Neutrophils # Man Lymphocytes # (Manual) POC ABG pO2 Potassium Chloride BUN Creatinine 0.4 L Glucose POC Glucose 114 H 141 H Hemoglobin A1c Lactic Acid Calcium 7.7 L Phosphorus Magnesium AST Alkaline Phosphatase Total Creatine Kinase Total Protein Albumin TSH Urine WBC (Auto) Salicylates Acetaminophen 09/29/18 09/29/18 09/30/18 05:40 11:34 12:04 WBC RBC 3.57 L Hgb Hct Plt Count Seg Neuts % (Manual) Lymphocytes % (Manual) Monocytes % (Manual) 8.0 H Seg Neutrophils # Man Lymphocytes # (Manual) POC ABG pO2 Potassium Chloride BUN Creatinine Glucose POC Glucose 155 H 151 H Hemoglobin A1c Lactic Acid Calcium Phosphorus Magnesium AST Alkaline Phosphatase Total Creatine Kinase Total Protein Albumin TSH Urine WBC (Auto) Salicylates Acetaminophen 09/30/18 09/30/18 10/01/18 16:01 20:28 11:39 WBC RBC Hgb Hct Plt Count Seg Neuts % (Manual) Lymphocytes % (Manual) Monocytes % (Manual) Seg Neutrophils # Man Lymphocytes # (Manual) POC ABG pO2 Potassium Chloride BUN Creatinine Glucose POC Glucose 124 H 115 H 108 H Hemoglobin A1c Lactic Acid Calcium Phosphorus Magnesium AST Alkaline Phosphatase Total Creatine Kinase Total Protein Albumin TSH Urine WBC (Auto) Salicylates Acetaminophen 10/01/18 10/02/18 10/02/18 15:48 07:00 07:00 WBC RBC 3.62 L Hgb Hct Plt Count Seg Neuts % (Manual) 83.0 H Lymphocytes % (Manual) 9.0 L Monocytes % (Manual) Seg Neutrophils # Man Lymphocytes # (Manual) 0.7 L POC ABG pO2 Potassium Chloride BUN Creatinine 0.5 L Glucose POC Glucose 152 H Hemoglobin A1c Lactic Acid Calcium Phosphorus Magnesium AST Alkaline Phosphatase Total Creatine Kinase Total Protein Albumin TSH Urine WBC (Auto) Salicylates Acetaminophen 10/02/18 10/03/18 10/03/18 22:03 11:29 16:52 WBC RBC Hgb Hct Plt Count Seg Neuts % (Manual) Lymphocytes % (Manual) Monocytes % (Manual) Seg Neutrophils # Man Lymphocytes # (Manual) POC ABG pO2 Potassium Chloride BUN Creatinine Glucose POC Glucose 106 H 164 H 128 H Hemoglobin A1c Lactic Acid Calcium Phosphorus Magnesium AST Alkaline Phosphatase Total Creatine Kinase Total Protein Albumin TSH Urine WBC (Auto) Salicylates Acetaminophen
[2018-10-04] MEDS: KEFLEX PO SCH ×2 (05:31→12:00)
--- NOTE | 2018-10-04 09:42 | Progress Note ---
Assessment and Plan Assessment and plan: --Gram-negative sepsis; Klebsiella urine and blood complicated UTI, symptoms resolved s/p IV Rocephin, on oral Keflex stop date 10/04/18 --Paroxysmal SVT[Supra ventricular tachycardia]; HR 160s to 170, s/p IV adenosine 6 mg, converted to sinus. Heart rate within normal limits Continue beta blockers ,ECHO 55-60 at the bedside cardio added Plavix --Hypokalemia/hypomagnesemia/hyperphosphatemia; corrected --Left hydronephrosis s/p ureteral stent placement Cleared by urology for discharge -- Lung mass on CT chest ; Right lower lobe pleural-based lung mass, pulmonary evaluated the patient IR consulted, rec outpatient biopsy Patient is more stable --Metabolic encephalopathy; probably secondary to sepsis Significant improvement --Leukocytosis; secondary to sepsis, resolved ,continue current antibiotics --Lactic acidosis; resolved, secondary to sepsis due to UTI --[id number] malnutrition/hypoalbuminemia; supportive care Nutrition supplements --DVT prophylaxis; Lovenox --Full CODE STATUS Awaiting SNF placement pending insurance approval Patient is medically stable for discharge . Hospitalist Physical - Constitutional Vitals: Temp Pulse Resp BP Pulse Ox 98.4 F 58 L 20 113/41 96 10/04/18 03:22 10/04/18 03:22 10/04/18 03:22 10/04/18 03:22 10/04/18 03:22 General appearance: Present: no acute distress, well-nourished, obese Results - Labs CBC & Chem 7: 10/02/18 07:00 10/02/18 07:00 Labs: Laboratory Last Values WBC 7.8 K/mm3 (4.5-11.0) 10/02/18 07:00 RBC 3.62 M/mm3 (3.65-5.03) L 10/02/18 07:00 Hgb 10.8 gm/dl (10.1-14.3) 10/02/18 07:00 Hct 32.7 % (30.3-42.9) 10/02/18 07:00 MCV 90 fl (79-97) 10/02/18 07:00 MCH 30 pg (28-32) 10/02/18 07:00 MCHC 33 % (30-34) 10/02/18 07:00 RDW 13.9 % (13.2-15.2) 10/02/18 07:00 Plt Count 307 K/mm3 (140-440) 10/02/18 07:00 Add Manual Diff Complete 10/02/18 07:00 Total Counted 100 10/02/18 07:00 Seg Neutrophils % [place] 09/24/18 15:04 Seg Neuts % (Manual) 83.0 % (40.0-70.0) H 10/02/18 07:00 Band Neutrophils % 0 % 10/02/18 07:00 Lymphocytes % (Manual) 9.0 % (13.4-35.0) L 10/02/18 07:00 Reactive Lymphs % (Man) 0 % 10/02/18 07:00 Monocytes % (Manual) 2.0 % (0.0-7.3) 10/02/18 07:00 Eosinophils % (Manual) 3.0 % (0.0-4.3) 10/02/18 07:00 Basophils % (Manual) 0 % (0.0-1.8) 10/02/18 07:00 Metamyelocytes % 2.0 % 10/02/18 07:00 Myelocytes % 1.0 % 10/02/18 07:00 Promyelocytes % 0 % 10/02/18 07:00 Blast Cells % 0 % 10/02/18 07:00 Nucleated RBC % Not Reportable 10/02/18 07:00 Seg Neutrophils # Man 6.5 K/mm3 (1.8-7.7) 10/02/18 07:00 Band Neutrophils # 0.0 K/mm3 10/02/18 07:00 Lymphocytes # (Manual) 0.7 K/mm3 (1.2-5.4) L 10/02/18 07:00 Abs React Lymphs (Man) 0.0 K/mm3 10/02/18 07:00 Monocytes # (Manual) 0.2 K/mm3 (0.0-0.8) 10/02/18 07:00 Eosinophils # (Manual) 0.2 K/mm3 (0.0-0.4) 10/02/18 07:00 Basophils # (Manual) 0.0 K/mm3 (0.0-0.1) 10/02/18 07:00 Metamyelocytes # 0.2 K/mm3 10/02/18 07:00 Myelocytes # 0.1 K/mm3 10/02/18 07:00 Promyelocytes # 0.0 K/mm3 10/02/18 07:00 Blast Cells # 0.0 K/mm3 10/02/18 07:00 WBC Morphology Not Reportable 10/02/18 07:00 Hypersegmented Neuts Not Reportable 10/02/18 07:00 Hyposegmented Neuts Not Reportable 10/02/18 07:00 Hypogranular Neuts Not Reportable 10/02/18 07:00 Smudge Cells Not Reportable 10/02/18 07:00 Toxic Granulation Not Reportable 10/02/18 07:00 Toxic Vacuolation Not Reportable 10/02/18 07:00 Dohle Bodies Not Reportable 10/02/18 07:00 Pelger-Huet Anomaly Not Reportable 10/02/18 07:00 Margoth Rods Not Reportable 10/02/18 07:00 Platelet Estimate Consistent w auto 10/02/18 07:00 Clumped Platelets Not Reportable 10/02/18 07:00 Plt Clumps, EDTA Not Reportable 10/02/18 07:00 Large Platelets Not Reportable 10/02/18 07:00 Giant Platelets Not Reportable 10/02/18 07:00 Platelet Satelliting Not Reportable 10/02/18 07:00 Plt Morphology Comment Not Reportable 10/02/18 07:00 RBC Morphology Not Reportable 10/02/18 07:00 Dimorphic RBCs Not Reportable 10/02/18 07:00 Polychromasia Not Reportable 10/02/18 07:00 Hypochromasia Not Reportable 10/02/18 07:00 Poikilocytosis Few 10/02/18 07:00 Anisocytosis Few 10/02/18 07:00 Microcytosis Not Reportable 10/02/18 07:00 Macrocytosis Not Reportable 10/02/18 07:00 Spherocytes Not Reportable 10/02/18 07:00 Pappenheimer Bodies Not Reportable 10/02/18 07:00 Sickle Cells Not Reportable 10/02/18 07:00 Target Cells Not Reportable 10/02/18 07:00 Tear Drop Cells Not Reportable 10/02/18 07:00 Ovalocytes Few 10/02/18 07:00 Helmet Cells Not Reportable 10/02/18 07:00 Allan-Hurst Bodies Not Reportable 10/02/18 07:00 Johnson Rings Not Reportable 10/02/18 07:00 [place] Cells Not Reportable 10/02/18 07:00 Bite Cells Not Reportable 10/02/18 07:00 Crenated Cell Not Reportable 10/02/18 07:00 Elliptocytes Not Reportable 10/02/18 07:00 Acanthocytes (Spur) Not Reportable 10/02/18 07:00 Rouleaux Not Reportable 10/02/18 07:00 Hemoglobin C Crystals Not Reportable 10/02/18 07:00 Schistocytes Not Reportable 10/02/18 07:00 Malaria parasites Not Reportable 10/02/18 07:00 Ulisses Bodies Not Reportable 10/02/18 07:00 Hem Pathologist Commnt No 10/02/18 07:00 PT 13.4 Sec. (12.2-14.9) 10/01/18 06:52 INR 0.96 (0.87-1.13) 10/01/18 06:52 APTT 26.9 Sec. (24.2-36.6) 10/01/18 06:52 POC ABG pH 7.373 (7.35-7.45) 09/26/18 11:36 POC ABG pCO2 41.5 (35-45) 09/26/18 11:36 POC ABG pO2 64 (80-105) L 09/26/18 11:36 POC ABG HCO3 24.1 (22-26 mml/L) 09/26/18 11:36 POC ABG Total CO2 25 (23-27mmol/L) 09/26/18 11:36 POC ABG O2 Sat 91 09/26/18 11:36 POC ABG Base Excess -1 ((-2) - (+3)mmol/L) 09/26/18 11:36 FiO2 21 % 09/26/18 11:36 Sodium 142 mmol/L (137-145) 10/02/18 07:00 Potassium 4.2 mmol/L (3.6-5.0) 10/02/18 07:00 Chloride 104.0 mmol/L (98-107) 10/02/18 07:00 Carbon Dioxide 27 mmol/L (22-30) 10/02/18 07:00 Anion Gap 15 mmol/L 10/02/18 07:00 BUN 12 mg/dL (7-17) 10/02/18 07:00 Creatinine 0.5 mg/dL (0.7-1.2) L 10/02/18 07:00 Estimated GFR > 60 ml/min 10/02/18 07:00 BUN/Creatinine Ratio 24 % 10/02/18 07:00 Glucose 91 mg/dL (65-100) 10/02/18 07:00 POC Glucose 93 (70-105) 10/04/18 07:51 Hemoglobin A1c 6.2 % (4-6) H 09/24/18 22:57 Lactic Acid 1.60 mmol/L (0.7-2.0) 09/24/18 22:57 Calcium 8.6 mg/dL (8.4-10.2) 10/02/18 07:00 Phosphorus 4.40 mg/dL (2.5-4.5) D 09/29/18 05:40 Magnesium 1.70 mg/dL (1.7-2.3) 10/02/18 07:00 Total Bilirubin 0.30 mg/dL (0.1-1.2) 09/28/18 06:39 AST 29 units/L (5-40) 09/28/18 06:39 ALT 28 units/L (7-56) 09/28/18 06:39 Alkaline Phosphatase 54 units/L (35-129) 09/28/18 06:39 Total Creatine Kinase 842 units/L (30-135) H 09/24/18 15:04 Troponin T 0.029 ng/mL (0.00-0.029) 09/24/18 15:04 Total Protein 5.1 g/dL (6.3-8.2) L 09/28/18 06:39 Albumin 2.6 g/dL (3.9-5) L 09/28/18 06:39 Albumin/Globulin Ratio 1.0 % 09/28/18 06:39 TSH 4.520 mlU/mL (0.270-4.200) H 09/28/18 12:03 Free T4 1.17 ng/dL (0.76-1.46) 09/28/18 12:03 Urine Color Vane (Yellow) 09/24/18 15:09 Urine Turbidity Slightly-cloudy (Clear) 09/24/18 15:09 Urine pH 5.0 (5.0-7.0) 09/24/18 15:09 Ur Specific Skippers 1.017 (1.003-1.030) 09/24/18 15:09 Urine Protein 30 mg/dl mg/dL (Negative) 09/24/18 15:09 Urine Glucose (UA) Neg mg/dL (Negative) 09/24/18 15:09 Urine Ketones Tr mg/dL (Negative) 09/24/18 15:09 Urine Blood Lg (Negative) 09/24/18 15:09 Urine Nitrite Pos (Negative) 09/24/18 15:09 Urine Bilirubin Neg (Negative) 09/24/18 15:09 Urine Urobilinogen < 2.0 mg/dL (<2.0) 09/24/18 15:09 Ur Leukocyte Esterase Sm (Negative) 09/24/18 15:09 Urine WBC (Auto) 39.0 /HPF (0.0-6.0) H 09/24/18 15:09 Urine RBC (Auto) 35.0 /HPF (0.0-6.0) 09/24/18 15:09 U Epithel Cells (Auto) < 1.0 /HPF (0-13.0) 09/24/18 15:09 Urine Bacteria (Auto) 4+ /HPF (Negative) 09/24/18 15:09 Urine Mucus 2+ /HPF 09/24/18 15:09 Urine Yeast (Budding) 1+ /HPF 09/24/18 15:09 Salicylates < 0.3 mg/dL (2.8-20.0) L 09/24/18 15:04 Acetaminophen < 5.0 ug/mL (10.0-30.0) L 09/24/18 15:04 Active Medications - Current Medications Current Medications: Generic Name Dose Route Start Last Admin Trade Name Freq PRN Reason Stop Dose Admin Acetaminophen 650 mg 09/24/18 22:41 Tylenol PO Q4H PRN Pain MILD(1-3)/Fever >100.5/ROONEY Alprazolam 1 mg 09/27/18 12:57 Xanax PO Q8H PRN Anxiety Cephalexin 500 mg 09/30/18 18:00 10/04/18 05:31 Keflex PO 10/04/18 23:59 500 mg Q6HR ARON Administration Clopidogrel Bisulfate 75 mg 10/01/18 10:00 10/03/18 09:28 Plavix PO 75 mg QDAY ARON Administration Enoxaparin Sodium 40 mg 09/26/18 10:00 10/03/18 09:28 Lovenox SUB-Q 40 mg QDAY@1000 ARON Administration Famotidine 20 mg 09/27/18 22:00 10/03/18 21:56 Pepcid PO 20 mg BID ARON Administration Hydromorphone HCl 0.5 mg 09/24/18 22:41 Dilaudid IV Q3H PRN Pain , Severe (7-10) Sodium Chloride 1,000 mls @ 75 mls/hr 09/24/18 23:00 09/30/18 21:07 Nacl 0.9% 1000 Ml IV 75 mls/hr DIRECT ARON Administration Metoprolol Tartrate 50 mg 09/29/18 22:00 10/03/18 21:56 Lopressor PO 50 mg BID ARON Administration Ondansetron HCl 4 mg 09/24/18 22:41 10/03/18 12:32 Zofran IV 4 mg Q8H PRN Administration Nausea And Vomiting Oxycodone/Acetaminophen 1 tab 09/24/18 22:41 10/03/18 12:33 Percocet 5/325 PO 1 tab Q6H PRN Administration Pain, Moderate (4-6) Sodium Chloride 10 ml 09/25/18 10:00 10/03/18 21:56 Sodium Chloride Flush Syringe 10 Ml IV 10 ml BID ARON Administration Sodium Chloride 10 ml 09/24/18 22:41 Sodium Chloride Flush Syringe 10 Ml IV PRN PRN LINE FLUSH Nutrition/Malnutrition Assess - Dietary Evaluation Nutrition/Malnutrition Findings: Nutrition Notes Start: 10/01/18 14:15 Freq: Status: Active Protocol: Document 10/03/18 15:19 OL (Rec: 10/03/18 15:21 OL [id number]) Nutrition Notes Initial or Follow up Reassessment Current Diagnosis Coronary Artery Disease, Diabetes,Sepsis,Heart Failure Other Pertinent Diagnosis Hx CVA, GERD, UTI, Metabolic encephalopathy, Dementia Current Diet Cardiac/mech soft Labs/Tests Reviewed Pertinent Medications Reviewed Height 5 ft 8 in Weight 76.9 kg [place] Body Weight (kg) 63.63 BMI 25.7 Subjective/Other Information Pt. consuming 100% of meals and ONS. Pt. stable for d/c. Awaiting rehab placement. Percent of energy/protein needs met: 100%/100% Burn Absent Trauma Absent #1 Nutrition Diagnosis Inadequate oral intake As Evidenced by Signs and Symptoms pt. consuming 100% of meals Diagnosis Progress(for reassessment Improved documentation) Is patient on ventilator? No Is Patient Ambulatory and/or Out of Bed Yes REE-([facility]-ambulatory/OOB) [ 6252.061 [id number]] Calculation Used for Recommendations [facility] Additional Notes protein (1-1.2g/kg): 77-92 Fluid Needs: 1 ml/kcal Nutrition Intervention Change Diet Order: Continue current Add Supplement/Snack (indicate name/kcal Ensure Enlive 1 daily /protein ) Provides kCal: 350 Provides Protein (gm) 20 Goal #1 Meet at least 75% of calorie and protein needs via PO and ONS intakes Revisit per MD consult or patient Sign Off request:
[2018-10-04 10:37] VITALS: BP 103/53
[2018-10-04] MEDS: LOVENOX SUB-Q SCH (10:38)
[2018-10-04] MEDS: PEPCID PO SCH (10:38)
[2018-10-04] MEDS: PLAVIX PO SCH (10:38)
[2018-10-04] MEDS: LOPRESSOR PO SCH (10:39)
[2018-10-04] MEDS: SODIUM CHLORIDE FLUSH SYRINGE 10 ML IV SCH (10:39)
--- NOTE | 2018-10-04 12:13 | Discharge Summary ---
Providers - Providers Date of Admission: 09/24/18 17:17 Date of discharge: 10/04/18 Attending physician: BEN BROOKS 09/24/18 Consult to Case Management [CONS] Routine Services Needed at Discharge: Home Health Services Operating Theatre Technician Notified:: cm notified 09/24/18 15:19 Speech Therapy Evaluation and Treat [CONS] Stat Reason For Exam: altered 09/24/18 17:01 Consult to Physician [CONS] Urgent Comment: Dr. Goel notified @ 16:55- [facility] Consulting Provider: ALEXANDRA GOEL Physician Instructions: Reason For Exam: infectec stone 09/24/18 17:04 Consult to Physician [CONS] Urgent Comment: Dr. Goel notified @ 16:55- [facility]XM Consulting Provider: ALEXANDRA GOEL Physician Instructions: Reason For Exam: infected stone 09/24/18 17:06 Consult to Physician [CONS] Urgent Comment: CONSULT - COLLEEN Consulting Provider: BON WHITT Physician Instructions: Reason For Exam: infected stone 09/25/18 13:45 Consult to Physician [CONS] Routine Comment: Consulting Provider: ANGEL CRUZ Physician Instructions: Reason For Exam: Pulm mass L 09/26/18 18:32 Physical Therapy Evaluation and Treat [CONS] Routine Comment: Reason For Exam: Gen. 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 Hospitalization Reason for admission: Abdominant pain/left hydronephrosis Condition: Fair Pertinent studies: CT abdomen and pelvis CT head CT chest Echo cardiogram Multiple chest x-rays Procedures: Ureteral stent placement Hospital course: Pleasant 83-year-old female patient with multiple medical problems was admitted through emergency room with abdominal pain, left hydronephrosis, , evaluated by urology, Patient underwent ureteral stent placement,, Patient also had complicated urinary tract infection, and sepsis, evaluated by ID Antibiotics optimized, patient's sepsis and septic symptoms resolved, will finish her antibiotics after evening dose today Patient also had PSVT, resolved after appropriate treatment cardiology evaluated Today patient is comfortable in no new complaints Vital signs stable, Physical examination is unremarkable Cleared by all the physicians for DC and transferred to SNF Patient is stable at discharge Discharge diagnosis: --Paroxysmal SVT[Supra ventricular tachycardia]; HR 160s to 170, s/p IV adenosine 6 mg, converted to sinus. Heart rate within normal limits Continue beta blockers ,ECHO 55-60 at the bedside cardio added Plavix --Hypokalemia/hypomagnesemia/hyperphosphatemia; corrected --Left hydronephrosis s/p ureteral stent placement Cleared by urology for discharge -- Lung mass on CT chest ; Right lower lobe pleural-based lung mass, pulmonary evaluated the patient IR consulted, rec outpatient biopsy Patient is more stable --Metabolic encephalopathy; probably secondary to sepsis Significant improvement --Leukocytosis; secondary to sepsis, resolved ,continue current antibiotics --Lactic acidosis; resolved, secondary to sepsis due to UTI --[id number]-[id number] malnutrition/hypoalbuminemia; supportive care Nutrition supplements --DVT prophylaxis; Lovenox Disposition: DC/[place]-03 SNF [facility] Time spent for discharge: 35 min Core Measure Documentation - Palliative Care Palliative Care/ Comfort Measures: Not Applicable - Core Measures Any of the following diagnoses?: none Exam - Constitutional Vitals: Temp Pulse Resp BP Pulse Ox 98.5 F 58 L 18 103/53 96 10/04/18 07:41 10/04/18 03:22 10/04/18 07:41 10/04/18 07:41 10/04/18 03:22 General appearance: Present: no acute distress, well-nourished - EENT Eyes: Present: PERRL, EOM intact - Neck Neck: Present: supple, normal ROM - Respiratory Respiratory effort: normal Respiratory: bilateral: diminished, negative: rales, rhonchi, wheezing - Cardiovascular Rhythm: regular - Extremities Extremities: no ischemia, No edema - Abdominal General gastrointestinal: Present: soft, non-tender, non-distended, normal bowel sounds - Integumentary Integumentary: Present: clear, warm - Musculoskeletal Musculoskeletal: strength equal bilaterally, generalized weakness - Psychiatric Psychiatric: appropriate mood/affect, cooperative - Neurologic Neurologic: CNII-XII intact, moves all extremities Plan Activity: advance as tolerated, fall precautions Diet: other (cardiac diet) Additional Instructions: Fall precautions. Discontinue Keflex after today's evening dose Follow up with: PRIMARY CAREMD [Primary Care Provider] - 3-5 Days CHRISTIANO STEPHENSON MD [Staff Physician] - 7 Days ANGEL CRUZ MD [Staff Physician] - 7 Days ALEXANDRA GOEL MD [Staff Physician] - 7 Days ALEXANDRA AKHTAR MD [Staff Physician] - 7 Days Prescriptions: traMADol [Ultram 50 MG tab] 50 mg PO Q6HR PRN #20 tablet PRN Reason: Pain
== END 2018-10-04 12:00 | DRG 853 ==
LOC: ED 13:39 → IMCU 17:17 → 3B-SURG 19:43 → 4A 09-27 14:37
PROVIDERS: ADMIT Internal Medicine; ATTEND Internal Medicine
PROC: 0T778DZ Dilation of Left Ureter with Intraluminal Device, Via Natural or Artificial Opening Endoscopic (ICD-10-PCS; principal; 2018-09-24)
PROC: BT1F1ZZ Fluoroscopy of Left Kidney, Ureter and Bladder using Low Osmolar Contrast (ICD-10-PCS; 2018-09-24)
PROC: 4A033R1 Measurement of Arterial Saturation, Peripheral, Percutaneous Approach (ICD-10-PCS; 2018-09-26)
DX: A41.50 Gram-negative sepsis, unspecified (principal); J18.9 Pneumonia, unspecified organism; G93.41 Metabolic encephalopathy; N13.6 Pyonephrosis; E44.0 Moderate protein-calorie malnutrition; E87.6 Hypokalemia; E83.42 Hypomagnesemia; E83.39 Other disorders of phosphorus metabolism; R91.8 Other nonspecific abnormal finding of lung field; I50.9 Heart failure, unspecified; E11.9 Type 2 diabetes mellitus without complications; K21.9 Gastro-esophageal reflux disease without esophagitis; M19.90 Unspecified osteoarthritis, unspecified site; I25.10 Atherosclerotic heart disease of native coronary artery without angina pectoris; F03.90 Unspecified dementia, unspecified severity, without behavioral disturbance, psychotic disturbance, mood disturbance, and anxiety; I11.0 Hypertensive heart disease with heart failure; Z82.49 Family history of ischemic heart disease and other diseases of the circulatory system; I25.2 Old myocardial infarction; Z68.25 Body mass index [BMI] 25.0-25.9, adult; Z86.73 Personal history of transient ischemic attack (TIA), and cerebral infarction without residual deficits; Z88.6 Allergy status to analgesic agent; Z91.030 Bee allergy status; Z91.013 Allergy to seafood; Z95.5 Presence of coronary angioplasty implant and graft; Z79.899 Other long term (current) drug therapy
CPT/HCPCS: 36415; 36600; 70450; 71045; 71046; 71250; 74176; 74420; 80048; 80053; 80320; 81001; 82140; 82550; 82803; 82962; 83036; 83735; 84100; 84439; 84443; 84484; 85007; 85025; 85610; 85730; 87040; 87076; 87086; 87186; 93005; 93010; 93306; G0378; C1758; C1769; C2617; G0480; J0696; J1170; J1650; J2405; J2704; J3475; J7030; J7040; J7120; Q9967

== ENCOUNTER 2018-10-25 06:36 | Day surgery (SDC) | payer MEDICARE ==
[~2018-10-25 06:36] MED LIST: OMNIPAQUE 300 MG/50 ML (CATH LAB) IV ONE; WATER FOR IRRIG STERILE IR ONE
[2018-10-25] MEDS ORDERED: DILAUDID IV PRN (07:21)
[2018-10-25] MEDS ORDERED: SUBLIMAZE IV PRN (07:21)
[2018-10-25] MEDS ORDERED: NARCAN 0.4 MG/1 ML IV PRN (07:21)
[2018-10-25] MEDS ORDERED: ZOFRAN IV PRN (07:21)
--- NOTE | 2018-10-25 07:21 | Anesthesia Day of Surgery ---
Anesthesia Day of Surgery - Day of Surgery Patient Examined: Yes Patient H&P Reviewed: Yes Patient is NPO: Yes Beta Blockers: Yes
--- NOTE | 2018-10-25 07:21 | Anesthesia Consultation ---
Anesthesia Consult and Med Hx Date of service: 10/25/18 - Airway Anesthetic Teeth Evaluation: Dentures ROM Head & Neck: Adequate Mental/Hyoid Distance: Adequate Mallampati Class: Class II Intubation Access Assessment: Good - Pulmonary Exam CTA: Yes - Cardiac Exam Cardiac Exam: RRR - Pre-Operative Health Status ASA Pre-Surgery Classification: ASA3 Proposed Anesthetic Plan: General - Pulmonary Hx Smoking: No SOB: Yes (SOB) Hx Pneumonia: Yes (09/24/18- RESOLVED) Hx Sleep Apnea: No (MILAD PRE SCREEN HIGH RISK) - Cardiovascular System Hx Hypertension: Yes Hx Coronary Artery Disease: Yes Hx Heart Attack/AMI: Yes (UNSURE) - Central Nervous System CVA: Yes (UNSURE- PT HAS GENERALIZED WEAKNESS) - Endocrine Hx Renal Disease: Yes - Other Systems Hx Cancer: No
[2018-10-25] MEDS ORDERED: LACTATED RINGERS 1,000 ML IV SCH (08:00)
[2018-10-25] MEDS ORDERED: ANCEF/STERILE WATER 2 GM/20 ML 2 GM/20 ML SYRINGE IV NR (08:00)
[2018-10-25] MEDS ORDERED: DIPRIVAN 10 MG/ML IV ONE (08:11)
[2018-10-25] MEDS ORDERED: DECADRON ONE (09:10)
[2018-10-25] MEDS ORDERED: ZOFRAN ONE (09:10)
[2018-10-25] MEDS ORDERED: XYLOCAINE MPF 2% ONE (09:10)
[2018-10-25] MEDS ORDERED: NEO SYNEPHRINE/NS Syringe(OR USE) IV ONE (09:10)
[2018-10-25] MEDS ORDERED: LEVAQUIN 250MG/50ML 250 MG/50 ML BAG IV ONE (09:18)
[2018-10-25] MEDS ORDERED: WATER FOR IRRIG STERILE IR ONE (09:46)
[2018-10-25] MEDS ORDERED: OMNIPAQUE 300 MG/50 ML (CATH LAB) IV ONE (09:48)
[2018-10-25] MEDS ORDERED: LOPRESSOR IV ONE (09:52)
[2018-10-25] MEDS ORDERED: BREVIBLOC IV ONE (09:52)
[2018-10-25] MEDS ORDERED: SUBLIMAZE ONE (09:52)
--- NOTE | 2018-10-25 10:14 | Post Operative Note ---
Date of procedure: 10/25/18 Pre-op diagnosis: left ureteral stone Post-op diagnosis: same Findings: as above Procedure: cysto ureteroscopy stoen ed Anesthesia: GETA Surgeon: ALEXANDRA GOEL Estimated blood loss: none Pathology: list (stone) Specimen disposition: to lab Condition: stable Disposition: PACU
--- NOTE | 2018-10-25 10:15 | Discharge Summary ---
Short Stay Discharge Plan Activity: other (no straining ) Weight Bearing Status: Full Weight Bearing Diet: regular, low salt Special Instructions: other (inc fluids ) Durable Medical Equipment Needed Upon Discharge: other (j stent ) Follow up with: DR VELVET [Other] - 7 Days ALEXANDRA GOEL MD [Staff Physician] - 7 Days
--- NOTE | 2018-10-25 12:09 | Post Anesthesia Evaluation ---
- Post Anesthesia Evaluation Patient Participated: Yes Airway Patent: Yes Stable Respiratory Function: Yes Nausea/Vomiting: No Temp > 96.8F: Yes Pain Manageable: Yes Adequeate Hydration: Yes Anesthesia Complications: No
--- NOTE | 2018-10-25 12:11 | Operative Report ---
PREOPERATIVE DIAGNOSES: Previous sepsis, left distal ureteral stone, previous urosepsis. POSTOPERATIVE DIAGNOSES: Previous sepsis, left distal ureteral stone, previous urosepsis. PROCEDURE: Cystoscopy, left retrograde, left ureteroscopy, stone extraction. SURGEON: Tapan Copeland MD ANESTHESIA: General. FINDINGS: This is a woman who presented with sepsis. A stent was placed. She did well. She now presents for stone extraction staged procedure. DESCRIPTION OF PROCEDURE: The patient was brought to the operating room and placed on the operating table. Following induction of anesthesia, placed in lithotomy position, prepped and draped in usual sterile fashion. The stent was withdrawn. A wire coiled in the kidney. Ureteroscopy showed the stone. It was extracted with a 3-prong grasper. The patient tolerated the procedure well. No significant complication. A double J with a string was left. Family notified and given the stone, brought to recovery in stable condition. JOB# [id number] ALTHEA/NICOLE
[2018-10-25 14:52] VITALS: BP 120/69
--- NOTE | 2018-10-29 07:10 | Fluoroscopy Report ---
Left retrograde urography: History: Calculus left ureter. Findings: The course of the left ureteral stent and proximal and distal end is in normal position.. No calculus is identified along the course of the stent. Contrast is noted in the distal left ureter without filling defects. Impression: Stable left ureteral stent. No calculus identified.
== END 2018-10-25 12:45 | disposition home or self-care (01) ==
LOC: OR 06:36
PROVIDERS: ATTEND Urology
DX: N20.1 Calculus of ureter (principal); I25.2 Old myocardial infarction; F03.90 Unspecified dementia, unspecified severity, without behavioral disturbance, psychotic disturbance, mood disturbance, and anxiety; I13.0 Hypertensive heart and chronic kidney disease with heart failure and stage 1 through stage 4 chronic kidney disease, or unspecified chronic kidney disease; N18.9 Chronic kidney disease, unspecified; I50.9 Heart failure, unspecified; I25.10 Atherosclerotic heart disease of native coronary artery without angina pectoris; K21.9 Gastro-esophageal reflux disease without esophagitis; Z87.440 Personal history of urinary (tract) infections; Z98.890 Other specified postprocedural states; Z88.0 Allergy status to penicillin; Z91.030 Bee allergy status; Z79.899 Other long term (current) drug therapy; Z91.013 Allergy to seafood; Z88.2 Allergy status to sulfonamides; Z88.8 Allergy status to other drugs, medicaments and biological substances; Z86.73 Personal history of transient ischemic attack (TIA), and cerebral infarction without residual deficits
CPT/HCPCS: 52353; 74420; 82962; A4217; C1758; C1769; C2617; J1100; J1956; J2370; J2405; J2704; J3010; J7120; Q9967

== ENCOUNTER 2019-03-26 11:24 | Observation (INO) | payer MEDICARE ==
[2019-03-26 13:38] LABS: Basophils % (Auto) 0.8 % (0.0-1.8); Eosinophils # (Auto) 0.1 K/mm3 (0.0-0.4); Hematocrit 32.8 % (30.3-42.9); Lymphocytes # (Auto) 1.5 K/mm3 (1.2-5.4); Lymphocytes % (Auto) 33.9 % (13.4-35.0); Mean Corpuscular HGB Conc 34 % (30-34); Mean Corpuscular Volume 87 fl (79-97); Monocytes # (Auto) 0.3 K/mm3 (0.0-0.8); Monocytes % (Auto) 7.1 % (0.0-7.3); Platelet Count 178 K/mm3 (140-440); Red Blood Count 3.75 M/mm3 (3.65-5.03); Red Cell Distribution Width 15.1 % (13.2-15.2)
[2019-03-26 13:48] LABS: INR 1.07 (0.87-1.13)
[2019-03-26 13:49] LABS: Partial Thromboplastin Time 28.8 Sec. (24.2-36.6)
[2019-03-26 13:57] LABS: Alanine Aminotransferase 6 units/L (7-56); Albumin 3.9 g/dL (3.9-5); BUN/Creatinine Ratio 38; Blood Urea Nitrogen 15 mg/dL (7-17); Calcium 8.9 mg/dL (8.4-10.2); Hemolysis Index 2
[2019-03-26] MEDS ORDERED: NORCO 5/325 PO ONE (14:12)
[2019-03-26] MEDS ORDERED: DECADRON IV ONE (14:12)
--- NOTE | 2019-03-26 14:13 | XRay Report ---
CHEST 1 VIEW INDICATION: chest pain. COMPARISON: 10/01/2018 FINDINGS: Support devices: None. Heart: Borderline heart size is stable. Lungs/Pleura: There is an ill-defined rounded opacity in the right midlung measuring up to 4.9 cm whi ch appears unchanged since the previous exam. The remainder of the lungs are clear. No pleural effusi on or pneumothorax. Additional findings: None. IMPRESSION: No acute findings. Unchanged right lung opacity as described. Signer Name: Dimitry Gutierrez Jr, MD Signed: 03/26/2019 2:09 PM Workstation Name: [id number]
--- NOTE | 2019-03-26 14:34 | Cat Scan Report ---
CT HEAD WITHOUT CONTRAST INDICATION : headache, nose bleed. TECHNIQUE: Axial imaging performed from the skull apex through the skull base without the use of con trast. Sagittal and coronal reformatted images. All CT scans at this location are performed using C T dose reduction for ALARA by means of automated exposure control. COMPARISON: 09/24/2018 FINDINGS: Parenchyma: No acute intracranial hemorrhage or parenchymal abnormality. Ventricles: Ventricles are normal in size and appear symmetric. Bones: No acute osseous abnormality. Sinuses: Sinuses and mastoid air cells are clear. Soft tissues: Soft tissues including the orbits appear normal. IMPRESSION: No acute abnormality. Signer Name: Dimitry Gutierrez Jr, MD Signed: 03/26/2019 2:30 PM Workstation Name: [id number]
--- NOTE | 2019-03-26 15:19 | Emergency Department Report ---
<SONDRAROBERT - Last Filed: 03/26/19 15:54> ED General Adult HPI - General Chief complaint: Nosebleed Stated complaint: NOSE BLEED Time Seen by Provider: 03/26/19 13:11 - Related Data Home Medications Medication Instructions Recorded Confirmed Last Taken Divalproex ER 500 mg PO TID 03/26/19 03/26/19 Unknown Fluticasone 50 mcg INHALATION DAILY 03/26/19 03/26/19 Unknown Oxybutynin 5 mg PO DAILY 03/26/19 03/26/19 Unknown Pharbetol 500 mg PO Q8HR 03/26/19 Unknown Propranolol 6.25 mg PO BID 03/26/19 03/26/19 Unknown Vitamin D (Nf) 50,000 unit PO ONCE 03/26/19 03/26/19 Unknown Zantac 150 mg PO BID 03/26/19 03/26/19 Unknown Allergies Allergy/AdvReac Type Severity Reaction Status Date / Time bee pollen Allergy Anaphylaxis Verified 08/28/14 10:51 Penicillins Allergy Unknown Verified 09/24/18 20:37 shellfish derived Allergy Swelling Verified 08/28/14 10:51 adhesive AdvReac BREAK Verified 08/28/14 10:51 OUT/PULLS SKIN OFF aspirin AdvReac "HEART Verified 08/28/14 10:51 SKIPS" Fish Allergy Swelling Uncoded 10/01/18 14:23 ED Past Medical Hx - Medications Home Medications: Home Medications Medication Instructions Recorded Confirmed Last Taken Type Divalproex ER 500 mg PO TID 03/26/19 03/26/19 Unknown History Fluticasone 50 mcg INHALATION DAILY 03/26/19 03/26/19 Unknown History Oxybutynin 5 mg PO DAILY 03/26/19 03/26/19 Unknown History Pharbetol 500 mg PO Q8HR 03/26/19 Unknown History Propranolol 6.25 mg PO BID 03/26/19 03/26/19 Unknown History Vitamin D (Nf) 50,000 unit PO ONCE 03/26/19 03/26/19 Unknown History Zantac 150 mg PO BID 03/26/19 03/26/19 Unknown History ED Medical Decision Making - Lab Data Result diagrams: 03/26/19 13:08 03/26/19 13:08 ED Disposition Clinical Impression: Symptomatic bradycardia Disposition: DC-09 OP ADMIT IP TO THIS HOSP Is pt being admited?: Yes Does the pt Need Aspirin: No Condition: Stable Referrals: PRIMARY CARE, [Primary Care Provider] - 3-5 Days <SHANTAL ZENG - Last Filed: 03/26/19 17:14> ED General Adult HPI - General Source: patient Mode of arrival: Stretcher Limitations: No Limitations - History of Present Illness Initial comments: 83-year-old female patient with history of hypertension and AMI presents to the ED via EMS for a nosebleed times today she states she was at the store and bent over and upon rising up her nose began to bleed profusely. She denies any trauma to the face or nose. She also denies any history of noseble eds. She admits to a headache that is a 7 out of 10 in severity and mild chest pain. She denies history of headaches and states that headaches are abnormal for her. Patient's heart rate noted to be in the 40spatient denies any history of bradycardia. She states she is currently on propranolol. She denies any shortness of breath or vision changes, but admits to some dizziness MD Complaint: Nosebleed -: Sudden Severity scale (0 -10): 0 Consistency: now resolved Associated Symptoms: chest pain, headaches, other (dizziness) Treatments Prior to Arrival: none ED Review of Systems ROS: Stated complaint: NOSE BLEED Other details as noted in HPI Constitutional: no symptoms reported Eyes: as per HPI ENT: as per HPI Respiratory: no symptoms reported. denies: cough, shortness of breath, SOB with exertion Cardiovascular: chest pain, palpitations Endocrine: no symptoms reported Gastrointestinal: denies: abdominal pain Genitourinary: denies: urgency, dysuria Neurological: headache. denies: numbness, confusion ED Past Medical Hx - Past Medical History Hx Hypertension: Yes Hx CVA: Yes Hx Heart Attack/AMI: Yes (UNSURE) Hx Congestive Heart Failure: Yes (UNSURE) Hx Diabetes: Yes (DIET CONTROLLED) Hx GERD: Yes Hx Renal Disease: Yes Hx Arthritis: Yes Hx Kidney Stones: Yes Hx HIV: No Additional medical history: CAD - Surgical History Hx Coronary Stent: Yes (UNSURE) Additional Surgical History: COLON SURGERY. TONSILLECTOMY - Social History Smoking Status: Never Smoker Substance Use Type: None ED Physical Exam - General Limitations: No Limitations General appearance: alert, in no apparent distress - Head Head exam: Present: atraumatic, normocephalic - Eye Eye exam: Present: normal appearance, PERRL - ENT ENT exam: Present: normal exam, other (no active bleeding or trauma noted to nares) - Neck Neck exam: Present: normal inspection, full ROM. Absent: tenderness, lymphadenopathy - Respiratory Respiratory exam: Present: normal lung sounds bilaterally - Cardiovascular Cardiovascular Exam: Present: bradycardia, normal heart sounds. Absent: regular rate, systolic murmur, diastolic murmur - GI/Abdominal GI/Abdominal exam: Present: soft. Absent: distended, tenderness, guarding, rebound, normal bowel sounds - Extremities Exam Extremities exam: Present: normal inspection, full ROM, normal capillary refill. Absent: tenderness - Back Exam Back exam: Present: normal inspection - Neurological Exam Neurological exam: Present: alert, oriented X3 - Psychiatric Psychiatric exam: Present: normal affect, normal mood - Skin Skin exam: Present: warm, dry, intact, normal color. Absent: rash ED Course Vital Signs 03/26/19 03/26/19 03/26/19 11:36 11:46 11:51 Temperature 97.8 F Pulse Rate 48 L 47 L Pulse Rate [ Lying] Pulse Rate [ Sitting] Pulse Rate [ Standing] Respiratory 9 L 14 Rate Blood Pressure 149/60 Blood Pressure 144/54 [Left] Blood Pressure [Lying] Blood Pressure [Sitting] Blood Pressure [Standing] O2 Sat by Pulse 97 99 97 Oximetry 03/26/19 03/26/19 03/26/19 12:00 12:16 12:17 Temperature 97.8 F Pulse Rate 46 L 46 L 47 L Pulse Rate [ Lying] Pulse Rate [ Sitting] Pulse Rate [ Standing] Respiratory 12 16 14 Rate Blood Pressure 149/60 147/58 Blood Pressure 144/54 [Left] Blood Pressure [Lying] Blood Pressure [Sitting] Blood Pressure [Standing] O2 Sat by Pulse 96 98 97 Oximetry 03/26/19 03/26/19 03/26/19 12:30 12:45 13:00 Temperature Pulse Rate 44 L 43 L 46 L Pulse Rate [ Lying] Pulse Rate [ Sitting] Pulse Rate [ Standing] Respiratory 17 14 17 Rate Blood Pressure 138/58 141/57 143/60 Blood Pressure [Left] Blood Pressure [Lying] Blood Pressure [Sitting] Blood Pressure [Standing] O2 Sat by Pulse 95 97 97 Oximetry 03/26/19 03/26/19 03/26/19 13:16 13:32 13:45 Temperature Pulse Rate 44 L 44 L 44 L Pulse Rate [ Lying] Pulse Rate [ Sitting] Pulse Rate [ Standing] Respiratory 16 13 18 Rate Blood Pressure 137/55 137/55 149/58 Blood Pressure [Left] Blood Pressure [Lying] Blood Pressure [Sitting] Blood Pressure [Standing] O2 Sat by Pulse 97 98 98 Oximetry 03/26/19 03/26/19 03/26/19 14:00 14:16 14:30 Temperature Pulse Rate 43 L 42 L 45 L Pulse Rate [ Lying] Pulse Rate [ Sitting] Pulse Rate [ Standing] Respiratory 15 12 8 L Rate Blood Pressure 137/55 144/55 144/55 Blood Pressure [Left] Blood Pressure [Lying] Blood Pressure [Sitting] Blood Pressure [Standing] O2 Sat by Pulse 97 98 98 Oximetry 03/26/19 03/26/19 03/26/19 14:45 15:00 15:16 Temperature Pulse Rate 48 L 44 L 44 L Pulse Rate [ Lying] Pulse Rate [ Sitting] Pulse Rate [ Standing] Respiratory 13 14 14 Rate Blood Pressure 162/63 162/63 157/61 Blood Pressure [Left] Blood Pressure [Lying] Blood Pressure [Sitting] Blood Pressure [Standing] O2 Sat by Pulse 98 99 98 Oximetry 03/26/19 03/26/19 03/26/19 15:30 15:46 16:00 Temperature Pulse Rate 45 L 46 L 49 L Pulse Rate [ Lying] Pulse Rate [ Sitting] Pulse Rate [ Standing] Respiratory 16 13 13 Rate Blood Pressure 157/61 143/66 170/73 Blood Pressure [Left] Blood Pressure [Lying] Blood Pressure [Sitting] Blood Pressure [Standing] O2 Sat by Pulse 97 98 98 Oximetry 03/26/19 03/26/19 03/26/19 16:10 16:16 16:30 Temperature Pulse Rate 44 L 48 L Pulse Rate [ 44 L Lying] Pulse Rate [ 53 L Sitting] Pulse Rate [ 78 Standing] Respiratory 16 16 Rate Blood Pressure 155/58 155/58 Blood Pressure [Left] Blood Pressure 147/59 [Lying] Blood Pressure 170/73 [Sitting] Blood Pressure 135/80 [Standing] O2 Sat by Pulse 98 97 Oximetry - Reevaluation(s) Reevaluation #1: 03/26/19 15:17 HR noted to be in 40's. Pt denies hx of bradycardia. No bradycardia noted on vitals from previous visits. Pt currently on propranolol 6.25 mg BID. Discussed with Dr. Dotson-recommends orthostats. Dr. Dotson to also see pt ED Medical Decision Making - Lab Data Result diagrams: 03/26/19 13:08 03/26/19 13:08 - Medical Decision Making 83-year-old female here today for nosebleed. Bleeding resolved prior to exam. Patient complaining of mild chest pain, dizziness, and headache. CT head within normal limits. Trop neg. Patient's heart rate noted to remain in 40s. Cardiology consulted-[facility]--recommends admission. Pt to be admitted by Dr. Scott to hospital medicine. Critical care attestation.: If time is entered above; I have spent that time in minutes in the direct care of this critically ill patient, excluding procedure time.
--- NOTE | 2019-03-26 16:06 | Consultation ---
History of Present Illness Consult date: 03/26/19 Requesting physician: ROBERT AMARO Consult reason: bradycardia History of present illness: The pt is an 83 YO female with past medical history of paroxysmal SVT, reported AMI x 2 in [place], [place] over 20 years ago (pt unsure whether cardiac stents were placed), HTN, hydronephrosis and is s/p ureteral stent placement, right lung mass. She has been seen by our practice on prior hospitalizations and is regularly followed by [facility] cardiology. She presented with c/o nose bleed. She states that she has had nose bleeds in the past, but they are never this severe. Her nosebleed resolved in ED but pt was noted to be bradycardic and thus cardiology has been consulted. On evaluation, pt is in sinus bradycardia with HR 40s, SBP 170. Pt states that she developed nausea and dizziness several minutes ago. She also had a bout of palpitations earlier today prior to arrival. She denies any current chest pain, vomiting, diaphoresis or syncope. Prior to today, she has been feeling well. 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 Of note, pt was diagnosed with paroxysmal SVT in 09/2018. During that hospitalization, she was found to have left hydronephrosis and is s/p ureteral stent placement, UTI, sepsis, right-sided lung mass noted on chest CT. Echo done 09/2018 showed EF 55-60%, no significant abnormalities. Past History Past Medical History: other (as per HPI) Medications and Allergies Allergies Allergy/AdvReac Type Severity Reaction Status Date / Time bee pollen Allergy Anaphylaxis Verified 08/28/14 10:51 Penicillins Allergy Unknown Verified 09/24/18 20:37 shellfish derived Allergy Swelling Verified 08/28/14 10:51 adhesive AdvReac BREAK Verified 08/28/14 10:51 OUT/PULLS SKIN OFF aspirin AdvReac "HEART Verified 08/28/14 10:51 SKIPS" Fish Allergy Swelling Uncoded 10/01/18 14:23 Home Medications Medication Instructions Recorded Confirmed Last Taken Type Divalproex ER 500 mg PO TID 03/26/19 03/26/19 Unknown History Fluticasone 50 mcg INHALATION DAILY 03/26/19 03/26/19 Unknown History Oxybutynin 5 mg PO DAILY 03/26/19 03/26/19 Unknown History Pharbetol 500 mg PO Q8HR 03/26/19 Unknown History Propranolol 6.25 mg PO BID 03/26/19 03/26/19 Unknown History Vitamin D (Nf) 50,000 unit PO ONCE 03/26/19 03/26/19 Unknown History Zantac 150 mg PO BID 03/26/19 03/26/19 Unknown History Review of Systems Constitutional: no weight loss, no weight gain, no fever, no chills, no sweats Ears, nose, mouth and throat: epistaxis, no ear pain, no nose pain, no sinus pressure, no sinus pain Cardiovascular: palpitations, lightheadedness, high blood pressure, no chest pain, no orthopnea, no rapid/irregular heart beat, no edema, no syncope, no shortness of breath, no dyspnea on exertion Respiratory: no cough, no shortness of breath, no dyspnea on exertion, no congestion, no wheezing, no pain on inspiration Gastrointestinal: nausea, no abdominal pain, no vomiting, no diarrhea, no constipation, no change in bowel habits Genitourinary Female: no pelvic pain, no flank pain, no dysuria, no urinary frequency, no urgency Musculoskeletal: no neck stiffness, no neck pain, no shooting arm pain, no arm numbness/tingling, no low back pain, no shooting leg pain Integumentary: no rash, no pruritis, no redness, no sores, no wounds Neurological: no head injury, no paralysis, no weakness, no parathesias, no numbness, no tingling, no seizures, no syncope Psychiatric: no anxiety Endocrine: no cold intolerance, no heat intolerance Hematologic/Lymphatic: no easy bruising, no easy bleeding Allergic/Immunologic: no urticaria, no wheezing Physical Examination Vital Signs Pulse Ox 97 03/26/19 11:36 General appearance: no acute distress HEENT: Positive: PERRL, Normocephaly, Mucus Membranes Moist Neck: Positive: neck supple, trachea midline Cardiac: Positive: Regular Rhythm, S1/S2, Bradycardia Lungs: Positive: clear to auscultation Neuro: Positive: Grossly Intact Abdomen: Negative: Tender Skin: Negative: Rash Musculoskeletal: No Pain Extremities: Absent: edema Results 03/26/19 13:08 03/26/19 13:08 Cardiac Enzymes 03/26/19 Range/Units 13:08 AST 10 (5-40) units/L Coagulation 03/26/19 Range/Units 13:08 PT 13.6 (12.2-14.9) Sec. INR 1.07 (0.87-1.13) APTT 28.8 (24.2-36.6) Sec. CBC 03/26/19 Range/Units 13:08 WBC 4.4 L (4.5-11.0) K/mm3 RBC 3.75 (3.65-5.03) M/mm3 Hgb 11.0 (10.1-14.3) gm/dl Hct 32.8 (30.3-42.9) % Plt Count 178 (140-440) K/mm3 Lymph # 1.5 (1.2-5.4) K/mm3 [place] # 0.3 (0.0-0.8) K/mm3 Eos # 0.1 (0.0-0.4) K/mm3 Baso # 0.0 (0.0-0.1) K/mm3 Comprehensive Metabolic Panel 03/26/19 Range/Units 13:08 Sodium 142 (137-145) mmol/L Potassium 4.3 (3.6-5.0) mmol/L Chloride 105.6 (98-107) mmol/L Carbon Dioxide 28 (22-30) mmol/L BUN 15 (7-17) mg/dL Creatinine 0.4 L (0.7-1.2) mg/dL Glucose 100 (65-100) mg/dL Calcium 8.9 (8.4-10.2) mg/dL AST 10 (5-40) units/L ALT 6 L (7-56) units/L Alkaline Phosphatase 38 (35-129) units/L Total Protein 6.3 (6.3-8.2) g/dL Albumin 3.9 (3.9-5) g/dL - Imaging and Cardiology Echo: report reviewed (09/2018 showed EF 55-60%. ) EKG: report reviewed, image reviewed EKG interpretations - Telemetry EKG Rhythm: Sinus Bradycardia - EKG Sinus rhythms and dysrhythmias: sinus bradycardia Assessment and Plan Symptomatic sinus bradycardia Pt was taking coreg 6.25mg BID at home. Hold AV yanet blocking agents. Obtain thyroid profile. Observe on telemetry overnight. Echo done 09/2018 showed EF 55-60%, no significant abnormalities. Accelerated HTN Initiate amlodipine. Epistaxis Resolved. H/o Paroxysmal SVT Currently holding AV yanet blocking agents due to bradycardia. Monitor on telemetry. Reported AMI x 2 in [place], [place] over 20 years ago - pt unsure whether cardiac stents were placed H/o Hydronephrosis s/p ureteral stent placement H/o right lung mass The patient has been seen in conjunction with Dr. Varela who agrees with the assessment and plan of care.
--- NOTE | 2019-03-26 16:40 | History and Physical Report ---
History of Present Illness Chief complaint: My heart is beating slow, and my nose is bleeding History of present illness: 83 YO Female with HTN, Paroxysmal SVT, MO, CAD S/P Stent Placement, CVA presents to ED for evaluation. Pt states that that she has experienced several episodes of epistaxis today as well as multiple episodes of nausea and dizziness. EMS notified, and upon arrival the patient was found to be in distress. Pt transported to [facility]. Pt seen and evaluated in ED and found to have symptomatic bradycardia with heart rate in the 40's. Pt denies fever, chills, CP, Trauma, BRBPR, Unintentional weight loss, night sweats, syncope, or recent ill contacts. Cardiology consulted in ED. Pt placed in observation status and admitted to telemetry. Prior admission on 09/24/18 reviewed. All listed medication reconciled at time of admission. Past History Past Medical History: acute MO, arthritis, CAD, diabetes, ESRD, hypertension, stroke, other (as per HPI) Past Surgical History: tonsillectomy, bowel surgery, Other (Cardiac stent, renal stent) Social history: . denies: smoking, alcohol abuse, prescription drug ab use Family history: no significant family history Medications and Allergies Allergies Allergy/AdvReac Type Severity Reaction Status Date / Time bee pollen Allergy Anaphylaxis Verified 08/28/14 10:51 Penicillins Allergy Unknown Verified 09/24/18 20:37 shellfish derived Allergy Swelling Verified 08/28/14 10:51 adhesive AdvReac BREAK Verified 08/28/14 10:51 OUT/PULLS SKIN OFF aspirin AdvReac "HEART Verified 08/28/14 10:51 SKIPS" Fish Allergy Swelling Uncoded 10/01/18 14:23 Home Medications Medication Instructions Recorded Confirmed Last Taken Type Divalproex ER 500 mg PO TID 03/26/19 03/26/19 Unknown History Fluticasone 50 mcg INHALATION DAILY 03/26/19 03/26/19 Unknown History Oxybutynin 5 mg PO DAILY 03/26/19 03/26/19 Unknown History Pharbetol 500 mg PO Q8HR 03/26/19 Unknown History Propranolol 6.25 mg PO BID 03/26/19 03/26/19 Unknown History Vitamin D (Nf) 50,000 unit PO ONCE 03/26/19 03/26/19 Unknown History Zantac 150 mg PO BID 03/26/19 03/26/19 Unknown History Active Meds: Active Medications Amlodipine Besylate (Norvasc) 5 mg PO DAILY ARON Review of Systems Constitutional: no weight loss, no weight gain, no fever, no chills Ears, nose, mouth and throat: epistaxis, no ear pain, no ear discharge, no tinnitis, no decreased hearing, no nasal congestion, no dental pain, no mouth pain, no dysphagia Breasts: no change in shape, no swelling, no mass Cardiovascular: no chest pain, no orthopnea, no palpitations, no rapid/irregular heart beat, no lightheadedness Respiratory: no cough, no excessive sputum, no hemoptysis, no shortness of breath Gastrointestinal: no abdominal pain, no nausea, no vomiting, no coffee ground emesis Genitourinary Female: no pelvic pain, no flank pain, no menorrhagia, no dysuria, no urinary frequency, no stress incontinence Rectal: no pain, no incontinence, no bleeding Musculoskeletal: no neck stiffness, no neck pain, no shooting arm pain, no arm numbness/tingling, no low back pain, no leg numbness/tingling Integumentary: no rash, no pruritis, no redness, no wounds, no jaundice Neurological: no transient paralysis, no paralysis, no weakness, no numbness, no tingling, no syncope Psychiatric: no anxiety, no memory loss, no change in sleep habits, no sleep disturbances, no insomnia, no hypersomnia, no change in appetite, no suicidal ideation Endocrine: no cold intolerance, no polyphagia, no excessive thirst, no polyuria, no nocturia Hematologic/Lymphatic: no easy bruising, no easy bleeding, no lymphadenopathy, no lymphedema Allergic/Immunologic: no urticaria, no allergic rhinitis, no wheezing, no persistent infections, no anaphylaxis, no angioedema Exam - Constitutional Vitals: Temp Pulse Resp BP Pulse Ox 97.8 F 44 L 14 147/59 99 03/26/19 12:17 03/26/19 16:10 03/26/19 15:00 03/26/19 16:10 03/26/19 15:00 General appearance: Present: mild distress - EENT Eyes: Present: PERRL ENT: hearing intact, clear oral mucosa - Neck Neck: Present: supple, normal ROM - Respiratory Respiratory effort: normal Respiratory: bilateral: CTA - Cardiovascular Heart Sounds: Present: S1 & S2. Absent: rub, click - Extremities Extremities: pulses symmetrical, No edema Peripheral Pulses: within normal limits - Abdominal General gastrointestinal: Present: soft, non-tender, non-distended, normal bowel sounds Female genitourinary: Present: normal - Integumentary Integumentary: Present: clear, warm, dry - Musculoskeletal Musculoskeletal: gait normal, strength equal bilaterally - Psychiatric Psychiatric: appropriate mood/affect, intact judgment & insight - Neurologic Neurologic: CNII-XII intact, moves all extremities Results - Labs CBC & Chem 7: 03/26/19 13:08 03/26/19 13:08 Labs: Abnormal lab results 03/26/19 03/26/19 Range/Units 13:08 13:08 WBC 4.4 L (4.5-11.0) K/mm3 Creatinine 0.4 L (0.7-1.2) mg/dL ALT 6 L (7-56) units/L Assessment and Plan - Patient Problems (1) Epistaxis Current Visit: Yes Status: Acute Plan to address problem: Resolved, supportive care. continue medical management. (2) Symptomatic bradycardia Current Visit: Yes Status: Acute Plan to address problem: Admit to telemetry, supportive care. (3) Paroxysmal SVT (supraventricular tachycardia) Current Visit: No Status: Acute Plan to address problem: Cardiology consulted in ED, Pt currently bradycardic. hold yanet blocking agents. (4) Diabetes Current Visit: Yes Status: Acute Plan to address problem: ADA diet, insulin therapy, supportive care. (5) GERD (gastroesophageal reflux disease) Current Visit: Yes Status: Acute Qualifiers: Esophagitis presence: without esophagitis Qualified Code(s): K21.9 - Gastro -esophageal reflux disease without esophagitis Plan to address problem: PPI therapy, supportive care. (6) Osteoarthritis Current Visit: Yes Status: Acute Qualifiers: Laterality: unspecified laterality Plan to address problem: Pain control, supportive care. (7) DVT prophylaxis Current Visit: Yes Status: Acute Plan to address problem: SCD to BLE while in bed, supportive care.
[2019-03-26] MEDS ORDERED: ZOFRAN IV PRN (16:43)
[2019-03-26] MEDS ORDERED: TYLENOL PO PRN (16:43)
[2019-03-26] MEDS ORDERED: PROVENTIL IH PRN (16:43)
[2019-03-26] MEDS ORDERED: SODIUM CHLORIDE FLUSH SYRINGE 10 ML IV PRN (16:43)
[2019-03-26] MEDS ORDERED: VITAMIN D 50000 UNIT PO SCH (16:45)
[2019-03-26] MEDS: NORVASC PO SCH (17:37)
[2019-03-26] MEDS ORDERED: NON-FORMULARY (Divalproex Er 500 MG) PO SCH (20:00)
[2019-03-26] MEDS ORDERED: ZANTAC 150 MG PO SCH (22:00)
[2019-03-26] MEDS ORDERED: ACETAMINOPHEN 500 MG PO SCH (22:00)
[2019-03-26] MEDS ORDERED: PROPRANOLOL PO SCH (22:00)
[2019-03-26] MEDS: SODIUM CHLORIDE FLUSH SYRINGE 10 ML IV SCH (22:28)
[2019-03-26] MEDS: PEPCID PO SCH (22:28)
[2019-03-27 05:45] LABS: BUN/Creatinine Ratio 28; Blood Urea Nitrogen 17 mg/dL (7-17); Calcium 9.1 mg/dL (8.4-10.2); Hemolysis Index 5
--- NOTE | 2019-03-27 08:52 | Discharge Summary ---
Providers - Providers Date of Admission: 03/26/19 16:43 Date of discharge: 03/28/19 Attending physician: DESEAN RODRIGUEZ 03/26/19 16:43 Consult to Physician [CONS] Routine Comment: Dr. Dotson spoke with Giulia @ [phone] Consulting Provider: PATRICK CORONEL Physician Instructions: Reason For Exam: Syncope Primary care physician: TUBE SKIVER Hospitalization Reason for admission: symptomatic bradycardia Condition: Stable Hospital course: The pt is an 83 YO female with past medical history of paroxysmal SVT, reported AMI x 2 in [place], [place] over 20 years ago (pt unsure whether cardiac stents were placed), HTN, hydronephrosis and is s/p ureteral stent placement, right lung mass who presented with c/o nose bleed. Her nosebleed resolved in ED but pt was noted to be bradycardic and thus cardiology was consulted. Patient was admitted with diagnosis of symptomatic bradycardia and on evaluation, pt was in sinus bradycardia with HR 40s, SBP 170. She denied any chest pain, vomiting, diaphoresis or syncope. 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 Of note, pt was diagnosed with paroxysmal SVT in 09/2018. During that hospitalization, she was found to have left hydronephrosis and is s/p ureteral stent placement, UTI, sepsis, right-sided lung mass noted on chest CT. Cardiology discontinued her Coreg and started Norvasc. Patient had no further issues and was felt to receive maximal hospital benefit for discharge. Dedicated discharge time 32 minutes. Disposition: - TO HOME OR SELFCARE Time spent for discharge: 32 - Discharge Diagnoses (1) Diabetes Status: Acute (2) Epistaxis Status: Acute (3) GERD (gastroesophageal reflux disease) Status: Acute Qualifiers: Esophagitis presence: without esophagitis Qualified Code(s): K21.9 - Gastro-esophageal reflux disease without esophagitis (4) Symptomatic bradycardia Status: Acute Core Measure Documentation - Palliative Care Palliative Care/ Comfort Measures: Not Applicable - Core Measures Any of the following diagnoses?: none Exam - Constitutional Vitals: Temp Pulse Resp BP Pulse Ox 98.6 F 57 L 18 110/54 94 03/27/19 07:55 03/27/19 07:55 03/27/19 07:55 03/27/19 07:55 03/27/19 07:55 General appearance: Present: no acute distress, well-nourished - EENT Eyes: Present: PERRL ENT: hearing intact, clear oral mucosa - Neck Neck: Present: supple, normal ROM - Respiratory Respiratory effort: normal Respiratory: bilateral: CTA - Cardiovascular Heart Sounds: Present: S1 & S2. Absent: rub, click - Extremities Extremities: pulses symmetrical, No edema Peripheral Pulses: within normal limits - Abdominal General gastrointestinal: Present: soft, non-tender, non-distended, normal bowel sounds Female genitourinary: Present: normal - Integumentary Integumentary: Present: clear, warm, dry - Musculoskeletal Musculoskeletal: gait normal, strength equal bilaterally - Psychiatric Psychiatric: appropriate mood/affect, intact judgment & insight - Neurologic Neurologic: CNII-XII intact, moves all extremities Plan Activity: advance as tolerated Weight Bearing Status: Weight Bear as Tolerated Diet: regular Follow up with: PRIMARY CARE, [Primary Care Provider] - 3-5 Days Prescriptions: amLODIPine [Norvasc] 5 mg PO DAILY #30 tablet
[2019-03-27] MEDS: PEPCID PO SCH ×2 (09:06→21:30)
[2019-03-27] MEDS: FLONASE NS SCH (09:07)
[2019-03-27] MEDS: SODIUM CHLORIDE FLUSH SYRINGE 10 ML IV SCH ×2 (09:07→21:31)
[2019-03-27] MEDS: DITROPAN PO SCH (09:07)
[2019-03-27] MEDS: NORVASC PO SCH (09:08)
[2019-03-27] MEDS ORDERED: FLUTICASONE 50 MCG INHALATION SCH (10:00)
[2019-03-27] MEDS ORDERED: OXYBUTYNIN 5 MG PO SCH (10:00)
[2019-03-27] MEDS ORDERED: ANTIVERT PO PRN (11:09)
--- NOTE | 2019-03-27 11:18 | Progress Note ---
Assessment and Plan Assessment and plan: Presyncope. Patient still complains of dizziness with standing. ? Vertigo. We will start a trial of meclizine. Sinus bradycardia. Heart rate is improved. Cardiology following. Epistaxis. Resolved. Hypertension. Patient actually with some hypotension. Continue to monitor. - Patient Problems (1) Diabetes Current Visit: Yes Status: Acute (2) Epistaxis Current Visit: Yes Status: Acute (3) GERD (gastroesophageal reflux disease) Current Visit: Yes Status: Acute Qualifiers: Esophagitis presence: without esophagitis Qualified Code(s): K21.9 - Gastro-esophageal reflux disease without esophagitis (4) Symptomatic bradycardia Current Visit: Yes Status: Acute History Interval history: No new issues Hospitalist Physical - Constitutional Vitals: Temp Pulse Resp BP Pulse Ox 98.6 F 59 L 18 110/54 94 03/27/19 07:55 03/27/19 09:08 03/27/19 07:55 03/27/19 09:08 03/27/19 07:55 General appearance: Present: no acute distress, well-nourished - EENT Eyes: Present: PERRL, EOM intact ENT: hearing intact, clear oral mucosa, dentition normal - Neck Neck: Present: supple, normal ROM - Respiratory Respiratory effort: normal Respiratory: bilateral: CTA - Cardiovascular Rhythm: regular Heart Sounds: Present: S1 & S2. Absent: gallop, rub - Extremities Extremities: no ischemia, No edema, Full ROM - Abdominal General gastrointestinal: soft, non-tender, non-distended, normal bowel sounds - Integumentary Integumentary: Present: clear, warm, dry - Neurologic Neurologic: CNII-XII intact, moves all extremities Results - Labs CBC & Chem 7: 03/26/19 13:08 03/27/19 04:00 Labs: Laboratory Last Values WBC 4.4 K/mm3 (4.5-11.0) L 03/26/19 13:08 RBC 3.75 M/mm3 (3.65-5.03) 03/26/19 13:08 Hgb 11.0 gm/dl (10.1-14.3) 03/26/19 13:08 Hct 32.8 % (30.3-42.9) 03/26/19 13:08 MCV 87 fl (79-97) 03/26/19 13:08 MCH 29 pg (28-32) 03/26/19 13:08 MCHC 34 % (30-34) 03/26/19 13:08 RDW 15.1 % (13.2-15.2) 03/26/19 13:08 Plt Count 178 K/mm3 (140-440) 03/26/19 13:08 Lymph % (Auto) 33.9 % (13.4-35.0) 03/26/19 13:08 [place] % (Auto) 7.1 % (0.0-7.3) 03/26/19 13:08 Eos % (Auto) 3.0 % (0.0-4.3) 03/26/19 13:08 Baso % (Auto) 0.8 % (0.0-1.8) 03/26/19 13:08 Lymph # 1.5 K/mm3 (1.2-5.4) 03/26/19 13:08 [place] # 0.3 K/mm3 (0.0-0.8) 03/26/19 13:08 Eos # 0.1 K/mm3 (0.0-0.4) 03/26/19 13:08 Baso # 0.0 K/mm3 (0.0-0.1) 03/26/19 13:08 Seg Neutrophils % 55.2 % (40.0-70.0) 03/26/19 13:08 Seg Neutrophils # 2.4 K/mm3 (1.8-7.7) 03/26/19 13:08 PT 13.6 Sec. (12.2-14.9) 03/26/19 13:08 INR 1.07 (0.87-1.13) 03/26/19 13:08 APTT 28.8 Sec. (24.2-36.6) 03/26/19 13:08 Sodium 140 mmol/L (137-145) 03/27/19 04:00 Potassium 4.1 mmol/L (3.6-5.0) 03/27/19 04:00 Chloride 103.4 mmol/L (98-107) 03/27/19 04:00 Carbon Dioxide 24 mmol/L (22-30) 03/27/19 04:00 Anion Gap 17 mmol/L 03/27/19 04:00 BUN 17 mg/dL (7-17) 03/27/19 04:00 Creatinine 0.6 mg/dL (0.7-1.2) L 03/27/19 04:00 Estimated GFR > 60 ml/min 03/27/19 04:00 BUN/Creatinine Ratio 28 % 03/27/19 04:00 Glucose 125 mg/dL (65-100) H 03/27/19 04:00 POC Glucose 126 (70-105) H 03/27/19 08:03 Calcium 9.1 mg/dL (8.4-10.2) 03/27/19 04:00 Total Bilirubin 0.60 mg/dL (0.1-1.2) 03/26/19 13:08 AST 10 units/L (5-40) 03/26/19 13:08 ALT 6 units/L (7-56) L 03/26/19 13:08 Alkaline Phosphatase 38 units/L (35-129) 03/26/19 13:08 Troponin T < 0.010 ng/mL (0.00-0.029) 03/26/19 13:08 Total Protein 6.3 g/dL (6.3-8.2) 03/26/19 13:08 Albumin 3.9 g/dL (3.9-5) 03/26/19 13:08 Albumin/Globulin Ratio 1.6 % 03/26/19 13:08 TSH 3.950 mlU/mL (0.270-4.200) 03/26/19 16:21 Free T4 0.98 ng/dL (0.76-1.46) 03/26/19 16:21 Active Medications - Current Medications Current Medications: Generic Name Dose Route Start Last Admin Trade Name Freq PRN Reason Stop Dose Admin Acetaminophen 650 mg 03/26/19 16:43 Tylenol PO Q4H PRN Pain MILD(1-3)/Fever >100.5/ROONEY Albuterol 2.5 mg 03/26/19 16:43 Proventil IH Q4HRT PRN Shortness Of Breath Amlodipine Besylate 5 mg 03/26/19 17:00 03/27/19 09:08 Norvasc PO 5 mg DAILY ARON Administration Divalproex Sodium 500 mg 03/26/19 20:00 03/27/19 08:54 Depakote Er PO 500 mg TID ARON Administration Ergocalciferol 50,000 unit 04/02/19 10:00 Vitamin D2 PO Tu ARON Famotidine 20 mg 03/26/19 22:00 03/27/19 09:06 Pepcid PO 20 mg BID ARON Administration Fluticasone Propionate 50 mcg 03/27/19 10:00 03/27/19 09:07 Flonase NS 50 mcg QDAY ARON Administration Sodium Chloride 1,000 mls @ 75 mls/hr 03/27/19 12:00 Nacl 0.9% 1000 Ml IV DIRECT ARON Meclizine HCl 25 mg 03/27/19 11:09 Antivert PO Q8H PRN Vertigo Ondansetron HCl 4 mg 03/26/19 16:43 Zofran IV Q8H PRN Nausea And Vomiting Oxybutynin Chloride 5 mg 03/27/19 10:00 03/27/19 09:07 Ditropan PO 5 mg QDAY ARON Administration Sodium Chloride 10 ml 03/26/19 22:00 03/27/19 09:07 Sodium Chloride Flush Syringe 10 Ml IV 10 ml BID ARON Administration Sodium Chloride 10 ml 03/26/19 16:43 Sodium Chloride Flush Syringe 10 Ml IV PRN PRN LINE FLUSH
--- NOTE | 2019-03-27 11:26 | Progress Note ---
Assessment and Plan Symptomatic sinus bradycardia Tele reviewed - in SB with HR 50s, HR low 47bpm overnight. Pt was taking coreg 6.25mg BID at home. Hold AV yanet blocking agents. Thyroid profile WNL. Echo done 09/2018 showed EF 55-60%, no significant abnormalities. Cont to monitor on telemetry. Dizziness Head CT with NAF. Orthostatics from sitting to standing position appear positive. Carotid studies pending per primary. Cont to monitor on telemetry. HTN Stable. Cont amlodipine. Epistaxis Resolved. H/o Paroxysmal SVT No reoccurrence noted overnight. Currently holding AV yanet blocking agents due to bradycardia. Monitor on telemetry. Reported AMI x 2 in [place], [place] over 20 years ago - pt unsure whether cardiac stents were placed H/o Hydronephrosis s/p ureteral stent placement H/o right lung mass The patient has been seen in conjunction with Dr. Varela who agrees with the assessment and plan of care. Subjective Date of service: 03/27/19 Principal diagnosis: bradycardia Interval history: pt resting in bed, c/o nausea and lightheadedness this AM, she felt as though she was going to pass out earlier while fixing her hair. tele reviewed - in SB with HR 50s, HR low 47bpm overnight. Objective Last Vital Signs Temp 98.6 F 03/27/19 07:55 Pulse 59 L 03/27/19 09:08 Resp 18 03/27/19 07:55 BP 110/54 03/27/19 09:08 Pulse Ox 94 03/27/19 11:14 - Physical Examination General: No Apparent Distress HEENT: Positive: PERRL, Normocephaly, Mucus Membranes Moist Neck: Positive: neck supple, trachea midline Cardiac: Positive: Regular Rhythm, S1/S2, Bradycardia Lungs: Positive: Decreased Breath Sounds Neuro: Positive: Grossly Intact Abdomen: Negative: Tender Skin: Negative: Rash Musculoskeletal: No Pain Extremities: Absent: edema - Labs and Meds Cardiac Enzymes 03/26/19 Range/Units 13:08 AST 10 (5-40) units/L Coagulation 03/26/19 Range/Units 13:08 PT 13.6 (12.2-14.9) Sec. INR 1.07 (0.87-1.13) APTT 28.8 (24.2-36.6) Sec. CBC 03/26/19 Range/Units 13:08 WBC 4.4 L (4.5-11.0) K/mm3 RBC 3.75 (3.65-5.03) M/mm3 Hgb 11.0 (10.1-14.3) gm/dl Hct 32.8 (30.3-42.9) % Plt Count 178 (140-440) K/mm3 Lymph # 1.5 (1.2-5.4) K/mm3 [place] # 0.3 (0.0-0.8) K/mm3 Eos # 0.1 (0.0-0.4) K/mm3 Baso # 0.0 (0.0-0.1) K/mm3 Comprehensive Metabolic Panel 03/26/19 03/27/19 Range/Units 13:08 04:00 Sodium 142 140 (137-145) mmol/L Potassium 4.3 4.1 (3.6-5.0) mmol/L Chloride 105.6 103.4 (98-107) mmol/L Carbon Dioxide 28 24 (22-30) mmol/L BUN 15 17 (7-17) mg/dL Creatinine 0.4 L 0.6 L (0.7-1.2) mg/dL Glucose 100 125 H (65-100) mg/dL Calcium 8.9 9.1 (8.4-10.2) mg/dL AST 10 (5-40) units/L ALT 6 L (7-56) units/L Alkaline Phosphatase 38 (35-129) units/L Total Protein 6.3 (6.3-8.2) g/dL Albumin 3.9 (3.9-5) g/dL - Imaging and Cardiology EKG: report reviewed, image reviewed Echo: report reviewed (09/2018 showed EF 55-60%. ) - EKG Sinus rhythms and dysrhythmias: sinus bradycardia
[2019-03-27] MEDS ORDERED: NACL 0.9% 1000 ML 1,000 ML IV SCH (12:00)
[2019-03-28] MEDS: FLONASE NS SCH (10:00)
--- NOTE | 2019-03-28 10:56 | Vascular Lab Report ---
BILATERAL CAROTID DOPPLER ULTRASOUND INDICATION : Presyncope TECHNIQUE: Grayscale and color Doppler imaging performed through the neck. COMPARISON: None FINDINGS: Right: There is no significant atherosclerotic disease. Peak systolic velocity in the CCA is 50 cm/ s with end-diastolic velocity of 9 cm/s. Peak systolic velocity in the proximal ICA is 75 cm/s with e nd-diastolic velocity of 17 cm/s. ICA to CCA ratio is less than 2. There is antegrade flow in the EC A and the vertebral artery. Left: There is no significant atherosclerotic disease. Peak systolic velocity in the CCA is 56 cm/s w ith end-diastolic velocity of 8 cm/s. Peak systolic velocity in the proximal ICA is 73 cm/s with end- diastolic velocity of 15 cm/s. ICA to CCA ratio is less than 2. There is antegrade flow in the ECA a nd the vertebral artery. IMPRESSION: No hemodynamically significant stenosis by NASCET criteria. There is less than 50% lumina l narrowing throughout both carotid systems. Signer Name: Dimitry Gutierrez Jr, MD Signed: 03/28/2019 10:51 AM Workstation Name: [id number]
--- NOTE | 2019-03-28 12:46 | Progress Note ---
Assessment and Plan Symptomatic sinus bradycardia Tele reviewed - in SB with HR 50s, HR low 43bpm overnight, no pauses. Pt was taking coreg 6.25mg BID at home. Cont to hold AV yanet blocking agents. Thyroid profile WNL. Echo done 09/2018 showed EF 55-60%, no significant abnormalities. Pt reports she is feeling better today. Dizziness Head CT with NAF. Carotid studies unremarkable. Orthostatics from sitting to standing position appear positive. Pt states she is feeling better today, dizziness improved. HTN Stable. Cont amlodipine. Epistaxis Resolved. H/o Paroxysmal SVT No reoccurrence noted overnight. Currently holding AV yanet blocking agents due to bradycardia. Monitor on telemetry. Reported AMI x 2 in [place], [place] over 20 years ago - pt unsure whether cardiac stents were placed H/o Hydronephrosis s/p ureteral stent placement H/o right lung mass Currently stable cardiac status. Pt may discharge home from cardiology standpoint on current cardiac regimen. Recommend pt follow up with [facility] cardiology within 1-2 weeks. Pt verbalizes understanding. The patient has been seen in conjunction with Dr. Varela who agrees with the assessment and plan of care. Subjective Date of service: 03/28/19 Principal diagnosis: bradycardia Interval history: pt resting in bed, states she is feeling better today, dizziness much better, nausea resolved, currently tolerating diet. tele reviewed - in SB with HR 50s, HR low 43bpm overnight. Objective Last Vital Signs Temp 98.2 F 03/28/19 11:29 Pulse 63 03/28/19 03:34 Resp 18 03/28/19 11:29 BP 110/44 03/28/19 11:29 Pulse Ox 89 03/28/19 03:34 - Physical Examination General: No Apparent Distress HEENT: Positive: PERRL, Normocephaly, Mucus Membranes Moist Neck: Positive: neck supple, trachea midline Cardiac: Positive: Regular Rhythm, S1/S2 Lungs: Positive: Decreased Breath Sounds Neuro: Positive: Grossly Intact Abdomen: Negative: Tender Skin: Negative: Rash Musculoskeletal: No Pain Extremities: Absent: edema - Imaging and Cardiology EKG: report reviewed, image reviewed Echo: report reviewed (09/2018 showed EF 55-60%. ) - EKG Sinus rhythms and dysrhythmias: sinus bradycardia
[2019-03-28] MEDS: PEPCID PO SCH ×2 (13:21→21:54)
[2019-03-28] MEDS: DITROPAN PO SCH (13:22)
[2019-03-28] MEDS: NORVASC PO SCH (13:22)
[2019-03-28] MEDS: SODIUM CHLORIDE FLUSH SYRINGE 10 ML IV SCH ×2 (13:23→21:54)
--- NOTE | 2019-03-28 16:59 | Cat Scan Report ---
CT CHEST WITHOUT CONTRAST INDICATION / CLINICAL INFORMATION: SOB. TECHNIQUE: Axial CT images were obtained through the chest without contrast. All CT scans at this location are p erformed using CT dose reduction for ALARA by means of automated exposure control. COMPARISON: Chest CT 09/26/2018 report and coronal and sagittal reformatted images. Unfortunately, the axial images are not available for comparison. FINDINGS: HEART: Moderately enlarged. THORACIC AORTA: No significant abnormality. 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 No adenopathy. 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 PLEURA: No significant pleural effusion. No pneumothorax. ADDITIONAL FINDINGS: None. UPPER ABDOMEN: 1.5 cm cyst right hepatic lobe and incompletely visualized 1.4 cm left renal cyst. SKELETAL SYSTEM: Multiple thoracic vertebral body hemangiomas. Destructive skeletal metastasis involv ing T7 vertebral body with paraspinal soft tissue mass seen best on image 195 with probable cord comp ression/involvement by tumor. IMPRESSION: 1. Spiculated 5 cm right lower lobe pleural-based mass characteristic for primary bronchogenic carcin antonio. 2. 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 Recommend thoracic MRI with contra st for further evaluation. Signer Name: Tin Javier MD Signed: 03/28/2019 4:54 PM Workstation Name: [id number]
--- NOTE | 2019-03-29 09:45 | Cat Scan Report ---
CTA CHEST WITH CONTRAST INDICATION : MAIN: syncope SOB X 1 WEEK 100 DC OMINI 350. TECHNIQUE: Axial imaging performed through the chest, with contrast bolus timing set to maximize opa cification of the pulmonary arteries. Sagittal and coronal reformatted images. 3-plane MIP reformatte d images were obtained. All CT scans at this location are performed using CT dose reduction for ALAR A by means of automated exposure control. 100 mL of intravenous contrast administered. COMPARISON: Noncontrast CT chest dated 03/28/2019 FINDINGS: Bolus: Contrast bolus timing is adequate. PTE: No filling defect is present to suggest PTE. Mediastinum: Moderate cardiomegaly. No pericardial effusion. 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 A slightly suspicious 1.6 cm right hilar lymph node is identified. Subcentimeter calcified mediastinal lymph nodes are also no pattie consistent with chronic granulomatous disease. Lungs: A 6.2 x 2.6 x 4.3 cm masslike lesion in the right lower lobe appears relatively stable. The r emainder of the lungs are clear. No significant underlying parenchymal lung disease is appreciated. N o pleural effusion or pneumothorax. Bones: Severe osteopenia. Abnormal soft tissue density surrounding the T8 vertebral body is again no pattie and unchanged. Upper abdomen: Limited imaging of the upper abdomen shows nothing acute. IMPRESSION: No evidence for pulmonary embolus. Right lower lobe mass. Suspicious right hilar lymph node. Abnormal soft tissue density surrounding th e T8 vertebral body. These findings are consistent with metastatic lung cancer. Signer Name: Dimitry Gutierrez Jr, MD Signed: 03/29/2019 9:40 AM Workstation Name: [id number]
[2019-03-29] MEDS: SODIUM CHLORIDE FLUSH SYRINGE 10 ML IV SCH (10:00)
--- NOTE | 2019-03-29 10:13 | Discharge Summary ---
Providers - Providers Date of Admission: 03/29/19 08:04 Date of discharge: 03/29/19 Attending physician: DESEAN RODRIGUEZ 03/26/19 16:43 Consult to Physician [CONS] Routine Comment: Dr. 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 Her nosebleed resolved in ED but pt was noted to be bradycardic and thus cardiology was consulted. Patient was admitted with diagnosis of symptomatic bradycardia and on evaluation, pt was in sinus bradycardia with HR 40s, SBP 170. She denied any chest pain, vomiting, diaphoresis or syncope. Her [facility] sales secretary changed her propranolol to coreg 6.25 BID in November,. Of note, pt was diagnosed with paroxysmal SVT in 09/2018. During that hospitalization, she was found to have left hydronephrosis and is s/p ureteral stent placement, UTI, sepsis, right-sided lung mass noted on chest CT. Cardiology discontinued her Coreg and started Norvasc. The patient continued to have symptoms and given the history of possible right upper lobe mass CT scan of the chest was obtained which revealed spiculated 5 cm right lower lobe pleural-based mass characteristic for primary bronchogenic carcinoma. There was also some question of cord compression with skeletal metastasis at T8 level. Further evaluation with CTA of chest revealed no evidence of pulmonary embolism. And abnormal soft tissue density surrounding the T8 vertebral body with no compression. However, these findings are consistent with metastatic lung cancer. I discussed the findings with the patient which she is well aware of and is being followed with [facility]. Patient is felt to have received maximal hospital benefit and will discharge home. Dedicated discharge time 32 minutes. Disposition: - TO HOME OR SELFCARE - Discharge Diagnoses (1) Diabetes Status: Acute (2) Epistaxis Status: Acute (3) GERD (gastroesophageal reflux disease) Status: Acute Qualifiers: Esophagitis presence: without esophagitis Qualified Code(s): K21.9 - Gastro-esophageal reflux disease without esophagitis (4) Symptomatic bradycardia Status: Acute Core Measure Documentation - Palliative Care Palliative Care/ Comfort Measures: Not Applicable - Core Measures Any of the following diagnoses?: none Exam - Constitutional Vitals: Temp Pulse Resp BP Pulse Ox 98.0 F 67 18 119/55 93 03/29/19 03:51 03/29/19 03:51 03/29/19 03:51 03/29/19 03:51 03/29/19 03:51 General appearance: Present: no acute distress, well-nourished - EENT Eyes: Present: PERRL ENT: hearing intact, clear oral mucosa - Neck Neck: Present: supple, normal ROM - Respiratory Respiratory effort: normal Respiratory: bilateral: CTA - Cardiovascular Heart Sounds: Present: S1 & S2. Absent: rub, click - Extremities Extremities: pulses symmetrical, No edema Peripheral Pulses: within normal limits - Abdominal General gastrointestinal: Present: soft, non-tender, non-distended, normal bowel sounds Female genitourinary: Present: normal - Integumentary Integumentary: Present: clear, warm, dry - Musculoskeletal Musculoskeletal: gait normal, strength equal bilaterally - Psychiatric Psychiatric: appropriate mood/affect, intact judgment & insight - Neurologic Neurologic: CNII-XII intact, moves all extremities Plan Activity: advance as tolerated Weight Bearing Status: Weight Bear as Tolerated Additional Instructions: Follow-up with [facility] for lung mass and possible metastatic lung cancer Follow up with: PRIMARY CARE, [Primary Care Provider] - 3-5 Days Prescriptions: amLODIPine [Norvasc] 5 mg PO DAILY #30 tablet
[2019-03-29] MEDS: DITROPAN PO SCH (10:14)
[2019-03-29] MEDS: PEPCID PO SCH (10:14)
[2019-03-29] MEDS: NORVASC PO SCH (10:14)
[2019-03-29 10:15] VITALS: BP 148/76
[2019-03-29] MEDS: FLONASE NS SCH (10:15)
[2019-04-02] MEDS ORDERED: VITAMIN D2 PO SCH (10:00)
== END 2019-03-29 14:10 | disposition home or self-care (01) ==
LOC: ED 11:24 → 4A 16:43 → OBSVTOIN 03-29 08:04 → INTOOBSV 03-29 08:04
PROVIDERS: ADMIT Internal Medicine; ATTEND Hospitalist
DX: R00.1 Bradycardia, unspecified (principal); R04.0 Epistaxis; I47.1 Supraventricular tachycardia; K21.9 Gastro-esophageal reflux disease without esophagitis; M19.90 Unspecified osteoarthritis, unspecified site; R42 Dizziness and giddiness; I12.0 Hypertensive chronic kidney disease with stage 5 chronic kidney disease or end stage renal disease; N18.6 End stage renal disease; E11.22 Type 2 diabetes mellitus with diabetic chronic kidney disease; I25.2 Old myocardial infarction; I25.10 Atherosclerotic heart disease of native coronary artery without angina pectoris; Z95.1 Presence of aortocoronary bypass graft; Z86.73 Personal history of transient ischemic attack (TIA), and cerebral infarction without residual deficits; Z90.49 Acquired absence of other specified parts of digestive tract; Z79.82 Long term (current) use of aspirin; Z87.442 Personal history of urinary calculi
CPT/HCPCS: 36415; 70450; 71045; 71250; 71275; 80048; 80053; 82962; 84439; 84443; 84484; 85025; 85610; 85730; 87116; 93005; 93010; 93880; 96361; 96374; 99284; G0378; J1100; J7030; Q9967

== ENCOUNTER 2019-11-27 21:02 | Inpatient (IN) | payer MEDICARE ==
--- NOTE | 2019-11-27 21:12 | Emergency Department Report ---
ED General Adult HPI - General Chief complaint: Altered Mental Status Stated complaint: ALTERED MENTAL STATUS PUI?: No Time Seen by Provider: 11/27/19 21:08 Source: patient, EMS ( EMS documentation not available at time of chart dictation ), RN notes reviewed, old records reviewed Mode of arrival: Stretcher Limitations: Altered Mental Status, Physical Limitation - History of Present Illness Initial comments: Patient is an 84-year-old female. She is not known to myself previously. As per review of old medical records, has a history of paroxysmal SVT, [place] x2, hypertension, hydronephrosis, history of ureteral stent placement, right lung mass On a hospitalization in March 2019, was found to have a right-sided lung mass on chest CT, left-sided hydronephrosis, and had a ureteral stent placed. She had a CT scan of the chest which showed a spiculated 5 cm right lower lobe pleural-based mass, characteristic for primary bronchogenic carcinoma, was also ruled out for pulmonary embolism Apparently, [facility], she is brought to the hospital by emergency medical services with a com plaint of altered mental status and weakness. The patient is awake and altered. She follows some but not all commands. Patient is also very hard of hearing. She indicated to the nurse that she was not having any pain. When I asked the patient, even when yelling very loudly, if she was having any pain, the patient was not able to answer my questions. Her last known well time is not known. The patient cannot describe qualitative nature of her symptoms, exacerbating, or relieving factors, or radiation of symptoms. I contacted/called the listed phone number for her son and the [facility] information, nobody answered the phone, and I left a voicemail requesting call back to clarify additional information. -: unknown Quality: other Consistency: other Improves with: other Worsens with: other Associated Symptoms: other Treatments Prior to Arrival: other - Related Data Home Medications Medication Instructions Recorded Confirmed Last Taken Divalproex ER 500 mg PO TID 03/26/19 03/26/19 03/26/19 12:30 Fluticasone 50 mcg INHALATION DAILY 03/26/19 03/26/19 03/26/19 07:30 Oxybutynin 5 mg PO DAILY 03/26/19 03/26/19 03/26/19 07:30 Vitamin D (Nf) 50,000 unit PO ONCE 03/26/19 03/26/19 03/26/19 07:30 raNITIdine HCl [Zantac] 150 mg PO BID 03/26/19 03/26/19 03/26/19 07:30 Previous Rx's Medication Instructions Recorded Last Taken Type Divalproex ER [Depakote ER] 500 mg PO TID tablet 03/27/19 Unknown Rx Ergocalciferol [Vitamin D2] 50,000 unit PO Tu capsule 03/27/19 Unknown Rx Famotidine [Pepcid] 20 mg PO BID tablet 03/27/19 Unknown Rx Fluticasone [Flonase] 50 mcg NS QDAY bottle 03/27/19 Unknown Rx Oxybutynin [Ditropan] 5 mg PO QDAY tablet 03/27/19 Unknown Rx amLODIPine 5 mg PO DAILY #30 tablet 03/27/19 Unknown Rx Allergies Allergy/AdvReac Type Severity Reaction Status Date / Time bee pollen Allergy Anaphylaxis Verified 08/28/14 10:51 Penicillins Allergy Unknown Verified 09/24/18 20:37 shellfish derived Allergy Swelling Verified 08/28/14 10:51 adhesive AdvReac BREAK Verified 08/28/14 10:51 OUT/PULLS SKIN OFF aspirin AdvReac "HEART Verified 08/28/14 10:51 SKIPS" Fish Allergy Swelling Uncoded 10/01/18 14:23 ED Review of Systems ROS: Stated complaint: ALTERED MENTAL STATUS Other details as noted in HPI Comment: Unobtainable due to pts medical conditions ED Past Medical Hx - Past Medical History Hx Hypertension: Yes Hx CVA: Yes Hx Heart Attack/AMI: Yes Hx Congestive Heart Failure: Yes (UNSURE) Hx Diabetes: Yes (diet controlled) Hx GERD: Yes Hx Renal Disease: Yes Hx Arthritis: Yes Hx Kidney Stones: Yes Hx HIV: No Additional medical history: CAD - Surgical History Hx Coronary Stent: Yes (UNSURE) Additional Surgical History: COLON SURGERY. TONSILLECTOMY - Social History Smoking Status: Never Smoker - Medications Home Medications: Home Medications Medication Instructions Recorded Confirmed Last Taken Type Divalproex ER 500 mg PO TID 03/26/19 03/26/19 03/26/19 12:30 History Fluticasone 50 mcg INHALATION DAILY 03/26/19 03/26/19 03/26/19 07:30 History Oxybutynin 5 mg PO DAILY 03/26/19 03/26/19 03/26/19 07:30 History Vitamin D (Nf) 50,000 unit PO ONCE 03/26/19 03/26/19 03/26/19 07:30 History raNITIdine HCl [Zantac] 150 mg PO BID 03/26/19 03/26/19 03/26/19 07:30 History Divalproex ER [Depakote ER] 500 mg PO TID tablet 03/27/19 Unknown Rx Ergocalciferol [Vitamin D2] 50,000 unit PO Tu capsule 03/27/19 Unknown Rx Famotidine [Pepcid] 20 mg PO BID tablet 03/27/19 Unknown Rx Fluticasone [Flonase] 50 mcg NS QDAY bottle 03/27/19 Unknown Rx Oxybutynin [Ditropan] 5 mg PO QDAY tablet 03/27/19 Unknown Rx amLODIPine 5 mg PO DAILY #30 tablet 03/27/19 Unknown Rx ED Physical Exam - General Limitations: Altered Mental Status, Physical Limitation General appearance: in no apparent distress - Head Head exam: Present: atraumatic, normocephalic - Eye Eye exam: Present: normal appearance, EOMI. Absent: nystagmus - ENT ENT exam: Present: mucous membranes dry, TM's normal bilaterally, normal external ear exam - Neck Neck exam: Present: normal inspection - Respiratory Respiratory exam: Present: decreased breath sounds. Absent: respiratory distress - Cardiovascular Cardiovascular Exam: Present: regular rate, normal rhythm, normal heart sounds. Absent: bradycardia, tachycardia, irregular rhythm, systolic murmur, diastolic murmur, rubs, gallop - GI/Abdominal GI/Abdominal exam: Present: soft. Absent: distended, tenderness, guarding, rebound, rigid, pulsatile mass - Extremities Exam Extremities exam: Present: normal inspection, pedal edema. Absent: tenderness, normal capillary refill, joint swelling - Back Exam Back exam: Present: normal inspection. Absent: tenderness, CVA tenderness (R), CVA tenderness (L), paraspinal tenderness, vertebral tenderness - Neurological Exam Neurological exam: Present: altered, other (The patient is awake. The patient is moving 4 extremities. There is no facial droop. Detailed neurologic examination is not able to be completed secondary to altered mental status and patient's inability to hear) - Skin Skin exam: Present: warm, dry, intact, normal color. Absent: rash ED Course Vital Signs 11/27/19 11/27/19 11/27/19 21:24 21:29 22:28 Temperature 98.7 F 98.3 F Pulse Rate 62 64 64 Respiratory 12 18 18 Rate Blood Pressure 135/62 Blood Pressure 135/62 135/62 [Right] O2 Sat by Pulse 97 97 Oximetry - Reevaluation(s) Reevaluation #1: 11/27/19 21:48 Differential diagnosis, including but not limited to: Stroke, pneumonia, urinary tract infection, dementia, toxic encephalopathy, metabolic encephalopathy, Assessment and plan: 84-year-old female who is awake, moving 4 extremities, protecting her airway, last known well time is not known, resenting with weakn ess, dry mucous membranes, and altered mental status. We are awaiting callback from family to obtain collateral information. CT scan of the brain, x-ray of the chest, basic laboratory studies, rectal temperature, urinalysis, EKG have been requested. We will reassess after the patient's data points have resulted. Reevaluation #2: 11/27/19 23:13 Laboratory studies suggest dehydration. CT scan of the brain shows no acute findings. X-ray of the chest suggests left lower lobe consolidation. Nonspecific allergy is listed to penicillin. As a third generation cephal osporin, ceftriaxone is structurally dissimilar to penicillin, and is statistically unlikely to cause an allergic reaction. Ceftriaxone and azithromycin, IV fluids ordered. Hospital physician, Dr. Beulah Valdovinos to admit ED Medical Decision Making - Lab Data Result diagrams: 11/27/19 21:20 11/27/19 21:20 Vital Signs 11/27/19 11/27/19 21:24 21:29 Temperature 98.7 F Pulse Rate 62 64 Respiratory 12 18 Rate Blood Pressure 135/62 135/62 [Right] O2 Sat by Pulse 97 97 Oximetry Lab Results 11/27/19 Range/Units 21:33 POC Glucose 90 (70-105) - EKG Data -: EKG Interpreted by Oh EKG shows normal: sinus rhythm Rate: normal - EKG Data 11/27/19 23:14 This is a sinus rhythm, 63 bpm, left axis deviation, left anterior fascicular block, motion artifact, abnormal EKG, not a STEMI, poor R wave progression, fairly unchanged when compared to prior EKG from March 26, 2019 - Radiology Data Radiology results: pending, image reviewed Print Report Referring Physician: AVA GARCIA Patient Name: DARBY GUILLORY Date of : 1935 Sex: Female Report Date: 2019-11-27 Report Status: Finalized Findings [facility] [address] [place] [address] XRay Report Signed Patient: DARBY GUILLORY MR#: [id number] : 1935 Acct:[id number] Age/Sex: 84 / F ADM Date: 11/27/19 Loc: ED Attending Dr: Ordering Physician: AVA GARCIA MD Date of Service: 11/27/19 Procedure(s): XR chest 1V ap Accession Number(s): [id number] cc: AVA GARCIA MD Fluoro Time In Minutes: CHEST 1 VIEW INDICATION / CLINICAL INFORMATION: MAIN: Altered Mental Status; Per EMS pt has become AMS over last 2 days. States that family wanted her to "be checked out" VSS, BG 88. COMPARISON: Chest 03/26/2019, chest CT 03/29/2019 FINDINGS: SUPPORT DEVICES: None. HEART / MEDIASTINUM: Stable. LUNGS / PLEURA: Grossly stable mass in the right lower lobe with indistinct margins. Mild peripheral opacity at the left lung base obscures the costophrenic sulcus. No pneumothorax. IMPRESSION: Grossly stable right lung mass. Left basilar airspace opacity is nonspecific, potentially reflecting atelectasis and/or consolidation. Signer Name: Ross Gage MD Signed: 11/27/2019 9:57 PM Workstation Name: [id number] Transcribed By: DMB Dictated By: Ross Gage MD Electronically Authenticated By: Ross Gage MD Signed Date/Time: 11/27/192156 DD/ 55 Cat Scan Report Signed Patient: DARBY GUILLORY MR#: [id number] : 1935 Acct:[id number] Age/Sex: 84 / F ADM Date: 11/27/19 Loc: ED Attending Dr: Ordering Physician: AVA GARCIA MD Date of Service: 11/27/19 Procedure(s): CT head/brain wo con Accession Number(s): [id number] cc: AVA GARCIA MD CT head/brain wo con INDICATION / CLINICAL INFORMATION: 84 years Female; Altered Mental Status. TECHNIQUE: Routine CT head without contrast. All CT scans at this location are performed using CT dose reduction for ALARA by means of automated exposure control. COMPARISON: 03/26/2019 FINDINGS: BRAIN / INTRACRANIAL CONTENTS: Subacute to chronic, small branch infarct is seen in watershed distribution between the right HARI and MCA territories-findings are new from prior exam. No acute hemorrhage, mass effect, midline shift, hydrocephalus, or acute, large territorial infarct. Mild cerebral and cerebellar atrophy. There are minimal areas of decreased attenuation in the white matter of the cerebral hemispheres. These are nonspecific findings and may be related to microangiopathy (hypertension, diabetes, atherosclerosis), given the patient's age. It might be difficult to evaluate for small areas of ischemia without diffusion imaging by MRI. There is asymmetric prominence of calcifi cation along the lateral wall of the anterior clinoid on the right. Similar finding is seen on studies dating back to 09/24/2018. En plaque meningioma might be a consideration. CRANIOCERVICAL JUNCTION: No significant abnormality. ORBITS: No significant abnormality of visualized orbits. SINUSES / MASTOIDS: No significant abnormality in the visualized paranasal sinuses or mastoid air cells. ADDITIONAL FINDINGS: Mild temporomandibular joint disease suggested bilaterally. Minimal atherosclerotic disease is seen in the anterior and posterior circulation. IMPRESSION: 1. No focal intra-axial mass, hemorrhage, hydrocephalus, or acute, large territorial infarct. Follow-up with diffusion imaging by MRI, as clinically warranted. Signer Name: Jourdan Mccarty MD, III Signed: 11/27/2019 10:00 PM Workstation Name: [id number] Transcribed By: HR Dictated By: Jourdan Mccarty MD Electronically Authenticated By: Jourdan Mccarty MD Signed Date/Time: 11/27/192199 DD/ 52 Critical care attestation.: If time is entered above; I have spent that time in minutes in the direct care of this critically ill patient, excluding procedure time. ED Disposition Clinical Impression: Acute encephalopathy, Dehydration, Pulmonary infiltrate Disposition: DC-09 OP ADMIT IP TO THIS HOSP Is pt being admited?: Yes Does the pt Need Aspirin: Yes Condition: Fair Referrals: PRIMARY CARE,MD [Primary Care Provider] - 3-5 Days
[2019-11-27 21:50] LABS: Hematocrit 36.2 % (30.3-42.9); Hemoglobin 12.2 gm/dl (10.1-14.3); Mean Corpuscular HGB Conc 34 % (30-34); Mean Corpuscular Volume 99 fl (79-97); Platelet Count 141 K/mm3 (140-440); Red Blood Count 3.66 M/mm3 (3.65-5.03); Red Cell Distribution Width 14.3 % (13.2-15.2)
[2019-11-27 22:01] LABS: INR 1.06 (0.87-1.13)
[2019-11-27 22:02] LABS: Partial Thromboplastin Time 24.5 Sec. (24.2-36.6)
[2019-11-27 22:11] LABS: Alanine Aminotransferase 14 units/L (7-56); Albumin 3.4 g/dL (3.9-5); BUN/Creatinine Ratio 40; Blood Urea Nitrogen 24 mg/dL (7-17); Calcium 9.2 mg/dL (8.4-10.2); Hemolysis Index 3
[2019-11-27 22:24] LABS: Basophils % (Manual) 0 % (0.0-1.8); Eosinophils % (Manual) 0 % (0.0-4.3); Total Cells Counted 100
[2019-11-27 22:25] LABS: Burr Cells Few; Macrocytosis Few; Ovalocytes Few; Platelet Estimate Consistent w Auto
[2019-11-27 22:57] LABS: Bilirubin,Urine NEG (Negative); Blood,Urine NEG (Negative); Color,Urine Yellow (Yellow); Mucus,Urine FEW /HPF; Protein,Urine <15 mg/dL mg/dL (Negative)
[2019-11-27] MEDS ORDERED: cefTRIAXone/NS 1 GM/50 ML 1 GM/50 ML BAG IV ONE ×2 (23:09→23:45)
[2019-11-27] MEDS ORDERED: SODIUM CHLORIDE 0.9% 500 ML 500 ML IV ONE (23:10)
[2019-11-27] MEDS ORDERED: ASPIRIN 81 MG TAB CHEW PO ONE (23:15)
[2019-11-27] MEDS ORDERED: ACETAMINOPHEN 325 MG TAB PO PRN (23:17)
[2019-11-27] MEDS ORDERED: MORPHINE 2 MG/1 ML INJ IV PRN (23:17)
[2019-11-27] MEDS ORDERED: DEXTROSE 50% IN WATER (25GM) 50 ML SYRINGE IV PRN (23:17)
[2019-11-27] MEDS ORDERED: MAGNESIUM HYDROXIDE (MOM) ORAL LIQD UDC PO PRN (23:17)
[2019-11-27] MEDS ORDERED: ONDANSETRON 4 MG/2 ML INJ IV PRN (23:17)
--- NOTE | 2019-11-27 23:35 | History and Physical Report ---
History of Present Illness Date of examination: 11/27/19 Date of admission: 11/27/2019 Chief complaint: Altered mental status History of present illness: 84-year-old female with known history of hypertension, coronary artery disease with 2 MIs in the past, paroxysmal SVT , Hydronephrosis with history of ureteral stent placement and history of right lung mass. Patient is brought into the emergency room today by EMS because of altered mental status and generalized weakness. Patient is alert but cannot give any history and cannot follow commands. She is also very hard of hearing. Patient was hospitalized in March 2019 and diagnosed with a right-sided lung m ass on chest CT and also left-sided hydronephrosis during which she had a left ureteral stent placement. 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 Work-up in the emergency room today reveals a left lower lobe infiltrate, she is also found to be dehydrated. Past History Past Medical History: arthritis, CAD, diabetes, GERD, hypertension, stroke, other (Paroxysmal SVT, history of kidney stone, right lung mass) Past Surgical History: Other (History of colon surgery, tonsillectomy, left ureteral stent placement) Social history: no significant social history Family history: no significant family history Medications and Allergies Allergies Allergy/AdvReac Type Severity Reaction Status Date / Time bee pollen Allergy Anaphylaxis Verified 08/28/14 10:51 Penicillins Allergy Unknown Verified 09/24/18 20:37 shellfish derived Allergy Swelling Verified 08/28/14 10:51 adhesive AdvReac BREAK Verified 08/28/14 10:51 OUT/PULLS SKIN OFF aspirin AdvReac "HEART Verified 08/28/14 10:51 SKIPS" Fish Allergy Swelling Uncoded 10/01/18 14:23 Home Medications Medication Instructions Recorded Confirmed Last Taken Type Divalproex ER 500 mg PO TID 03/26/19 03/26/19 03/26/19 12:30 History Fluticasone 50 mcg INHALATION DAILY 03/26/19 03/26/19 03/26/19 07:30 History Oxybutynin 5 mg PO DAILY 03/26/19 03/26/19 03/26/19 07:30 History Vitamin D (Nf) 50,000 unit PO ONCE 03/26/19 03/26/19 03/26/19 07:30 History raNITIdine HCl [Zantac] 150 mg PO BID 03/26/19 03/26/19 03/26/19 07:30 History Divalproex ER [Depakote ER] 500 mg PO TID tablet 03/27/19 Unknown Rx Ergocalciferol [Vitamin D2] 50,000 unit PO Tu capsule 03/27/19 Unknown Rx Famotidine [Pepcid] 20 mg PO BID tablet 03/27/19 Unknown Rx Fluticasone [Flonase] 50 mcg NS QDAY bottle 03/27/19 Unknown Rx Oxybutynin [Ditropan] 5 mg PO QDAY tablet 03/27/19 Unknown Rx amLODIPine 5 mg PO DAILY #30 tablet 03/27/19 Unknown Rx Active Meds: Active Medications Acetaminophen (Tylenol) 650 mg PO Q4H PRN PRN Reason: Pain MILD(1-3)/Fever >100.5/ROONEY Dextrose (D50w (25gm) Syringe) 50 ml IV Q30MIN PRN; Protocol PRN Reason: Hypoglycemia Azithromycin 500 mg/ Sodium (Chloride) 250 mls @ 250 mls/hr IV ONCE ONE; Protocol Stop: 11/28/19 00:48 Ceftriaxone Sodium (Rocephin/Ns 1 Gm/50 Ml) 1 gm in 50 mls @ 100 mls/hr IV ONCE ONE; Protocol Stop: 11/27/19 23:38 Sodium Chloride (Nacl 0.9% 500 Ml) 500 mls @ 999 mls/hr IV ONCE ONE Stop: 11/27/19 23:40 Sodium Chloride (Nacl 0.9% 1000 Ml) 1,000 mls @ 125 mls/hr IV DIRECT ARON Ceftriaxone Sodium (Rocephin/Ns 2 Gm/100 Ml) 2 gm in 100 mls @ 200 mls/hr IV Q24HR ARON; Protocol Azithromycin 500 mg/ Sodium (Chloride) 250 mls @ 250 mls/hr IV Q24HR ARON; Protocol Insulin Human Lispro (Humalog) 0 unit SUB-Q ACHS ARON; Protocol Magnesium Hydroxide (Milk Of Magnesia) 30 ml PO Q4H PRN PRN Reason: Constipation Morphine Sulfate (Morphine) 2 mg IV Q4H PRN PRN Reason: Pain, Moderate (4-6) Ondansetron HCl (Zofran) 4 mg IV Q8H PRN PRN Reason: Nausea And Vomiting Sodium Chloride (Sodium Chloride Flush Syringe 10 Ml) 10 ml IV BID ARON Sodium Chloride (Sodium Chloride Flush Syringe 10 Ml) 10 ml IV PRN PRN PRN Reason: LINE FLUSH Review of Systems ROS unobtainable: due to mental status Exam - Constitutional Vitals: Temp Pulse Resp BP Pulse Ox 98.3 F 64 18 135/62 97 11/27/19 22:28 11/27/19 22:28 11/27/19 22:28 11/27/19 22:28 11/27/19 21:29 General appearance: Present: no acute distress, well-nourished - EENT Eyes: Present: PERRL, EOM intact - Neck Neck: Present: supple, normal ROM - Respiratory Respiratory effort: normal Respiratory: left: diminished - Cardiovascular Rhythm: regular Heart Sounds: Present: S1 & S2 - Extremities Extremities: no ischemia, pulses intact, pulses symmetrical, No edema, Full ROM Peripheral Pulses: within normal limits - Abdominal General gastrointestinal: Present: soft, non-tender, non-distended, normal bowel sounds - Integumentary Integumentary: Present: clear, warm, dry - Musculoskeletal Musculoskeletal: strength equal bilaterally - Psychiatric Psychiatric: cooperative - Neurologic Neurologic: CNII-XII intact, moves all extremities HEART Score - HEART Score Troponin: Troponin T 0.026 ng/mL (0.00-0.029) 11/27/19 21:20 Results - Labs CBC & Chem 7: 11/27/19 21:20 11/27/19 21:20 Labs: Abnormal lab results 11/27/19 11/27/19 11/27/19 Range/Units 21:20 21:20 21:20 MCV (79-97) fl MCH (28-32) pg Monocytes % (Manual) (0.0-7.3) % BUN (7-17) mg/dL Creatinine (0.7-1.2) mg/dL Alkaline Phosphatase (35-129) units/L Ammonia (25-60) umol/L Total Creatine Kinase 191 H (30-135) units/L Total Protein (6.3-8.2) g/dL Albumin (3.9-5) g/dL Urine pH (5.0-7.0) Salicylates < 0.3 L (2.8-20.0) mg/dL Acetaminophen < 5.0 L (10.0-30.0) ug/mL 11/27/19 11/27/19 11/27/19 Range/Units 21:20 21:20 21:20 MCV 99 H (79-97) fl MCH 33 H (28-32) pg Monocytes % (Manual) 8.0 H (0.0-7.3) % BUN 24 H (7-17) mg/dL Creatinine 0.6 L (0.7-1.2) mg/dL Alkaline Phosphatase 28 L (35-129) units/L Ammonia 21.0 L (25-60) umol/L Total Creatine Kinase (30-135) units/L Total Protein 5.5 L (6.3-8.2) g/dL Albumin 3.4 L (3.9-5) g/dL Urine pH (5.0-7.0) Salicylates (2.8-20.0) mg/dL Acetaminophen (10.0-30.0) ug/mL 11/27/19 Range/Units 22:15 MCV (79-97) fl MCH (28-32) pg Monocytes % (Manual) (0.0-7.3) % BUN (7-17) mg/dL Creatinine (0.7-1.2) mg/dL Alkaline Phosphatase (35-129) units/L Ammonia (25-60) umol/L Total Creatine Kinase (30-135) units/L Total Protein (6.3-8.2) g/dL Albumin (3.9-5) g/dL Urine pH 8.0 H (5.0-7.0) Salicylates (2.8-20.0) mg/dL Acetaminophen (10.0-30.0) ug/mL Assessment and Plan - Patient Problems (1) Acute encephalopathy Current Visit: Yes Status: Acute Plan to address problem: Possibly secondary to underlying dehydration and pneumonia. She has been started on IV fluid and empiric IV antibiotics. We will monitor mental status. (2) Dehydration Current Visit: Yes Status: Acute Plan to address problem: Patient placed on IV fluid. Will monitor BUN and creatinine. (3) Pulmonary infiltrate Current Visit: Yes Status: Acute Plan to address problem: Patient placed on empiric IV antibiotics for pneumonia. Will await blood culture results. (4) Diabetes Current Visit: No Status: Acute Plan to address problem: Diet controlled. We will monitor Accu-Cheks . (5) DVT prophylaxis Current Visit: No Status: Acute Plan to address problem: We will place on subcutaneous heparin. (6) Full code status Current Visit: Yes Status: Acute
[2019-11-27] MEDS ORDERED: SODIUM CHLORIDE 0.9% 500 ML 500 ML ONE (23:45)
[2019-11-27] MEDS ORDERED: AZITHROMYCIN 500 MG in SODIUM CHLORIDE 0.9% 250ML 250 ML IV ONE (23:49)
[2019-11-28] MEDS: SODIUM CHLORIDE 0.9% 1000 ML 1,000 ML IV SCH ×2 (01:28→17:17)
[2019-11-28 05:49] LABS: Hematocrit 33.7 % (30.3-42.9); Hemoglobin 11.3 gm/dl (10.1-14.3); Mean Corpuscular HGB Conc 34 % (30-34); Mean Corpuscular Volume 100 fl (79-97); Platelet Count 108 K/mm3 (140-440); Red Blood Count 3.36 M/mm3 (3.65-5.03); Red Cell Distribution Width 13.8 % (13.2-15.2)
[2019-11-28 05:58] LABS: INR 1.09 (0.87-1.13)
[2019-11-28 06:09] LABS: BUN/Creatinine Ratio 36; Blood Urea Nitrogen 18 mg/dL (7-17); Calcium 8.6 mg/dL (8.4-10.2); Hemolysis Index 11
[2019-11-28 07:40] LABS: Band Neutrophils # (Manual) 0.1 K/mm3; Basophils % (Manual) 0 % (0.0-1.8); Eosinophils % (Manual) 0 % (0.0-4.3); Total Cells Counted 100
[2019-11-28 07:41] LABS: Anisocytosis 1+; Burr Cells 1+; Platelet Estimate Consistent w Auto; Poikilocytosis 1+
[2019-11-28] MEDS: INSULIN LISPRO 100 UNIT/ML SUB-Q SCH ×4 (09:23→22:49)
[2019-11-28] MEDS ORDERED: AZITHROMYCIN 500 MG in SODIUM CHLORIDE 0.9% 250ML 250 ML IV SCH (10:00)
[2019-11-28] MEDS ORDERED: cefTRIAXone/NS 2 GM/100 ML 2 GM/100 ML BAG IV SCH (10:00)
--- NOTE | 2019-11-28 16:03 | Progress Note ---
Assessment and Plan / Acute encephalopathy Possibly secondary to underlying dehydration and pneumonia. She has been started on IV fluid and empiric IV antibiotics. We will cont to monitor mental status. / Dehydration Patient placed on IV fluid. Will monitor BUN and creatinine. / Pulmonary infiltrate - b/l PNA Patient placed on empiric IV antibiotics for pneumonia. Will await blood culture results. will also rule out for COVID 19 / Diabetes Diet controlled. We will monitor Accu-Cheks with SSI . /h/o bronchogenic Ca, cont oupt f/u / DVT prophylaxis We will place on subcutaneous heparin. - Full code status Brief history: 84-year-old female with known history of hypertension, coronary artery disease with 2 MIs in the past, paroxysmal SVT , Hydronephrosis with history of ureteral stent placement and history of right lung mass/bronchogenic Ca brought into the emergency room today by EMS because of altered mental status and generalized weakness. Work-up in the emergency room today revealed a left lower lobe infiltrate, she is also found to be dehydrated. Physical exam: General appearance: Present: no acute distress, well-nourished - EENT Eyes: Present: PERRL, EOM intact - Neck Neck: Present: supple, normal ROM - Respiratory Respiratory effort: normal Respiratory: left: diminished - Cardiovascular Rhythm: regular Heart Sounds: Present: S1 & S2 - Extremities Extremities: no ischemia, pulses intact, pulses symmetrical, No edema, Full ROM Peripheral Pulses: within normal limits - Abdominal General gastrointestinal: Present: soft, non-tender, non-distended, normal bowel sounds - Integumentary Integumentary: Present: clear, warm, dry - Musculoskeletal Musculoskeletal: strength equal bilaterally - Psychiatric Psychiatric: cooperative - Neurologic Neurologic: CNII-XII intact, moves all extremities Subjective Date of service: 11/28/19 Interval history: Patient seen and examined appears lethargic, denies chest pain Objective - Constitutional Vitals: Vital Signs - 12hr 11/28/19 11/28/19 06:27 10:00 Temperature 98.2 F Pulse Rate 52 L Respiratory 20 Rate Blood Pressure 127/57 O2 Sat by Pulse 96 95 Oximetry - Labs CBC & Chem 7: 11/28/19 04:23 11/28/19 04:23 Labs: Abnormal lab results 11/27/19 11/27/19 11/27/19 Range/Units 21:20 21:20 21:20 WBC (4.5-11.0) K/mm3 RBC (3.65-5.03) M/mm3 MCV (79-97) fl MCH (28-32) pg Plt Count (140-440) K/mm3 Monocytes % (Manual) (0.0-7.3) % Potassium (3.6-5.0) mmol/L Chloride (98-107) mmol/L BUN (7-17) mg/dL Creatinine (0.7-1.2) mg/dL POC Glucose (70-105) Alkaline Phosphatase (35-129) units/L Ammonia (25-60) umol/L Total Creatine Kinase 191 H (30-135) units/L Total Protein (6.3-8.2) g/dL Albumin (3.9-5) g/dL Urine pH (5.0-7.0) Salicylates < 0.3 L (2.8-20.0) mg/dL Acetaminophen < 5.0 L (10.0-30.0) ug/mL 11/27/19 11/27/19 11/27/19 Range/Units 21:20 21:20 21:20 WBC (4.5-11.0) K/mm3 RBC (3.65-5.03) M/mm3 MCV 99 H (79-97) fl MCH 33 H (28-32) pg Plt Count (140-440) K/mm3 Monocytes % (Manual) 8.0 H (0.0-7.3) % Potassium (3.6-5.0) mmol/L Chloride (98-107) mmol/L BUN 24 H (7-17) mg/dL Creatinine 0.6 L (0.7-1.2) mg/dL POC Glucose (70-105) Alkaline Phosphatase 28 L (35-129) units/L Ammonia 21.0 L (25-60) umol/L Total Creatine Kinase (30-135) units/L Total Protein 5.5 L (6.3-8.2) g/dL Albumin 3.4 L (3.9-5) g/dL Urine pH (5.0-7.0) Salicylates (2.8-20.0) mg/dL Acetaminophen (10.0-30.0) ug/mL 11/27/19 11/28/19 11/28/19 Range/Units 22:15 04:23 04:23 WBC 4.3 L (4.5-11.0) K/mm3 RBC 3.36 L (3.65-5.03) M/mm3 MCV 100 H (79-97) fl MCH 34 H (28-32) pg Plt Count 108 L (140-440) K/mm3 Monocytes % (Manual) 8.0 H (0.0-7.3) % Potassium 3.5 L (3.6-5.0) mmol/L Chloride 107.8 H (98-107) mmol/L BUN 18 H (7-17) mg/dL Creatinine 0.5 L (0.7-1.2) mg/dL POC Glucose (70-105) Alkaline Phosphatase (35-129) units/L Ammonia (25-60) umol/L Total Creatine Kinase (30-135) units/L Total Protein (6.3-8.2) g/dL Albumin (3.9-5) g/dL Urine pH 8.0 H (5.0-7.0) Salicylates (2.8-20.0) mg/dL Acetaminophen (10.0-30.0) ug/mL 11/28/19 11/28/19 Range/Units 09:47 11:51 WBC (4.5-11.0) K/mm3 RBC (3.65-5.03) M/mm3 MCV (79-97) fl MCH (28-32) pg Plt Count (140-440) K/mm3 Monocytes % (Manual) (0.0-7.3) % Potassium (3.6-5.0) mmol/L Chloride (98-107) mmol/L BUN (7-17) mg/dL Creatinine (0.7-1.2) mg/dL POC Glucose 112 H 127 H (70-105) Alkaline Phosphatase (35-129) units/L Ammonia (25-60) umol/L Total Creatine Kinase (30-135) units/L Total Protein (6.3-8.2) g/dL Albumin (3.9-5) g/dL Urine pH (5.0-7.0) Salicylates (2.8-20.0) mg/dL Acetaminophen (10.0-30.0) ug/mL HEART Score - HEART Score Troponin: Troponin T 0.026 ng/mL (0.00-0.029) 11/27/19 21:20
[2019-11-28] MEDS: cefTRIAXone/NS 2 GM/100 ML 2 GM/100 ML BAG IV SCH (21:10)
[2019-11-28] MEDS: AZITHROMYCIN 250 MG TAB PO SCH (21:11)
[2019-11-29] MEDS ORDERED: POTASSIUM CHLORIDE ER 20 MEQ TAB PO ONE (01:08)
[2019-11-29 03:02] LABS: BUN/Creatinine Ratio 18; Blood Urea Nitrogen 11 mg/dL (7-17); Calcium 8.1 mg/dL (8.4-10.2); Hemolysis Index 5
[2019-11-29] MEDS: SODIUM CHLORIDE 0.9% 1000 ML 1,000 ML IV SCH (03:48)
[2019-11-29] MEDS ORDERED: NON-FORMULARY EACH (Divalproex Er 500 MG) PO SCH (08:00)
[2019-11-29] MEDS: INSULIN LISPRO 100 UNIT/ML SUB-Q SCH ×3 (09:49→23:02)
[2019-11-29] MEDS: DIVALPROEX ER 500 MG TAB PO SCH ×2 (09:50→23:09)
--- NOTE | 2019-11-29 17:39 | Progress Note ---
Assessment and Plan - Patient Problems (1) Acute kidney injury (RIVAS) with acute tubular necrosis (ATN) Current Visit: Yes Status: Acute Plan to address problem: Patient with acute kidney injury most likely secondary to ATN prerenal azotemia. Correct with IV volume hydration. (2) Acute encephalopathy Current Visit: Yes Status: Acute Plan to address problem: Acute encephalopathy toxic metabolic encephalopathy secondary to pneumonia hypoxemia dehydration. Resolving. (3) Pulmonary infiltrate Current Visit: Yes Status: Acute Plan to address problem: Patient with left lower lobe pneumonia. Will treat with azithromycin and Rocephin. Currently afebrile leukocytosis improving. (4) Diabetes Current Visit: Yes Status: Acute Plan to address problem: At present diet control. Patient also has poor appetite. Would not add any medicines at this time sliding-scale insulin only. (5) Bronchogenic carcinoma of left lung Current Visit: Yes Status: Acute Plan to address problem: Follow-up outpatient oncology. History Interval history: 84-year-old female with a history of coronary artery disease status post myocardial infarction x2 SVT, bronchogenic CA, right lung mass presents this admission with altered mental status work-up revealed left lower lobe pneumonia and hypokalemia. Patient at present hemodynamically stable. Oxygenating fairly well. No new events overnight. Hospitalist Physical - Constitutional Vitals: Temp Pulse Resp BP Pulse Ox 98.1 F 52 L 16 136/60 97 11/29/19 04:16 11/29/19 04:16 11/29/19 04:16 11/29/19 04:16 11/29/19 04:16 General appearance: Present: no acute distress, well-nourished - EENT Eyes: Present: PERRL, EOM intact ENT: hearing intact, clear oral mucosa, dentition normal - Neck Neck: Present: supple, normal ROM - Respiratory Respiratory: left: diminished, rhonchi - Cardiovascular Rhythm: regular - Extremities Extremities: no ischemia, pulses intact, normal temperature Extremity abnormal: edema Peripheral Pulses: within normal limits - Abdominal General gastrointestinal: soft, non-tender, non-distended, normal bowel sounds - Psychiatric Psychiatric: appropriate mood/affect - Neurologic Neurologic: CNII-XII intact HEART Score - HEART Score Troponin: Troponin T 0.026 ng/mL (0.00-0.029) 11/27/19 21:20 Results - Labs CBC & Chem 7: 11/28/19 04:23 11/29/19 02:24 Labs: Laboratory Last Values WBC 4.3 K/mm3 (4.5-11.0) L 11/28/19 04:23 RBC 3.36 M/mm3 (3.65-5.03) L 11/28/19 04:23 Hgb 11.3 gm/dl (10.1-14.3) 11/28/19 04:23 Hct 33.7 % (30.3-42.9) 11/28/19 04:23 MCV 100 fl (79-97) H 11/28/19 04:23 MCH 34 pg (28-32) H 11/28/19 04:23 MCHC 34 % (30-34) 11/28/19 04:23 RDW 13.8 % (13.2-15.2) 11/28/19 04:23 Plt Count 108 K/mm3 (140-440) L 11/28/19 04:23 Baso % (Auto) Production Technologist 11/27/19 21:20 Add Manual Diff Complete 11/28/19 04:23 Total Counted 100 11/28/19 04:23 Seg Neuts % (Manual) 59.0 % (40.0-70.0) 11/28/19 04:23 Band Neutrophils % 2.0 % 11/28/19 04:23 Lymphocytes % (Manual) 30.0 % (13.4-35.0) 11/28/19 04:23 Reactive Lymphs % (Man) 0 % 11/28/19 04:23 Monocytes % (Manual) 8.0 % (0.0-7.3) H 11/28/19 04:23 Eosinophils % (Manual) 0 % (0.0-4.3) 11/28/19 04:23 Basophils % (Manual) 0 % (0.0-1.8) 11/28/19 04:23 Metamyelocytes % 1.0 % 11/28/19 04:23 Myelocytes % 0 % 11/28/19 04:23 Promyelocytes % 0 % 11/28/19 04:23 Blast Cells % 0 % 11/28/19 04:23 Nucleated RBC % Not Reportable 11/28/19 04:23 Seg Neutrophils # Man 2.5 K/mm3 (1.8-7.7) 11/28/19 04:23 Band Neutrophils # 0.1 K/mm3 11/28/19 04:23 Lymphocytes # (Manual) 1.3 K/mm3 (1.2-5.4) 11/28/19 04:23 Abs React Lymphs (Man) 0.0 K/mm3 11/28/19 04:23 Monocytes # (Manual) 0.3 K/mm3 (0.0-0.8) 11/28/19 04:23 Eosinophils # (Manual) 0.0 K/mm3 (0.0-0.4) 11/28/19 04:23 Basophils # (Manual) 0.0 K/mm3 (0.0-0.1) 11/28/19 04:23 Metamyelocytes # 0.0 K/mm3 11/28/19 04:23 Myelocytes # 0.0 K/mm3 11/28/19 04:23 Promyelocytes # 0.0 K/mm3 11/28/19 04:23 Blast Cells # 0.0 K/mm3 11/28/19 04:23 WBC Morphology Not Reportable 11/28/19 04:23 Hypersegmented Neuts Not Reportable 11/28/19 04:23 Hyposegmented Neuts Not Reportable 11/28/19 04:23 Hypogranular Neuts Not Reportable 11/28/19 04:23 Smudge Cells Not Reportable 11/28/19 04:23 Toxic Granulation Not Reportable 11/28/19 04:23 Toxic Vacuolation Not Reportable 11/28/19 04:23 Dohle Bodies Not Reportable 11/28/19 04:23 Pelger-Huet Anomaly Not Reportable 11/28/19 04:23 Margoth Rods Not Reportable 11/28/19 04:23 Platelet Estimate Consistent w auto 11/28/19 04:23 Clumped Platelets Not Reportable 11/28/19 04:23 Plt Clumps, EDTA Not Reportable 11/28/19 04:23 Large Platelets Not Reportable 11/28/19 04:23 Giant Platelets Not Reportable 11/28/19 04:23 Platelet Satelliting Not Reportable 11/28/19 04:23 Plt Morphology Comment Not Reportable 11/28/19 04:23 RBC Morphology Not Reportable 11/28/19 04:23 Dimorphic RBCs Not Reportable 11/28/19 04:23 Polychromasia Not Reportable 11/28/19 04:23 Hypochromasia Not Reportable 11/28/19 04:23 Poikilocytosis 1+ 11/28/19 04:23 Anisocytosis 1+ 11/28/19 04:23 Microcytosis Not Reportable 11/28/19 04:23 Macrocytosis Not Reportable 11/28/19 04:23 Spherocytes Not Reportable 11/28/19 04:23 Pappenheimer Bodies Not Reportable 11/28/19 04:23 Sickle Cells Not Reportable 11/28/19 04:23 Target Cells Not Reportable 11/28/19 04:23 Tear Drop Cells Not Reportable 11/28/19 04:23 Ovalocytes Not Reportable 11/28/19 04:23 Helmet Cells Not Reportable 11/28/19 04:23 [place] Bodies Not Reportable 11/28/19 04:23 [place] Rings Not Reportable 11/28/19 04:23 [place] Cells 1+ 11/28/19 04:23 Bite Cells Not Reportable 11/28/19 04:23 Crenated Cell Not Reportable 11/28/19 04:23 Elliptocytes Not Reportable 11/28/19 04:23 Acanthocytes (Spur) Few 11/28/19 04:23 Rouleaux Not Reportable 11/28/19 04:23 Hemoglobin C Crystals Not Reportable 11/28/19 04:23 Schistocytes Not Reportable 11/28/19 04:23 Malaria parasites Not Reportable 11/28/19 04:23 Ulisses Bodies Not Reportable 11/28/19 04:23 Hem Pathologist Commnt No 11/28/19 04:23 PT 14.2 Sec. (12.2-14.9) 11/28/19 04:23 INR 1.09 (0.87-1.13) 11/28/19 04:23 APTT 24.5 Sec. (24.2-36.6) 11/27/19 21:20 Sodium 141 mmol/L (137-145) 11/29/19 02:24 Potassium 3.1 mmol/L (3.6-5.0) L 11/29/19 02:24 Chloride 109.6 mmol/L (98-107) H 11/29/19 02:24 Carbon Dioxide 22 mmol/L (22-30) 11/29/19 02:24 Anion Gap 13 mmol/L 11/29/19 02:24 BUN 11 mg/dL (7-17) 11/29/19 02:24 Creatinine 0.6 mg/dL (0.7-1.2) L 11/29/19 02:24 Estimated GFR > 60 ml/min 11/29/19 02:24 BUN/Creatinine Ratio 18 % 11/29/19 02:24 Glucose 54 mg/dL (65-100) L 11/29/19 02:24 POC Glucose 127 (70-105) H 11/29/19 17:24 Lactic Acid 1.00 mmol/L (0.7-2.0) 11/27/19 21:20 Calcium 8.1 mg/dL (8.4-10.2) L 11/29/19 02:24 Magnesium 2.00 mg/dL (1.7-2.3) 11/27/19 21:20 Total Bilirubin 0.60 mg/dL (0.1-1.2) 11/27/19 21:20 AST 21 units/L (5-40) 11/27/19 21:20 ALT 14 units/L (7-56) 11/27/19 21:20 Alkaline Phosphatase 28 units/L (35-129) L 11/27/19 21:20 Ammonia 21.0 umol/L (25-60) L 11/27/19 21:20 Total Creatine Kinase 191 units/L (30-135) H 11/27/19 21:20 Troponin T 0.026 ng/mL (0.00-0.029) 11/27/19 21:20 Total Protein 5.5 g/dL (6.3-8.2) L 11/27/19 21:20 Albumin 3.4 g/dL (3.9-5) L 11/27/19 21:20 Albumin/Globulin Ratio 1.6 % 11/27/19 21:20 TSH 1.750 mlU/mL (0.270-4.200) 11/27/19 21:20 Urine Color Yellow (Yellow) 11/27/19 22:15 Urine Turbidity Cloudy (Clear) 11/27/19 22:15 Urine pH 8.0 (5.0-7.0) H 11/27/19 22:15 Ur Specific [place] 1.017 (1.003-1.030) 11/27/19 22:15 Urine Protein <15 mg/dl mg/dL (Negative) 11/27/19 22:15 Urine Glucose (UA) Neg mg/dL (Negative) 11/27/19 22:15 Urine Ketones 20 mg/dL (Negative) 11/27/19 22:15 Urine Blood Neg (Negative) 11/27/19 22:15 Urine Nitrite Neg (Negative) 11/27/19 22:15 Urine Bilirubin Neg (Negative) 11/27/19 22:15 Urine Urobilinogen 4.0 mg/dL (<2.0) 11/27/19 22:15 Ur Leukocyte Esterase Tr (Negative) 11/27/19 22:15 Urine WBC (Auto) 2.0 /HPF (0.0-6.0) 11/27/19 22:15 Urine RBC (Auto) 5.0 /HPF (0.0-6.0) 11/27/19 22:15 U Epithel Cells (Auto) 3.0 /HPF (0-13.0) 11/27/19 22:15 Urine Mucus Few /HPF 11/27/19 22:15 Salicylates < 0.3 mg/dL (2.8-20.0) L 11/27/19 21:20 Acetaminophen < 5.0 ug/mL (10.0-30.0) L 11/27/19 21:20 Valproic Acid 66.4 ug/mL (50-100) 11/27/19 21:20 Plasma/Serum Alcohol < 0.01 % (0-0.07) 11/27/19 21:20 Coronavirus (PCR) Negative (Negative) 11/29/19 Unknown Microbiology: Microbiology 11/27/19 22:15 Urine,Catheterized - Straight Catheter Urine Culture - Preliminary 11/27/19 21:20 Peripheral/Venous Blood Culture - Preliminary NO GROWTH AFTER 24 HOURS 11/27/19 21:20 Peripheral/Venous Blood Culture - Preliminary NO GROWTH AFTER 24 HOURS [place]/IV: Voiding Method Incontinent IV Catheter Type [Right Peripheral IV Antecubital] Active Medications - Current Medications Current Medications: Generic Name Dose Route Start Last Admin Trade Name Freq PRN Reason Stop Dose Admin Acetaminophen 650 mg 11/27/19 23:17 Tylenol PO Q4H PRN Pain MILD(1-3)/Fever >100.5/ROONEY Azithromycin 500 mg 11/28/19 22:00 11/28/19 21:11 Zithromax PO 12/01/19 22:01 500 mg Q24HR@2200 ARON Administration Dextrose 0 ml 11/27/19 23:17 D50w (25gm) Syringe IV Q30MIN PRN Hypoglycemia Protocol Divalproex Sodium 500 mg 11/29/19 08:00 11/29/19 09:50 Depakote Er PO 500 mg TID ARON Administration Enoxaparin Sodium 40 mg 11/29/19 22:00 Enoxaparin SUB-Q QDAY@2200 ARON Sodium Chloride 1,000 mls @ 125 mls/hr 11/27/19 23:30 11/29/19 03:48 Nacl 0.9% 1000 Ml IV 125 mls/hr DIRECT ARON Administration Ceftriaxone Sodium 2 gm in 100 mls @ 200 mls/hr 11/28/19 22:00 11/28/19 21:10 Rocephin/Ns 2 Gm/100 Ml IV 200 mls/hr Q24HR@2200 ARON Administration Protocol Insulin Human Lispro 0 unit 11/28/19 07:30 11/29/19 12:52 Humalog SUB-Q Not Given ACHS [facility] Protocol Magnesium Hydroxide 30 ml 11/27/19 23:17 Milk Of Magnesia PO Q4H PRN Constipation Morphine Sulfate 2 mg 11/27/19 23:17 Morphine IV Q4H PRN Pain, Moderate (4-6) Ondansetron HCl 4 mg 11/27/19 23:17 Zofran IV Q8H PRN Nausea And Vomiting Sodium Chloride 10 ml 11/28/19 10:00 11/29/19 09:51 Sodium Chloride Flush Syringe 10 Ml IV 10 ml BID ARON Administration Sodium Chloride 10 ml 11/27/19 23:17 Sodium Chloride Flush Syringe 10 Ml IV PRN PRN LINE FLUSH Nutrition/Malnutrition Assess - Dietary Evaluation Nutrition/Malnutrition Findings: Nutrition Notes Start: 11/28/19 09:44 Freq: Status: Active Protocol: Document 11/28/19 09:44 LP (Rec: 11/28/19 10:06 LP [id number]) Nutrition Notes Need for Assessment generated from: MD Order Initial or Follow up Assessment Current Diagnosis CKD(stage I-IV),Diabetes, Hypertension,Heart Failure Other Pertinent Diagnosis Acute encephalopathy, hydronephrosis, dehydration and right lung mass Current Diet Cardiac/consistent CHO Labs/Tests K 3.5 BUN 18 Pertinent Medications NS at 125ml/hr Height 5 ft 2 in Weight 64.4 kg [place] Body Weight (kg) 50.00 BMI 25.9 Weight Status Overweight Subjective/Other Information Consult for diet education. Pt not appropriate for diet education at this time. Pt has shellfish and fish allergy. Burn Absent Trauma Absent GI Symptoms None Food Allergy Yes Minimum of two criteria No Reduced Line Person Strength Measurably Reduced (severe) #1 Nutrition Diagnosis Predicted suboptimal energy intake Etiology Advanced age, AMS As Evidenced by Signs and Symptoms Unable to obtain nutrition hx and no meals recorded. Is patient on ventilator? No Is Patient Ambulatory and/or Out of Bed No REE-([facility]-confined to bed) [phone] Calculation Used for Recommendations [facility] Additional Notes Protein needs are 52-65g (0.8- 1g/kg) Fluid needs are 1ml/kcal Nutrition Intervention Change Diet Order: Continue Add Supplement/Snack (indicate name/kcal Ensure Enlive daily /protein ) Provides kCal: 350 Provides Protein (gm) 20 Goal #1 Meet at least 80% of kcal and protein needs Anticipated Discharge Needs: Cardiac/consistent CHO diet Follow-Up By: 12/03/19 Additional Comments Follow for intakes
[2019-11-29] MEDS: AZITHROMYCIN 250 MG TAB PO SCH (23:09)
[2019-11-29] MEDS: ENOXAPARIN 40 MG/0.4 ML INJ SUB-Q SCH (23:09)
[2019-11-30] MEDS: cefTRIAXone/NS 2 GM/100 ML 2 GM/100 ML BAG IV SCH ×2 (00:31→22:31)
[2019-11-30 06:01] LABS: Hematocrit 34.2 % (30.3-42.9); Hemoglobin 11.5 gm/dl (10.1-14.3); Mean Corpuscular HGB Conc 34 % (30-34); Mean Corpuscular Volume 100 fl (79-97); Platelet Count 128 K/mm3 (140-440); Red Blood Count 3.42 M/mm3 (3.65-5.03); Red Cell Distribution Width 13.8 % (13.2-15.2)
[2019-11-30 06:08] LABS: BUN/Creatinine Ratio 18; Blood Urea Nitrogen 11 mg/dL (7-17); Calcium 8.3 mg/dL (8.4-10.2); Hemolysis Index 4
[2019-11-30 06:54] LABS: Anisocytosis 1+; Band Neutrophils # (Manual) 0.1 K/mm3; Basophils % (Manual) 0 % (0.0-1.8); Eosinophils % (Manual) 0 % (0.0-4.3); Total Cells Counted 100
[2019-11-30 06:55] LABS: Platelet Estimate Consistent w Auto
[2019-11-30] MEDS: SODIUM CHLORIDE 0.9% 1000 ML 1,000 ML IV SCH (08:15)
[2019-11-30] MEDS: DIVALPROEX ER 500 MG TAB PO SCH ×4 (08:23→20:27)
[2019-11-30] MEDS: INSULIN LISPRO 100 UNIT/ML SUB-Q SCH ×5 (08:23→22:31)
--- NOTE | 2019-11-30 12:50 | Discharge Summary ---
Providers - Providers Date of Admission: 11/27/19 23:15 Date of discharge: 11/30/19 Attending physician: TANMAY FERNANDEZ 11/27/19 23:17 Consult to Dietitian/Nutrition [CONS] Routine Physician Instructions: Reason For Exam: Reason for Consult: Diet education 11/28/19 11:49 Physical Therapy Evaluation and Treat [CONS] Routine Comment: Reason For Exam: placement Primary care physician: TEA LEAF READER Hospitalization Condition: Good Hospital course: 84-year-old female with history of hypertension coronary disease right lung mass bronchogenic carcinoma presented with altered mental status and confusion. Patient was found to be septic secondary to pneumonia and have dehydration and this was the cause of acute encephalopathy. Was treated with empiric antibiotics Rocephin and azithromycin. Also gentle IV volume hydration. Patient returned to baseline. Was alert oriented x3 no longer confused. Patient does have hearing deficit. If you get close to patient and talk she is alert oriented and aware of her surroundings. Patient pneumonia defervesced and dehydration resolved. Disposition: DC-30 STILL A PATIENT - Discharge Diagnoses (1) Acute kidney injury (RIVAS) with acute tubular necrosis (ATN) Status: Resolved Comment: Resolved secondary to prerenal azotemia and dehydration. (2) Acute encephalopathy Status: Resolved Comment: Resolved secondary to prerenal azotemia dehydration pneumonia. Patient no longer septic. (3) Pulmonary infiltrate Status: Acute Comment: Pulmonary infiltrate has resolved pneumonia treated. Patient does have chronic right lung mass and bronchogenic carcinoma we will follow-up oncology as outpatient as she been doing. (4) Diabetes Status: Acute Comment: At present remains diet controlled. No additional agent added. (5) Bronchogenic carcinoma of left lung Status: Acute Comment: Follow-up outpatient oncology for continued treatment and observation. Core Measure Documentation - Palliative Care Palliative Care/ Comfort Measures: Not Applicable - Core Measures Any of the following diagnoses?: none Exam - Constitutional Vitals: Temp Pulse Resp BP Pulse Ox 98.2 F 53 L 18 131/58 95 11/30/19 05:45 11/30/19 05:45 11/30/19 05:45 11/30/19 05:45 11/30/19 05:45 General appearance: Present: no acute distress, well-nourished - EENT Eyes: Present: PERRL ENT: hearing intact, clear oral mucosa - Neck Neck: Present: supple, normal ROM - Respiratory Respiratory effort: normal Respiratory: right: diminished (Secondary to bronchogenic carcinoma unchanged.), bilateral: CTA - Cardiovascular Heart Sounds: Present: S1 & S2. Absent: rub, click - Extremities Extremities: pulses symmetrical, No edema Peripheral Pulses: within normal limits - Abdominal General gastrointestinal: Present: soft, non-tender, non-distended, normal bowel sounds Female genitourinary: Present: normal - Integumentary Integumentary: Present: clear, warm, dry - Musculoskeletal Musculoskeletal: gait normal, strength equal bilaterally - Psychiatric Psychiatric: appropriate mood/affect, intact judgment & insight - Neurologic Neurologic: CNII-XII intact, moves all extremities Plan Activity: up only with assistance Weight Bearing Status: Weight Bear as Tolerated Diet: diabetic Follow up with: PRIMARY CARE, [Primary Care Provider] - 3-5 Days Prescriptions: Azithromycin [Zithromax TAB] 500 mg PO Q24HR@2200 #7 tablet
[2019-11-30] MEDS: AZITHROMYCIN 250 MG TAB PO SCH (22:31)
[2019-11-30] MEDS: ENOXAPARIN 40 MG/0.4 ML INJ SUB-Q SCH (22:32)
--- NOTE | 2019-12-01 07:18 | Event Note ---
Date: 12/01/19 Patient did not go home because her son wanted hospice services with [place]. His daughter works at [facility] [employer] and wanted to go there. Patient mother also states she did not want to go home she wanted to go live with the son after long conversation.
--- NOTE | 2019-12-01 07:36 | Progress Note ---
Assessment and Plan - Patient Problems (1) Acute kidney injury (RIVAS) with acute tubular necrosis (ATN) Current Visit: Yes Status: Resolved Plan to address problem: Resolved secondary to prerenal azotemia. ATN. (2) Acute encephalopathy Current Visit: Yes Status: Resolved Plan to address problem: Acute encephalopathy is also resolved. Was most likely multifactorial secondary to #1 pneumonia and sepsis #2 dehydration acute renal failure #3 narcotics and pain control probably played a role (3) Pulmonary infiltrate Current Visit: Yes Status: Acute Plan to address problem: Patient with left lower lobe pneumonia. Will treat with azithromycin and Rocephin. Currently afebrile leukocytosis improving. Can be treated with p.o. antibiotics now. Patient is afebrile breathing well. Not requiring oxygen. Will always have respiratory compromise secondary to bronchogenic carcinoma. Did explain that the son and he is aware of the dying process. (4) Diabetes Current Visit: Yes Status: Acute Plan to address problem: At present diet control. Patient also has poor appetite. Would not add any medicines at this time sliding-scale insulin only. (5) Bronchogenic carcinoma of left lung Current Visit: Yes Status: Acute Plan to address problem: Spoke with son and mother. Mother wanted to go home with son. Initially mother wanted to go to her own house. Now has changed her mind and want to go home with son. On hospice. Patient's granddaughter works for [facility] and would like her placed there. Awaiting hospice services. Patient will need hospital bed placed per son. Subjective Date of service: 12/01/19 Principal diagnosis: Pneumonia bronchogenic carcinoma. Dehydration. Interval history: 84-year-old female with a history of coronary artery disease status post myocardial infarction x2 SVT, bronchogenic CA, right lung mass presents this admission with altered mental status work-up revealed left lower lobe pneumonia and hypokalemia. Patient at present hemodynamically stable. Oxygenating fairly well. No new events overnight. Awaiting hospice services with [facility]. Patient to be discharged to son's home on Monday. Objective - Constitutional Vitals: Vital Signs - 12hr 11/30/19 11/30/19 12/01/19 22:00 22:15 04:22 Temperature 98.5 F 97.9 F Pulse Rate 65 61 Respiratory 16 18 18 Rate Respiratory 16 Rate [Chest/ shlds] Respiratory 16 Rate [headache] Blood Pressure 120/61 129/51 O2 Sat by Pulse 96 94 Oximetry General appearance: Present: no acute distress, other (Very hard of hearing) - EENT Eyes: PERRL, EOM intact ENT: other (Very hard of hearing) - Respiratory Respiratory: left: diminished, rhonchi - Cardiovascular Rhythm: regular Extremities: pulses intact, No edema, normal color, Full ROM - Gastrointestinal General gastrointestinal: Present: soft, non-tender, non-distended, normal bowel sounds - Musculoskeletal Musculoskeletal: generalized weakness - Neurologic Neurologic: moves all extremities - Psychiatric Psychiatric: memory intact, appropriate mood/affect, intact judgment & insight - Labs CBC & Chem 7: 11/30/19 05:27 11/30/19 05:27 HEART Score - HEART Score Troponin: Troponin T 0.026 ng/mL (0.00-0.029) 11/27/19 21:20
[2019-12-01] MEDS: INSULIN LISPRO 100 UNIT/ML SUB-Q SCH ×4 (07:37→22:09)
[2019-12-01] MEDS: DIVALPROEX ER 500 MG TAB PO SCH ×3 (09:54→20:25)
[2019-12-01] MEDS: cefTRIAXone/NS 2 GM/100 ML 2 GM/100 ML BAG IV SCH (22:09)
[2019-12-01] MEDS: AZITHROMYCIN 250 MG TAB PO SCH (22:09)
[2019-12-01] MEDS: ENOXAPARIN 40 MG/0.4 ML INJ SUB-Q SCH (22:10)
[2019-12-02] MEDS: INSULIN LISPRO 100 UNIT/ML SUB-Q SCH (07:30)
--- NOTE | 2019-12-02 08:00 | Discharge Summary ---
Providers - Providers Date of Admission: 11/27/19 23:15 Date of discharge: 12/02/19 Attending physician: TANMAY FERNANDEZ 11/27/19 23:17 Consult to Dietitian/Nutrition [CONS] Routine Physician Instructions: Reason For Exam: Reason for Consult: Diet education 11/28/19 11:49 Physical Therapy Evaluation and Treat [CONS] Routine Comment: Reason For Exam: placement Primary care physician: DECK MOLDER Hospitalization Condition: Good Hospital course: Patient admitted for pneumonia. Was treated for pneumonia. History of bronchogenic carcinoma. Patient was on hospice. Plan to go back home on hospice services change. Patient would like to go back to his son's home with hospice with [facility] plan has been arranged. Disposition: DC-30 STILL A PATIENT - Discharge Diagnoses (1) Acute kidney injury (RIVAS) with acute tubular necrosis (ATN) Status: Resolved Comment: Resolved secondary to prerenal azotemia and dehydration. (2) Acute encephalopathy Status: Resolved Comment: Resolved secondary to prerenal azotemia dehydration pneumonia. Patient no longer septic. (3) Pulmonary infiltrate Status: Acute Comment: Pulmonary infiltrate has resolved pneumonia treated. Patient does have chronic right lung mass and bronchogenic carcinoma we will follow-up oncology as outpatient as she been doing. (4) Diabetes Status: Acute Comment: At present remains diet controlled. No additional agent added. (5) Bronchogenic carcinoma of left lung Status: Acute Comment: Follow-up outpatient oncology for continued treatment and observation. Core Measure Documentation - Palliative Care Palliative Care/ Comfort Measures: Palliative Care/Comfort Measures - Core Measures Any of the following diagnoses?: none Exam - Constitutional Vitals: Temp Pulse Resp BP Pulse Ox 98.5 F 62 20 121/55 92 12/02/19 05:19 12/02/19 05:19 12/02/19 05:19 12/02/19 05:19 12/02/19 05:19 General appearance: Present: no acute distress, well-nourished - EENT Eyes: Present: PERRL ENT: hearing intact, clear oral mucosa - Neck Neck: Present: supple, normal ROM - Respiratory Respiratory effort: normal Respiratory: left: diminished, rales - Cardiovascular Heart Sounds: Present: S1 & S2. Absent: rub, click - Extremities Extremities: pulses symmetrical, No edema Peripheral Pulses: within normal limits - Abdominal General gastrointestinal: Present: soft, non-tender, non-distended, normal bowel sounds Female genitourinary: Present: normal - Integumentary Integumentary: Present: clear, warm, dry - Musculoskeletal Musculoskeletal: gait normal, strength equal bilaterally - Psychiatric Psychiatric: appropriate mood/affect, intact judgment & insight - Neurologic Neurologic: CNII-XII intact, moves all extremities Plan Special Instructions: home hospice Follow up with: PRIMARY CARE, [Primary Care Provider] - 3-5 Days Prescriptions: Azithromycin [Zithromax TAB] 500 mg PO Q24HR@2200 #7 tablet
[2019-12-02] MEDS: DIVALPROEX ER 500 MG TAB PO SCH (09:09)
[2019-12-02 12:58] VITALS: BP 140/66
== END 2019-12-02 12:30 | disposition hospice, home (50) | DRG 871 ==
LOC: ED 21:02 → IMCU 23:15 → 3A 11-29 15:27
PROVIDERS: ADMIT Internal Medicine Geriatric Medicine; ATTEND Internal Medicine
DX: A41.9 Sepsis, unspecified organism (principal); J18.9 Pneumonia, unspecified organism; N17.0 Acute kidney failure with tubular necrosis; G92 Toxic encephalopathy; C34.92 Malignant neoplasm of unspecified part of left bronchus or lung; E86.0 Dehydration; K21.9 Gastro-esophageal reflux disease without esophagitis; M19.90 Unspecified osteoarthritis, unspecified site; E87.6 Hypokalemia; E11.9 Type 2 diabetes mellitus without complications; I10 Essential (primary) hypertension; I25.10 Atherosclerotic heart disease of native coronary artery without angina pectoris; Z51.5 Encounter for palliative care; I25.2 Old myocardial infarction; Z86.73 Personal history of transient ischemic attack (TIA), and cerebral infarction without residual deficits; Z95.818 Presence of other cardiac implants and grafts; Z90.89 Acquired absence of other organs; Z91.030 Bee allergy status; Z88.0 Allergy status to penicillin; Z91.013 Allergy to seafood; Z88.6 Allergy status to analgesic agent
CPT/HCPCS: 36415; 70450; 71045; 80048; 80053; 80164; 80320; 81001; 82140; 82550; 82962; 83735; 84443; 84484; 85007; 85025; 85610; 85730; 87040; 87086; 93005; G0378; G0480; J0456; J0696; J1650; J1815; J7030; J7040; J7050; U0003-CS